=== PATIENT | female | born 1965 | race Caucasian/White ===

== ENCOUNTER 2020-06-25 13:24 | Outpatient (REF) | payer MEDICAID, SELFPAY ==
[2020-06-26 07:26] LABS: Estimated Average Glucose 137 mg/dL; Hemoglobin A1c % 6.4 %
== END 2020-06-25 13:25 | disposition home or self-care (01) ==
LOC: HO.MANLDS 13:24
PROVIDERS: PCP Internal Medicine; Visit Provider Internal Medicine
DX: R73.01 Impaired fasting glucose (principal)
CPT/HCPCS: 83036

== ENCOUNTER 2020-10-27 14:42 | Outpatient (REF) | payer MEDICAID, SELFPAY ==
[2020-10-27 18:11] LABS: Estimated Average Glucose 137 mg/dL; Hemoglobin A1c % 6.4 %
== END 2020-10-27 14:43 | disposition home or self-care (01) ==
LOC: HO.MANLR 14:42
PROVIDERS: PCP Internal Medicine; Visit Provider Internal Medicine
DX: R73.9 Hyperglycemia, unspecified (principal)
CPT/HCPCS: 36415; 83036

== ENCOUNTER 2020-11-17 13:37 | Outpatient (REF) | payer MEDICAID, SELFPAY ==
[2020-11-17 18:05] LABS: MANUAL DIFF FLAG NO
[2020-11-17 18:09] LABS: Basophils Absolute Auto 0.1 X10*3/uL (0.0-0.2); Basophils Percent Auto 0.7 % (0-2); Eosinophils Absolute Auto 0.2 X10*3/uL (0.0-0.4); Eosinophils Percent Auto 2.1 % (0-4); Hematocrit 41.7 % (37-47); Hemoglobin 13.2 g/dl (12.0-16.0); Imm Gran Abs Auto 0.03 X10*3/uL (0.00-0.03); Imm Gran Pct Auto 0.4 % (0.0-0.4); Lymphocytes Absolute Auto 2.2 X10*3/uL (1.2-4.9); Lymphocytes Percent Auto 28.4 % (20-40); Mean Corpuscular HGB Conc 31.7 g/dl (31.0-35.0); Mean Corpuscular Hemoglobin 28.1 pg (27.0-33.0); Mean Corpuscular Volume 88.9 fL (80-98); Mean Platelet Volume 10.1 fL (9.4-12.3); Monocytes Absolute Auto 0.5 X10*3/uL (0.1-1.2); Monocytes Percent Auto 6.1 % (2-11); Neutrophils Absolute Auto 4.7 X10*3/uL (2.0-8.3); Neutrophils Percent Auto 62.3 % (45-73); Platelet Count 345 X10*3/uL (160-400); Red Blood Count 4.69 X10*6/uL (4.20-5.50); Red Cell Distribution Width 13.4 % (11.0-16.0); White Blood Count 7.6 X10*3/uL (4.8-10.8)
[2020-11-17 18:35] LABS: Anion Gap 15 (12-20); Blood Urea Nitrogen 21 mg/dL (9-16); Calcium 9.2 mg/dL (8.4-10.2); Carbon Dioxide 27 mmol/L (22-29); Chloride 103 mmol/L (96-108); Estimated Glomerular Filt Rate 56; Glucose Random 112 mg/dL (60-115); Iron 61 mcg/dL (30-160); Percent Iron Saturation 17 % (15-50); Potassium 4.1 mmol/L (3.3-5.1); Sodium 141 mmol/L (135-145); Total Iron Binding Capacity 355 mcg/dL (228-428); Unsaturated Iron Binding 294 ug/dL
[2020-11-17 18:52] LABS: Erythrocyte Sedimentation Rate 40 MM/HR (0-20)
[2020-11-17 18:56] LABS: Ferritin 64 ng/mL (10-250); TSH reflex Free T4 0.91 uIU/mL (0.32-4.0)
== END 2020-11-17 13:38 | disposition home or self-care (01) ==
LOC: HO.MANLDS 13:37
PROVIDERS: PCP Internal Medicine; Visit Provider Internal Medicine
DX: R53.83 Other fatigue (principal); E61.1 Iron deficiency
CPT/HCPCS: 36415; 80048; 82728; 83540; 84443; 85025; 85652

== ENCOUNTER 2020-12-03 10:41 | Outpatient (REF) | payer MEDICAID, SELFPAY ==
[2020-12-03 14:16] LABS: Estimated Average Glucose 134 mg/dL; Hemoglobin A1c % 6.3 %
[2020-12-03 14:51] LABS: Erythrocyte Sedimentation Rate 31 MM/HR (0-20)
[2020-12-03 14:55] LABS: Vitamin D 25-OH Total 42.5 ng/mL (>30)
[2020-12-04 13:26] LABS: EBV-VCA IgG Ab >750.00 U/mL; EBV-VCA IgM Ab <36.00 U/mL
[2020-12-04 13:51] LABS: CRP High Sensitivity >10.0 mg/L
[2020-12-23 07:41] LABS: Parvovirus B19 IgM 0.1 (<0.9)
[2020-12-24 17:11] LABS: Parvovirus B19 IgG <0.9
== END 2020-12-03 10:42 | disposition home or self-care (01) ==
LOC: HO.MANLDS 10:41
PROVIDERS: PCP Internal Medicine; Visit Provider Internal Medicine
DX: R73.9 Hyperglycemia, unspecified (principal); R70.0 Elevated erythrocyte sedimentation rate
CPT/HCPCS: 36415; 82306; 83036; 85652; 86141; 86664; 86665; 86747

== ENCOUNTER 2020-12-10 15:11 | Outpatient (REF) | payer MEDICAID, SELFPAY | END 2020-12-10 15:12 | disposition home or self-care (01) | LOC: HO.MANLDS 15:11 | PROVIDERS: PCP Internal Medicine; Visit Provider Physician Assistant | DX: R30.9 Painful micturition, unspecified (principal) | CPT/HCPCS: 87086 ==

== ENCOUNTER 2021-07-13 12:15 | Outpatient (REF) | payer MEDICAID, SELFPAY ==
[2021-07-13 18:15] LABS: Estimated Average Glucose 134 mg/dL; Hemoglobin A1c % 6.3 %; Rheumatoid Factor < 15.0 IU/mL (<15.0)
[2021-07-13 18:52] LABS: Erythrocyte Sedimentation Rate 44 MM/HR (0-20)
[2021-07-15 13:56] LABS: Anti Nuclear Antibody Screen NEGATIVE (NEGATIVE)
== END 2021-07-13 12:16 | disposition home or self-care (01) ==
LOC: HO.MANLDS 12:15
PROVIDERS: PCP Physician Assistant; Visit Provider Physician Assistant
DX: M08.3 Juvenile rheumatoid polyarthritis (seronegative) (principal); R73.01 Impaired fasting glucose
CPT/HCPCS: 36415; 83036; 85652; 86038; 86039; 86431

== ENCOUNTER 2021-11-14 16:12 | Outpatient (REF) | payer MEDICAID, SELFPAY ==
[2021-11-14 18:05] LABS: Estimated Average Glucose 140 mg/dL; Hemoglobin A1c % 6.5 %
[2021-11-16 14:36] LABS: Immunoglobulin A 161 mg/dL (47-310)
[2021-11-16 23:13] LABS: Gliadin Deamidated IgA Ab <1.0 U/mL; Gliadin Deamidated IgG Ab <1.0 U/mL; Transglutaminase Ab IgG <1.0 U/mL; Transglutaminase IgA <1.0 U/mL
[2021-11-18 16:16] LABS: Endomysial IgA Antibody Negative (Negative)
== END 2021-11-14 16:13 | disposition home or self-care (01) ==
LOC: HO.MANLDS 16:12
PROVIDERS: PCP Internal Medicine; Visit Provider Internal Medicine
DX: R73.01 Impaired fasting glucose (principal); R10.32 Left lower quadrant pain
CPT/HCPCS: 36415; 82784; 83036; 86231; 86258; 86364

== ENCOUNTER 2022-08-30 10:39 | Outpatient (REF) | payer MEDICAID, SELFPAY ==
[2022-08-30 14:20] LABS: Estimated Average Glucose 131 mg/dL; Hemoglobin A1c % 6.2 %
[2022-08-30 14:21] LABS: Alanine Aminotransferase 13 U/L (0-31); Albumin Level 3.9 g/dL (3.5-5.0); Alkaline Phosphatase 98 U/L (39-117); Anion Gap 13 (12-20); Aspartate Amino Transferase 12 U/L (5-31); Bilirubin Total 0.4 mg/dL (0.0-1.0); Blood Urea Nitrogen 25 mg/dL (9-16); Calcium 9.3 mg/dL (8.4-10.2); Carbon Dioxide 24 mmol/L (22-29); Chloride 108 mmol/L (96-108); Cholesterol 227 mg/dL; Estimated Glomerular Filt Rate 57; Glucose Random 125 mg/dL (60-115); HDL Cholesterol 49 mg/dL; LDL Cholesterol Calculated 150 mg/dl; Potassium 3.6 mmol/L (3.3-5.1); Sodium 141 mmol/L (135-145); Total Protein 6.7 g/dL (6.5-8.0); Triglycerides 144 mg/dL
[2022-08-30 18:41] LABS: Creatinine Urine 69.82 mg/dL; Microalbumin Urine < 5.0 mg/L
[2022-08-31 13:03] LABS: Immunoglobulin A 158 mg/dL (47-310)
[2022-08-31 20:54] LABS: Gliadin Deamidated IgA Ab <1.0 U/mL; Gliadin Deamidated IgG Ab <1.0 U/mL
[2022-09-02 13:38] LABS: Endomysial IgA Antibody Negative (Negative)
[2022-09-03 09:52] LABS: Transglutaminase Ab IgG <1.0 U/mL; Transglutaminase IgA <1.0 U/mL
== END 2022-08-30 10:40 | disposition home or self-care (01) ==
LOC: HO.MANLDS 10:39
PROVIDERS: Visit Provider Internal Medicine
DX: R10.32 Left lower quadrant pain (principal); E11.9 Type 2 diabetes mellitus without complications
CPT/HCPCS: 36415; 80053; 80061; 82043; 82784; 83036; 86231; 86258; 86364

== ENCOUNTER 2022-12-05 10:26 | Outpatient (REF) | payer MEDICAID, SELFPAY ==
[2022-12-05 13:13] LABS: Estimated Average Glucose 128 mg/dL; Hemoglobin A1C 149.9289 umol/L; Hemoglobin A1c % 6.1 %
[2022-12-05 13:28] LABS: Alanine Aminotransferase 17 U/L (0-31); Albumin Level 3.9 g/dL (3.5-5.0); Alkaline Phosphatase 85 U/L (39-117); Anion Gap 15 (12-20); Aspartate Amino Transferase 16 U/L (5-31); Bilirubin Total 0.6 mg/dL (0.0-1.0); Blood Urea Nitrogen 28 mg/dL (9-16); Calcium 9.4 mg/dL (8.4-10.2); Carbon Dioxide 26 mmol/L (22-29); Chloride 106 mmol/L (96-108); Cholesterol 223 mg/dL; Estimated Glomerular Filt Rate 58; Glucose Random 142 mg/dL (60-115); HDL Cholesterol 48 mg/dL; LDL Cholesterol Calculated 145 mg/dl; Potassium 4.5 mmol/L (3.3-5.1); Sodium 142 mmol/L (135-145); Total Protein 6.5 g/dL (6.5-8.0); Triglycerides 150 mg/dL
[2022-12-05 13:36] LABS: Creatinine Urine 78.44 mg/dL; Microalbumin Urine < 5.0 mg/L
== END 2022-12-05 10:27 | disposition home or self-care (01) ==
LOC: HO.MANLDS 10:26
PROVIDERS: Visit Provider Internal Medicine
DX: E11.9 Type 2 diabetes mellitus without complications (principal)
CPT/HCPCS: 36415; 80053; 80061; 82043; 83036

== ENCOUNTER 2023-03-05 11:30 | Outpatient (REF) | payer MEDICAID, SELFPAY ==
[2023-03-05 13:27] LABS: MANUAL DIFF FLAG NO
[2023-03-05 13:53] LABS: Basophils Absolute Auto 0.1 X10*3/uL (0.0-0.2); Eosinophils Absolute Auto 0.2 X10*3/uL (0.0-0.4); Eosinophils Percent Auto 2.4 % (0-4); Hematocrit 40.8 % (37.0-47.0); Hemoglobin 12.7 g/dl (12.0-16.0); Imm Gran Abs Auto 0.04 X10*3/uL (0.00-0.03); Imm Gran Pct Auto 0.5 % (0.0-0.4); Lymphocytes Absolute Auto 1.7 X10*3/uL (1.2-4.9); Lymphocytes Percent Auto 20.4 % (20-40); Mean Corpuscular HGB Conc 31.1 g/dl (31.0-35.0); Mean Corpuscular Hemoglobin 27.7 pg (27.0-33.0); Mean Corpuscular Volume 88.9 fL (80.0-98.0); Mean Platelet Volume 10.6 fL (9.4-12.3); Monocytes Absolute Auto 0.5 X10*3/uL (0.1-1.2); Monocytes Percent Auto 6.3 % (2-11); Neutrophils Absolute Auto 5.8 x10*3/uL (2.0-8.3); Neutrophils Percent Auto 69.4 % (45-73); Platelet Count 300 X10*3/uL (160-400); Red Blood Count 4.59 X10*6/uL (4.20-5.50); Red Cell Distribution Width 14.2 % (11.0-16.0); White Blood Count 8.4 X10*3/uL (4.8-10.8)
[2023-03-05 14:13] LABS: Estimated Average Glucose 120 mg/dL; Hemoglobin A1c % 5.8 %
[2023-03-05 14:30] LABS: Alanine Aminotransferase 18 U/L (0-31); Alkaline Phosphatase 89 U/L (39-117); Anion Gap 14 (12-20); Aspartate Amino Transferase 14 U/L (5-31); Bilirubin Total 0.4 mg/dL (0.0-1.0); Blood Urea Nitrogen 22 mg/dL (9-16); Calcium 9.7 mg/dL (8.4-10.2); Carbon Dioxide 28 mmol/L (22-29); Chloride 103 mmol/L (96-108); Cholesterol 208 mg/dL; Estimated Glomerular Filt Rate > 60; Glucose Random 127 mg/dL (60-115); HDL Cholesterol 55 mg/dL; LDL Cholesterol Calculated 118 mg/dl; Potassium 3.8 mmol/L (3.3-5.1); Sodium 141 mmol/L (135-145); Total Protein 7.2 g/dL (6.5-8.0); Triglycerides 175 mg/dL
[2023-03-05 14:31] LABS: Creatinine Urine 47.61 mg/dL; Microalbum/Creatinine Ratio Ur 18.9 ug/mg cr
== END 2023-03-05 11:31 | disposition home or self-care (01) ==
LOC: HO.MANLDS 11:30
PROVIDERS: Visit Provider Internal Medicine
DX: E11.9 Type 2 diabetes mellitus without complications (principal)
CPT/HCPCS: 36415; 80053; 80061; 82043; 83036; 85025

== ENCOUNTER 2023-04-03 14:53 | Outpatient (REF) | payer MEDICAID, SELFPAY ==
[2023-04-03 17:54] LABS: Calcium 10.1 mg/dL (8.4-10.2)
[2023-04-03 18:18] LABS: Thyroid Stimulating Hormone 0.77 uIU/mL (0.32-4.0)
[2023-04-05 10:48] LABS: Calcium (PTHI) 9.6 mg/dL (8.6-10.4); PTHI 67 pg/mL (16-77)
== END 2023-04-03 14:54 | disposition home or self-care (01) ==
LOC: HO.MANLDS 14:53
PROVIDERS: Visit Provider Physician Assistant
DX: J35.8 Other chronic diseases of tonsils and adenoids (principal)
CPT/HCPCS: 36415; 82310; 83970; 84439; 84443

== ENCOUNTER 2023-04-03 16:12 | Outpatient (REF) | payer MEDICAID, SELFPAY | END 2023-04-03 16:13 | disposition home or self-care (01) | LOC: HO.MANLNP 16:12 | PROVIDERS: Visit Provider Physician Assistant | DX: R07.0 Pain in throat (principal) | CPT/HCPCS: 87070 ==

== ENCOUNTER 2023-08-31 10:33 | Outpatient (REF) | payer MEDICAID, SELFPAY ==
[2023-08-31 14:06] LABS: Estimated Average Glucose 126 mg/dL
[2023-08-31 14:26] LABS: Alanine Aminotransferase 16 U/L (0-31); Alkaline Phosphatase 82 U/L (39-117); Anion Gap 13 (12-20); Aspartate Amino Transferase 14 U/L (5-31); Bilirubin Total 0.4 mg/dL (0.0-1.0); Blood Urea Nitrogen 27 mg/dL (9-16); Calcium 9.8 mg/dL (8.4-10.2); Carbon Dioxide 27 mmol/L (22-29); Chloride 105 mmol/L (96-108); Cholesterol 233 mg/dL (<200); Estimated Glomerular Filt Rate 56; Glucose Random 131 mg/dL (60-115); HDL Cholesterol 55 mg/dL (>40); LDL Cholesterol Calculated 148 mg/dL (<100); Potassium 3.6 mmol/L (3.3-5.1); Sodium 141 mmol/L (135-145); Total Protein 7.3 g/dL (6.5-8.0); Triglycerides 154 mg/dL (<150)
[2023-08-31 15:18] LABS: Creatinine Urine 44.99 mg/dL; Microalbumin Urine < 5.0 mg/L
== END 2023-08-31 10:34 | disposition home or self-care (01) ==
LOC: HO.MANLDS 10:33
PROVIDERS: Visit Provider Internal Medicine
DX: E11.9 Type 2 diabetes mellitus without complications (principal)
CPT/HCPCS: 36415; 80053; 80061; 82043; 82570; 83036

== ENCOUNTER 2025-05-08 18:44 | Outpatient (REF) | payer MEDICAID, SELFPAY ==
--- OUTSIDE RECORDS SUMMARY | 2024-03-23 10:06 | XMS_ITS | Encounter Summary ---
Author Organization [facility] Address [address] [place] [address] Phone Care Team Providers Care Automation And Controls Manager Name Role Phone Gaudencio Garcia MD Unavailable [phone] Erik Sam MD Unavailable [phone] Marisa Madera MD Unavailable [phone] Daniel Nelson DO Primary Care Provider Encounter Details Date Type Department Care Team (Late st Contact Info) Description 03/23/2024 10:06 AM EDT Hospital Encounter [facility] Ur[facility] Care [address] [place] [address] [phone] Viky Aguila, CREAM CHEESE MAKER [address] [place] [address], [address] [place] [address] [email or web address] Social History Tobacco Use Types Packs/Day Years [...] 08/17/2024 12:43 AM Susan Harrington RN * [place] Suicide Severity Rating Scale (Screener/Recent Self-Report) Question [...] Care Team (Late st Contact Info) Description 05/13/2025 1:30 PM EDT Nurse Only [facility] Pulmonary, Allergy and Critical Care Medicine [address] [place] [address] Gaudencio Garcia MD [address] [place] [phone] 07/07/2025 2:00 PM EST Office Visit [facility] Allergy Center at [address] [place] 850 [facility] [address] [place] [address] Krishna German MD [address] [place] [address], Division of Rheumatology, [place] [address] [email or web address] 09/16/2025 2:30 PM EST Office Visit [facility] Pulmonary, Allergy and Critical Care Medicine [address] [place] [address] Gaudencio Garcia MD [address] [place] [address] [email or web address] documented as of this encounter Procedures Procedure [...] initiated on 03/23/2024 10:41 AM, Message ID [id number]. Narrative 03/23/2024 10:41 AM EDT XR FOOT [...] was initiated on 03/23/2024 10:41 AM,Message ID [id number]. Viky Aguila CREAM CHEESE MAKER IM XR LOWER EXTREMITY Final Result documented in this encounter Visit Diagnoses Not on filedocumented in this encounter Additional Health Concerns Infection Onset Date Last Indicated Resolved Time CoV-Risk 08/17/2024 08/17/2024 08/28/2024 1:21 AM EST documented as of this encounter Care Teams Automation And Controls Manager Relationship Specialty Start Date End Date Daniel Nelson DO [address] [place] [address] [email or web address] PCP - General Internal Medicine 10/07/20 04/22/25 Gaudencio Garcia MD [address] [place] [address] [email or web address] Historical LMR Provider 06/03/17 Erik Sam MD [address] [address] [email or web address] Historical LMR Provider 06/03/17 Marisa Madera MD [address] [place] [address] [email or web address] Historical LMR Provider 06/03/17 documented as of this encounter Additional Source Comments The information contained in this document represents components of the legal health record. It is not the complete legal health record.[facility]
--- OUTSIDE RECORDS SUMMARY | 2025-05-08 18:47 | XMS_ITS | Encounter Summary ---
Author Organization [facility] Address [address] [place] [address] Phone Care Team Providers Care Television Installer Name Role Phone Gaudencio Garcia MD Unavailable [phone] Erik Sam MD Unavailable [phone] Marisa Madera MD Unavailable [phone] BigDaniel aquino DO Primary Care Provider [phone] Daniel Nelson DO Unavailable BigDaniel aquino DO Primary Care Provider [phone] Encounter Details Date Type Department Care Team (Late Contact Info) Description 10/17/2021 Procedure Pass [facility], [address] [address] Social History Tobacco Use Types Packs/Day Years Used Date Smoking Tobacco: Never Smokeless Tobacco: Never Alcohol Use Standard Drinks/Week Comments Yes 0 (1 standard drink = 0.6 oz pur e alcohol) Rare Comments No Sex and Gender Information Value Date Recorded Sex Assigned at Female 10/30/2020 2:56 PM EDT Legal Sex Female 9:44 PM EDT Gender Identity Female 10/30/2020 2:56 PM EDT Sexual Orientation Straight 10/30/2020 2: 56 PM EDT documented as of this encounter Plan of Treatment Upcoming Encounters Date Type Department Care Team (Late Contact Info) Description 05/13/2025 1:30 PM EDT Nurse Only [facility] Pulmonary, Allergy and Critical Care Medicine [address] [place] [address] Gaudencio Garcia MD [address] [place] [address] 07/07/2025 2:00 PM EST Office Visit [facility] Allergy Center at [address] [place] 850 [facility] [address] [place] [address] Krishna German MD [address] [place] [address], Division of Rheumatology, Immunology [place] [address] [email or web address] 09/16/2025 2:30 PM EST Office Visit [facility] Pulmonary, Allergy and Critical Care Medicine [address] [place] [address] Gaudencio Garcia MD [address] [place] [phone] documented as of this encounter Visit Diagnoses Not on filedocumented in this encounter Additional Health Concerns Infection Onset Date Last Indicated Resolved Time CoV-Exposed Comment:Pt exposed to + staff 04/17/23 04/17/2023 04/20/2023 1:24 AM EDT CoV-Risk 08/17/2024 08/17/2024 08/28/2024 1:21 AM EST documented as of this encounter Care Teams Television Installer Relationship Specialty Start Date End Date Daniel Nelson DO [address] [address] PCP - General Internal Medicine 10/07/20 04/22/25 Daniel Nelson DO [address] [place] [address] PCP - General Internal Medicine 04/23/25 Gaudencio Garcia MD [address] [place] [address] [email or web address] Historical LMR Provider 06/03/17 Erik Sam MD [address] [address] [email or web address] Historical LMR Provider 06/03/17 Marisa Madera MD [address] [place] [address] [email or web address] Historical LMR Provider 06/03/17 Daniel Nelson DO [address] [place] [address] [place] [address] [email or web address] Insurance Assigned Provider 11/10/17 12/30/22 documented as of this encounter Additional Source Comments The information contained in this document represents components of the legal health record. It is not the complete legal health record.[facility]
--- OUTSIDE RECORDS SUMMARY | 2025-05-08 18:47 | XMS_ITS | Clinical Summary ---
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 Oxygen Concentration - - Weight 136.2 kg (300 lb 3.2 oz) 04/16/2025 1:58 PM EDT Height 167.6 cm (5' 6 ) 04/16/2025 1:58 PM EDT Body Mass Index 48.45 04/16/2025 1:58 PM EDT Plan of Treatment Upcoming Encounters Date Type Department Care Team (Late st Contact Info) Description 05/13/2025 1:30 PM EDT Nurse Only [facility] [address] [place] [phone] Gaudencio Garcia MD [address] [place] [phone] 07/07/2025 2:00 PM EST Office Visit [facility] Allergy [facility] at [address] [facility] [address] [place] [address] Krishna German MD [address] [place] [address], Division of Rheumatology, [place] [address] [email or web address] 09/16/2025 2:30 PM EST Office Visit [facility] [address] [place] [phone] Gaudencio Garcia MD [address] [place] [phone] [email or web address] Health Maintenance Due Date Last Done Comments DEPRESSION SCREENING 1975 HEPATITIS C SCREENING 1981 HIV ONE-TIME SCREENING (18-65 YEARS) 1981 PNEUMOCOCCAL VACCINES (50+ years) (1 of 2 - PCV) 1982 COLOGUARD 2008 FIT TEST 2008 FOBT 2008 SIGMOIDOSCOPY 2008 VIRTUAL COLONOSCOPY 2008 DIABETIC EYE EXAM 04/17/2023 RSV VACCINE (1 - Risk 60-74 years 1-dose series) 2023 INFLUENZA VACCINE (#1) 2025 , 06/17/2021, 2020, Additional history exists COVID-19 VACCINE ( season) 2025 08/21/2022, 09/12/2021, 09/12/2021, Additional history exists HEMOGLOBIN A1C 05/19/2025 11/17/2024, 12/2024, 05/25/2023, Additional history exists MAMMOGRAM 07/06/2025 07/06/2023, 04/2022, 11/02/2020, Additional history exists BLOOD PRESSURE 10/14/2025 04/16/2025 LIPID PANEL 11/17/2025 11/17/2024, 05/13, 08/30/2022, Additional history exists CREATININE LEVEL 03/30/2026 03/30/2025, 02/2025, 08/17/2024, Additional history exists POTASSIUM LEVEL 03/30/2026 03/30/2025, 02/2025, 08/17/2024, Additional history exists Adult Td,Tdap Booster 06/18/2028 06/18/2018 COLONOSCOPY 12/08/2032 12/08/2022 COLORECTAL CANCER SCREENING 12/08/2032 ZOSTER VACCINES Completed 07/16/2019, 05/09/2019 SMOKING STATUS SCREENING (Once After 26 Yrs) Completed 02/27/2025 HEPATITIS A VACCINES Aged Out No long er eligible based on patient's age to complete this topic HIB VACCINES Aged Out No longer eligi ble based on patient's age to complete this topic MENINGOCOCCAL VACCINES (ACWY) Aged Out No longer eligible based on patient's age to complete this topic MENINGOCOCCAL VACCINES (B) Aged Out N o longer eligible based on patient's age to complete this topic Medical Devices Not on file Procedures Procedure Name Priority Date/Time Associated Diagnosis Comments 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 Routine 04/02/2025 2: 43 PM EDT TRYPTASE Routine 04/02/2025 2:43 PM EDT Allergy to multiple drugs TRYPTASE Routine 03/30/2025 2:48 PM EDT Elevated serum tryptase CBC AND DIFFERENTIAL Routine 03/30/2025 2:48 PM EDT Elevated serum tryptase COMPREHENSIVE METABOLIC PANEL Routine 03/30/2025 2:48 PM EDT Elevated serum tryptase MAGNESIUM Routine 03/10/2025 2:06 PM EDT Hypercalcemia TSH WITH REFLEX Routine 03/10/2025 2:06 PM EDT Hypercalcemia FREE T4 Routine 03/10/2025 2:06 PM EDT Hypercalcemia PARATHYROID HORMONE (PTH) Routine 03/10/2025 2:06 PM EDT Hypercalcemia PHOSPHORUS Routine 03/10/2025 2:06 PM EDT Hypercalcemia 25-OH VITAMIN D Routine 03/10/2025 2:06 PM EDT Hypercalcemia TRYPTASE Routine 03/10/2025 2:06 PM EDT Allergy to multiple drugs XR HIPS 2+ VW EA BILAT PLUS PELVIS Routine 02/10/2025 12:34 PM EDT Bilateral hip pain XR RIBS 2 VIEWS (LEFT) Routine 02/10/2025 12:33 PM EDT Other chest pain XR CHEST PA AND LATERAL 2 VIEWS Routine 02/10/2025 12:33 PM EDT Other chest pain PULMONARY FUNCTION TEST Routine 02/09/2025 2:30 PM EDT Moderate persistent asthma without complication HEMOGLOBIN A1C Routine 11/17/2024 3:43 PM EDT Chronic diastolic heart failure Primary hypertension Pulmonary hypertension Dyspnea on exertion LIPID PANEL Routine 11/17/2024 3:43 PM EDT Chronic diastolic heart failure Primary hypertension Pulmonary hypertension Dyspnea on exertion BI MAMMOGRAM SCREENING WITH TOMOSYNTHESIS WITH CAD (BILATERAL) Routine 07/06/2023 3:41 PM EST Mass of right breast, unspecified quadrant ENDOSCOPY, COLON 12/08/2022 8:45 AM EDT from Last 3 Months or Most Recently Relevant to Health Maintenance Results * 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 No mutation is detected in the specific assay target region for KIT p.Tiv331Zfd (D816V). See comment. Comment: This assay evaluates for the presence of the p.Dgd195 Kelle (D816V) hotspot mutation in the KIT gene. The analytic sensitivity of the assay is 0.1% (mutated/total KIT copies). Samples with a fraction of mutated nucleic acid near or below this limit may not be detected due to sampling effects. Suboptimal DNA quantity or quality may also adversely affect the optimal assay sensitivity. Other genetic variants in KIT outside the targeted region of the assay will not be detected by this method. A negative result does not necessarily exclude the presence of a pathologic hematologic process. Correlation with clinical, pathologic and other pertinent laboratory findings is recommended. ADDITIONAL INFORMATION This test is performed using droplet digital polymerase chain reaction (ddPCR) to detect the KIT:c.2447A>T, p.Cwd523Cez ([id number]) variant. DNA extracted from patient samples is PCR-amplified using oligonucleotide primers and mutant- and wild type-specific fluorescently-labeled probes. Results are analyzed using dedicated software and Poisson statistics to provide absolute quantification of mutant target and wild type copies. Calculated results are reported as KIT p.D816V mutant fractional abundance (variant allele fraction %) (Unpublished Rosenthal method). The analytical sensitivity of this assay is 0.1%; however, sensitivity may be adversely impacted by variability in tumor cell distribution, or limited overall DNA quantity or quality. This test was developed and its performance characteristics determined by [facility] in a manner consistent with CLIA requirements. This test has not been cleared or approved by the U.S. Food and Drug Administration. Signing Pathologist Gaudencio Espinosa M.D. 04/02/2025 2:43 PM EDT 04/02/2025 4:23 PM EDT Gaudencio Garcia MD LAB BLOOD ORDERABLES Final Res ult Performing Organization Address City/[facility]/ZIP Co de Phone Number [facility] [address] [place] [address] * (ABNORMAL) Tryptase (04/02/2025 2:43 PM EDT) Only the most recent of3 resultswithin the time period is included. TRYPTASE 31.6(H) <11.5 ng/mL [facility] LAB MED/[address] Blood 04/02/2025 2:43 PM EDT 04/02/2025 2:58 PM EDT Gaudencio Garcia MD LAB BLOOD ORDERABLES Final Res ult Performing Organization Address City/[facility]/ZIP Co de Phone Number [facility] LAB MED/[address] [place] [address] * (ABNORMAL) Comprehensive metabolic panel (03/30/2025 2:48 PM EDT) SODIUM 139 133 - 146 mmol/L [facility] POTASSIUM 4.3 3.3 - 5.1 mmol/L [facility] CHLORIDE 103 96 - 108 mmol/L [facility] CO2 22 21 - 35 mmol/L [facility] BUN 29(H) 6 - 19 mg/dL [facility] CREATININE 1.00 0.5 - 1.5 mg/dL [facility] GLUCOSE 127(H) 70 - 99 mg/dL [facility] ALBUMIN 3.9 3.9 - 4.8 g/dL [facility] TOTAL PROTEIN 7.4 6.5 - 8.0 g/dL [facility] CALCIUM 9.9 8.4 - 10.3 mg/dL [facility] ALKALINE PHOSPHATASE 99 39 - 117 U/L [facility] TOTAL BILIRUBIN 0.5 0.0 - 1.2 mg/dL [facility] AST 20 0 - 37 U/L [facility] ALT 21 0 - 40 U/L [facility] GLOBULIN 3.5 1 - 4.8 g/dL [facility] EGFR 64 >59 mL/min/1.7 3m2 [facility] Comment:Estimated glomerular filtration rate calculated using the CKD-EPI refit equation. ANION GAP 18 10 - 20 mmol/L [facility] Blood 03/30/2025 2:48 PM EDT 03/30/2025 2:57 PM EDT Gaudencio Garcia MD LAB BLOOD ORDERABLES Final Res ult [facility] [address] [place] [address] * (ABNORMAL) CBC and differential (03/30/2025 2:48 PM EDT) WBC 7.82 4.00 - 11.00 K/uL [facility] RBC 4.78 4.00 - 5.20 M/uL [facility] HGB 13.3 12.0 - 16.0 g/dL [facility] HCT 42.2 36.0 - 46.0 % [facility] PLT 351 150 - 450 K/uL [facility] MCV 88.3 80.0 - 100.0 fL [facility] MCH 27.8 27.0 - 31.0 pg [facility] MCHC 31.5(L) 32.0 - 36.0 g/dL [facility] RDW 14.5 11.5 - 14.5 % [facility] MPV 10.4 8.4 - 12.0 fL [facility] NRBC 0.00 0.00 /100 WBCs [facility] ABSOLUTE NRBC 0.00 0.00 K/uL [facility] DIFF METHOD Auto [facility] NEUTS 67.1 48.0 - 76.0 % [facility] LYMPHS 21.2 18.0 - 41.0 % [facility] MONOS 7.8 4.0 - 11.0 % [facility] EOS 2.6 0.0 - 5.0 % [facility] BASOS 0.9 0.0 - 1.5 % [facility] Granulocytes, immature (%) 0.4 0.0 - 0.9 % [facility] ABSOLUTE NEUTS 5.25 1.92 - 7.60 K/uL [facility] ABSOLUTE LYMPHS 1.66 0.72 - 4.10 K/uL [facility] ABSOLUTE MONOS 0.61 0.16 - 1.10 K/uL [facility] ABSOLUTE EOS 0.20 0.00 - 0.50 K/uL [facility] ABSOLUTE BASOS 0.07 0.00 - 0.15 K/uL [facility] Granulocytes, immature 0.03 0.00 - 0.09 K/uL [facility] Blood 03/30/2025 2:48 PM EDT 03/30/2025 2:57 PM EDT us Gaudencio Garcia MD LAB BLOOD ORDERABLES Final Res ult [facility] [address] [place] [address] * TSH with reflex (03/10/2025 2:06 PM EDT) TSH 1.45 0.27 - 4.20 uIU/mL [facility] Blood 03/10/2025 2:06 PM EDT 03/10/2025 2:09 PM EDT Roberta PACK LAB BLOOD ORDERABLES Final Result Performing Organization Address [facility] Co de Phone Number [address] [address] * (ABNORMAL) 25-OH vitamin D (03/10/2025 2:06 PM EDT) 25 OH VIT D (TOTAL) 88(H) 30 - 60 ng/mL [facility] Blood 03/10/2025 2:06 PM EDT 03/10/2025 2:09 PM EDT Result [facility] Roberta PACK LAB BLOOD ORDERABLES Final Result Performing Organization Address [facility] Co de Phone Number [address] [address] * Free T4 (03/10/2025 2:06 PM EDT) FREE T4 1.2 0.9 - 1.7 ng/dL [facility] Blood 03/10/2025 2:06 PM EDT 03/10/2025 2:09 PM EDT Result [facility] Robertafredis PACK LAB BLOOD ORDERABLES Final Result Performing Organization Address [facility] Co de Phone Number [address] [address] * Phosphorus (03/10/2025 2:06 PM EDT) PHOSPHORUS 3.2 2.7 - 4.5 mg/dL [facility] Blood 03/10/2025 2:06 PM EDT 03/10/2025 2:09 PM EDT Roberta PACK LAB BLOOD ORDERABLES Final Result [address] [address] * Parathyroid hormone (PTH) (03/10/2025 2:06 PM EDT) PARATHYROID HORMONE 42 15 - 65 pg/mL [facility] Blood 03/10/2025 2:06 PM EDT 03/10/2025 2:08 PM EDT Roberta Van PACK LAB BLOOD ORDERABLES Final Result Performing Organization Address [facility]/ZIP Co de Phone Number [address] [address] * Magnesium (03/10/2025 2:06 PM EDT) MAGNESIUM 2.1 1.6 - 2.6 mg/dL [facility] Blood 03/10/2025 2:06 PM EDT 03/10/2025 2:09 PM EDT Robertafredis PACK LAB BLOOD ORDERABLES Final Result Performing Organization Address City/[facility]/ZIP Co de Phone Number [address] [address] * XR HIPS 2+ VW EA BILAT PLUS PELVIS (02/10/2025 12:34 PM EDT) Anatomical Region Laterality Modality Hip, Pelvis Computed Radiogr aphy 02/11/2025 9:02 AM EDT Impressions 02/11/2025 9:04 AM EDT FINDINGS/IMPRESSION: There is no evidence of acute fracture, subluxation, or dislocation. There is severe degenerative change of the right hip with bree-ew-hxwj joint space narrowing, marginal osteophytosis, subchondral sclerosis, subchondral cyst formation, and osseous remodeling. There is mild degenerative change of the left hip. The sacroiliac joints and symphysis pubis are congruent. There is incompletely evaluated degenerative change of the lower lumbar spine. Narrative 02/11/2025 9:04 AM EDT XR HIPS 2+ VW EA BILAT PLUS PELVIS 02/10/2025 11:46 AM Referring clinician's provided indication for this examination in [facility]: Outside Radiology Order; chest pain COMPARISON: CT abdomen and pelvis 06/21/2023, pelvis/right hip radiographs 12/01/2022 Procedure Note Annemarie Jordan MD - 02/11/2025 XR HIPS 2+ VW EA BILAT PLUS PELVIS 02/10/2025 11:46 AM Referring clinician's provided indication for this examination in [facility]:Outside Radiology Order; chest pain COMPARISON: CT abdomen and pelvis 06/21/2023, pelvis/right hip radiographs12/01/2022 IMPRESSION: FINDINGS/IMPRESSION: There is no evidence of acute fracture, subluxation, or dislocation. Thereis severe degenerative change of the right hip with bwzp-pj-tmvw jointspace narrowing, marginal osteophytosis, subchondral sclerosis,subchondral cyst formation, and osseous remodeling. There is milddegenerative change of the left hip. The sacroiliac joints and symphysispubis are congruent. There is incompletely evaluated degenerative changeof the lower lumbar spine. us Inez A Bigda DO IMG XR PELVIS Final Result * XR RIBS 2 VIEWS (LEFT) (02/10/2025 12:33 PM EDT) Anatomical Region Laterality Modality Chest Computed Radiogr aphy 02/11/2025 8:58 AM EDT Impressions 02/11/2025 9:01 AM EDT FINDINGS/IMPRESSION: No acute displaced rib fracture is identified. Narrative 02/11/2025 9:01 AM EDT XR RIBS 2 VIEWS (LEFT) Referring clinician's provided indication for this examination in [facility]: Outside Radiology Order; chest pain COMPARISON: Chest radiographs performed concurrently 02/10/2025 Procedure Note Annemarie Jordan MD - 02/11/2025 XR RIBS 2 VIEWS (LEFT) Referring clinician's provided indication for this examination in [facility]:Outside Radiology Order; chest pain COMPARISON: Chest radiographs performed concurrently 02/10/2025 IMPRESSION: FINDINGS/IMPRESSION: No acute displaced rib fracture is identified. us Inez A Bigda DO IMG XR CHEST Final Result * XR CHEST PA AND LATERAL 2 VIEWS (02/10/2025 12:33 PM EDT) Anatomical Region Laterality Modality Chest Computed Radiogr aphy 02/10/2025 12:3 4 PM EDT Impressions 02/10/2025 12:53 PM EDT No acute cardiopulmonary abnormality apparent. Narrative 02/10/2025 12:53 PM EDT XR CHEST PA AND LATERAL 2 VIEWS Referring clinician's provided indication for this examination in [facility]: Other Indication (Please use free text); chest pain COMPARISON: 08/17/2024 FINDINGS: Devices/Tubes/Lines: None. Lungs: Well-expanded and overall clear without focal airspace infiltrate or significant interstitial abnormality. Pleura: No pleural effusion or pneumothorax. Heart/Mediastinum: Heart and pulmonary vessels stable in size when allowing for differences in technique. Bones/Soft Tissues: Visualized bony thorax intact. Procedure Note Gaudencio Buenrostro MD - 02/10/2025 XR CHEST PA AND LATERAL 2 VIEWS Referring clinician's provided indication for this examination in [facility]:Other Indication (Please use free text); chest pain COMPARISON: 08/17/2024 FINDINGS: Devices/Tubes/Lines: None. Lungs: Well-expanded and overall clear without focal airspace infiltrateor significant interstitial abnormality. Pleura: No pleural effusion or pneumothorax. Heart/Mediastinum: Heart and pulmonary vessels stable in size whenallowing for differences in technique. Bones/Soft Tissues: Visualized bony thorax intact. IMPRESSION: No acute cardiopulmonary abnormality apparent. us Inez A Bigda DO IMG XR CHEST Final Result * Pulmonary Function Test Reason for Exam: Asthma; Type of PFT Test: Spirometry with bronchodilator (with Xopenex (patient provides)), DLCO (with Xopenex (patient provides)), Lung Volumes (with Xopenex(patient provides)); Additional Testing: Exhale... (02/09/2025 2:30 PM EDT) FEV1 2.14 liters FVC 2.97 liters FEV1/FVC 72 % TLC 4.41 liters DLCO 18.78 ml/mmHg sec Anatomical Region Laterality Modality Other Impressions 02/09/2025 2:30 PM EDT PULMONARY FUNCTION STUDIES Full pulmonary function studies were performed on this 59 y.o. year-old female for evaluation of asthma. Review of the medical record reveals that the patient is a never smoker. Prior pulmonary function studies from January 2019 and September 2017 are available for comparison. SPIROMETRY: The FEV1 is normal at 2.04 L or 78% predicted. The FVC is normal at 2.94 L or 88% predicted. The FEV1/FVC ratio is normal at 69%. After the administration of a bronchodilator agent, there is no technically significant change. FLOW-VOLUME LOOPS: Evaluation of the flow-volume loops reveals normal morphology of both the inspiratory and expiratory limbs with no significant difference when comparing the tracings performed pre- and post-bronchodilator. LUNG VOLUME MEASUREMENTS BY PLETHYSMOGRAPHY: The total lung capacity is mildly impaired (z-score between -1.65 and -2.5) at 4.41 L or 80% predicted. The RV/TLC ratio is normal at 38%. DIFFUSION CAPACITY: The diffusion capacity is normal at 18.78 mL/mmHg sec or 91% predicted. Fraction of exhaled nitric oxide (FeNO): 13ppb (normal) COMPARISON TO PRIOR STUDIES: When comparing to prior studies, there has been no significant change. Resting oxygen saturation is 95% on room air. IMPRESSION: Mildly abnormal pulmonary function studies with normal spirometry without evidence for significant airflow obstruction or bronchial hyperreactivity. There is minor restrictive physiology with mildly reduced total lung capacity, likely based on body habitus, but normal diffusion capacity, the latter of which has notably improved compared to prior studies. No findings to account for patient's reported exertional dyspnea and no evidence of poor asthma control based on this testing. Clinical correlation advised. Technical Note: As of 06/24/2024, the [facility] Pulmonary Function Testing (PFT) Laboratory transitioned from using race-specific to using race-neutral equations for determining lung function predicted values for all persons. Due to this change some individuals previously classified as either normal or abnormal may now change from one to the other category without a true change in lung function. Such changes, as well as changes in severity classification, should be considered broadly and in their clinical context. Absolute values of lung function are unaffected. For further questions please contact the interpreting physician or PFT geophysical laboratory supervisor. For further discussion of this issue please see Graeme et al [facility] 2022;[phone]. Please Note: Not all PFT labs within, or outside of, our system will be transitioning to new reference equations at the same time. For this reason, please pay close attention to absolute values when comparing results done at different testing locations within or outside of our system. Gaudencio Garcia MD PFT ORDERABLES Final Result * (ABNORMAL) Hemoglobin A1c (11/17/2024 3:43 PM EDT) [facility] HEMOGLOBIN A1C 6.4(H) 4.3 - 5.8 % [facility] Blood 11/17/2024 3:43 PM EDT 11/17/2024 3:52 PM EDT Erik Sam MD LAB BLOOD ORDERABLES Final Result [facility] [address] [place] [address] * (ABNORMAL) Lipid panel (11/17/2024 3:43 PM EDT) [facility] HDL 56 mg/dL [facility] Comment: Interpretation <40 mg/dL: Low HDL cholesterol (major risk factor for CHD) Greater than or equal to 60 mg/dL: High HDL cholesterol ( negative risk factor for CHD) HDL - cholesterol is affected by a number of factors, e.g. smoking, excerise, hormones, sex and age. CHOLESTEROL 233 0 - 240 mg/dL [facility] TRIGLYCERIDES 239(H) 30 - 160 mg/dL [facility] LDL 129 50 - 129 mg/dL [facility] Comment: LDL levels in terms of risk for coronary heart disease: <100 mg/dL: Optimal 100-129 mg/dL: Near or above optimal 130-159 mg/dL: Borderline high 160-189 mg/dL: High >190 mg/dL: Very High CARDIAC RISK RATIO 4.2 3.3 - 4.4 [facility] Blood 11/17/2024 3:43 PM EDT 11/17/2024 3:52 PM EDT us Erik Sam MD LAB BLOOD ORDERABLES Final Result Performing Organization Address City/State/[facility] Co de Phone Number [facility] [address] [place], [place] [id number] * BI MAMMOGRAM SCREENING WITH TOMOSYNTHESIS WITH CAD (BILATERAL) (07/06/2023 3:41 PM EST) Anatomical Region Laterality Modality Breast Left, Breast Right, Breast Bilateral Bila teral Mammography 07/09/2023 2:06 PM EST Impressions 07/09/2023 2:09 PM EST No mammographic signs of malignancy. Annual screening is recommended. BI-RADS CATEGORY: 2 - Benign finding. DENSITY: There are scattered fibroglandular densities. LEFT RECOMMENDATION DUE DATE: 12 Months Left Mammography Screening RIGHT RECOMMENDATION DUE DATE: 12 Months Right Mammography Screening Narrative 07/09/2023 2:09 PM EST Bilateral mammography is performed in conjunction with computed aided detection. 3-D tomography along with 2-D C view imaging was also performed. Comparison made to previous dated as far back as 05/16/2017 and as recent as 06/21/2022. Bilateral benign calcifications are seen. 2 stable mass densities are identified in the right upper outer breast. No suspicious masses, areas of architectural distortion or suspicious microcalcifications. Procedure Note Casey Otoole MD - 07/09/2023 Bilateral mammography is performed in conjunction with computed aideddetection. 3-D tomography along with 2-D C view imaging was alsoperformed. Comparison made to previous dated as far back as 05/16/2017 andas recent as 06/21/2022. Bilateral benign calcifications are seen. 2 stable mass densities are identified in the right upper outer breast. No suspicious masses, areas of architectural distortion or suspiciousmicrocalcifications. IMPRESSION: No mammographic signs of malignancy. Annual screening is recommended. BI-RADS CATEGORY: 2 - Benign finding. DENSITY: There are scattered fibroglandular densities. LEFT RECOMMENDATION DUE DATE: 12 Months Left Mammography Screening RIGHT RECOMMENDATION DUE DATE: 12 Months Right Mammography Screening us Yamel Tate MD IMG MG EXAMS Final Result * ENDOSCOPY, COLON (12/08/2022 8:45 AM EDT) Narrative Transcriptions Rosina Madera MD - 12/08/2022 8:45 AM EDT [facility] Patient Name: Deanna Ozuna Attending MD:: ROSINA MADERA MD, Procedure Date: 12/08/2022 8:45 AM Date of : 1965 Age: 57 Admit Type: Outpatient Gender: Female [facility] Referring MD: INEZ GREEN DO Exam Type: Colonoscopy Indications: Surveillance: Personal history of adenomatouspolyps on last colonoscopy 5 years ago Medications: Monitored Anesthesia Care Procedure: Informed consent was obtained from the patientafter discussion of the indications, limitations, alternatives, benefits, and risks of the procedure. Risks specifically discussed include but are not limited to medication reactions, missed lesions, bleeding, perforation, or the need for emergent surgery. Throughout the procedure, the patient's blood pressure, pulse, end-tidal CO2, and oxygensaturations were monitored continuously. The Olympus adult variable colonoscope [id number] #1 was introduced through the anus and advanced to the cecum, identified by the appendiceal orifice, ileocecal valve and palpation. The colonoscopy was performed without difficulty. The patient tolerated the procedure well. The quality of the bowel preparation was good. Complications: No immediate complications. Findings: Hemorrhoids were found on perianal exam. A 5 mm polyp was found in the ascending colon. The polyp was semi-pedunculated. The polyp was removed with a jumbo cold forceps. Resection and retrieval were complete. Verification of patientidentification for the specimen was done by the physician andnurse using the patient's name and date. Estimated blood loss was minimal. A few small-mouthed diverticula were found in the sigmoid colon. The exam was otherwise without abnormality ondirect and retroflexion views. Impression: - Hemorrhoids found on perianal exam. - One 5 mm polyp in the ascending colon, removedwith a jumbo cold forceps. Resected and retrieved. - Diverticulosis in the sigmoid colon. - The examination was otherwise normal on directand retroflexion views. Recommendation: - Discharge patient to home. - Resume previous diet. - Continue present medications. - Await pathology results. - Repeat colonoscopy in 5 years for surveillancebased on pathology results. - Return to my office PRN. ROSINA MADERA MD 12/08/2022 9:35:47 AM This report has been signed electronically. Number of Addenda: 0 Note Initiated On: 12/08/2022 8:45 AM Procedure Code(s): --- Professional --- 03850, Colonoscopy, flexible; with biopsy, single or multiple --- Technical --- 00701, Colonoscopy, flexible; with biopsy, single or multiple Diagnosis Code(s): --- Professional --- Z86.010, Personal history of colonic polyps K64.9, Unspecified hemorrhoids D12.2, Benign neoplasm of ascending colon K57.30, Diverticulosis of large intestine without perforation or abscess without bleeding --- Technical --- Z86.010, Personal history of colonic polyps K64.9, Unspecified hemorrhoids D12.2, Benign neoplasm of ascending colon K57.30, Diverticulosis of large intestine without perforation or abscess without bleeding CPT copyright 2021 [employer]. All rights reserved. The codes documented in this report are preliminary and upon paper counter reviewmay be revised to meet current compliance requirements. Procedure Date: 12/08/2022 8:45:[address] [place] [address] us Inez Green DO GI PROCEDURE ORDERABLES Final Re sult from Last 3 Months or Most Recently Relevant to Health Maintenance Insurance [facility] Advance Directives For more information, please contact: [phone] (9AM - 5PM [place], Sunday-Sunday) Documents on File Type Date Recorded 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 Historical LMR Provider 06/03/17 rEik Sam MD 22 [facility], [address] [address] [email or web address] Historical LMR Provider 06/03/17 Rosina Madera MD [address] [place] [address] [email or web address] Historical LMR Provider 06/03/17 Additional Source Comments The information contained in this document represents components of the legal health record. It is not the complete legal health record.[facility]
--- OUTSIDE RECORDS SUMMARY | 2025-05-08 18:47 | XMS_ITS | Encounter Summary ---
Author Organization [facility] Address [address] [facility] [address] [place] [address] Phone Care Team Providers Care Six Sigma Black Belt Engineer Name Role Phone Gaudencio Garcia MD Unavailable [phone] Erik Sam MD Unavailable [phone] Marisa Madera MD Unavailable [phone] BigDaniel aquino DO Primary Care Provider [phone] Daniel Nelson DO Unavailable Daniel Nelson DO Primary Care Provider [phone] Encounter Details Date Type Department Care Team (Late st Contact Info) Description 2022 Procedure Pass Non-Invasive Cardiology [address] [place] [address] Social History Tobacco Use Types Packs/Day Years [...] Pulmonary, Allergy and Critical Care Medicine 10 [facility] [place] [address] [place] [address] Gaudencio Garcia MD [address] [place] [address] [email or web address] 07/07/2025 2:00 PM EST Office Visit [facility] Allergy Center at [address] [facility] [address] [place] [address] Krishna German MD [address] [place] [address]-, Division of Rheumatology, Immunology [place] [address] [email or web address] 09/16/2025 2:30 PM EST Office Visit [facility] Pulmonary, Allergy and Critical Care Medicine [address] [place] [address] Gaudencio Garcia MD [address] [place] [address] documented as of this encounter Visit Diagnoses Not on filedocumented in this encounter Additional Health Concerns Infection Onset Date Last Indicated Resolved Time CoV-Exposed Comment:Pt exposed to + staff 04/17/23 04/17/2023 04/20/2023 1:24 AM EDT CoV-Risk 08/17/2024 08/17/2024 08/28/2024 1:21 AM EST documented as of this encounter Care Teams Six Sigma Black Belt Engineer Relationship Specialty Start Date End Date Daniel Nelson DO [address] [address] PCP - General Internal Medicine 10/07/20 04/22/25 Daniel Nelson DO [address] [place] [address] [place] [address] PCP - General Internal Medicine 04/23/25 Gaudencio Garcia MD [address] [place] [address] [email or web address] Historical LMR Provider 06/03/17 Erik Sam MD [address] [place] [address] [email or web address] Historical LMR Provider 06/03/17 Marisa Madera MD [address] [place] [address] [email or web address] Historical LMR Provider 06/03/17 Daniel Nelson DO [address] [place] [address] [place] [address] [email or web address] Insurance Assigned Provider 11/10/17 12/30/22 documented as of this encounter Additional Source Comments The information contained in this document represents components of the legal health record. It is not the complete legal health record.[facility]
--- OUTSIDE RECORDS SUMMARY | 2025-05-08 18:47 | XMS_ITS | Encounter Summary ---
Author Organization [facility] Address [address] [facility] [address] [place] [address] Phone Care Team Providers Care Snowboard Designer Name Role Phone Omar Daniel Bentley DO Primary Care Provider [phone] Bigda, Daniel A DO Unavailable Blessing Garcia MD Unavailable [phone] Gaudencio Garcia MD Unavailable [phone] Juan Miguel Smith MD Unavailable Erik Sam MD Unavailable Karrie Curtis CHILI MAKER Unavailable Marisa Madera MD Unavailable [phone] Nick Abrams SHIP FASTENER Unavailable [phone] Jaleesa Moore CHILI MAKER Unavailable [phone] Bigda, Daniel A DO Unavailable Bigda, Daniel A DO Primary Care Provider [phone] Bigda, Daniel A DO Unavailable + Bigda, Daniel A DO Primary Care Provider + Encounter Details Date Type Department Care Team (Latest Contact Info) Description 06/04/2017 Transcribe Orders [facility] PFT Lab [address] [place] [address] Gaudencio Garcia MD [address] [address] [email or web address] Asthma in adult, moderate persistent, uncomplicated (Primary Dx) Social History Tobacco Use Types Packs/Day Years Used Date Smoking Tobacco: Never Assessed Comments Unknown Sex and Gender Information Value Date Recorded Sex Assigned at Female 10/30/2020 2:56 PM EDT Legal Sex Female 9:44 PM EDT Gender Identity Female 10/30/2020 2:56 PM EDT Sexual Orientation Straight 10/30/2020 2: 56 PM EDT documented as of this encounter Plan of Treatment Upcoming Encounters Date Type Department Care Team (Late st Contact Info) Description 05/13/2025 1:30 PM EDT Nurse Only [facility] Pulmonary, Allergy and Critical Care Medicine [address] [place] [address] Gaudencio Garcia MD [address] [place] [address] [email or web address] 07/07/2025 2:00 PM EST Office Visit [facility] Allergy Center at [address] [facility] [address] [place] [address] Krishna German MD [address] [place] [address], Division of Rheumatology, [place] [address] [email or web address] 09/16/2025 2:30 PM EST Office Visit [facility] Pulmonary, Allergy and Critical Care Medicine [address] [place] [address] Gaudencio Garcia MD [address] [place] [address] [email or web address] documented as of this encounter Results * Pulmonary Function Test (09/25/2017 12:03 PM EST) FEV1 2.17 liters FVC 3.05 liters FEV1/FVC 71 % TLC 4.71 liters DLCO 16.7 ml/mmHg sec Anatomical Region Laterality Modality Other Impressions 09/25/2017 12:03 PM EST PULMONARY FUNCTION STUDIES Full pulmonary function studies were performed on this 52 y.o. year-old female for evaluation of asthma and pulmonary HTN. Review of the medical record reveals that the patient is a never smoker. Prior pulmonary function studies are available for comparison. SPIROMETRY: The FEV1 is normal at 2.17 L or 84% predicted. The FVC is normal at 3.05 L or 88% predicted. The FEV1/FVC ratio is normal at 71%. After the administration of a bronchodilator agent, there is no significant change. FLOW-VOLUME LOOPS: Evaluation of the flow-volume loops reveals normal morphology of both the inspiratory and expiratory limbs with no significant difference when comparing the tracings performed pre- and post-bronchodilator. LUNG VOLUME MEASUREMENTS BY PLETHYSMOGRAPHY: The total lung capacity is normal at 4.71 L or 88% predicted. The functional residual capacity is normal at 1.87 L or 110% predicted. Of note, the ERV is markedly impaired, likely representing the imprint of body habitus, DIFFUSION CAPACITY: The diffusion capacity is moderately impaired at 16.7 mL/mmHg sec or 52% predicted. COMPARISON TO PRIOR STUDIES: When comparing to prior study from 1 year earlier, mild reduction in TLC of 500mL. Resting oxygen saturation is 97% on room air. IMPRESSION: Abnormal pulmonary function studies with normal spirometry without bronchodilator change, normal total lung capacity with moderate decrease in diffusion capacity. Findings consistent the patient's given history of pulmonary vascular disease. Gaudencio Garcia MD PFT ORDERABLES Final Result documented in this encounter Visit Diagnoses Diagnosis Asthma in adult, moderate persistent, uncomplicated- Primary Asthma in adult, moderate persistent, uncomplicated documented in this encounter Additional Health Concerns Infection Onset Date Last Indicated Resolved Time CoV-Exposed Comment:Pt exposed to + staff 04/17/23 04/17/2023 04/20/2023 1:24 AM EDT CoV-Risk 08/17/2024 08/17/2024 08/28/2024 1:21 AM EST documented as of this encounter Care Teams Snowboard Designer Relationship Specialty Start Date End Date Daniel Nelson DO PCP - General 05/29/17 10/06/20 Daniel Nelson DO PCP - General Internal Medicine 10/07/20 04/22/25 Daniel Nelson DO [address] [place] [address] PCP - General Internal Medicine 04/23/25 Daniel Nelson DO [address] [place] [address] Historical LMR Provider 06/03/17 01/07/18 Blessing Garcia MD [address] [place] [address] Historical LMR Provider 06/03/17 Gaudencio Garcia MD [address] [place] [address] Historical LMR Provider 06/03/17 Juan Miguel Smith MD [address] [place] [address] Historical LMR Provider 06/03/17 01/07/18 Erik Sam MD [address] [place] [address] [email or web address] Historical LMR Provider 06/03/17 Karrie Curtis, CHILI MAKER [address] [place] [address] [email or web address] Historical LMR Provider 06/03/17 Marisa Madera MD [address] [address] Historical LMR Provider 06/03/17 Nick Abrams CNP [address] [address] Historical LMR Provider 06/03/17 01/07/18 Jaleesa Moore NP [address] [place] [address] Historical LMR Provider 06/03/17 2 Daniel Nelson DO [address] [place] [address] Insurance Assigned Provider 11/10/17 01/07/18 Daniel Nelson DO [address] [place] [address] Insurance Assigned Provider 11/10/17 12/30/22 documented as of this encounter Additional Source Comments The information contained in this document represents components of the legal health record. It is not the complete legal health record.[facility]
--- OUTSIDE RECORDS SUMMARY | 2025-05-08 18:47 | XMS_ITS | Encounter Summary ---
Author Organization [facility] Address [address] [facility] [address] [place] [address] Phone Care Team Providers Care Front Desk Administrator Name Role Phone Gaudencio Garcia MD Unavailable [phone] Erik Sam MD Unavailable [phone] Marisa Madera MD Unavailable [phone] Daniel Nelson DO Primary Care Provider [phone] Daniel Nelson DO Unavailable Daniel Nelson DO Primary Care Provider [phone] Reason for Referral * MRI/CAT Scan - Closed Specialty Diagnoses / Procedures Referred By Abi griffin Referred To Contact Radiology Diagnoses Tear of right rotator cuff, unspecified tear extent, unspecified whether traumatic Procedures MRI Shoulder (Right) Daniel Nelson DO Phone: tel: fax: [email or web address] Referral ID Status Reason Start Date Expiration Date Visits Re quested Visits Authorized [id number] Closed 10/17/2021 10/18/2022 1 1 Encounter Details Date Type Department Care Team (Late st Contact Info) Description 10/17/2021 Transcribe Orders Virtual Department [address] [place] [address] Daniel Nelson DO 179 [facility] [place], [place] [id number] [email or web address] Tear of right rotator cuff, unspecified tear extent, unspecified whether traumatic (Primary Dx); Pain in right hip Social History Tobacco Use Types Packs/Day Years [...] Upcoming Encounters Date Type Department Care Team ([facility] st Contact Info) Description 05/13/2025 1:30 PM EDT Nurse Only [place] Pulmonary, Allergy and Critical Care Medicine [address] [place] [address] Gaudencio Garcia MD [address] [place] [address] [email or web address] 07/07/2025 2:00 PM EST Office Visit [facility] Allergy Center at [address] [address] Krishna German MD [address] [place] [address], Division of Rheumatology, [place] [address] [email or web address] 09/16/2025 2:30 PM EST Office Visit [facility] Pulmonary, Allergy and Critical Care Medicine [address] [place] [address] Gaudencio Garcia MD [address] [place] [address] [email or web address] documented as of this encounter Results * MRI SHOULDER WITHOUT CONTRAST (RIGHT) (11/03/2021 4:51 PM EDT) Anatomical Region Laterality Modality Shoulder Right Magnetic Resonan ce 11/03/2021 5:12 PM EDT Impressions 11/03/2021 5:22 PM EDT 1.Partial-thickness supraspinatus tendon tear. 2.Rotator cuff tendinopathy. 3.Moderate AC joint osteoarthritis. 4.Subcoracoid bursitis. Narrative 11/03/2021 5:22 PM EDT COMPARISON: Right shoulder radiographs 06/22/2021. TECHNIQUE: Exam performed on a 1.5 Alanna high-field MRI scanner. Axial T1 and proton density with fat suppression, oblique coronal proton density with fat suppression and T2 with fat suppression, oblique sagittal T1 and T2 with fat suppression sequences were obtained. MRI RIGHT SHOULDER FINDINGS: Acromion: No os acromiale. Type I acromion. No anterior or lateral downsloping. Rotator cuff muscle/tendon: Diffuse subscapularis, supraspinatus and infraspinatus tendon thickening and intermediate signal intensity indicative of tendinopathy. There is a small focus of intrasubstance hyperintense/fluid signal in the distal supraspinatus tendon at its insertion site. No rotator cuff muscle edema or atrophy. Labrum/biceps tendon: No labral or biceps tendon tear identified. Bone marrow/joint: Moderate acromioclavicular joint osteoarthritis with joint space narrowing, spurring and small subchondral degenerative cysts. Glenohumeral joint space is preserved. No malalignment. No destructive or suspicious bone lesions. Small joint effusion. Small amount of fluid in the and subcoracoid bursa. No fluid in the subacromial subdeltoid bursa. No suprascapular or spinoglenoid notch mass. Procedure Note Freddie Burgos MD - 11/03/2021 COMPARISON: Right shoulder radiographs 06/22/2021. TECHNIQUE: Exam performed on a 1.5 Alanna high-field MRI scanner. Axial T1and proton density with fat suppression, oblique coronal proton densitywith fat suppression and T2 with fat suppression, oblique sagittal T1 andT2 with fat suppression sequences were obtained. MRI RIGHT SHOULDER FINDINGS: Acromion: No os acromiale. Type I acromion. No anterior or lateraldownsloping. Rotator cuff muscle/tendon: Diffuse subscapularis, supraspinatus andinfraspinatus tendon thickening and intermediate signal intensityindicative of tendinopathy. There is a small focus of intrasubstancehyperintense/fluid signal in the distal supraspinatus tendon at itsinsertion site. No rotator cuff muscle edema or atrophy. Labrum/biceps tendon: No labral or biceps tendon tear identified. Bone marrow/joint: Moderate acromioclavicular joint osteoarthritis withjoint space narrowing, spurring and small subchondral degenerative cysts.Glenohumeral joint space is preserved. No malalignment. No destructive orsuspicious bone lesions. Small joint effusion. Small amount of fluid inthe and subcoracoid bursa. No fluid in the subacromial subdeltoid bursa.No suprascapular or spinoglenoid notch mass. IMPRESSION: 1.Partial-thickness supraspinatus tendon tear. 2.Rotator cuff tendinopathy. 3.Moderate AC joint osteoarthritis. 4.Subcoracoid bursitis. us Daniel A Bigda DO IMG MR EXTREMITY Final Result * XR HIPS 2+ VW EA BILAT PLUS PELVIS (11/03/2021 3:55 PM EDT) Anatomical Region Laterality Modality Hip, Pelvis Computed Radiogr aphy 11/03/2021 6:17 PM EDT Impressions 11/03/2021 6:19 PM EDT Progressive moderate right and stable mild left hip osteoarthritis. Narrative 11/03/2021 6:19 PM EDT COMPARISON: Bilateral hip radiographs 05/09/2019. BILATERAL HIP/PELVIC RADIOGRAPH FINDINGS: 6 images obtained. No acute fracture or malalignment. Stable mild left hip progressive moderate uniform right hip joint space narrowing and osteophytes. Stable moderate pubic symphysis arthritis. No destructive or suspicious bone lesions. No definite soft tissue swelling. Large habitus. Procedure Note Freddie Burgos MD - 11/03/2021 COMPARISON: Bilateral hip radiographs 05/09/2019. BILATERAL HIP/PELVIC RADIOGRAPH FINDINGS: 6 images obtained. No acute fracture or malalignment. Stable mild left hip progressivemoderate uniform right hip joint space narrowing and osteophytes. Stablemoderate pubic symphysis arthritis. No destructive or suspicious bonelesions. No definite soft tissue swelling. Large habitus. IMPRESSION: Progressive moderate right and stable mild left hip osteoarthritis. us Daniel Nelson DO IMG XR PELVIS Final Result documented in this encounter Visit Diagnoses Diagnosis Tear of right rotator cuff, unspecified tear extent, unspecified whether traumatic- Primary Pain in right hip Pain in right hip Tear of right rotator cuff, unspecified tear extent, unspecified whether traumatic documented in this encounter Additional Health Concerns Infection Onset Date Last Indicated Resolved Time CoV-Exposed Comment:Pt exposed to + staff 04/17/23 04/17/2023 04/20/2023 1:24 AM EDT CoV-Risk 08/17/2024 08/17/2024 08/28/2024 1:21 AM EST documented as of this encounter Care Teams Front Desk Administrator Relationship Specialty Start Date End Date Daniel Nelson DO [address] [address] PCP - General Internal Medicine 10/07/20 04/22/25 Daniel Nelson DO [address] [place] [address] PCP - General Internal Medicine 04/23/25 Gaudencio Garcia MD [address] [place] [address] Historical LMR Provider 06/03/17 Erik Sam MD 22 [facility], [address] [place] [address] [email or web address] Historical LMR Provider 06/03/17 Marisa Madera MD 15 [facility], 2nd [place] [address] Historical LMR Provider 06/03/17 Daniel Nelson DO [address] [facility] [place] [address] [email or web address] Insurance Assigned Provider 11/10/17 12/30/22 documented as of this encounter Additional Source Comments The information contained in this document represents components of the legal health record. It is not the complete legal health record.[facility]
--- OUTSIDE RECORDS SUMMARY | 2025-05-08 18:47 | XMS_ITS | Encounter Summary ---
Author Organization [facility] Address [address] [place] [address] Phone Care Team Providers Care Stain Maker Name Role Phone Gaudencio Garcia MD Unavailable [phone] Erik Sam MD Unavailable Marias Madera MD Unavailable [phone] BigDaniel aquino DO Primary Care Provider [phone] Daniel Nelson DO Unavailable BigDaniel aquino DO Primary Care Provider [phone] Encounter Details Date Type Department Care Team (Late st Contact Info) Description 04/20/2022 Ancillary Orders [facility] Medical [facility] Orthopedics & Sports Medicine [address] [place] [address] Lindy Salgado MD [address] [place] [address] Orthopedics & Sports Medicine, [facility] [place] [address] [email or web address] Social History Tobacco Use Types Packs/Day Years [...] Pulmonary, Allergy and Critical Care Medicine [address] [place] [address] Gaudencio Garcia MD [address] [place] [address] 07/07/2025 2:00 PM EST Office Visit [facility] at [address] [facility] [address] [place] [address] Krishna German MD [address] [place] [address], Division of Rheumatology, [place] [address] [email or web address] 09/16/2025 2:30 PM EST Office Visit [facility] Pulmonary, Allergy and Critical Care Medicine [address] [place] [address] Gaudencio Garcia MD [address] [place] [address] documented as of this encounter Visit Diagnoses Not on filedocumented in this encounter Additional Health Concerns Infection Onset Date Last Indicated Resolved Time CoV-Exposed Comment:Pt exposed to + staff 04/17/23 04/17/2023 04/20/2023 1:24 AM EDT CoV-Risk 08/17/2024 08/17/2024 08/28/2024 1:21 AM EST documented as of this encounter Care Teams Stain Maker Relationship Specialty Start Date End Date Daniel Nelson DO [address] [address] PCP - General Internal Medicine 10/07/20 04/22/25 Daniel Nelson DO [address] [facility] [place] [address] [email or web address] PCP - General Internal Medicine 04/23/25 Gaudencio Garcia MD [address] [place] [address] [email or web address] Historical LMR Provider 06/03/17 Erik Sam MD [address] [address] [email or web address] Historical LMR Provider 06/03/17 Marisa Madera MD [address] [place] [address] Historical LMR Provider 06/03/17 Daniel Nelson DO [address] [place] [address] [email or web address] Insurance Assigned Provider 11/10/17 12/30/22 documented as of this encounter Additional Source Comments The information contained in this document represents components of the legal health record. It is not the complete legal health record.[facility]
--- OUTSIDE RECORDS SUMMARY | 2025-05-08 18:47 | XMS_ITS | Encounter Summary ---
Author Organization [facility] Address [address] [place] [address] Phone Care Team Providers Care Chemist Proteins Name Role Phone Gaudencio Garcia MD Unavailable [phone] Erik Sam MD Unavailable Marisa Madera MD Unavailable [phone] BigDaniel aquino DO Primary Care Provider [phone] BigDaniel aquino DO Unavailable BigDaniel aquino DO Primary Care Provider [phone] Encounter Details Date Type Department Care Team (Latest Contact Info) Description 04/20/2022 Ancillary Orders [address] [address] Lindy Salgado MD [address] [place] [address] Orthopedics & Sports Medicine, [place], [place] [id number] [email or web address] Osteoarthritis of right hip, unspecified osteoarthritis type Social History Tobacco Use Types Packs/Day Years [...] Upcoming Encounters Date Type Department Care Team ([facility] st Contact Info) Description 05/13/2025 1:30 PM EDT Nurse Only [facility] Pulmonary, Allergy and Critical Care Medicine 10 [place] [address] Gaudencio Garcia MD [address] [place] [address] [email or web address] 07/07/2025 2:00 PM EST Office Visit [facility] Allergy Center at [address] [place] [address] [facility] [address] [place] [address] Krishna German MD [address] [place] [address], Division of Rheumatology, Immunology [place] [address] [email or web address] 09/16/2025 2:30 PM EST Office Visit [facility] Pulmonary, Allergy and Critical Care Medicine [address] [place] [address] Gaudencio Garcia MD [address] [place] [address] [email or web address] [email or web address] Results Name Type Priority Associated Diagnoses Date /Time FL Guidance Needle Placement Non-Spine Imaging Routine Osteoarthritis of right hip, unspecified osteoarthritis type 04/25/2022 9:59 AM EDT Scheduled Orders Name Type Priority Associated Diagnoses Orde r Schedule FL Guidance Needle Placement Non-Spine Imaging Routine Osteoarthritis of right hip, unspecified osteoarthritis type 1 Occurrences starting 04/20/2022 until 07/20/2022 documented as of this encounter Visit Diagnoses Diagnosis Osteoarthritis of right hip, unspecified osteoarthritis type documented in this encounter Additional Health Concerns Infection Onset Date Last Indicated Resolved Time CoV-Exposed Comment:Pt exposed to + staff 04/17/23 04/17/2023 04/20/2023 1:24 AM EDT CoV-Risk 08/17/2024 08/17/2024 08/28/2024 1:21 AM EST documented as of this encounter Care Teams Chemist Proteins Relationship Specialty Start Date End Date JhonyDaniel aquinoDO [address] [address] PCP - General Internal Medicine 10/07/20 04/22/25 Daniel Nelson DO [address] [place] [address] PCP - General Internal Medicine 04/23/25 Gaudencio Garcia MD [address] [place] [address] Historical LMR Provider 06/03/17 Erik Sam MD [address] [place] [address] Historical LMR Provider 06/03/17 Marisa Madera MD [address] [place] [address] Historical LMR Provider 06/03/17 Daniel Nelson DO [address] [place] [address] Insurance Assigned Provider 11/10/17 12/30/22 documented as of this encounter Additional Source Comments The information contained in this document represents components of the legal health record. It is not the complete legal health record.[facility]
--- OUTSIDE RECORDS SUMMARY | 2025-05-08 18:47 | XMS_ITS | Data Portability ---
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 1 TABLET BY MOUTH EVERY 12 HOURS FOR 7 DAYS 09/05 completed Not Available Not Available Not Available lorazepam 0.5 mg tablet TAKE 1 TABLET BY MOUTH DAILY active Not Available Not Available No t Available cephalexin 500 mg capsule TAKE 1 CAPSULE BY MOUTH TWICE DAILY FOR 5 DAYS 10/17 completed Not Available Not Available Not Available Concerta 36 mg tablet,ext ended release TAKE 1 TABLET BY MOUTH EVERY DAY 05/23 completed Not Available Not Available Not Available losartan 25 mg tablet Take 1 tablet every day by oral route as directed for 90 days. 2024 active Not Available Not Available Not Avai lable Advair Diskus 500 mcg-50 mcg/dose powder for inhalation INHALE 1 PUFF INTO THE LUNGS TWICE DAILY 2024 active Not Available Not Available Not Avai lable pramipexol e 0.125 mg tablet Take 1 tablet every day by oral route. 05/12 completed Not Available Not Available Not Available diclofenac sodium 75 mg tablet,del ayed release TAKE 1 TABLET BY MOUTH TWICE DAILY 07/13 completed Not Available Not Available Not Available mupirocin 2 % topical ointment APPLY A SMALL AMOUNT TOPICALL Y THREE TIMES DAILY TO AFFECTED AREA active Not Available Not Available No t Available epinephrin e 0.3 mg/0.3 mL injection, auto-injec tor INJECT 1 PEN INTO THE MUSCLE DIRECTED active Not Available Not Available No t Available Nasonex 50 mcg/actuat ion Redding Redding 2 sprays every day by intranas al route as needed for 30 days. 11/01 completed Not Available Not Available Not Available levofloxac in 500 mg tablet TAKE 1 TABLET BY MOUTH EVERY 24 HOURS FOR 7 DAYS 05/23 completed Not Available Not Available Not Available methylpred nisolone 4 mg tablets in a dose pack FOLLOW PACKAGE DIRECTIO NS 09/16 completed Not Available Not Available Not Available ketoconazo le 2 % topical cream APPLY TOPICALL Y TO THE AFFECTED AREA DAILY active Not Available Not Available No t Available losartan 100 mg tablet TAKE 1 TABLET BY MOUTH EVERY DAY 05/08 completed Not Available Not Available Not Available fluticason e propionate 50 mcg/actuat ion nasal spray,susp ension SHAKE LIQUID AND USE 1 SPRAY IN EACH NOSTRIL DAILY active Not Available Not Available No t Available sodium fluoride 1.1 % dental gel active Not Available Not Available N ot Available metronidaz ole 0.75 % topical gel APPLY THIN LAYER TOPICALL Y TO THE AFFECTED AREA TWICE DAILY IN THE MORNING AND IN THE EVENING active Not Available Not Available No t Available nystatin powder 06/29 completed Not Available Not Available Not Available amoxicilli n 875 mg-potassi um clavulanat e 125 mg tablet TAKE 1 TABLET BY MOUTH EVERY 12 HOURS FOR 14 DAYS 09/03 completed Not Available Not Available Not Available levalbuter ol 0.31 mg/3 mL solution for nebulizati on inhale contents of 1 vial in nebulize r four times a if needed for 7 days, BRAND NAME NO SUBSTITU TION 02/05 completed Not Available Not Available Not Available insulin lispro (U-100) 100 unit/mL subcutaneo us pen INJECT 2 UNITS UNDER THE SKIN DIRECTED active Not Available Not Available No t Available bupropion HCl XL 300 mg 24 hr tablet, extended release TAKE 1 TABLET BY MOUTH EVERY DAY 05/08 completed Not Available Not Available Not Available bupropion HCl XL 150 mg 24 hr tablet, extended release TAKE 1 TABLET BY MOUTH EVERY DAY 05/08 completed Not Available Not Available Not Available nitrofuran toin monohydrat e/macrocry stals 100 mg capsule TAKE 1 CAPSULE BY MOUTH EVERY 12 HOURS FOR 5 DAYS active Not Available Not Available No t Available Lactobacil aubrey acidophilu s 500 million cell tablet Take 1 tablet every day by oral route for 30 days. 01/08 completed Not Available Not Available Not Available magnesium active Not Available Not Nila ilable Not Available zinc daily active Not Available Not Availa ble Not Available Vitamin D active Not Available Not Nila ilable Not Available bupropion HCl 09/18 completed Not Available Not Available Not Available Vitamin B6 07/13 completed Not Available Not Available Not Available Multivitam in 50 Plus daily 09/03 completed Not Available Not Available Not Available Xopenex HFA 45 mcg/actuat ion aerosol inhaler INHALE 2 PUFFS BY MOUTH FOUR TIMES DAILY NEEDED 2024 active Not Available Not Available Not Avai lable peg 3350-elect rolytes 236 gram-22.74 gram-6.74 gram-5.86 gram solution MIX AND DRINK BY MOUTH 1 DOSE FOLLOW INSTRUCT IONS FROM THE OFFICE 09/05 completed Not Available Not Available Not Available FreeStyle Lite Meter kit USE DIRECTED 10/11 completed Not Available Not Available Not Available FreeStyle Lite Strips USE TO TEST BLOOD SUGAR 3-4 TIMES DAILY active Not Available Not Available No t Available Novofine 32 32 gauge x 1/4 needle USE 1 EACH BY MISCELLA NEOUS ROUTE EVERY MORING active Not Available Not Available No t Available Vortex Holding Chamber USE DIRECTED WITH INHALER active Not Available Not Available No t Available Probiotic and Acidophilu s 300 million cell-250 mg capsule Take 1 capsule every day by oral route for 30 days. 04/03 completed Not Available Not Available Not Available Victoza 3-Mynor 0.6 mg/0.1 mL (18 mg/3 mL) subcutaneo us pen injector ADMINIST ER 0.6 MG UNDER THE SKIN DAILY 01/08 completed prt stoppe d on own didnt really use at all Not Available Not Available Not Available Jardiance 10 mg tablet TAKE 1 TABLET BY MOUTH EVERY DAY 02/28 completed Not Available Not Available Not Available Contrave 8 mg-90 mg tablet,ext ended release Take 2 tablets twice a day by oral route for 30 days. 11/02 completed Not Available Not Available Not Available Vitamin B12 active OTC Not Available Not Available Not Available Flonase Sensimist 27.5 mcg/actuat ion nasal spray,susp ension Take 50 microgra ms every day by nasal route. 04/03 completed Not Available Not Available Not Available Ozempic 0.25 mg or 0.5 mg (2 mg/1.5 mL) subcutaneo us pen injector INJECT 0.5MG WEEKLY SUB Q 02/28 completed Not Available Not Available Not Available Afluria Qd 2019- (36 mos up)(PF)60 mcg (15 mcg x4)/0.5 mL IM syringe ADM 0.5ML IM UTD 06/29 completed Not Available Not Available Not Available BinaxNOW COVID-19 Ag Self Test kit TEST DIRECTED TODAY 01/08 completed Not Available Not Available Not Available Ozempic 0.25 mg or 0.5 mg (2 mg/3 mL) subcutaneo us pen injector 07/19 /2023 completed Not Available Not Available Not Available Ultra-Fine Pen Needle 31 gauge x 5/16 USE UP TO 4 TIMES DAILY TO INJECT INSULIN BASED ON SLIDING SCALE active Not Available Not Available No t Available Vitals Date Recorded Body height Body mass index (BMI) Body weight Heart rate Oxygen saturation Oxygen saturation in Arterial blood by Pulse oximetry Systolic And Diastolic Provider Name and Address Organization Details Last Updated DateTime 5 167.64 cm 49.7 kg/m2 890045. 45 g 80 /min 98 % 98 % 134/74 mm[Hg] Eyal Shannon [facility] 5 09:28:09 Date Recorded Body height Heart rate Oxygen saturation Oxygen saturation in Arterial blood by Pulse oximetry Systolic And Diastolic Provider Name and Address Organization Details Last Updated DateTime 5 167.64 cm 102 /min 97 % 97 % 144/84 mm[Hg] Britni Calle [facility] 5 16:17:10 Date Recorded Body height Body mass index (BMI) Body weight Heart rate Respiratory rate Oxygen saturation Oxygen saturation in Arterial blood by Pulse oximetry Systolic And Diastolic Provider Name and Address Organization Details Last Updated DateTime 4 167.64 cm 48.4 kg/m2 818264. 99 g 74 /min 20 /min 95 % 95 % 128/72 mm[Hg] Eyal Shannon [facility] 4 12:06:44 Date Recorded Body mass index (BMI) Body weight Provider Name and Address Organization Details Last Updated DateTime 02/10/2025 47.5 kg/m2 085373.16 g Daniel Nelson, DO [address] [facility], [place], [address], [facility] 02/10/2025 10:42:57 Date Recorded Body height Heart rate Oxygen saturation Oxygen saturation in Arterial blood by Pulse oximetry Systolic And Diastolic Provider Name and Address Organization Details Last Updated DateTime 5 167.64 cm 84 /min 98 % 98 % 130/70 mm[Hg] Radha Mcdonald [facility] 5 10:30:32 Date Recorded Body height Body mass index (BMI) Body weight Heart rate Oxygen saturation Oxygen saturation in Arterial blood by Pulse oximetry Systolic And Diastolic Provider Name and Address Organization Details Last Updated DateTime 5 167.64 cm 47.5 kg/m2 963523. 16 g 80 /min 98 % 98 % 120/72 mm[Hg] [facility] 5 14:17:30 Social History Question Answer Notes LastModified by Organizat ion Details LastModified Time Tobacco Smoking Status Never Smoker Not Available [facility] 06/15/2020 03:36:24 Do You Have An Advance Directive? Yes [id number] Information not available 06/15/2020 Are You Blind Or Do You Have Difficulty Seeing? No [id number] Information not available 06/15/2020 What Is Your Level Of Caffeine Consumption? Occasional Information not available 11/01/2020 How Much Tobacco Do You Chew? None [id number] Information not available 06/15/2020 Are You Deaf Or Do You Have Serious Difficulty Hearing? No [id number] Information not available 06/15/2020 What Type Of Diet Are You Following? REGULAR [id number] Information not available 06/15/2020 Education 12 Information no t available 09/07/2023 Are There Any Guns Present In Your Home? No [id number] Information not available 06/15/2020 Hard Of Hearing Or Deaf In One Or Both Ears? No Information not available 09/07/2023 Live Alone Or With Others? With Others Information not available 09/07/2023 What Was The Date Of Your Most Recent Tobacco Screening? 02/10/2025 [id number] Information not available 02/10/2025 How Many Children Do You Have? 1 [id number] Information not available 06/15/2020 Performs Monthly Self-breast Exam? Yes Information not available 09/07/2023 Seat Belts Used Routinely Yes Information not available 09/07/2023 Are You Sexually Active? Yes [id number] Information not available 06/15/2020 Smoke Alarm In Home Yes Information not available 09/07/2023 Are You Passively Exposed To Smoke? No Not A Smoker, Not A Snuff User Information not available 11/01/2020 How Much Tobacco Do You Smoke? No [id number] Information not available 06/15/2020 General Stress Level Medium Information not available 09/07/2023 Do You Use Sunscreen Routinely? Yes [id number] Information not available 06/15/2020 How Many Years Have You Smoked Tobacco? 0 Information not available 11/01/2020 Do You Have Difficulty Walking Or Climbing Stairs? Yes [id number] Information not available 06/15/2020 Sex: Unknown Functional Status Question Answer Note LastModified by Organizat ion Details LastModified Time Do you or have you ever used any other forms of tobacco or nicotine? No Information not available 09/07/2023 What is your level of alcohol consumption? Occasional [id number] Information not available 06/15/2020 Do you or have you ever used smokeless tobacco? Never used smokeless tobacco Information not available 09/07/2023 Are you currently employed? No [id number] Information not available 06/15/2020 Are you able to walk independently without assistance or assistive devices? [email or web address] Information not available 11/01/2020 Do you have difficulty doing errands alone? No [id number] Information not available 06/15/2020 Are you able to care for yourself independently? 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 No [id number] Information not available 06/15/2020 Do you or have you ever used e-cigarettes or vape? Never used electronic cigarettes Information not available 09/07/2023 What is your exercise level? Occasional [id number] Information not available 06/15/2020 Mental Status Question Answer Note LastModified by Organization D etails LastModified Time Do you have difficulty concentrating, remembering or making decisions? No [id number] Information no t available 06/15/2020 Family History Relationship Description Onset Age of this Age Resolved Age Notes LastModified by Organization Details LastModified Time Maternal Grandmother Arthritis 16 77 Not available 10/12 11:52:04 Father Dementia 65 Not available 05/12/2019 14:41:06 Father Mental disorder 20 Not available 2018 14:41:06 Father Alzheimer's disease 68 Not available 2020 11:52:04 Father Anxiety disorder 10 Not available 2020 11:52:04 Father Attention deficit hyperactivit y disorder Not available 11/01 11:52:04 Mother Diabetes mellitus 50 Not available 2020 11:52:04 Mother Obese 8 Not available 11:52:04 Mother Obesity 8 Not available 0 11/01/2020 11:52:04 Mother Mental disorder 20 Not available 2020 11:52:04 Mother Arthritis 50 Not available 11/01/2020 11:52:04 Mother Hypertensive disorder 30 Not available 2020 11:52:04 Mother Disorder of thyroid gland 50 Not available 2020 11:52:04 Mother Anxiety disorder 20 Not available 2020 11:52:04 Maternal Grandfather Heart disease 55 72 Not available 2020 11:52:04 Maternal Grandfather Hypertensive disorder 50 Not available 2020 11:52:04 Maternal Grandfather Myocardial infarction 50 72 Not available 05/12 14:41:06 Maternal Grandfather Coronary arterioscler osis 50 72 Not available 2018 14:41:06 Maternal Grandfather Arthritis 50 Not available 10/12 11:52:04 Paternal Aunt Asthma 30 70 Not avail able 11/01/2020 11:52:04 Paternal Aunt Osteoporosis 40 Not available 11/01/2020 11:52:04 Paternal Aunt Chronic obstructive pulmonary disease 50 70 Not available 2018 14:41:06 Sister Seizure 18 Not available 0 11/01/2020 11:52:04 Brother Obesity 30 Not available 11/01/2020 11:52:04 Brother Malignant tumor of colon Not available 14:05:38 Medical History Condition Response Coronary Artery Disease N Other N Gout N Kidney Stones N Blood Diseases N Blood Transfusion N COPD N Depression Y Anxiety Disorder Y Muscle, Joint, or Bone Problems N Obesity Y Vision or Eye Problems Y Arthritis Y Infertility N Polyps N Mental Disorder N Cancer N Stroke N Varicosities N Fibromyalgia N Headaches N Kidney Disease N Heart Problems Y Hospitalizations Y Skin Problems N Eating Disorder N MRSA exposure N Constipation N Tuberculosis N Asthma Y Hepatitis N Pulmonary Embolism N Chicken Pox N Autism Spectrum Disorder (ASD) N Breast Cancer N Lung Disease N Defects or Inherited Disease N Endometriosis N Bladder or Kidney Problems N High Cholesterol N Liver Disease N Allergies/Hayfever Y Thyroid Problems N GI Problems N Anemia N Mental Illness Y Ovarian Cancer N Diabetes N Seizures/Epilepsy N Congestive Heart Failure (CHF) N Eczema N Diverticulitis Y Abuse/Domestic Violence N Reflux/GERD Y Heart Disease N Hypertension N Osteoporosis Y Gynecological History Statement/Question Response Abnormal Pap N 12/16/2015 Date of LMP 09/08/2011 STIs/STDs N HPV Vaccine N Age at Menarche 10 Current Control Method Hysterectom y Most Recent Mammogram 06/14/2018 Age at First Child 37 03/09/2017 Sexually Active? Y N/A Menses Monthly N Sexual Problems? N Desired Control Method N/A 09/26/2017 N Obstetrics History GPAL:G 0 P 0 0 0 0 Immunizations Vaccine Type Date Status Note Provider Nam e and Address Organization Details Recorded Time COVID-19, mRNA, LNP-S, PF, 30 mcg/0.3 mL dose 1 completed Marisa rousseau [facility] 09/07/2023 13:29:12 COVID-19, mRNA, LNP-S, PF, 30 mcg/0.3 mL dose 1 completed Marisa rousseau [facility] 09/07/2023 13:29:12 Influenza, split virus, quadrivalent, preservative 1 completed Marisa rousseau [facility] 09/07/2023 13:29:12 COVID-19, mRNA, LNP-S, PF, 30 mcg/0.3 mL dose 2 completed Marisa rousseau [facility] 09/07/2023 13:29:12 Influenza, split virus, quadrivalent, preservative 8 completed Marisa rousseau, [facility] 09/07/2023 13:29:12 Tdap 8 completed Daniel Nelson DO [address] [place] [address], [address], [facility] 06/19/2018 07:58:41 MMR 9 completed Daniel Nelson DO [address] [place] [address], [phone], [facility] 11/01/2020 11:52:49 zoster live 9 completed Daniel Nelson DO [address] [place] [address], [phone], [facility] 11/01/2020 11:52:49 Influenza, split virus, quadrivalent, preservative 9 completed Marisa rousseau, [facility] 09/07/2023 13:29:12 zoster live 9 completed Daniel Nelson DO [address] [place] [address], [phone], [facility] 11/01/2020 11:52:49 Influenza, split virus, quadrivalent, preservative 0 [facility] 13:29:12 Influenza, split virus, trivalent, preservative 8 completed Daniel Nelson DO [address] [place] [address], [phone], [facility] 11/01/2020 11:52:49 Past Encounters Encounter ID Performer Location Encounter Start Date Encounter Closed Date Diagnosis/Indication Diagnosis SNOMED-CT Code Diagnosis ICD10 Code Diagnosis IMO Codes Diagnosis Note [id number] Daniel Nelson [facility] [address],[place] [address] 11/20/2017 13:54:47 11/20/2017 17:01:08 Pulmonary hypertension 68964809 I27.20 currently stable with no issues but r ventricle is with diastolic dysfunctio n last echo 2016 Asthma 222696428 J45.90 9 did well with xopenex but not with albut will require only xopenex for future treat uses advair with good results [id number] Daniel Nelson [facility] [address] [facility],[place] [address] 12/12/2017 09:10:27 12/12/2017 09:53:03 Pain in right knee 8763720420 33854 M25.561 will need to get MRI as she has already gotten an xray of the knee about 3 mo ago Tear of me dial meniscus of knee [id number] S83.221A [id number] Daniel Nelson [facility] [address] [facility],[place] [address] 12/24/2017 14:17:47 12/24/2017 16:27:12 Osteoarthritis of knee 019674294 M17.0 Tear of me dial meniscus of knee 121407506 S83.221A schedule a cortisone inject [id number] Daniel Nelson [facility] [address] [facility] [address] 12/28/2017 13:28:57 12/28/2017 16:41:55 Osteoarthritis of knee 715596803 M17.0 cortisone inj well carole [id number] Daniel Nelson [facility] Internal [facility] [address] [facility],[place] [address] 03/13/2018 15:23:35 03/13/2018 16:13:17 Iron deficiency anemia 61812380 D50.9 will have this monitored and will have her supplement oral iron therapy and will recheck in 1 month [id number] Daniel Nelson [facility] Internal [facility] [address] [facility],[place] [address] 07/30/2018 10:54:31 07/30/2018 12:15:33 Pre-surgery evaluation 141788959 Z01.818 per the Revised Cardiac Index (neda criteria) she is an average risk for the proposed procedure of gastric band removal with a cardiac risk of 0.9% . The pt knows to take her usual meds on the morning of the procedure [id number] Daniel Nelson [facility] Internal Medicine [address] [facility],[place] [address] 08/27/2018 10:51:22 08/27/2018 11:38:47 Adult health examination 288247804 Z00.00 Active or passive immunization 111828591 Z23 reccomendaubrie veliz made Hepatitis C screening 41 3853561 Z11.59 Screening for malignant neoplasm of colon 301528866 Z12.11 Pulmonary hypertension 36765870 I27.20 currently stable with no issues but r ventricle is with diastolic dysfunctio n last echo 2016 will need another echo at some point [id number] Daniel Nelson [facility] Internal Medicine [address] [facility],[place] [address] 09/18/2018 15:14:33 09/18/2018 16:18:23 Osteoarthritis of knee 020360450 M17.0 cortisone inj well carole [id number] Daniel Nelson [facility] Internal Medicine [address] [facility],[place] [address] 05/12/2019 14:23:59 05/12/2019 16:29:52 Asthma 618987524 J45.909 did well with xopenex but not with albut will require only xopenex for future treat uses advair with good results Osteoarthr itis of knee 834585974 M17.0 cortisone inj to the left kne will use highr dose urvashi marcaine Osteoarthritis of hip 23 9889546 M16.9 xr reveals still stable believe this is secondary to her bad knee and altered gait [id number] Daniel Nelson [facility] Internal Medicine [address] [facility],[place] [address] 05/14/2019 09:20:59 05/14/2019 11:19:04 Osteoarthritis of knee 339504218 M17.0 cortisone inj to the left kne will use highr dose urvashi marcaine well tolerated [id number] Daniel Nelson [facility] Internal Medicine 179 [facility] [place] [address] 08/08/2019 10:37:26 08/08/2019 11:00:16 Asthma 128408931 J45.909 did well with xopenex but not with albut will require only xopenex for future treat uses advair with good results Influenza 4993085 J11.1 will begin the tamiflu and will also have her get a nebulizer to help with the wheeze influenza nasal swab [id number] Daniel Nelson [facility] Internal Medicine [address] [facility], [facility] [place] [address] 09/05/2019 13:40:47 09/05/2019 14:23:28 Adult health examination 694975444 Z00.00 doing ok except for asthma will need lab work up Active or passive immunization 292658113 Z23 reccomenda tions made Asthma 271593787 J45.90 9 did well with xopenex but not with albut will require only xopenex for future treat uses advair with good results Candidiasis of vagina 72 075136 B37.3 [id number] Daniel Nelson [facility] Internal Medicine [address] [facility],[place] [address] 06/29/2020 13:55:05 06/29/2020 14:34:54 Asthma 039794083 J45.909 did well with xopenex but not with albut will require only xopenex for future treat uses advair with good results [facility] 78308629 R 73.9 [id number] Daniel Nelson [facility] Internal Medicine [address] [facility],[place] [address] 09/17/2020 15:02:56 09/17/2020 15:49:57 Mass of right breast 7886571448 5867748 N63.10 [id number] Daniel Nelson [facility] Internal Medicine [address] [facility], [facility] [place] [address] 11/01/2020 11:40:53 11/01/2020 12:28:32 Active or passive immunization 994341529 Z23 reccomenda tions made Adult heal th examination 876403404 Z00.00 doing ok except for asthma will need lab work up Asthma 497118914 J45.90 9 did well with xopenex but not with albut will require only xopenex for future treat uses advair with good results Impaired f asting glycemia 111061870 R73.01 a1c is 6.4 Obesity 396320939 E66.9 [id number] Daniel Garcia Omar [facility] Internal Medicine [address] [facility],[place] [address] 11/10/2020 15:32:45 11/10/2020 16:33:08 Fatigue 49904997 R53.83 Iron deficiency 13117898 E61.1 [id number] Daniel Garcia Omar [facility] Internal Medicine [address] [facility],[place] [address] 12/07/2020 16:20:54 12/07/2020 17:10:20 Left ventricular hypertrophy 29692741 I51.7 we will need to pursue this given her risk facotrs and if the echo is not that helpful we will need to do nuclear scan [id number] Daniel Radha Nelson [facility] Internal Medicine [address] [facility],[place] [address] 12/10/2020 11:37:23 12/10/2020 16:43:45 Dysuria 26027404 R30.9 will have patient trial probiotics and send urine Pain in pelvis 62997482 R10.2 will fu with US as well for recurrent pain and UTI symptoms [id number] Daniel AlfredBeni Nelson [facility] Internal Medicine [address] [place] [address],[place] [address] 06/17/2021 14:21:48 06/17/2021 15:46:25 Asthma 356737687 J45.909 did well with xopenex but not with albut will require only xopenex for future treat uses advair with good results Pulmonary hypertension 46736626 I27.20 currently stable with no issues but r ventricle is with diastolic dysfunctio n last echo 2015 will need another echo at some point Pain of ri ght shoulder joint 9641285940 3942759 M25.511 we will need to have her start diclofenac and get xr Acute folliculitis 57516 7007 L73.9 Family his tory of breast cancer 745957676 Z80.3 [id number] Daniel Nelson [facility] Internal Medicine [address] [facility] [place], [place] [address] 07/13/2021 11:05:45 07/15/2021 16:39:06 Allergic rhinitis 66582606 J30.9 needs refill Juvenile r heumatoid arthritis 051981592 M08.3 will recheck labs as she has a prominent past medical hx of RA Family his tory of breast cancer 998838655 Z80.3 will talk to HR about her referral Lesion of vulva 70114108 6 N90.89 will fu with BRUNO paraoptometric referral Obesity 527404339 E66.09 [id number] Daniel Nelson [facility] Internal Medicine [address] [facility], [place] [address] 10/17/2021 15:14:46 10/17/2021 16:18:46 Juvenile rheumatoid arthritis 119430681 M08.3 Pulmonary hypertension 67756499 I27.20 currently stable with no issues but r ventricle is with diastolic dysfunctio n last echo 2016 will need another echo at some point Rupture of rotator cuff of right shoulder 1238441923 5509606 M75.101 will have to move on to get these tested as she is getting worse clinically Pain of ri ght hip joint 1402633624 88440 M25.551 bad enough now that she is limping and PT recc xr as she has had known OA in this jt [id number] Daniel Nelson [facility] Internal Medicine [address] [facility] [place], [place] [address] 11/14/2021 15:12:05 11/14/2021 16:32:48 Rupture of rotator cuff of right shoulder 5819134950 6163168 M75.101 we will have to try a kenalog inj and see if this helps and see if this gets to heal Bursitis o f right shoulder 5027734600 13711 M75.51 see above Osteoarthr itis of shoulder region 69824407 M19.019 see above Left lower quadrant pain 627517113 R10.32 [id number] Daniel Nelson DO [facility] [address] [facility],[place] [address] 12/05/2021 12:11:03 12/05/2021 14:29:57 Calcific tendinitis of shoulder 65963611 M75.31 [id number] Daniel Nelson [facility] Internal Medicine [address] [facility],[place] [address] 12/12/2021 11:58:09 12/12/2021 12:43:54 Osteoarthritis of knee 179916979 M17.0 cortisone inj to the right knee will use highr dose urvashi allen well tolerated [id number] Daniel Nelson [facility] Internal Medicine [address] [facility],[place] [address] 04/21/2022 10:33:09 04/21/2022 15:40:21 Pneumonitis 096345642 J18.9 given worsening we will need to treat and we will use levofloxco nt mucinex drinking water [id number] Daniel Nelson [facility] Internal Medicine [address] [facility],[place] [address] 05/23/2022 10:18:56 05/23/2022 16:19:33 Dental abscess 989989690 K04.7 will start on augmentin for the next 14 days Type 2 armani betes mellitus 35768897 E11.9 Asthma 573991447 J45.90 9 will refill medication s [id number] Daniel Nelson [facility] Internal Medicine [address] [facility],[place] [address] 09/05/2022 10:23:17 09/05/2022 15:02:17 Active or passive immunization 430848687 Z23 patient advised she is due for flu shot & pneu 23 Adult [facility] th examination 462101290 Z00.01 doing ok except for asthma will need lab work upwill be seeing dr luo in october Type 2 armani betes mellitus 90138835 E11.9 a1c is 6.2 !!! Juvenile r heumatoid arthritis 331359984 M08.3 shoulder on right has been an issue Pulmonary hypertension 92972696 I27.20 currently stable with no issues but r ventricle is with diastolic dysfunctio n last echo 2016 will need another echo at some point Hepatitis C screening 41 2496099 Z11.59 [id number] Daniel AlfredBeni Nelson, [facility] Internal Medicine [address] [facility],[place] [address] 10/11/2022 11:55:18 10/11/2022 12:33:29 Type 2 diabetes mellitus 69787368 E11.9 a1c is 6.2 !!! doing well overallsta al that she is feeling goodam sugars are better Asthma 611673376 J45.90 9 doing fantastic with the advair not using xopenex that much unless she has a cold did well with xopenex but not with albut will require only xopenex for future treat uses advair with good results Anemia 162201983 D64.9 [id number] Daniel Garcia Omar, [facility] Internal Medicine [address] [facility],[place] [address] 12/11/2022 14:11:41 12/11/2022 16:52:15 Type 2 diabetes mellitus 95576138 E11.9 a1c is 6.1 !!! while using the ozempic,un fortunatel y we are now limited as she does not tolerate the metform or glimepirid ewe will try to get her jardiance and see if that can helpi still believe the pt willultima tely require ozempic and/or similar med to remain stable [id number] Daniel Nelson, [facility] Internal Medicine [address] [facility],[place] [facility] [address] 02/28/2023 13:59:09 02/28/2023 16:03:49 Asthma 242947594 J45.909 see recent note has covidnow with a hand held nebulier Vertigo 660862945 R42 showed radha cliff Type 2 armani betes mellitus 12440138 E11.9 a1c is pending now was 6.1 !!! while using the ozempic,un fortunatel y we are now limited as she does not tolerate the metform or glimepirid ewe will try to get her jardiance and see if that can helpi still believe the pt willultima tely require ozempic and/or similar med to remain stable Pulmonary hypertension 61252386 I27.20 currently stable with no issues but r ventricle is with diastolic dysfunctio n last echo 2016 will need another echo at some point [id number] Daniel Nelson [facility] Internal Medicine [address] [facility] [address],[place] [address] 04/03/2023 14:02:55 04/03/2023 14:46:12 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 will set up with testing for possible overproduc tion of clacium Acute otitis media 06382 03 H65.03 will start on augmentin Atrophic vaginitis 64619 000 N95.2 incorrect metronidaz oleneed metro Pain in throat 733342697 R07.0 will send out culture [id number] Daniel Nelson [facility] Internal Medicine [address] [facility] [place] [address] 06/08/2023 14:58:45 06/08/2023 16:25:22 Type 2 diabetes mellitus 30676390 E11.9 a1c is 6.3 now now on victoza todayunfor tunately we are now limited as she does not tolerate the metform or glimepirid ewe will try to get her jardiance and see if that can helpi still believe the pt require ozempic and/or similar med to remain stable (victoza) Osteoarthr itis of right hip joint 2121944765 53376 M16.11 [id number] Daniel Nelson [facility] Internal Medicine [address] [facility] [place] [address] 09/03/2023 14:02:45 09/03/2023 14:33:07 Type 2 diabetes mellitus without complication 638556721 E11.9 a1c 6.0 ane doing great Inflammato ry polyarthropathy 251935094 M08.3 hips are still an issue now using a walker Pulmonary hypertension 08619195 I27.20 currently stable with no issues but r ventricle is with diastolic dysfunctio n last echo 2015 will need another echo at some point Asthma 993115702 J45.90 9 see recent note has covidnow with a hand held nebulizer [id number] Daniel Nelson DO [facility] Internal Medicine [address] [facility] [place] [address] [facility] [place] [address] 09/07/2023 13:28:55 09/07/2023 14:16:57 Asthma 270303632 J45.909 doing ok and very well with advairnow with a hand held nebulizer Pulmonary hypertension 53963271 I27.20 currently stable with no issues but r ventricle is with diastolic dysfunctio n last echo 2016 will need another echo at some point Adult [facility] th examination 993203377 Z00.01 doing ok if it werent for the hip and teeth neeeds dentist to work on her teeth Type 2 armani betes mellitus without complication 390832854 E11.9 a1c 6.0 and doing great very impressed [id number] Daniel Nelson DO [facility] Internal Medicine [address] [facility],[place] [address] 01/09/2024 11:53:44 01/09/2024 14:52:13 Asthma 670443535 J45.909 doing ok and very well with advairnow with a hand held nebulizer Type 2 armani betes mellitus 36282026 E11.9 a1c is 6.3 now now on victoza todayunfor tunately we are now limited as she does not tolerate the metform or glimepirid ewe will try to get her jardiance and see if that can helpi still believe the pt require ozempic and/or similar med to remain stable (victoza) Depression screening 171 066934 Z13.31 neg [id number] Daniel Nelson DO [facility] Internal Medicine [address] [facility] [place] [facility] [place] [address] 09/16/2024 09:19:33 09/16/2024 10:04:31 Asthma 437691701 J45.909 doing ok and very well with advairnow with a hand held nebulizer Type 2 armani betes mellitus 58621640 E11.9 a1c is 6.3 now now on victoza todayunfor tunately we are now limited as she does not tolerate the metform or glimepirid ewe will try to get her jardiance and see if that can helpi still believe the pt require ozempic and/or similar med to remain stable (victoza) Depression screening 171 Z13.31 neg Cough 45957233 R05.9 [id number] Daniel Nelson [facility] Internal Medicine [address] [facility], [place] [address] 01/07/2025 15:58:17 01/09/2025 14:09:36 Dysuria 69350266 R30.0 76650 will start on macrobid Depression screening 171 Z13.31 negative [id number] Daniel Nelson [facility] Internal Medicine [address] [facility], [place] [address] 02/10/2025 10:25:21 02/10/2025 11:32:12 Active or passive immunization 817749642 Z23 patient advised she is due for flu shot & pneu 23 Asthma 956084052 J45.90 9 doing ok and very well with advairnow with a hand held nebulizer Obstructiv e sleep apnea syndrome 36418810 G47.33 Pulmonary hypertension 75143496 I27.20 currently stable with no issues but r ventricle is with diastolic dysfunctio n last echo 2016 will need another echo at some point Hypercalcemia 35419773 E 83.52 9955 General ex amination of patient 155717362 Z00.01 28230697 doing ok if it werent for the hip and teeth needs dentist to work on her teeth [id number] Daniel Nelson [facility] Internal Medicine [address] [facility],[place] [facility] [place] [address] 05/08/2025 14:05:31 05/08/2025 14:52:24 Depression screening 000286868 Z13.31 negative Acute urin urmila tract infection 883679139 N39.0 373417 will start on macrobid Diverticul itis of intestine 361834512 K57.92 48109571 start on cipro (lower dose) for both active UTI and diverticul itis Essential hypertension 33520359 I10 54602 very low at home, will set up with the losartan 25 mg High enzym e level in serum 932252554 R74.8 6159718931 needs PCP referral Health Concerns Section Related Observation LastModified by Organization Detai ls LastModified Time None Recorded Concern Status LastModified by Organization Details LastModified Time None Recorded Advance Directives Directive Y: Payers Insurance Date Sequence Insurance Name Policy Number Policy Ryan Covered Member ID Ryan Member ID Guarantor Name 05/07/2025 1 [place] - DOS PRIOR TO 2022 - [facility] (MEDICAID) DeannaJudit Ozuna [id number] Chandrakant Ozuna 05/07/2025 1 [place] [facility] DeannaJudit Ozuna [id number] Chandrakant Ozuna Notes Date Note Type Note Provider Name a nd Address Organization Details Recorded Time 4 text/html ROS as noted in the HPI here for chk up of the echo Daniel Radha Nelson DO [address] [place] [address], [phone], [facility] 01/09/2024 13:20:01 5 text/html ROS as noted in the HPI here since follow up for since asthma exacerbation hospitalization relates that she has been coughing rosibel at nightrelates that she needs and incentive spirometry at home not taking any mucinex Daniel Nelson DO [address] [place] [address], [phone], [facility] 09/16/2024 09:47:33 5 text/html ROS as noted in the HPI c/o urinary symptomscaution of allergies (listed in chart) the patient reports that she is very fatigued, pelvic pressure, urinary frequency, incomplete emptying of the bladder, urinary incontinence the patient reports that she is having occasional constipation which may be causing some inflammation to the bladder the patient will need to be started on macrobidthe patient denies fever, chills, sig back pain RAMONE RAGSDALE [address] [place] [address], [phone], [facility] 01/07/2025 16:59:05 5 text/html Annual WellnessReported by PatientSocial/Behavio ral HistoryFor diet and nutrition, patient reportshealthy diet. For fracture risk, patient reportsno history of fractures,no recent explained fracture,no sudden unexplained fractures, andno previous musculoskeletal injuries. For physical activity, patient reportsexercises on a regular basis,recent increase in physical activity, andgood physical condition. For additional lifestyle factors, patient reportsno tobacco use,no alcohol intake, andstopped drinking alcohol.Mental Status:For depression risk, patient reportsnever feels sad, empty, or tearful,no loss of interest in activities,no significant changes in weight,no sleep disturbances or insomnia,no agitation,no loss of energy,no feelings of worthlessness or guilt,no thoughts of suicide,no history of depression, andno history of mood disorders.Functional AbilityFor hearing, patient reportsno loss of hearing. For vision, patient reportsno vision problems. Care Management - AsthmaReported by PatientHPIFor severity, patient reportsimproving,does not interfere with daily activities,does not disturb sleep, anddoes not cause nighttime awakening. For associated symptoms, patient reportsno fever,no fatigue,no irritability,no cough,normal appetite, andno change in productivity.ROS as noted in the HPI here for cpe doig ok andrew Nelson DO [address] [place], [address], [facility] 02/10/2025 10:49:15 5 text/html ROS as noted in the HPI c/o needs referral the patient has a high tryptase, per Dr. 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, referred out to consult in [facility] to get a PCP referral the patient reports that she is having abdominal painthe patient reports that she is also having back pain, increased sugar levels, cramping, general fatigue and feeling worn down the patient otherwise is doing okayis noting very low BP at home, feeling weak and dizzywill drop to the 25 mg losartan, did try the 50 mg but was still getting low readings, 90/50 around there or slightly lower sending out urine RAMONE RAGSDALE [address] [place], [address], [facility] 05/08/2025 14:52:22 OBGyn Episode No OBEpisode recorded.
--- OUTSIDE RECORDS SUMMARY | 2025-05-08 18:47 | XMS_ITS | Encounter Summary ---
Author Organization [facility] Address [address] [facility] [address] [place] [address] Phone Care Team Providers Care Die Cutter Diamond Name Role Phone Daniel Nelson DO Primary Care Provider [phone] Bigda, Daniel A DO Unavailable Blessing Garcia MD Unavailable [phone] Gaudencio Garcia MD Unavailable [phone] Juan Miguel Smith MD Unavailable Erik Sam MD Unavailable Karrie Curtis GERICARE AIDE TEACHER Unavailable Marisa Madera MD Unavailable [phone] Nick Abrams PILE FABRIC KNITTER Unavailable [phone] Jaleesa Moore GERICARE AIDE TEACHER Unavailable [phone] Bigda, Daniel A DO Unavailable Bigda, Daniel A DO Primary Care Provider +[phone] Bigda, Daniel A DO Unavailable + Bigda, Daniel A DO Primary Care Provider + Encounter Details Date Type Department Care Team (Late st Contact Info) Description 09/19/2017 Transcribe Orders [facility] PFT Lab [address] [place] [address] Gaudencio Garcia MD [address] [place] [address] [email or web address] Social History Tobacco Use Types Packs/Day Years [...] [facility] Pulmonary, Allergy and Critical Care Medicine [address] [place] [address] Gaudencio Garcia MD [address] [place] [address] [email or web address] 07/07/2025 2:00 PM EST Office Visit [facility] Allergy Center at [address] [place] [address] [facility] [address] [place] [address] Krishna German MD [address] [place] [address]-, Division of Rheumatology, [place] [address] [email or web address] 09/16/2025 2:30 PM EST Office Visit [facility] Pulmonary, Allergy and Critical Care Medicine [address] [place] [address] Gaudencio Garcia MD [address] [place] [address] [email or web address] documented as of this encounter Visit Diagnoses Not on filedocumented in this encounter Additional Health Concerns Infection Onset Date Last Indicated Resolved Time CoV-Exposed Comment:Pt exposed to + staff 04/17/23 04/17/2023 04/20/2023 1:24 AM EDT CoV-Risk 08/17/2024 08/17/2024 08/28/2024 1:21 AM EST documented as of this encounter Care Teams Die Cutter Diamond Relationship Specialty Start Date End Date Omar Daniel BentleyDO PCP - General 05/29/17 10/06/20 Daniel Nelson DO PCP - General Internal Medicine 10/07/20 04/22/25 Daniel Nelson DO [address] [place] [address] PCP - General Internal Medicine 04/23/25 Daniel Nelson DO [address] [place] [address] Historical LMR Provider 06/03/17 01/07/18 Blessing Garcia MD [address] [place] [address] Historical LMR Provider 06/03/17 Gaudencio Garcia MD [address] [place] [address] [email or web address] Historical LMR Provider 06/03/17 Juan Miguel Smith MD [address] [place] [address] [email or web address] Historical LMR Provider 06/03/17 01/07/18 Erik Sam MD [address] [place] [address] Historical LMR Provider 06/03/17 Karrie Curtis GERICARE AIDE TEACHER [address] [place] [address] [email or web address] Historical LMR Provider 06/03/17 Marisa Madera MD [address] [address] Historical LMR Provider 06/03/17 Nick Abrams CNP [address] [address] Historical LMR Provider 06/03/17 01/07/18 Jaleesa Moore NP [address] [place] [address] Historical LMR Provider 06/03/17 2 Daniel Nelson DO [address] [place] [address] Insurance Assigned Provider 11/10/17 01/07/18 Daniel Nelson DO [address] [place] [address] Insurance Assigned Provider 11/10/17 12/30/22 documented as of this encounter Additional Source Comments The information contained in this document represents components of the legal health record. It is not the complete legal health record.[facility]
--- OUTSIDE RECORDS SUMMARY | 2025-05-08 18:48 | XMS_ITS | Encounter Summary ---
Author Organization [facility] Address [address] [place] [address] Phone Care Team Providers Care Asbestos Hazard Abatement Worker Name Role Phone Gaudencio Garcia MD Unavailable [phone] Erik Sam MD Unavailable [phone] Marisa Madera MD Unavailable [phone] BigDaniel aquino DO Primary Care Provider [phone] Daniel Nelson DO Unavailable BigDaniel aquino DO Primary Care Provider [phone] Encounter Details Date Type Department Care Team (Late Contact Info) Description 05/17/2022 Procedure Pass [address] [address] Social History Tobacco Use Types Packs/Day Years [...] Pulmonary, Allergy and Critical Care Medicine [address] [place] [address] Gaudencio Garcia MD [address] [place] [address] 07/07/2025 2:00 PM EST [facility] at [address] [place] 850 [facility] [address] [place] [address] Krishna German MD [address] [place] [address], Division of Rheumatology, Immunology [place] [address] [email or web address] 09/16/2025 2:30 PM EST Office Visit [facility] [place] Pulmonary, Allergy and Critical Care Medicine [address] [place] [address] Gaudencio Garcia MD [address] [place] [address] documented as of this encounter Visit Diagnoses Not on filedocumented in this encounter Additional Health Concerns Infection Onset Date Last Indicated Resolved Time CoV-Exposed Comment:Pt exposed to + staff 04/17/23 04/17/2023 04/20/2023 1:24 AM EDT CoV-Risk 08/17/2024 08/17/2024 08/28/2024 1:21 AM EST documented as of this encounter Care Teams Asbestos Hazard Abatement Worker Relationship Specialty Start Date End Date Daniel Nelson DO [address] [address] PCP - General Internal Medicine 10/07/20 04/22/25 Daniel Nelson DO [address] [facility] [place] [address] PCP - General Internal Medicine 04/23/25 Gaudencio Garcia MD [address] [place] [address] [email or web address] Historical LMR Provider 06/03/17 Erik Sam MD [address] [address] [email or web address] Historical LMR Provider 06/03/17 Marisa Madera MD [address] [place] [address] [email or web address] Historical LMR Provider 06/03/17 Daniel Nelson DO [address] [place] [address] [place] [address] [email or web address] Insurance Assigned Provider 11/10/17 12/30/22 documented as of this encounter Additional Source Comments The information contained in this document represents components of the legal health record. It is not the complete legal health record.[facility]
--- OUTSIDE RECORDS SUMMARY | 2025-05-08 18:48 | XMS_ITS | Encounter Summary ---
Author Organization [facility] Address [address] [facility] [address] [place] [address] Phone Care Team Providers Care Magnetic Prospector Name Role Phone Gaudencio Garcia MD Unavailable [phone] Erik Sam MD Unavailable [phone] Marisa Madera MD Unavailable [phone] Jaleesa Moore NP Unavailable [phone] Bigda, Daniel A DO Primary Care Provider [phone] Bigda, Daniel A DO Unavailable Bigda, Daniel A DO Primary Care Provider [phone] Encounter Details Date Type Department Care Team (Late st Contact Info) Description 10/07/2020 Procedure Pass [facility], [address] [address] Social History Tobacco Use Types Packs/Day Years [...] Pulmonary, Allergy and Critical Care Medicine 10 [place] [address] Gaudencio Garcia MD [address] [place] [address] 07/07/2025 2:00 PM EST Office Visit [facility] Allergy Center at [address] [place] 850 [facility] 540 [place] [address] Krishna German MD [address] [place] [address]-, Division of Rheumatology, [place] [address] [email or web address] 09/16/2025 2:30 PM EST Office Visit [facility] Pulmonary, Allergy and Critical Care Medicine [address] [place] [address] Gaudencio Garcia MD [address] [place] [address] [email or web address] documented as of this encounter Visit Diagnoses Not on filedocumented in this encounter Additional Health Concerns Infection Onset Date Last Indicated Resolved Time CoV-Exposed Comment:Pt exposed to + staff 04/17/23 04/17/2023 04/20/2023 1:24 AM EDT CoV-Risk 08/17/2024 08/17/2024 08/28/2024 1:21 AM EST documented as of this encounter Care Teams Magnetic Prospector Relationship Specialty Start Date End Date Daniel Nelson DO [address] [place] [address] PCP - General Internal Medicine 10/07/20 04/22/25 Daniel Nelson DO [address] [place] [address] [place] [address] PCP - General Internal Medicine 04/23/25 Gaudencio Garcia MD [address] [place] [address] [email or web address] Historical LMR Provider 06/03/17 Erik Sam MD [address] [place] [address] [email or web address] Historical LMR Provider 06/03/17 Marisa Madera MD [address] [place] [address] [email or web address] Historical LMR Provider 06/03/17 Jaleesa Moore NP [address] [place] [address] Historical LMR Provider 06/03/17 2 Daniel Nelson DO [address] [place] [address] [email or web address] Insurance Assigned Provider 11/10/17 12/30/22 documented as of this encounter Additional Source Comments The information contained in this document represents components of the legal health record. It is not the complete legal health record.[facility]
--- OUTSIDE RECORDS SUMMARY | 2025-05-08 18:48 | XMS_ITS | Encounter Summary ---
Author Organization [facility] Address [address] [employer] [place] [address] [place] [address] Phone Care Team Providers Care Pillowcase Maker Name Role Phone Gaudencio Garcia MD Unavailable [phone] Erik Sam MD Unavailable [phone] Marisa Madera MD Unavailable [phone] Jaleesa Moore NP Unavailable [phone] Bigda, Daniel A DO Primary Care Provider [phone] Bigda, Daniel A DO Unavailable Bigda, Daniel A DO Primary Care Provider [phone] Encounter Details Date Type Department Care Team (Late st Contact Info) Description 12/08/2020 Procedure Pass [facility] Echo Lab [address] [place], [place] [id number] Social History Tobacco Use Types Packs/Day Years [...] [facility] Pulmonary, Allergy and Critical Care Medicine [address] [place] [address] Gaudencio Garcia MD [address] [place] [address] 07/07/2025 2:00 PM EST Office Visit [facility] Allergy Center at [address] [place] 850 [facility] 540 [place] [address] Krishna German MD [address] [place] [address]-, Division of Rheumatology, [place] [address] [email or web address] 09/16/2025 2:30 PM EST Office Visit [facility] Pulmonary, Allergy and Critical Care Medicine [address] [place] [address] Gaudencio Garcia MD [address] [place] [address] [email or web address] documented as of this encounter Visit Diagnoses Not on filedocumented in this encounter Additional Health Concerns Infection Onset Date Last Indicated Resolved Time CoV-Exposed Comment:Pt exposed to + staff 04/17/23 04/17/2023 04/20/2023 1:24 AM EDT CoV-Risk 08/17/2024 08/17/2024 08/28/2024 1:21 AM EST documented as of this encounter Care Teams Pillowcase Maker Relationship Specialty Start Date End Date Daniel Nelson DO [address] [place] [address] [email or web address] PCP - General Internal Medicine 10/07/20 04/22/25 Daniel Nelson DO [address] [facility] [place] [address] [email or web address] PCP - General Internal Medicine 04/23/25 Gaudencio Garcia MD [address] [place] [address] [email or web address] Historical LMR Provider 06/03/17 Erik Sam MD [address] [address] [email or web address] Historical LMR Provider 06/03/17 Marisa Madera MD [address] [place] [address] [email or web address] Historical LMR Provider 06/03/17 Jaleesa Moore NP [address] [place] [address] Historical LMR Provider 06/03/17 2 Daniel Nelson DO [address] [place] [address] [email or web address] Insurance Assigned Provider 11/10/17 12/30/22 documented as of this encounter Additional Source Comments The information contained in this document represents components of the legal health record. It is not the complete legal health record.[facility]
--- OUTSIDE RECORDS SUMMARY | 2025-05-08 18:48 | XMS_ITS | Encounter Summary ---
Author Organization [facility] Address [address] [facility] [address] [place] [address] Phone Care Team Providers Care Physical Therapy Resident Name Role Phone Gaudencio Garcia MD Unavailable [phone] Erik Sam MD Unavailable [phone] Marisa Madera MD Unavailable [phone] Jaleesa Moore NP Unavailable [phone] Bigda, Daniel A DO Primary Care Provider [phone] Bigda, Daniel A DO Unavailable Bigda, Daniel A DO Primary Care Provider [phone] Encounter Details Date Type Department Care Team (Late st Contact Info) Description 06/21/2021 Procedure Pass [facility], [address] [address] Social History Tobacco Use Types Packs/Day Years [...] Pulmonary, Allergy and Critical Care Medicine [address] [place] [address] Gaudencio Garcia MD [address] [place] [address] 07/07/2025 2:00 PM EST Office Visit [facility] Allergy Center at [address] [place] 850 [facility] 540 [place] [address] Krishna German MD [address] [place] [address]-, Division of Rheumatology, [place] [address] [email or web address] 09/16/2025 2:30 PM EST Office Visit [facility] Pulmonary, Allergy and Critical Care Medicine [address] [place] [address] Gaudencio Garcia MD [address] [place] [address] [email or web address] documented as of this encounter Visit Diagnoses Not on filedocumented in this encounter Additional Health Concerns Infection Onset Date Last Indicated Resolved Time CoV-Exposed Comment:Pt exposed to + staff 04/17/23 04/17/2023 04/20/2023 1:24 AM EDT CoV-Risk 08/17/2024 08/17/2024 08/28/2024 1:21 AM EST documented as of this encounter Care Teams Physical Therapy Resident Relationship Specialty Start Date End Date Daniel Nelson DO [address] [place] [address] [email or web address] PCP - General Internal Medicine 10/07/20 04/22/25 Daniel Nelson DO [address] [place] [address] [place] [address] PCP - General Internal Medicine 04/23/25 Gaudencio Garcia MD [address] [place] [address] [email or web address] Historical LMR Provider 06/03/17 Erik Sam MD [address] [place] [address] [email or web address] Historical LMR Provider 06/03/17 Marisa Madera MD [address] [place] [address] [email or web address] Historical LMR Provider 06/03/17 Jaleesa Moore NP [address] [place] [address] Historical LMR Provider 06/03/17 2 Daniel Nelson DO [address] [place] [address] [email or web address] Insurance Assigned Provider 11/10/17 12/30/22 documented as of this encounter Additional Source Comments The information contained in this document represents components of the legal health record. It is not the complete legal health record.[facility]
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
--- OUTSIDE RECORDS SUMMARY | 2025-05-08 18:48 | XMS_ITS | Encounter Summary ---
Author Organization [facility] Address [address] [place] [address] Phone Care Team Providers Care Machine Operator Hop Picker Name Role Phone Gaudencio Garcia MD Unavailable [phone] Erik Sam MD Unavailable [phone] Marisa Madera MD Unavailable [phone] BigDaniel aquino DO Primary Care Provider [phone] Daniel Nelson DO Unavailable BigDaniel aquino DO Primary Care Provider [phone] Encounter Details Date Type Department Care Team (Late Contact Info) Description 05/17/2022 Procedure Pass [facility], [address] [address] Social History Tobacco Use Types Packs/Day Years [...] Pulmonary, Allergy and Critical Care Medicine [address] [place] [address] Gaudencio Garcia MD [address] [place] [address] 07/07/2025 2:00 PM EST Office Visit [facility] Allergy Center at [address] [facility] [address] [place] [address] Krishna German MD [address] [place] [address], Division of Rheumatology, Immunology [place] [address] [email or web address] 09/16/2025 2:30 PM EST Office Visit [facility] Pulmonary, Allergy and Critical Care Medicine [address] [place] [address] Gaudencio Garcia MD [address] [place] [address] documented as of this encounter Visit Diagnoses Not on filedocumented in this encounter Additional Health Concerns Infection Onset Date Last Indicated Resolved Time CoV-Exposed Comment:Pt exposed to + staff 04/17/23 04/17/2023 04/20/2023 1:24 AM EDT CoV-Risk 08/17/2024 08/17/2024 08/28/2024 1:21 AM EST documented as of this encounter Care Teams Machine Operator Hop Picker Relationship Specialty Start Date End Date Daniel Nelson DO [address] [address] PCP - General Internal Medicine 10/07/20 04/22/25 Daniel Nelson DO [address] [place] [address] PCP - General Internal Medicine 04/23/25 Gaudencio Garcia MD [address] [place] [address] [email or web address] Historical LMR Provider 06/03/17 Erik Sam MD [address] [address] [email or web address] Historical LMR Provider 06/03/17 Marisa Madera MD [address] [place] [address] [email or web address] Historical LMR Provider 06/03/17 Daniel Nelson DO [address] [place] [address] [place] [address] [email or web address] Insurance Assigned Provider 11/10/17 12/30/22 documented as of this encounter Additional Source Comments The information contained in this document represents components of the legal health record. It is not the complete legal health record.[facility]
--- OUTSIDE RECORDS SUMMARY | 2025-05-08 18:48 | XMS_ITS | Encounter Summary ---
Author Organization [facility] Address [address] [facility] [address] [place] [address] Phone Care Team Providers Care Security And Compliance Project Manager Name Role Phone Daniel Nelson DO Primary Care Provider [phone] Bigda, Daniel Bentley DO Unavailable Blessing Garcia MD Unavailable [phone] Gaudencio Garcia MD Unavailable [phone] Juan Miguel Smith MD Unavailable Erik Sam MD Unavailable Karrie Curtis WATER MAIN INSPECTOR Unavailable Marisa Madera MD Unavailable [phone] Nick Abrams KNITTING MACHINE TENDER Unavailable [phone] Jaleesa Moore WATER MAIN INSPECTOR Unavailable [phone] Bigda, Daniel Bentley DO Unavailable Bigda, Daniel A DO Primary Care Provider [phone] Bigda, Daniel A DO Unavailable + Bigda, Daniel A DO Primary Care Provider + Encounter Details Date Type Department Care Team (Late st Contact Info) Description 12/12/2017 Procedure Pass [facility], [address] [place] [address] Social History Tobacco Use Types Packs/Day Years Used Date Smoking Tobacco: Never Smokeless Tobacco: Never Alcohol Use Standard Drinks/Week Comments No 0 (1 standard drink = 0.6 oz pur e alcohol) Comments Unknown Sex and Gender Information Value [...] [facility] Pulmonary, Allergy and Critical Care Medicine [address] [place] [address] Gaudencio Garcia MD [address] [place] [address] 07/07/2025 2:00 PM EST Office Visit [facility] Allergy Center at [address] [place] [address] Krishna German MD [address] [place] [address], Division of Rheumatology, [place] [address] [email or web address] 09/16/2025 2:30 PM EST Office Visit [facility] Pulmonary, Allergy and Critical Care Medicine [address] [place] [address] Gaudencio Garcia MD [address] [place] [address] [email or web address] documented as of this encounter Visit Diagnoses Not on filedocumented in this encounter Additional Health Concerns Infection Onset Date Last Indicated Resolved Time CoV-Exposed Comment:Pt exposed to + staff 04/17/23 04/17/2023 04/20/2023 1:24 AM EDT CoV-Risk 08/17/2024 08/17/2024 08/28/2024 1:21 AM EST documented as of this encounter Care Teams Security And Compliance Project Manager Relationship Specialty Start Date End Date JhonyDaniel aquino PCP - General 05/29/17 10/06/20 JhonyDaniel aquinoDO PCP - General Internal Medicine 10/07/20 04/22/25 Omar Daniel BentleyDO [address] [place] [address] PCP - General Internal Medicine 04/23/25 Omar Daniel BentleyDO [address] [place] [address] Historical LMR Provider 06/03/17 01/07/18 Blessing Garcia MD [address] [place] [address] Historical LMR Provider 06/03/17 Gaudencio Garcia MD [address] [place] [address] Historical LMR Provider 06/03/17 Juan Miguel Smith MD [address] [place] [address] Historical LMR Provider 06/03/17 01/07/18 Erik Sam MD [address] [place] [address] [address] [place] [address] Historical LMR Provider 06/03/17 Karrie Curtis NP [address] [place] [address] [email or web address] Historical LMR Provider 06/03/17 Marisa Madera MD [address] [place] [address] Historical LMR Provider 06/03/17 Nick Abrams CNP [address] [place] [address] Historical LMR Provider 06/03/17 01/07/18 Jaleesa Moore NP [address] [place] [address] Historical LMR Provider 06/03/17 2 Daniel Nelson DO [address] [place] [address] Insurance Assigned Provider 11/10/17 01/07/18 Daniel Nelson DO [address] [place] [address] Insurance Assigned Provider 11/10/17 12/30/22 documented as of this encounter Additional Source Comments The information contained in this document represents components of the legal health record. It is not the complete legal health record.[facility]
--- OUTSIDE RECORDS SUMMARY | 2025-05-08 18:48 | XMS_ITS | Encounter Summary ---
Author Organization [facility] Address [address] [place] [address] Phone Care Team Providers Care Dean Of Admissions Name Role Phone Gaudencio Garcia MD Unavailable [phone] Erik Sam MD Unavailable [phone] Marisa Madera MD Unavailable [phone] Daniel Nelson DO Primary Care Provider [phone] Daniel Nelson DO Primary Care Provider [phone] Encounter Details Date Type Department Care Team (Late st Contact Info) Description 09/07/2023 Procedure Pass [facility] [address] [place] [address] Social History Tobacco Use Types Packs/Day Years Used Date Smoking Tobacco: Never Smokeless Tobacco: Never Alcohol Use Standard Drinks/Week Comments Yes 0 (1 standard drink = 0.6 oz pur e alcohol) Rare Education Answer Date Recorded Are you interested in more education? Not on jojo e 12/07/2022 Are you concerned about learning? Not on file 12/07/2022 No 12/07/2022 No 12/07/2022 Digital Access Answer Date Recorded No 01/02/2023 No 01/02/2023 Reliable internet access at home? Not on file 01/02/2023 Device with a working camera? Not on file Intimate Partner Violence Answer Date R ecorded Are you denied basic needs s uch as food, clothing, or medical care? No 12/07/2022 In the past 12 months have y ou been in a relationship with a person who hurts, threatens, or tries to control you? No 12/07/2022 Are you denied basic needs s uch as food, clothing, or medical care? No 12/07/2022 In the past 12 months have y ou been in a relationship with a person who hurts, threatens, or tries to control you? No 12/07/2022 Comments No Sex and Gender Information Value Date Recorded Sex Assigned at Female 10/30/2020 2:56 PM EDT Legal Sex Female 9:44 PM EDT Gender Identity Female 10/30/2020 2:56 PM EDT Sexual Orientation Straight 10/30/2020 2: 56 PM EDT documented as of this encounter Plan of Treatment Upcoming Encounters Date Type Department Care Team ([facility] st Contact Info) Description 05/13/2025 1:30 PM EDT Nurse Only [facility] Pulmonary, Allergy and Critical Care Medicine [address] [place] [address] Gaudencio Garcia MD [address] [place] [address] [email or web address] 07/07/2025 2:00 PM EST Office Visit [facility] Allergy Center at [address] [address] Krishna German MD [address] [place] [address], Division of Rheumatology, Immunology [place] [address] [email or web address] 09/16/2025 2:30 PM EST Office Visit [facility] Pulmonary, Allergy and Critical Care Medicine [address] [place] [address] Gaudencio Garcia MD [address] [place] [address] [email or web address] documented as of this encounter Visit Diagnoses Not on filedocumented in this encounter Additional Health Concerns Infection Onset Date Last Indicated Resolved Time CoV-Risk 08/17/2024 08/17/2024 08/28/2024 1:21 AM EST documented as of this encounter Care Teams Dean Of Admissions Relationship Specialty Start Date End Date Daniel Nelson DO [address] [place] [address] PCP - General Internal Medicine 10/07/20 04/22/25 Daniel Nelson DO [address] [place] [address] PCP - General Internal Medicine 04/23/25 Gaudencio Garcia MD [address] [place] [address] Historical LMR Provider 06/03/17 Erik Sam MD [address] [address] Historical LMR Provider 06/03/17 Marisa Madera MD [address] [place] [address] Historical LMR Provider 06/03/17 documented as of this encounter Additional Source Comments The information contained in this document represents components of the legal health record. It is not the complete legal health record.[facility]
--- OUTSIDE RECORDS SUMMARY | 2025-05-08 18:48 | XMS_ITS | Encounter Summary ---
Author Organization [facility] Address [address] [facility] [address] [place] [address] Phone Care Team Providers Care Vamp Liner Name Role Phone Daniel Nelson DO Primary Care Provider [phone] Gaudencio Garcia MD Unavailable [phone] Erik Sam MD Unavailable [phone] Marisa Madera MD Unavailable [phone] Jaleesa Moore NP Unavailable [phone] Daniel Nelson DO Primary Care Provider [phone] Daniel Nelson DO Unavailable Daniel Nelson DO Primary Care Provider [phone] Encounter Details Date Type Department Care Team (Late st Contact Info) Description 04/03/2018 Ancillary Orders Virtual Department [address] [place] [address] Daniel Nelson DO [address] [place] [address] [email or web address] Breast screening Social History Tobacco Use Types Packs/Day Years [...] Upcoming Encounters Date Type Department Care Team ([facility] st Contact Info) Description 05/13/2025 1:30 PM EDT Nurse Only [facility] Pulmonary, Allergy and Critical Care Medicine [address] [place] [address] Gaudencio Garcia MD [address] [place] [address] [email or web address] 07/07/2025 2:00 PM EST Office Visit [facility] Allergy Center at [address] [place] [address] [facility] [address] [place] [address] Krishna German MD [address] [place] [address], Division of Rheumatology, [place] [address] [email or web address] 09/16/2025 2:30 PM EST Office Visit [facility] Pulmonary, Allergy and Critical Care Medicine [address] [place] [address] Gaudencio Garcia MD [address] [place] [address] [email or web address] documented as of this encounter Results * BI MAMMOGRAM SCREENING WITH TOMOSYNTHESIS WITH CAD (BILATERAL) (06/18/2018 1:27 PM EST) Anatomical Region Laterality Modality Breast Left, Breast Right, Breast Bilateral Bila teral Mammography 06/18/2018 1:58 PM EST Impressions 06/18/2018 2:01 PM EST Stable appearance relative to prior imaging. No findings suggestive of malignancy are seen. BI-RADS CATEGORY: 2 - Benign finding. DENSITY: There are scattered fibroglandular densities. POS - [id number] Narrative 06/18/2018 2:01 PM EST Full-field digital mammography is obtained with computer-aided detection. Comparison with prior imaging from 05/16/2017 is made with older imaging dating back as far as 04/22/2012 also reviewed. There is scattered fibroglandular density evident in the breasts. In addition to 2-D C view imaging, tomosynthesis images are obtained in two projections of each breast. Circumscribed densities in both breasts remain unchanged. No dominant soft tissue mass of concern, suspicious cluster of calcifications, significant interval skin changes, or architectural distortion is identified. Procedure Note Santino Byers MD - 06/18/2018 Full-field digital mammography is obtained with computer-aided detection.Comparison with prior imaging from 05/16/2017 is made with older imagingdating back as far as 04/22/2012 also reviewed. There is scattered fibroglandular density evident in the breasts. Inaddition to 2-D C view imaging, tomosynthesis images are obtained in twoprojections of each breast. Circumscribed densities in both breasts remain unchanged. No dominantsoft tissue mass of concern, suspicious cluster of calcifications,significant interval skin changes, or architectural distortion isidentified. IMPRESSION: Stable appearance relative to prior imaging. No findings suggestive ofmalignancy are seen. BI-RADS CATEGORY: 2 - Benign finding. DENSITY: There are scattered fibroglandular densities. POS - [id number] Daniel Nelson DO IMG MG EXAMS Final Result documented in this encounter Visit Diagnoses Diagnosis Breast screening Breast screening, unspecified Breast screening Breast screening, unspecified documented in this encounter Additional Health Concerns Infection Onset Date Last Indicated Resolved Time CoV-Exposed Comment:Pt exposed to + staff 04/17/23 04/17/2023 04/20/2023 1:24 AM EDT CoV-Risk 08/17/2024 08/17/2024 08/28/2024 1:21 AM EST documented as of this encounter Care Teams Vamp Liner Relationship Specialty Start Date End Date Daniel Nelson DO PCP - General 05/29/17 10/06/20 Daniel Nelson DO PCP - General Internal Medicine 10/07/20 04/22/25 Daniel eNlson DO [address] [place] [address] PCP - General Internal Medicine 04/23/25 Gaudencio Garcia MD [address] [place] [address] Historical LMR Provider 06/03/17 Erik Sam MD [address] [place] [address] Historical LMR Provider 06/03/17 Marisa Madera MD [address] [place] [address] Historical LMR Provider 06/03/17 Jaleesa Moore NP [address] [place] [address] Historical LMR Provider 06/03/17 2 Daniel Nelson DO [address] [place] [address] Insurance Assigned Provider 11/10/17 12/30/22 documented as of this encounter Additional Source Comments The information contained in this document represents components of the legal health record. It is not the complete legal health record.[facility]
--- OUTSIDE RECORDS SUMMARY | 2025-05-08 18:48 | XMS_ITS | Encounter Summary ---
Author Organization [facility] Address [address] [facility] [address] [place] [address] Phone Care Team Providers Care Chronic Condition Nurse Name Role Phone Daniel Nelson DO Primary Care Provider [phone] Kavin Garcia MD Unavailable [phone] Erik Sam MD Unavailable [phone] Marisa Madera MD Unavailable [phone] Jaleesa Moore NP Unavailable [phone] Omar, Daniel Bentley DO Primary Care Provider [phone] Daniel Nelson DO Unavailable Omar, Daniel Bentley DO Primary Care Provider [phone] Encounter Details Date Type Department Care Team (Late st Contact Info) Description 05/07/2019 Transcribe Orders Virtual Department 30 [place] [address] Daniel Nelson DO [address] [facility] [place] [address] [email or web address] Pain in left hip (Primary Dx); Right knee pain, unspecified chronicity Social History Tobacco Use Types Packs/Day Years [...] Upcoming Encounters Date Type Department Care Team ([facility] st Contact Info) Description 05/13/2025 1:30 PM EDT Nurse Only [facility] Pulmonary, Allergy and Critical Care Medicine 10 [place] [address] Kavin Garcia MD [address] [place] [address] 07/07/2025 2:00 PM EST Office Visit [facility] Allergy Center at [address] [place] [address] [facility] [address] [place] [address] Krishna German MD [address] [place] [address]-, Division of Rheumatology, [place] [address] [email or web address] 09/16/2025 2:30 PM EST Office Visit [facility] Pulmonary, Allergy and Critical Care Medicine [address] [place] [address] Kavin Garcia MD [address] [place] [address] [email or web address] documented as of this encounter Results * XR HIP 2 VW LEFT PLUS PELVIS (05/09/2019 12:09 PM EDT) Anatomical Region Laterality Modality Hip Left Radiographic Ernestina ging 05/09/2019 12:1 3 PM EDT Impressions 05/09/2019 12:14 PM EDT No evidence of avascular necrosis or other significant interval change from 05/30/2017. POS - [id number] Narrative 05/09/2019 12:14 PM EDT COMPARISON: 05/30/2017 FINDINGS: An AP view of the pelvis reveals no acute traumatic or destructive bony abnormality. AP neutral and frog-lateral views of the left hip were obtained disclosing chronic periacetabular spurring and grossly stable joint space narrowing. Femoral head articular surface is smooth. No aberrant soft tissue calcifications of significance have developed in the hip girdle. Procedure Note Kavin Orta MD - 05/09/2019 COMPARISON: 05/30/2017 FINDINGS: An AP view of the pelvis reveals no acute traumatic or destructive bonyabnormality. AP neutral and frog-lateral views of the left hip were obtained disclosingchronic periacetabular spurring and grossly stable joint space narrowing.Femoral head articular surface is smooth. No aberrant soft tissuecalcifications of significance have developed in the hip girdle. IMPRESSION: No evidence of avascular necrosis or other significant interval changefrom 05/30/2017. POS - [email or web address] us Daniel A Bigda DO IMG XR PELVIS Final Result * XR HIP 2-3 VW RIGHT (05/09/2019 12:09 PM EDT) Anatomical Region Laterality Modality Hip Right Radiographic Ernestina ging 05/09/2019 12:1 5 PM EDT Impressions 05/09/2019 12:15 PM EDT Chronic periacetabular spurring without evidence of avascular necrosis or other significant interval change from 05/30/2017. POS - [id number] Narrative 05/09/2019 12:15 PM EDT COMPARISON: 05/30/2017 FINDINGS: AP neutral and frog-lateral views were obtained disclosing grossly stable periacetabular spurring. Joint space remains grossly stable. Femoral head articular surface is smooth. No aberrant soft tissue calcifications of significance have developed. Procedure Note Kavin Orta MD - 05/09/2019 COMPARISON: 05/30/2017 FINDINGS: AP neutral and frog-lateral views were obtained disclosing grossly stableperiacetabular spurring. Joint space remains grossly stable. Femoralhead articular surface is smooth. No aberrant soft tissue calcificationsof significance have developed. IMPRESSION: Chronic periacetabular spurring without evidence of avascular necrosis orother significant interval change from 05/30/2017. POS - [email or web address] us Daniel A Bigda DO IMG XR PELVIS Final Result * XR KNEE 4 OR MORE VIEWS (LEFT) (05/09/2019 12:08 PM EDT) Anatomical Region Laterality Modality Knee Left Radiographic Ernestina ging 05/09/2019 12:1 5 PM EDT Impressions 05/09/2019 12:17 PM EDT Chronic osteoarthritis with medial compartment progression suggested since 05/30/2017. POS - [email or web address] Narrative 05/09/2019 12:17 PM EDT COMPARISON: 05/30/2017 FINDINGS: Frontal, lateral, tunnel, and sunrise views were obtained. There is progressive narrowing of the medial compartment with a mild varus deformity now present, a component of which may be related to current weightbearing imaging. Diffuse periacetabular spurring appears stable. No acute fracture or subluxation identified. No gross suprapatellar effusion or opaque loose joint body noted. Procedure Note Kavin Orta MD - 05/09/2019 COMPARISON: 05/30/2017 FINDINGS: Frontal, lateral, tunnel, and sunrise views were obtained. There isprogressive narrowing of the medial compartment with a mild varusdeformity now present, a component of which may be related to currentweightbearing imaging. Diffuse periacetabular spurring appears stable.No acute fracture or subluxation identified. No gross suprapatellareffusion or opaque loose joint body noted. IMPRESSION: Chronic osteoarthritis with medial compartment progression suggested since05/30/2017. POS - [email or web address] us Daniel A Bigda DO IMG XR LOWER EXTREMITY Final Res ult documented in this encounter Visit Diagnoses Diagnosis Pain in left hip- Primary Right knee pain, unspecified chronicity Pain in left hip Pain in left hip Right knee pain, unspecified chronicity documented in this encounter Additional Health Concerns Infection Onset Date Last Indicated Resolved Time CoV-Exposed Comment:Pt exposed to + staff 04/17/23 04/17/2023 04/20/2023 1:24 AM EDT CoV-Risk 08/17/2024 08/17/2024 08/28/2024 1:21 AM EST documented as of this encounter Care Teams Chronic Condition Nurse Relationship Specialty Start Date End Date Daniel Nelson DO PCP - General 05/29/17 10/06/20 Daniel Nelson DO PCP - General Internal Medicine 10/07/20 04/22/25 Daniel Nelson DO [address] [place] [address] PCP - General Internal Medicine 04/23/25 Kavin Garcia MD [address] [place] [address] [email or web address] Historical LMR Provider 06/03/17 Erik Sam MD [address] [address] [email or web address] Historical LMR Provider 06/03/17 Marisa Madera MD [address] [address] [email or web address] Historical LMR Provider 06/03/17 Jaleesa Moore NP [address] [place] [address] Historical LMR Provider 06/03/17 2 Daniel Nelson DO [address] [place] [address] [email or web address] Insurance Assigned Provider 11/10/17 12/30/22 documented as of this encounter Additional Source Comments The information contained in this document represents components of the legal health record. It is not the complete legal health record.[facility]
--- OUTSIDE RECORDS SUMMARY | 2025-05-08 18:48 | XMS_ITS | Encounter Summary ---
Author Organization [facility] Address [address] [place] [address] Phone Care Team Providers Care Business Analyst Project Manager Name Role Phone Gaudencio Garcia MD Unavailable [phone] Erik Sam MD Unavailable [phone] Marisa Madera MD Unavailable [phone] Daniel Nelson DO Primary Care Provider [phone] Daniel Nelson DO Primary Care Provider [phone] Encounter Details Date Type Department Care Team (Latest Contact Info) Description 06/26/2023 Transcribe Orders Virtual Department 30 [place] [address] Roberta Mao PA 6 [facility] [place] [address] [place] [address] Disorder of kidney and ureter, unspecified (Primary Dx) Social History Tobacco Use Types [...] [facility] Pulmonary, Allergy and Critical Care Medicine [address] [place] [address] Gaudencio Garcia MD [address] [place] [address] 07/07/2025 2:00 PM EST Office Visit [facility] Allergy Center at [address] [place] [address] Krishna German MD [address] [place] [address]-, Division of Rheumatology, Immunology [place] [address] [email or web address] 09/16/2025 2:30 PM EST Office Visit [facility] Pulmonary, Allergy and Critical Care Medicine [address] [place] [address] Gaudencio Garcia MD [address] [place] [address] [email or web address] documented as of this encounter Results * US Kidneys (07/02/2023 2:56 PM EST) Anatomical Region Laterality Modality Abdomen, Kidney Ultrasound 07/02/2023 5:19 PM EST Impressions 07/03/2023 6:11 AM EST Simple appearing exophytic left upper pole cyst corresponding to the lesion in question from recent CT. Additional smaller tiny hypodensity in the right interpolar kidney reported on prior CT has no sonographic correlate. No hydronephrosis or shadowing nephrolithiasis. Narrative 07/03/2023 6:11 AM EST US KIDNEYS Referring clinician's provided indication for this examination in Epic: Outside Radiology Order; KIDNEY LESION TECHNIQUE: Kidney Ultrasound. COMPARISON: CT ABDOMEN/PELVIS WITH CONTRAST FINDINGS: Right Kidney: Size: 10.7 cm No shadowing stones or hydronephrosis. Left Kidney: Size: 11.2 cm Simple appearing upper pole cortical cyst. No shadowing stones or hydronephrosis. Procedure Note Daniel Wilson MD - 07/03/2023 US KIDNEYS Referring clinician's provided indication for this examination in Epic:Outside Radiology Order; KIDNEY LESION TECHNIQUE: Kidney Ultrasound. COMPARISON: CT ABDOMEN/PELVIS WITH CONTRAST FINDINGS: Right Kidney: Size: 10.7 cm No shadowing stones or hydronephrosis. Left Kidney: Size: 11.2 cm Simple appearing upper pole cortical cyst. No shadowing stones orhydronephrosis. IMPRESSION: Simple appearing exophytic left upper pole cyst corresponding to thelesion in question from recent CT. Additional smaller tiny hypodensity inthe right interpolar kidney reported on prior CT has no sonographiccorrelate. No hydronephrosis or shadowing nephrolithiasis. us Roberta PACK IMG US RENAL Final Resul t documented in this encounter Visit Diagnoses Diagnosis Disorder of kidney and ureter, unspecified- Primary Disorder of kidney and ureter, unspecified documented in this encounter Additional Health Concerns Infection Onset Date Last Indicated Resolved Time CoV-Risk 08/17/2024 08/17/2024 08/28/2024 1:21 AM EST documented as of this encounter Care Teams Business Analyst Project Manager Relationship Specialty Start Date End Date Daniel Nelson DO [address] [address] PCP - General Internal Medicine 10/07/20 04/22/25 Daniel Nelson DO [address] [place] [address] [place] [address] PCP - General Internal Medicine 04/23/25 Gaudencio Garcia MD [address] [place] [address] Historical LMR Provider 06/03/17 Erik Sam MD [address] [address] Historical LMR Provider 06/03/17 Marisa Madear MD [address] [address] Historical LMR Provider 06/03/17 documented as of this encounter Additional Source Comments The information contained in this document represents components of the legal health record. It is not the complete legal health record.[facility]
--- OUTSIDE RECORDS SUMMARY | 2025-05-08 18:48 | XMS_ITS | Encounter Summary ---
Author Organization [facility] Address [address] [place] [address] Phone Care Team Providers Care Manager Medical Device Name Role Phone Gaudencio Garcia MD Unavailable [phone] Erik Sam MD Unavailable [phone] Marisa Madera MD Unavailable [phone] BigDaniel aquino DO Primary Care Provider [phone] Daniel Nelson DO Unavailable BigDaniel aquino DO Primary Care Provider [phone] Encounter Details Date Type Department Care Team (Late Contact Info) Description 07/05/2022 Procedure Pass [address] [id number] Social History Tobacco Use Types Packs/Day Years [...] Pulmonary, Allergy and Critical Care Medicine 10 [place] [address] Gaudencio Garcia MD [address] [place] [address] 07/07/2025 2:00 PM EST Office Visit [facility] Allergy Center at [address] [place] 850 [facility] [address] [place] [address] Krishna German MD [address] [place] [address], Division of Rheumatology, [place] [address] [email or web address] 09/16/2025 2:30 PM EST Office Visit [facility] Pulmonary, Allergy and Critical Care Medicine [address] [place] [address] Gaudencio Garcia MD [address] [place] [address] documented as of this encounter Visit Diagnoses Not on filedocumented in this encounter Additional Health Concerns Infection Onset Date Last Indicated Resolved Time CoV-Exposed Comment:Pt exposed to + staff 04/17/23 04/17/2023 04/20/2023 1:24 AM EDT CoV-Risk 08/17/2024 08/17/2024 08/28/2024 1:21 AM EST documented as of this encounter Care Teams Manager Medical Device Relationship Specialty Start Date End Date Daniel Nelson DO [address] [address] PCP - General Internal Medicine 10/07/20 04/22/25 Daniel Nelson DO 179 [facility] [place] [address] PCP - General Internal Medicine 04/23/25 Gaudencio Garcia MD [address] [place] [address] [email or web address] Historical LMR Provider 06/03/17 Erik Sam MD [address] [address] [email or web address] Historical LMR Provider 06/03/17 Marisa Madera MD [address] [place] [address] [email or web address] Historical LMR Provider 06/03/17 Daniel Nelson DO [address] [place] [address] [place] [address] [email or web address] Insurance Assigned Provider 11/10/17 12/30/22 documented as of this encounter Additional Source Comments The information contained in this document represents components of the legal health record. It is not the complete legal health record.[facility]
--- OUTSIDE RECORDS SUMMARY | 2025-05-08 18:48 | XMS_ITS | Encounter Summary ---
Author Organization [facility] Address [address] [place] [address] Phone Care Team Providers Care Heating And Air Conditioning Mechanic Name Role Phone Gaudencio Garcia MD Unavailable [phone] Erik Sam MD Unavailable [phone] Marisa Madera MD Unavailable [phone] Daniel Nelson DO Primary Care Provider [phone] Daniel Nelson DO Primary Care Provider [phone] Encounter Details Date Type Department Care Team (Late st Contact Info) Description 06/20/2023 Procedure Pass [facility], Ct Scan - [address] [address] Social History Tobacco Use Types Packs/Day Years [...] Upcoming Encounters Date Type Department Care Team ([facility] st Contact Info) Description 05/13/2025 1:30 PM EDT Nurse Only [facility] Pulmonary, Allergy and Critical Care Medicine [address] [place] [address] Gaudencio Garcia MD [address] [place] [address] [email or web address] 07/07/2025 2:00 PM EST Office Visit [facility] Allergy Center at [address] [place] [address] Krishna German MD [address] [place] [address], Division of Rheumatology, Immunology [place] [address] [email or web address] 09/16/2025 2:30 PM EST Office Visit [facility] Pulmonary, Allergy and Critical Care Medicine [address] [place] [address] Gaudencio Garcia MD [address] [place] [address] [email or web address] documented as of this encounter Visit Diagnoses Not on filedocumented in this encounter Additional Health Concerns Infection Onset Date Last Indicated Resolved Time CoV-Risk 08/17/2024 08/17/2024 08/28/2024 1:21 AM EST documented as of this encounter Care Teams Heating And Air Conditioning Mechanic Relationship Specialty Start Date End Date JhonyDaniel aquinoDO [address] [address] PCP - General Internal Medicine 10/07/20 04/22/25 Daniel Nelson DO [address] [place] [address] PCP - General Internal Medicine 04/23/25 Gaudencio Garcia MD [address] [place] [address] Historical LMR Provider 06/03/17 Erik Sam MD [address] [address] Historical LMR Provider 06/03/17 Marisa Madera MD [address] [place] [address] Historical LMR Provider 06/03/17 documented as of this encounter Additional Source Comments The information contained in this document represents components of the legal health record. It is not the complete legal health record.[facility]
--- OUTSIDE RECORDS SUMMARY | 2025-05-08 18:48 | XMS_ITS | Encounter Summary ---
Author Organization [facility] Address [address] [place] [address] Phone Care Team Providers Care Supervisor Publications Production Name Role Phone Gaudencio Garcia MD Unavailable [phone] Erik Sam MD Unavailable Marisa Madera MD Unavailable [phone] Daniel Nelson DO Primary Care Provider Daniel Nelson DO Primary Care Provider [phone] Encounter Details Date Type Department Care Team (Late st Contact Info) Description 02/10/2025 Ancillary Orders Virtual Department 30 [place] [address] Daniel Nelson DO 179 [facility] [place] [address] [email or web address] Bilateral hip pain (Primary Dx); Other chest pain Social History Tobacco Use Types Packs/Day Years [...] [facility] Pulmonary, Allergy and Critical Care Medicine [address] [place] [address] Gaudencio Garcia MD [address] [place] [address] [email or web address] 07/07/2025 2:00 PM EST Office Visit [facility] Allergy Center at [address] [place] 850 [facility] [address] [place] [address] Krishna German MD [address] [place] [address]-, Division of Rheumatology, [place] [address] [email or web address] 09/16/2025 2:30 PM EST Office Visit [facility] Pulmonary, Allergy and Critical Care Medicine [address] [place] [address] Gaudencio Garcia MD [address] [place] [address] [email or web address] documented as of this encounter Results * XR HIPS 2+ VW EA BILAT PLUS PELVIS (02/10/2025 12:34 PM EDT) Anatomical Region Laterality Modality Hip, Pelvis Computed Radiogr aphy 02/11/2025 9:02 AM EDT Impressions 02/11/2025 9:04 AM EDT FINDINGS/IMPRESSION: There is no evidence of acute fracture, subluxation, or dislocation. There is severe degenerative change of the right hip with [id number] joint space narrowing, marginal osteophytosis, subchondral sclerosis, [...] clinician's provided indication for this examination in [facility]: Outside Radiology Order; chest pain COMPARISON: CT abdomen and pelvis 06/21/2023, pelvis/right hip radiographs 12/01/2022 Procedure Note Annemarie Jordan MD - 02/11/2025 XR HIPS 2+ VW EA BILAT PLUS PELVIS 02/10/2025 11:46 AM Referring clinician's provided indication for this examination in [facility]:Outside Radiology Order; chest pain COMPARISON: CT abdomen and pelvis 06/21/2023, pelvis/right hip radiographs12/01/2022 IMPRESSION: FINDINGS/IMPRESSION: There is no evidence of acute fracture, subluxation, or dislocation. Thereis severe degenerative change of the right hip with [id number]-[id number] jointspace narrowing, marginal osteophytosis, subchondral sclerosis,subchondral cyst formation, and osseous remodeling. There is milddegenerative change of the left hip. The sacroiliac joints and symphysispubis are congruent. There is incompletely evaluated degenerative changeof the lower lumbar spine. us Daniel Nelson DO IMG XR PELVIS Final Result documented in this encounter Visit Diagnoses Diagnosis Bilateral hip pain Pain in joint, pelvic region and thigh Bilateral hip pain- Primary Pain in joint, pelvic region and thigh Other chest pain documented in this encounter Care Teams Supervisor Publications Production Relationship Specialty Start Date End Date Daniel Nelson DO [address] [address] PCP - General Internal Medicine 10/07/20 04/22/25 Daniel Nelson DO [address] [place] [address] PCP - General Internal Medicine 04/23/25 Gaudencio Garcia MD [address] [place] [address] [email or web address] Historical LMR Provider 06/03/17 Erik Sam MD 22 [facility], [address] [place] [address] [email or web address] Historical LMR Provider 06/03/17 Marisa Madera MD [address] [place] [address], 2nd [place] [address] [email or web address] Historical LMR Provider 06/03/17 documented as of this encounter Additional Source Comments The information contained in this document represents components of the legal health record. It is not the complete legal health record.[facility]
--- OUTSIDE RECORDS SUMMARY | 2025-05-08 18:48 | XMS_ITS | Encounter Summary ---
Author Organization [facility] Address [address] [place] [address] Phone Care Team Providers Care Child Psychology Teacher Name Role Phone Gaudencio Garcia MD Unavailable [phone] Erik Sam MD Unavailable [phone] Marisa Madera MD Unavailable [phone] Daniel Nelson DO Primary Care Provider [phone] Daniel Nelson DO Primary Care Provider [phone] Encounter Details Date Type Department Care Team (Late st Contact Info) Description 04/07/2025 Orders Only [facility] [address] [place] [address] Gaudencio Garcia MD [address] [place] [address] [email or web address] Social History Tobacco Use Types Packs/Day Years [...] Pulmonary, Allergy and Critical Care Medicine 10 [place] [address] Gaudencio Garcia MD [address] [place] [address] 07/07/2025 2:00 PM EST Office Visit [facility] All[facility] Center at 850 [place] 850 [facility] 540 [place] [address] Krishna German MD [address] [place] [address], Division of Rheumatology, [place] [address] [email or web address] 09/16/2025 2:30 PM EST Office Visit [facility] Pulmonary, Allergy and Critical Care Medicine [address] [place] [address] Gaudencio Garcia MD [address] [place] [address] documented as of this encounter Visit Diagnoses Not on filedocumented in this encounter Care Teams Child Psychology Teacher Relationship Specialty Start Date End Date Danile Nelson DO [address] [address] PCP - General Internal Medicine 10/07/20 04/22/25 Daniel Nelson DO [address] [place] [address] PCP - General Internal Medicine 04/23/25 Gaudencio Garcia MD [address] [place] [address] Historical LMR Provider 06/03/17 Erik Sam MD [address] [facility], [address] [place] [address] [email or web address] Historical LMR Provider 06/03/17 Marisa Madera MD [address] [facility], 2nd [place] [address] [email or web address] Historical LMR Provider 06/03/17 documented as of this encounter Additional Source Comments The information contained in this document represents components of the legal health record. It is not the complete legal health record.[facility]
--- OUTSIDE RECORDS SUMMARY | 2025-05-08 18:48 | XMS_ITS | Encounter Summary ---
Author Organization [facility] Address [address] [facility] [address] [place] [address] Phone Care Team Providers Care Furniture Manager Name Role Phone Daniel Nelson DO Primary Care Provider [phone] Gaudencio Garcia MD Unavailable [phone] Erik Sam MD Unavailable [phone] Marisa Madera MD Unavailable [phone] Jaleesa Moore NP Unavailable [phone] Bigda, Daniel A DO Primary Care Provider [phone] Bigda, Daniel Bentley DO Unavailable Bigda, Daniel Bentley DO Primary Care Provider [phone] Encounter Details Date Type Department Care Team (Late Contact Info) Description 10/06/2020 Procedure Pass [facility], [address] [address] Social History Tobacco Use Types Packs/Day Years [...] Pulmonary, Allergy and Critical Care Medicine 10 [place] [address] Gaudencio Garcia MD [address] [place] [address] 07/07/2025 2:00 PM EST Office Visit [facility] Allergy Center at 850 [place] 850 [facility] [address] [place] [address] Krishna German MD [address] [place] [address]-, Division of Rheumatology, Immunology [place] [address] [email or web address] 09/16/2025 2:30 PM EST Office Visit [facility] Pulmonary, Allergy and Critical Care Medicine 10 [place] [address] Gaudencio Garcia MD [address] [place] [address] [email or web address] documented as of this encounter Visit Diagnoses Not on filedocumented in this encounter Additional Health Concerns Infection Onset Date Last Indicated Resolved Time CoV-Exposed Comment:Pt exposed to + staff 04/17/23 04/17/2023 04/20/2023 1:24 AM EDT CoV-Risk 08/17/2024 08/17/2024 08/28/2024 1:21 AM EST documented as of this encounter Care Teams Furniture Manager Relationship Specialty Start Date End Date Daniel Nelson DO PCP - General 05/29/17 10/06/20 Daniel Nelson DO PCP - General Internal Medicine 10/07/20 04/22/25 Daniel Nelson DO 179 [place] [address] PCP - General Internal Medicine 04/23/25 Gaudencio Garcia MD [address] [place] [address] Historical LMR Provider 06/03/17 Erik Sam MD [address] [place] [address] Historical LMR Provider 06/03/17 Marisa Madera MD [address] [place] [address] Historical LMR Provider 06/03/17 Jaleesa Moore NP [address] [place] [address] Historical LMR Provider 06/03/17 2 Daniel Nelson DO 179 [place] [address] Insurance Assigned Provider 11/10/17 12/30/22 documented as of this encounter Additional Source Comments The information contained in this document represents components of the legal health record. It is not the complete legal health record.[facility]
--- OUTSIDE RECORDS SUMMARY | 2025-05-08 18:48 | XMS_ITS | Encounter Summary ---
Author Organization [facility] Address [address] [place] [address] Phone Care Team Providers Care Steel Pickler Name Role Phone Gaudencio Garcia MD Unavailable [phone] Erik Sam MD Unavailable Marisa Madera MD Unavailable [phone] Daniel Nelson DO Primary Care Provider [phone] Daniel Nelson DO Primary Care Provider [phone] Encounter Details Date Type Department Care Team (Late st Contact Info) Description 02/10/2025 Transcribe Orders Virtual Department [address] [place] [address] Daniel Nelson DO 179 [facility] [place] [address] [email or web address] Bilateral hip pain (Primary Dx); Other chest [...] Pulmonary, Allergy and Critical Care Medicine 10 [place] [address] Gaudencio Garcia MD [address] [place] [address] [email or web address] 07/07/2025 2:00 PM EST Office Visit [facility] Allergy Center at 850 [place] 850 [facility] [address] [place] [address] Krishna German MD [address] [place] [address]-, Division of Rheumatology, [place] [address] [email or web address] 09/16/2025 2:30 PM EST Office Visit [facility] Pulmonary, Allergy and Critical Care Medicine [address] [place] [address] Gaudencio Garcia MD [address] [place] [address] [email or web address] documented as of this encounter Results * XR RIBS 2 VIEWS (LEFT) (02/10/2025 12:33 PM EDT) Anatomical Region Laterality Modality Chest Computed Radiogr aphy 02/11/2025 8:58 AM EDT Impressions 02/11/2025 9:01 AM EDT FINDINGS/IMPRESSION: No acute displaced rib fracture is identified. Narrative 02/11/2025 9:01 AM EDT XR RIBS 2 VIEWS (LEFT) Referring clinician's provided indication for this examination in [facility]: Outside Radiology Order; chest pain COMPARISON: Chest radiographs performed concurrently 02/10/2025 Procedure Note Annemarie Jordan MD - 02/11/2025 XR RIBS 2 VIEWS (LEFT) Referring clinician's provided indication for this examination in Epic:Outside Radiology Order; chest pain COMPARISON: Chest radiographs performed concurrently 02/10/2025 IMPRESSION: FINDINGS/IMPRESSION: No acute displaced rib fracture is identified. us Daniel A Bigda DO IMG XR CHEST Final Result * XR CHEST PA AND LATERAL 2 VIEWS (02/10/2025 12:33 PM EDT) Anatomical Region Laterality Modality Chest Computed Radiogr aphy 02/10/2025 12:3 4 PM EDT Impressions 02/10/2025 12:53 PM EDT No acute cardiopulmonary abnormality apparent. Narrative 02/10/2025 12:53 PM EDT XR CHEST PA AND LATERAL 2 VIEWS Referring clinician's provided indication for this examination in [facility]: Other Indication (Please use free text); [...] clinician's provided indication for this examination in [facility]:Other Indication (Please use free text); chest pain COMPARISON: 08/17/2024 FINDINGS: Devices/Tubes/Lines: None. Lungs: Well-expanded and overall clear without focal airspace infiltrateor significant interstitial abnormality. Pleura: No pleural effusion or pneumothorax. Heart/Mediastinum: Heart and pulmonary vessels stable in size whenallowing for differences in technique. Bones/Soft Tissues: Visualized bony thorax intact. IMPRESSION: No acute cardiopulmonary abnormality apparent. us Daniel A Bigda DO IMG XR CHEST Final Result documented in this encounter Visit Diagnoses Diagnosis Bilateral hip pain- Primary Pain in joint, pelvic region and thigh Other chest pain Other chest pain Other chest pain documented in this encounter Care Teams Steel Pickler Relationship Specialty Start Date End Date JhonyDaniel aquinoDO [address] [address] PCP - General Internal Medicine 10/07/20 04/22/25 Daniel Nelson DO [address] [place] [address] [place] [address] PCP - General Internal Medicine 04/23/25 Gaudencio Garcia MD [address] [place] [address] Historical LMR Provider 06/03/17 Erik Sam MD [address] [address] Historical LMR Provider 06/03/17 Marisa Madera MD [address] [address] Historical LMR Provider 06/03/17 documented as of this encounter Additional Source Comments The information contained in this document represents components of the legal health record. It is not the complete legal health record.[facility]
--- OUTSIDE RECORDS SUMMARY | 2025-05-08 18:48 | XMS_ITS | Encounter Summary ---
Author Organization [facility] Address [address] [facility] [address] [place] [address] Phone Care Team Providers Care Fbi Field Agent Name Role Phone Gaudencio Garcia MD Unavailable [phone] Erik Sam MD Unavailable [phone] Marisa Madera MD Unavailable [phone] Daniel Nelson DO Primary Care Provider [phone] Daniel Nelson DO Primary Care Provider [phone] Reason for Referral * Outpatient Procedure - Closed Specialty Diagnoses / Procedures Referred By Abi griffin Referred To Contact Radiology Diagnoses Pulmonary hypertension, unspecified Procedures Adult Echo TTE Daniel Nelson DO [address] [facility], 2nd [place] [address] Phone: tel: fax: [email or web address] Referral ID Status Reason Start Date Expiration Date Visits Re quested Visits Authorized [id number] Closed 10/15/2023 10/14/2024 1 1 Encounter Details Date Type Department Care Team (Late st Contact Info) Description 09/07/2023 Transcribe Orders Virtual Department 30 [place] [address] Daniel Nelson DO 179 [facility] [place] [address] Pulmonary hypertension, unspecified (Primary Dx) Social History Tobacco Use [...] [facility] Pulmonary, Allergy and Critical Care Medicine [address] [place] [address] Gaudencio Garcia MD [address] [address] 07/07/2025 2:00 PM EST Office Visit [facility] Allergy Center at [address] [place] [address] Krishna German MD [address] [place] [address] [id number], Division of Rheumatology, Immunology [place] [address] [email or web address] 09/16/2025 2:30 PM EST Office Visit [facility] Pulmonary, Allergy and Critical Care Medicine 10 [place] [address] Gaudencio Garcia MD [address] [place] [address] [email or web address] documented as of this encounter Results * TTE COMPREHENSIVE (12/18/2023 1:15 PM EDT) Body Surface Area 2.35 m2 Height 166 cm Weight 134 kg Systolic BP 110 mmHg Diastolic BP 66 mmHg Interventricular Septum Thickness 10 6 - 11 mm Left Ventricle Internal Diameter End Diastole 51 37 - 52 mm Left Ventricle Internal Diameter End Systole 33 <35 mm Left Ventricular Outflow Tract Diameter 21.0 mm LVOT VTI REST 290.0 mm Left Ventricular Outflow Tract Velocity 1.3 m/s Left Ventricular Outflow Tract Gradient at Rest 7 mmHg Left Ventricular Posterior Wall Thickness 10 6 - 11 mm Ejection Fraction 69 50 - 75 Percent Aortic Valve Mean Gradient 6 mmHg Aortic Valve Time Velocity Integral 375.0 mm Aortic Valve Peak Velocity 168.0 cm/s Aortic Valve Peak Gradient 11 mmHg Aortic Sinus Diameter 29 <40 mm Ascending Aorta Diameter 34 <36 mm Inferior Vena Cava Diameter 15 <21 mm Mitral Valve A Wave Speed 105.0 cm/s Mitral Valve E Wave Speed 118.0 cm/s Right Ventricle Basal Diameter 39 25 - 41 mm Raw LV EF% 58 % Relative Wall Thickness 0.39 0.22 - 0.42 Aortic Valve Prosthetic Peak Gradient 11 mmHg Aortic Valve Prosthetic Mean Gradient 6 mmHg Aortic Valve Sinus Index by BSA 12 mm/m2 Aorta Sinus Index by Height 1.75 cm/m Aorta Sinus CSA index by Height 3.98 cm2/m Ascending Aorta Index 14 mm/m2 Asc Aorta CSA Index by Height 5.47 cm2/m Ascending Aorta Index 14 mm Aortic Sinus Index 12 mm Ascending Aorta Diameter 14 mm Aortic Valve Sinus Index 1 12 19 - 27 mm AO ASC DIAM BSA INDEX 14.47 Left Atrial Volume Index 25 16 - 34 mL/m2 Left Ventricle E Wave Speed 118.0 cm/s Right Ventricle TAPSE 31 >=17 mm Left Ventricle Ea Lateral Wave Speed 7.5 cm/s Right Ventricle Pulse Doppler S Wave 13.0 >=9.5 cm/s MV E/E' Tissue Velocity Lateral 15.73 Left Ventricle A Wave Speed 105.0 cm/s MV E/A ratio 1.1 Left Ventricle Ea Septal Wave Speed 7.4 cm/s MV E/e' septal 15.95 Left Ventricle E/e' Average 15.8 Left Atrial Volume 58 mL Left Atrial Volume Index by Height 35 mL/m Echo E/Ea 15.95 Anatomical Region Laterality Modality Heart Ultrasound Narrative 12/19/2023 4:34 PM EDT Mild concentric LVH. LV cavity size is normal. LV systolic function is normal with EF 60 to 65%. There are no clear wall motion abnormalities. Normal RV size and function. Normal diastolic function. Normal RV size and function. There is no hemodynamically significant valvular disease. There is a small pericardial effusion, which is located posteriorly. There is no evidence of tamponade physiology. PASP cannot be accurately estimated. Comparison is made to the prior study from December 2020. There is no significant change. Left Ventricle The left ventricle is normal in size. There is normal wall thickness. There is normal left ventricular systolic function. The LV ejection fraction is 69% (calculated via the single dimension method and calculated via the single plane method of discs). There are no wall motion abnormalities. The E/A ratio is 1.1. The e' septal wave velocity is 7.4 cm/s. The e' lateral wave velocity is 7.5 cm/s. The average E/e' ratio is 15.8. Right Ventricle The right ventricle is normal in size. There is normal right ventricular systolic function. TAPSE is 31 mm. RV S' wave is 13.0 cm/s. Left Atrium The left atrium is normal in size. The left atrial volume index by BSA is 25 mL/m2. There are normal flow patterns in the pulmonary vein. Right Atrium The right atrium is normal in size. The IVC is normal in size with normal inspiratory collapse. The IVC diameter is 15 mm. Mitral Valve The mitral valve appears normal. There is no mitral stenosis. There is trace mitral regurgitation. Tricuspid Valve The tricuspid valve appears normal. There is no tricuspid stenosis. There is trace tricuspid regurgitation. RV systolic pressure could not be estimated due to insufficient TR Doppler envelope. Aortic Valve The aortic valve is tricuspid. There is no aortic stenosis. There is no aortic regurgitation. The visualized portions of the thoracic aorta appear normal in size. Pulmonic Valve The pulmonic valve appears normal. There is no pulmonic stenosis. There is trace pulmonic regurgitation. Pericardium There is a small pericardial effusion. General Findings The study was technically difficult (4). Study quality explanation: obesity. Technique(s) used in the evaluation: Color flow Doppler and Spectral Doppler. The predominant rhythm during the study was sinus. Comparison Findings Compared to a prior TTE on 01/03/2021, IAS/IVS The interatrial septum appears normal. us Daniel Nelson DO CV ECHO ORDERABLES Final Result documented in this encounter Visit Diagnoses Diagnosis Pulmonary hypertension, unspecified- Primary Pulmonary hypertension, unspecified documented in this encounter Additional Health Concerns Infection Onset Date Last Indicated Resolved Time CoV-Risk 08/17/2024 08/17/2024 08/28/2024 1:21 AM EST documented as of this encounter Care Teams Fbi Field Agent Relationship Specialty Start Date End Date Daniel Nelson DO [address] [address] PCP - General Internal Medicine 10/07/20 04/22/25 Daniel Nelson DO [address] [facility] [place] [address] PCP - General Internal Medicine 04/23/25 Gaudencio Garcia MD [address] [place] [address] Historical LMR Provider 06/03/17 Erik Sam MD [address] [facility], [address] [place] [address] [email or web address] Historical LMR Provider 06/03/17 Marisa Madera MD [address] [facility], 2nd [place] [address] [email or web address] Historical LMR Provider 06/03/17 documented as of this encounter Additional Source Comments The information contained in this document represents components of the legal health record. It is not the complete legal health record.[facility]
--- OUTSIDE RECORDS SUMMARY | 2025-05-08 18:48 | XMS_ITS | Encounter Summary ---
Author Organization [facility] Address [address] [facility] [address] [place] [address] Phone Care Team Providers Care Wool Washer Feeder Name Role Phone Gaudencio Garcia MD Unavailable [phone] Erik Sam MD Unavailable [phone] Marisa Madera MD Unavailable [phone] Jaleesa Moore NP Unavailable [phone] Daniel Nelson DO Primary Care Provider [phone] Daniel Nelson DO Unavailable Daniel Nelson DO Primary Care Provider [phone] Encounter Details Date Type Department Care Team (Late st Contact Info) Description 06/17/2021 Transcribe Orders Virtual Department 30 [place] [address] Daniel Nelson DO [address] [place] [address] [email or web address] Right shoulder pain, unspecified chronicity (Primary Dx) Social History Tobacco Use Types [...] Pulmonary, Allergy and Critical Care Medicine 10 [place] [address] Gaudencio Garcia MD [address] [place] [address] [email or web address] 07/07/2025 2:00 PM EST Office Visit [facility] Allergy Center at 850 [place] 850 [facility] [address] [place] [address] Krishna German MD [address] [place] [address], Division of Rheumatology, [place] [address] [email or web address] 09/16/2025 2:30 PM EST Office Visit [facility] Pulmonary, Allergy and Critical Care Medicine [address] [place] [address] Gaudencio Garcia MD [address] [place] [address] [email or web address] documented as of this encounter Results * XR SHOULDER 2 VIEWS (RIGHT) (06/22/2021 2:10 PM EST) Anatomical Region Laterality Modality Shoulder Right Computed Radiogr aphy 06/22/2021 2:38 PM EST Impressions 06/22/2021 2:40 PM EST No fracture or dislocation. Narrative 06/22/2021 2:40 PM EST XR SHOULDER 2 OR MORE VIEWS (RIGHT) COMPARISON: None HISTORY: Pain FINDINGS: There is proper alignment at the humeroglenoid and acromioclavicular joints. There is no evidence of fracture. Mild spurring is noticed at the distal acromial. There is no significant bone lesion. Procedure Note Arcadio Cutler MD - 06/22/2021 XR SHOULDER 2 OR MORE VIEWS (RIGHT) COMPARISON: None HISTORY: Pain FINDINGS: There is proper alignment at the humeroglenoid and acromioclavicularjoints. There is no evidence of fracture. Mild spurring is noticed at thedistal acromial. There is no significant bone lesion. IMPRESSION: No fracture or dislocation. us Daniel Nelson DO IMG XR UPPER EXTREMITY Final Res ult documented in this encounter Visit Diagnoses Diagnosis Right shoulder pain, unspecified chronicity- Primary Right shoulder pain, unspecified chronicity documented in this encounter Additional Health Concerns Infection Onset Date Last Indicated Resolved Time CoV-Exposed Comment:Pt exposed to + staff 04/17/23 04/17/2023 04/20/2023 1:24 AM EDT CoV-Risk 08/17/2024 08/17/2024 08/28/2024 1:21 AM EST documented as of this encounter Care Teams Wool Washer Feeder Relationship Specialty Start Date End Date Daniel Nelson DO [address] [place] [address] [email or web address] PCP - General Internal Medicine 10/07/20 04/22/25 Daniel Nelson DO [address] [place] [address] PCP - General Internal Medicine 04/23/25 Gaudencio Garcia MD [address] [place] [address] [email or web address] Historical LMR Provider 06/03/17 Erik Sam MD [address] [place] [address] 301 [place] [address] [email or web address] Historical LMR Provider 06/03/17 Marisa Madera MD [address] [facility], 2nd [place] [address] [email or web address] Historical LMR Provider 06/03/17 Jaleesa Moore NP [address] [place] [address] Historical LMR Provider 06/03/17 2 Daniel Nelson DO [address] [place] [address] [email or web address] Insurance Assigned Provider 11/10/17 12/30/22 documented as of this encounter Additional Source Comments The information contained in this document represents components of the legal health record. It is not the complete legal health record.[facility]
--- OUTSIDE RECORDS SUMMARY | 2025-05-08 18:48 | XMS_ITS | Encounter Summary ---
Author Organization [facility] Address [address] [facility] [address] [place] [address] Phone Care Team Providers Care Inseminator Name Role Phone Daniel Nelson DO Primary Care Provider [phone] Gaudencio Garcia MD Unavailable [phone] Erik Sam MD Unavailable [phone] Marisa Madera MD Unavailable [phone] Jaleesa Moore NP Unavailable [phone] Omar, Daniel Bentley DO Primary Care Provider [phone] Daniel Nelson DO Unavailable Daniel Nelson DO Primary Care Provider [phone] Encounter Details Date Type Department Care Team (Late st Contact Info) Description 10/06/2020 Ancillary Orders Virtual Department 30 [place] [address] Daniel Nelson DO [address] [facility] [place] [address] [email or web address] Lump of breast, right Social History Tobacco Use Types Packs/Day Years [...] Upcoming Encounters Date Type Department Care Team ([facility] st Contact Info) Description 05/13/2025 1:30 PM EDT Nurse Only [facility] Pulmonary, Allergy and Critical Care Medicine 10 [place] [address] Gaudencio Garcia MD [address] [place] [address] [email or web address] 07/07/2025 2:00 PM EST Office Visit [facility] Allergy Center at [address] [facility] [address] [place] [address] Krishna German MD [address] [place] [address], Division of Rheumatology, Immunology [place] [address] [email or web address] 09/16/2025 2:30 PM EST Office Visit CD Pulmonary, Allergy and Critical Care Medicine [address] [place] [address] Gaudencio Garcia MD [address] [place] [address] [email or web address] documented as of this encounter Results * BI MAMMOGRAM DIAGNOSTIC WITH TOMOSYNTHESIS WITH CAD (BILATERAL) (11/02/2020 3:24 PM EDT) Anatomical Region Laterality Modality Breast Left, Breast Right, Breast Bilateral Bila teral Mammography 11/02/2020 3:05 PM EDT Impressions 11/02/2020 4:00 PM EDT RIGHT BREAST: Palpable concern correlates with a 1.1 x 0.4 x 0.5 cm area in the breast tissue is 11 o'clock position at 8 cm from the nipple that appears to represent a breast lobule. Findings are probably benign. A six-month follow-up ultrasound is recommended. LEFT BREAST: Negative, no evidence of malignancy. Normal interval follow-up is recommended in 12 months. Bi-RADS: BI-RADS CATEGORY: 3 - Probably benign finding. Short interval follow up suggested. DENSITY: There are scattered fibroglandular densities. RIGHT RECOMMENDATION DUE DATE: 6 Months Recommendation: Right short interval follow-up LEFT RECOMMENDATION DUE DATE: 12 Months Recommendation: Left Mammography Screening Narrative 11/02/2020 4:00 PM EDT History: Right breast lump, unspecified location. STUDIES: 1.Bilateral diagnostic mammography with tomosynthesis and CAD 2.Targeted ultrasound of the right breast TECHNIQUE: Bilateral full-field digital screening mammography is obtained and read in conjunction with computer-aided detection. Tomosynthesis as well as 2-D C view imaging were obtained. COMPARISON: Comparison made to multiple prior, most recent June 18, 2018, and most remote August 18, 2008. BREAST COMPOSITION: There are scattered areas of fibroglandular density RIGHT BREAST: History of previous excisional biopsy. No significant masses, suspicious calcifications or other abnormalities are seen. In particular, no mammographic abnormality adjacent to this triangular skin marker placed at approximately 12 o'clock position middle depth. Targeted ultrasound of the right breast was performed at the location of the palpable concern as indicated by the patient. Survey shows a 1.1 x 0.4 x 0.5 cm hypoechoic area without internal vascularity on the color Doppler evaluation, that is better seen on the transverse images, but not well seen on the sagittal plane. LEFT BREAST: No significant masses, suspicious calcifications or other abnormalities are seen. Procedure Note Rhea Feldman MD - 11/02/2020 History: Right breast lump, unspecified location. STUDIES: 1.Bilateral diagnostic mammography with tomosynthesis and CAD 2.Targeted ultrasound of the right breast TECHNIQUE: Bilateral full-field digital screening mammography is obtainedand read in conjunction with computer-aided detection. Tomosynthesis aswell as 2-D C view imaging were obtained. COMPARISON: Comparison made to multiple prior, most recent June, and most remote August 18, 2008. BREAST COMPOSITION: There are scattered areas of fibroglandulardensity RIGHT BREAST: History of previous excisional biopsy. No significantmasses, suspicious calcifications or other abnormalities are seen. Inparticular, no mammographic abnormality adjacent to this triangular skinmarker placed at approximately 12 o'clock position middle depth. Targeted ultrasound of the right breast was performed at the location ofthe palpable concern as indicated by the patient. Survey shows a 1.1 x 0.4x 0.5 cm hypoechoic area without internal vascularity on the color Dopplerevaluation, that is better seen on the transverse images, but not wellseen on the sagittal plane. LEFT BREAST: No significant masses, suspicious calcifications or otherabnormalities are seen. IMPRESSION: RIGHT BREAST: Palpable concern correlates with a 1.1 x 0.4 x 0.5 cm areain the breast tissue is 11 o'clock position at 8 cm from the nipple thatappears to represent a breast lobule. Findings are probably benign. Asix-month follow-up ultrasound is recommended. LEFT BREAST: Negative, no evidence of malignancy. Normal intervalfollow-up is recommended in 12 months. Bi-RADS: BI-RADS CATEGORY: 3 - Probably benign finding. Short intervalfollow up suggested. DENSITY: There are scattered fibroglandular densities. RIGHT RECOMMENDATION DUE DATE: 6 Months Recommendation: Right short interval follow-up LEFT RECOMMENDATION DUE DATE: 12 Months Recommendation: Left Mammography Screening us Daniel Nelson DO IMG MG EXAMS Final Result documented in this encounter Visit Diagnoses Diagnosis Lump of breast, right Lump of breast, right documented in this encounter Additional Health Concerns Infection Onset Date Last Indicated Resolved Time CoV-Exposed Comment:Pt exposed to + staff 04/17/23 04/17/2023 04/20/2023 1:24 AM EDT CoV-Risk 08/17/2024 08/17/2024 08/28/2024 1:21 AM EST documented as of this encounter Care Teams Inseminator Relationship Specialty Start Date End Date Daniel Nelson DO PCP - General 05/29/17 10/06/20 Daniel Nelson DO PCP - General Internal Medicine 10/07/20 04/22/25 Daniel Nelson DO [address] [place] [address] PCP - General Internal Medicine 04/23/25 Gaudencio Garcia MD [address] [place] [address] [email or web address] Historical LMR Provider 06/03/17 Erik Sam MD [address] [place] [address] Historical LMR Provider 06/03/17 Marisa Madera MD [address] [place] [address] Historical LMR Provider 06/03/17 Jaleesa Moore NP [address] [place] [address] Historical LMR Provider 06/03/17 2 Daniel Nelson DO [address] [place] [address] Insurance Assigned Provider 11/10/17 12/30/22 documented as of this encounter Additional Source Comments The information contained in this document represents components of the legal health record. It is not the complete legal health record.[facility]
--- OUTSIDE RECORDS SUMMARY | 2025-05-08 18:48 | XMS_ITS | Encounter Summary ---
Author Organization [facility] Address [address] [place] [address] Phone Care Team Providers Care Pattern Finisher Name Role Phone Gaudencio Garcia MD Unavailable [phone] Erik Sam MD Unavailable [phone] Marisa Madera MD Unavailable [phone] Jaleesa Moore NP Unavailable [phone] Bigda, Daniel A DO Primary Care Provider [phone] Bigda, Daniel A DO Unavailable Bigda, Daniel A DO Primary Care Provider [phone] Encounter Details Date Type Department Care Team (Latest Contact Info) Description 12/10/2020 Transcribe Orders Virtual Department 30 [place] [address] Roberta Mao PA [address] [place] [address] [place] [address] Pelvic and perineal pain (Primary Dx) Social History Tobacco Use Types [...] Upcoming Encounters Date Type Department Care Team ([facility] st Contact Info) Description 05/13/2025 1:30 PM EDT Nurse Only CD Pulmonary, Allergy and Critical Care Medicine 10 [place] [address] Gaudencio Garcia MD [address] [place] [address] [email or web address] 07/07/2025 2:00 PM EST Office Visit [facility] Allergy Center at [address] [place] [facility] [address] [place] [address] Krishna German MD [address] [place] [address], Division of Rheumatology, [place] [address] [email or web address] 09/16/2025 2:30 PM EST Office Visit CD Pulmonary, Allergy and Critical Care Medicine [address] [place] [address] Gaudencio Garcia MD [address] [place] [address] [email or web address] documented as of this encounter Results * US PELVIS TRANSABDOMINAL ONLY (01/04/2021 1:21 PM EDT) Anatomical Region Laterality Modality Pelvis, Uterus/Adnexa Ultrasound 01/04/2021 3:41 PM EDT Impressions 01/04/2021 3:43 PM EDT No abnormalities demonstrated on transabdominal pelvic ultrasound. Narrative 01/04/2021 3:43 PM EDT HISTORY: Dysuria, UTI, status-post resection of the uterus and left ovary. US PELVIS TRANSABDOMINAL ONLY TECHNIQUE: Transabdominal ultrasound imaging of the pelvis was performed. COMPARISON: None. FINDINGS: UTERUS: The uterus is surgically absent. OVARIES/ADNEXA: The left ovary is surgically absent. What likely represents a small right ovary is normal in size and echogenicity. It measures 3.1 cm x 2.6 cm x 1.6 cm. No evidence of ovarian or adnexal masses. PELVIS: No free fluid in the cul-de-sac. No evidence of pelvic masses. Procedure Note Srinivasan Hu MD - 01/04/2021 HISTORY: Dysuria, UTI, status-post resection of the uterus and leftovary. US PELVIS TRANSABDOMINAL ONLY TECHNIQUE: Transabdominal ultrasound imaging of the pelvis was performed. COMPARISON: None. FINDINGS: UTERUS: The uterus is surgically absent. OVARIES/ADNEXA: The left ovary is surgically absent. What likelyrepresents a small right ovary is normal in size and echogenicity. Itmeasures 3.1 cm x 2.6 cm x 1.6 cm. No evidence of ovarian or adnexalmasses. PELVIS: No free fluid in the cul-de-sac. No evidence of pelvic masses. IMPRESSION: No abnormalities demonstrated on transabdominal pelvic ultrasound. us Roberta PACK IMG US PELVIS Final Resul t documented in this encounter Visit Diagnoses Diagnosis Pelvic and perineal pain- Primary Pelvic and perineal pain documented in this encounter Additional Health Concerns Infection Onset Date Last Indicated Resolved Time CoV-Exposed Comment:Pt exposed to + staff 04/17/23 04/17/2023 04/20/2023 1:24 AM EDT CoV-Risk 08/17/2024 08/17/2024 08/28/2024 1:21 AM EST documented as of this encounter Care Teams Pattern Finisher Relationship Specialty Start Date End Date Daniel Nelson DO [address] [place] [address] PCP - General Internal Medicine 10/07/20 04/22/25 Daniel Nelson DO [address] [place] [address] [email or web address] PCP - General Internal Medicine 04/23/25 Gaudencio Garcia MD [address] [place] [address] Historical LMR Provider 06/03/17 Erik Sam MD [address] [place] [address] [email or web address] Historical LMR Provider 06/03/17 Marisa Madera MD [address] [place] [address] [email or web address] Historical LMR Provider 06/03/17 Jaleesa Moore NP [address] [place] [address] Historical LMR Provider 06/03/17 2 Daniel Nelson DO [address] [place] [address] [email or web address] Insurance Assigned Provider 11/10/17 12/30/22 documented as of this encounter Additional Source Comments The information contained in this document represents components of the legal health record. It is not the complete legal health record.[facility]
--- OUTSIDE RECORDS SUMMARY | 2025-05-08 18:48 | XMS_ITS | Encounter Summary ---
Author Organization [facility] Address [address] [place] [address] Phone Care Team Providers Care Sheet Metal Shop Foreman Name Role Phone Gaudencio Garcia MD Unavailable [phone] Erik Sam MD Unavailable [phone] Marisa Madera MD Unavailable [phone] BigDaniel aquino DO Primary Care Provider [phone] Daniel Nelson DO Unavailable BigDaniel aquino DO Primary Care Provider [phone] Encounter Details Date Type Department Care Team (Late Contact Info) Description 05/17/2022 Procedure Pass [address] [id number] Social History Tobacco Use Types Packs/Day Years [...] Pulmonary, Allergy and Critical Care Medicine 10 [place] [address] Gaudencio Garcia MD [address] [place] [address] 07/07/2025 2:00 PM EST Office Visit [facility] Allergy Center at [address] 850 [facility] [address] [place] [address] Krishna German MD [address] [place] [address], Division of Rheumatology, [place] [address] [email or web address] 09/16/2025 2:30 PM EST Office Visit [facility] Pulmonary, Allergy and Critical Care Medicine [address] [place] [address] Gaudencio Garcia MD [address] [place] [address] documented as of this encounter Visit Diagnoses Not on filedocumented in this encounter Additional Health Concerns Infection Onset Date Last Indicated Resolved Time CoV-Exposed Comment:Pt exposed to + staff 04/17/23 04/17/2023 04/20/2023 1:24 AM EDT CoV-Risk 08/17/2024 08/17/2024 08/28/2024 1:21 AM EST documented as of this encounter Care Teams Sheet Metal Shop Foreman Relationship Specialty Start Date End Date Daniel Nelson DO [address] [address] PCP - General Internal Medicine 10/07/20 04/22/25 Daniel Nelson DO [address] [place] [address] PCP - General Internal Medicine 04/23/25 Gaudencio Garcia MD [address] [place] [address] [email or web address] Historical LMR Provider 06/03/17 Erik Sam MD [address] [address] [email or web address] Historical LMR Provider 06/03/17 Marisa Madera MD [address] [place] [address] [email or web address] Historical LMR Provider 06/03/17 Daniel Nelson DO [address] [place] [address] [place] [address] [email or web address] Insurance Assigned Provider 11/10/17 12/30/22 documented as of this encounter Additional Source Comments The information contained in this document represents components of the legal health record. It is not the complete legal health record.[facility]
--- OUTSIDE RECORDS SUMMARY | 2025-05-08 18:48 | XMS_ITS | Encounter Summary ---
Author Organization [facility] Address [address] [facility] [address] [place] [address] Phone Care Team Providers Care Cone Cleaner Name Role Phone Gaudencio Garcia MD Unavailable [phone] Erik Sam MD Unavailable [phone] Marisa Madera MD Unavailable [phone] Jaleesa Moore NP Unavailable [phone] Daniel Nelson DO Primary Care Provider [phone] Daniel Nelson DO Unavailable Daniel Nelson DO Primary Care Provider [phone] Reason for Referral * Outpatient Procedure - Closed Specialty Diagnoses / Procedures Referred By Abi griffin Referred To Contact Diagnoses Cardiomegaly Left ventricular hypertrophy Procedures Adult Echo TTE Daniel Nelson DO Phone: tel: fax: [email or web address] Referral ID Status Reason Start Date Expiration Date Visits Re quested Visits Authorized [id number] Closed 12/27/2020 12/27/2021 1 1 Encounter Details Date Type Department Care Team (Late st Contact Info) Description 12/08/2020 Transcribe Orders Virtual Department 30 [place], [place] [phone] Daniel Nelson DO [address] [facility] [place] [address] [email or web address] Cardiomegaly (Primary Dx); Left ventricular hypertrophy Social History Tobacco Use Types Packs/Day Years [...] Upcoming Encounters Date Type Department Care Team ([facility] st Contact Info) Description 05/13/2025 1:30 PM EDT Nurse Only CD Pulmonary, Allergy and Critical Care Medicine [address] [place] [address] Gaudencio Garcia MD [address] [place] [address] [email or web address] 07/07/2025 2:00 PM EST Office Visit [facility] Allergy Center at [address] [place] [address] Krishna German MD [address] [place] [address], Division of Rheumatology, [place] [address] [email or web address] 09/16/2025 2:30 PM EST Office Visit CD Pulmonary, Allergy and Critical Care Medicine [address] [place] [address] Gaudencio Garcia MD [address] [place] [address] [email or web address] documented as of this encounter Results * TTE COMPREHENSIVE (01/03/2021 10:21 AM EDT) Body Surface Area 2.4 m2 Height 167 cm Weight 143 kg Systolic BP 130 mmHg Diastolic BP 80 mmHg Left Atrium Dimension Anterior-Posterior 44 15 - 40 mm Aortic Valve Mean Gradient 8 mmHg Aortic Valve Time Velocity Integral 423 mm Aortic Valve Peak Velocity 195.0 cm/s Aortic Valve Peak Gradient 15 mmHg Aortic Sinus Diameter 25 mm Ascending Aorta Diameter 24 mm Inferior Vena Cava Diameter 17 0.0 - 21 mm Interventricular Septum Thickness 9 mm Left Ventricle Internal Diameter End Diastole 45 37 - 52 mm Left Ventricle Internal Diameter End Systole 31 22 - 35 mm Left Ventricular Outflow Tract Diameter 19.0 mm LVOT VTI REST 271 mm Left Ventricular Outflow Tract Velocity 1.4 m/s Left Ventricular Outflow Tract Gradient at Rest 8 mmHg Left Ventricular Posterior Wall Thickness 11 mm Ejection Fraction 59 50 - 75 Percent Mitral Valve A Wave Speed 105.0 cm/s Mitral Valve E Wave Speed 126.0 cm/s Right Ventricle Basal Diameter 39.3 25 - 41 mm Tricuspid Valve Peak Velocity 1.9 m/s Raw LV EF% 53 % Left Atrial Volume 38 mL Left Atrial Volume Index 15.83 mL/m2 Right Ventricle Peak Systolic Pressure 17 mmHg Right Ventricle TAPSE 21 mm Right Atrium Pressure Estimated 3 mmHg Right Ventricle to Right Atrium Pressure Gradient 14 mmHg Right Ventricle Pulse Doppler S Wave 15.0 cm/s Aortic Valve Sinus Index 1 10 19 - 27 mm Ascending Aorta Diameter 10 mm Aortic Sinus Index 10 mm Ascending Aorta Index 10 mm Anatomical Region Laterality Modality Heart Ultrasound Narrative 01/05/2021 2:52 PM EDT This was a technically difficult study due to body habitus. LV size and wall thickness appear to be normal. LV systolic function appears normal. There are no definite wall motion abnormalities. Normal diastolic function. Normal RV size and function. There is no hemodynamically significant valvular disease. Comparison is made to the prior study dated 09/20/2016. The previous report called grade 2 diastolic dysfunction. Diastolic function is normal on today's study. Left Ventricle The left ventricular cavity size and wall thickness are normal. Left ventricular systolic function is normal. There are no segmental left ventricular wall motion abnormalities noted. The estimated ejection fraction is 59% (Normal 50-75%). The left ventricular ejection fraction was measured by the single dimension method. Left ventricular diastolic function appears within normal limits for age. There is no evidence of left ventricular thrombus. Right Ventricle The right ventricular size is normal. The right ventricular systolic function is normal. Left Atrium The left atrium is normal in size. The LA volume is 38 mL. The LA volume index is 15.83 mL/m2 (normal indexed value is 16-34 mL/m2). The pulmonary venous flow profiles are normal. Right Atrium The right atrium is normal in size. The IVC measures 17 mm (normal <=21 mm). The IVC demonstrates normal collapse with inspiration which is consistent with normal RA pressure. Mitral Valve The mitral valve appears normal. E/A ratio is 1.2. E/E' avg is 14.5. Lat E' velocity is 9.36cm/s. Med E' velocity is 8.05cm/s. There is no evidence of mitral stenosis. There is posterior and anterior mitral annular calcification. Tricuspid Valve The tricuspid valve appears normal. There is no evidence of tricuspid stenosis. There is evidence of trace tricuspid regurgitation by color and spectral Doppler. Normal pulmonary pressure. The RV systolic pressure was estimated from the peak TV regurgitant velocity. The estimated RV systolic pressure is 17 mmHg assuming a right atrial pressure of 3 mmHg. The calculated peak RV-RA pressure gradient is 14 mmHg. Aortic Valve The aortic valve was not well visualized. There is no evidence of valvular aortic stenosis. The peak aortic valve gradient is 15 mmHg. The mean aortic gradient is 8 mmHg. There is no evidence of aortic regurgitation by color and spectral Doppler. The visualized portions of the thoracic aorta appear normal. Pulmonic Valve Pulmonary valve was not well visualized. The pulmonary valve appears normal. There is no evidence of pulmonic stenosis. There is no evidence of pulmonary regurgitation by color and spectral Doppler. Pericardium There is a trivial pericardial effusion. Interatrial Septum The interatrial septum appears normal. General Findings The image quality was fair (3). Technique(s) used in the evaluation: Color flow Doppler and Spectral Doppler. The predominant rhythm during the study was sinus. Comparison Findings Compared to a prior TTE from 10/10/2016 us Daniel A Bigda DO CV ECHO ORDERABLES Final Result documented in this encounter Visit Diagnoses Diagnosis Cardiomegaly- Primary Left ventricular hypertrophy Cardiomegaly Cardiomegaly Left ventricular hypertrophy Cardiomegaly documented in this encounter Additional Health Concerns Infection Onset Date Last Indicated Resolved Time CoV-Exposed Comment:Pt exposed to + staff 904/17/2023 04/20/2023 1:24 AM EDT CoV-Risk 08/17/2024 08/17/2024 08/28/2024 1:21 AM EST documented as of this encounter Care Teams Cone Cleaner Relationship Specialty Start Date End Date Daniel Nelson DO [address] [place] [address] PCP - General Internal Medicine 10/07/20 04/22/25 Daniel Nelson DO [address] [place] [address] PCP - General Internal Medicine 04/23/25 Gaudencio Garcia MD [address] [place] [address] [email or web address] Historical LMR Provider 06/03/17 Erik Sam MD [address] [place] [address] [email or web address] Historical LMR Provider 06/03/17 Marisa Madera MD [address] [place] [address] [email or web address] Historical LMR Provider 06/03/17 Jaleesa Moore NP [address] [place] [address] Historical LMR Provider 06/03/17 2 Daniel Nelson DO [address] [place] [address] (work) [email or web address] Insurance Assigned Provider 11/10/17 12/30/22 documented as of this encounter Additional Source Comments The information contained in this document represents components of the legal health record. It is not the complete legal health record.[facility]
--- OUTSIDE RECORDS SUMMARY | 2025-05-08 18:48 | XMS_ITS | Encounter Summary ---
Author Organization [facility] Address [address] [place] [address] Phone Care Team Providers Care Jowl Trimmer Name Role Phone Gaudencio Garcia MD Unavailable [phone] Erik Sam MD Unavailable [phone] Marisa Madera MD Unavailable [phone] BigDaniel aquino DO Primary Care Provider [phone] Daniel Nelson DO Unavailable Daniel Nelson DO Primary Care Provider [phone] Encounter Details Date Type Department Care Team (Late st Contact Info) Description 12/08/2022 Procedure Pass [facility] Endoscopy Admitting Dept Virtual Department [address] [place] [address] Social History Tobacco Use Types Packs/Day Years Used Date Smoking Tobacco: Never Smokeless Tobacco: Never Alcohol Use Standard Drinks/Week Comments Yes 0 (1 standard drink = 0.6 oz pur e alcohol) Rare Education Answer Date Recorded Are you interested in more education? Not on jojo e 12/07/2022 Are you concerned about learning? Not on file 12/07/2022 No 12/07/2022 No 12/07/2022 Intimate Partner Violence Answer Date R ecorded [...] Pulmonary, Allergy and Critical Care Medicine [address] [place] [address] Gaudencio Garcia MD [address] [place] [address] 07/07/2025 2:00 PM EST Office Visit [facility] Allergy Center at [address] [facility] [address] [place] [address] Krishna German MD [address] [place] [address], Division of Rheumatology, [place] [address] [email or web address] 09/16/2025 2:30 PM EST Office Visit [facility] Pulmonary, Allergy and Critical Care Medicine [address] [place] [address] Gaudencio Garcia MD [address] [place] [address] [email or web address] documented as of this encounter Visit Diagnoses Not on filedocumented in this encounter Additional Health Concerns Infection Onset Date Last Indicated Resolved Time CoV-Exposed Comment:Pt exposed to + staff 04/17/23 04/17/2023 04/20/2023 1:24 AM EDT CoV-Risk 08/17/2024 08/17/2024 08/28/2024 1:21 AM EST documented as of this encounter Care Teams Jowl Trimmer Relationship Specialty Start Date End Date JhonyDaniel aquinoDO [address] [address] PCP - General Internal Medicine 10/07/20 04/22/25 Daniel Nelson DO [address] [place] [address] PCP - General Internal Medicine 04/23/25 Gaudencio Garcia MD [address] [place] [address] Historical LMR Provider 06/03/17 Erik Sam MD [address] [address] Historical LMR Provider 06/03/17 Marisa Madera MD [address] [place] [address] Historical LMR Provider 06/03/17 Daniel Nelson DO 179 [place] [address] Insurance Assigned Provider 11/10/17 12/30/22 documented as of this encounter Additional Source Comments The information contained in this document represents components of the legal health record. It is not the complete legal health record.[facility]
--- OUTSIDE RECORDS SUMMARY | 2025-05-08 18:48 | XMS_ITS | Encounter Summary ---
Author Organization [facility] Address [address] [place] [address] Phone Care Team Providers Care Arcgis Developer Name Role Phone Gaudencio Garcia MD Unavailable [phone] Erik Sam MD Unavailable Marisa Madera MD Unavailable [phone] Jaleesa Moore NP Unavailable [phone] Daniel Nelson DO Primary Care Provider [phone] Daniel Nelson DO Unavailable Daniel Nelson DO Primary Care Provider [phone] Encounter Details Date Type Department Care Team (Late st Contact Info) Description 10/07/2020 Ancillary Orders Virtual Department 30 [place] [address] Daniel Nelson DO 179 [facility] [place] [address] [email or web address] Lump of breast, right Social History Tobacco [...] Pulmonary, Allergy and Critical Care Medicine 10 [place] [address] Gaudencio Garcia MD [address] [place] [address] [email or web address] 07/07/2025 2:00 PM EST Office [facility] Allergy Center at [address] 850 [facility] [address] [place] [address] Krishna German MD [address] [place] [address]-, Division of Rheumatology, [place] [address] [email or web address] 09/16/2025 2:30 PM EST Office Visit [facility] Pulmonary, Allergy and Critical Care Medicine 10 [place] [address] Gaudencio Garcia MD [address] [place] [address] [email or web address] documented as of this encounter Results * BI US BREAST LIMITED (RIGHT) (11/02/2020 3:55 PM EDT) Anatomical Region Laterality Modality Breast Right, Breast Bilateral Right U ltrasound 11/02/2020 3:05 PM EDT Impressions 11/02/2020 4:00 [...] suspicious calcifications or other abnormalities are seen. us Daniel Nelson DO IM US BREAST Final Result documented in this encounter Visit Diagnoses Diagnosis Lump of breast, right Lump of breast, right documented in this encounter Additional Health Concerns Infection Onset Date Last Indicated Resolved Time CoV-Exposed Comment:Pt exposed to + staff 04/17/23 04/17/2023 04/20/2023 1:24 AM EDT CoV-Risk 08/17/2024 08/17/2024 08/28/2024 1:21 AM EST documented as of this encounter Care Teams Arcgis Developer Relationship Specialty Start Date End Date Daniel Nelson DO [address] [place] [address] PCP - General Internal Medicine 10/07/20 04/22/25 Daniel Nelson DO [address] [place] [address] PCP - General Internal Medicine 04/23/25 Gaudencio Garcia MD [address] [place] [address] [email or web address] Historical LMR Provider 06/03/17 Erik Sam MD [address] [place] [address] [email or web address] Historical LMR Provider 06/03/17 Marisa Madera MD [address] [place] [address] Historical LMR Provider 06/03/17 Jaleesa Moore NP [address] [place] [address] Historical LMR Provider 06/03/17 2 Daniel Nelson DO [address] [place] [address] Insurance Assigned Provider 11/10/17 12/30/22 documented as of this encounter Additional Source Comments The information contained in this document represents components of the legal health record. It is not the complete legal health record.[facility]
--- OUTSIDE RECORDS SUMMARY | 2025-05-08 18:48 | XMS_ITS | Encounter Summary ---
Author Organization [facility] Address [address] [facility] [address] [place] [address] Phone Care Team Providers Care Litigation Docket Manager Name Role Phone Daniel Nelson DO Primary Care Provider [phone] Daniel Nelson DO Unavailable Blessing Garcia MD Unavailable Gaudencio Garcia MD Unavailable [phone] Juan Miguel Smith MD Unavailable Erik Sam MD Unavailable Karrie Curtis INVESTIGATIONS DIRECTOR Unavailable Marisa Madera MD Unavailable Nick Abrams PROJECT ENGINEERING DIRECTOR Unavailable Jaleesa Moore INVESTIGATIONS DIRECTOR Unavailable Daniel Nelson DO Unavailable Daniel Nelson DO Primary Care Provider [phone] Daniel Nelson DO Unavailable + Daniel Nelson DO Primary Care Provider + Encounter Details Date Type Department Care Team (Late st Contact Info) Description 12/12/2017 Ancillary Orders Virtual Department 30 [place] [address] Daniel Nelson DO 179 [facility] [place] [address] [email or web address] Peripheral tear of medial meniscus of right knee as current injury, initial encounter Social History Tobacco Use Types Packs/Day Years [...] [facility] Pulmonary, Allergy and Critical Care Medicine [address] [place] [address] Gaudencio Garcia MD [address] [place] [address] [email or web address] 07/07/2025 2:00 PM EST Office Visit [facility] Allergy Center at [address] [address] Krishna German MD [address] [place] [address], Division of Rheumatology, [place] [address] [email or web address] 09/16/2025 2:30 PM EST Office Visit [facility] Pulmonary, Allergy and Critical Care Medicine [address] [place] [address] Gaudencio Garcia MD [address] [place] [address] [email or web address] documented as of this encounter Results * MRI KNEE WITHOUT CONTRAST (RIGHT) (12/19/2017 2:17 PM EDT) Anatomical Region Laterality Modality Knee Right Magnetic Resonan ce 12/19/2017 2:45 PM EDT Impressions 12/19/2017 3:23 PM EDT Prominent medial compartment degenerative changes with a large tear of the midportion of the meniscus and extensive loss of articular cartilage on both sides of the medial joint. Less severe degenerative changes in the patellofemoral and lateral compartments paralleling the findings on plain films. No ligamentous injury is apparent. POS - [id number] Edited by: Tanya Manrique on 12/19/2017 3:01 PM Narrative 12/19/2017 3:23 PM EDT TECHNIQUE: 1.5 Alanna high-field MRI scanner. Axial PD FS, coronal PD FS, sagittal T1, oblique sagittal PD and PD FS parallel to the plane of the ACL . Compare to plain films 05/30/2017. FINDINGS: There is an extensive, seemingly radial tear of the midportion of the medial meniscus such that only a few of the peripheral meniscal fibers bridge between the anterior and posterior horn. The meniscus is displaced peripherally out of the joint space through much of its length under overhanging marginal osteophytes. The lateral meniscus seems intact. Ribbon-like ACL but no tear is apparent. PCL intact. Collateral ligaments intact. Prominent, diffuse thinning of the articular cartilage in the medial compartment, nearly [id number]. Milder diffuse thinning of the patellofemoral and lateral compartment articular cartilage. No marrow edema or focal osteochondral defects. No significant joint effusion nor popliteal cyst. Distal quadriceps and patellar tendons and patellar retinacula intact. Procedure Note Rakesh Ortiz MD - 12/19/2017 TECHNIQUE: 1.5 Alanna high-field MRI scanner. Axial PD FS, coronal PD FS, sagittal T1, oblique sagittal PD and PD FSparallel to the plane of the ACL . Compare to plain films 05/30/2017. FINDINGS: There is an extensive, seemingly radial tear of the midportion of themedial meniscus such that only a few of the peripheral meniscal fibersbridge between the anterior and posterior horn. The meniscus is displacedperipherally out of the joint space through much of its length underoverhanging marginal osteophytes. The lateral meniscus seems intact. Ribbon-like ACL but no tear is apparent. PCL intact. Collateral ligaments intact. Prominent, diffuse thinning of the articular cartilage in the medialcompartment, nearly [id number]. Milder diffuse thinning of the patellofemoral and lateral compartmentarticular cartilage. No marrow edema or focal osteochondral defects. No significant joint effusion nor popliteal cyst. Distal quadriceps and patellar tendons and patellar retinacula intact. IMPRESSION: Prominent medial compartment degenerative changes with a large tear of themidportion of the meniscus and extensive loss of articular cartilage onboth sides of the medial joint. Less severe degenerative changes in thepatellofemoral and lateral compartments paralleling the findings on plainfilms. No ligamentous injury is apparent. POS - [id number] Edited by: Tanya Manrique on 12/19/2017 3:01 PM us Daniel Nelson DO IMG MR EXTREMITY Final Result documented in this encounter Visit Diagnoses Diagnosis Peripheral tear of medial meniscus of right knee as current injury, initial encounter Peripheral tear of medial meniscus of right knee as current injury, initial encounter documented in this encounter Additional Health Concerns Infection Onset Date Last Indicated Resolved Time CoV-Exposed Comment:Pt exposed to + staff 04/17/23 04/17/2023 04/20/2023 1:24 AM EDT CoV-Risk 08/17/2024 08/17/2024 08/28/2024 1:21 AM EST documented as of this encounter Care Teams Litigation Docket Manager Relationship Specialty Start Date End Date Daniel Nelson DO PCP - General 05/29/17 10/06/20 Daniel Nelson DO PCP - General Internal Medicine 10/07/20 04/22/25 Daniel Nelson DO 179 [place] [address] [email or web address] PCP - General Internal Medicine 04/23/25 Daniel Nelson DO [address] [place] [address] [email or web address] Historical LMR Provider 06/03/17 01/07/18 Blessing Garcia MD [address] [place] [address] Historical LMR Provider 06/03/17 Gaudencio Garcia MD [address] [place] [address] [email or web address] Historical LMR Provider 06/03/17 Juan Miguel Smith MD [address] [place] [address] [email or web address] Historical LMR Provider 06/03/17 01/07/18 Erik Sam MD [address] [address] [email or web address] Historical LMR Provider 06/03/17 Karrie Curtis NP [address] [place] [address] [email or web address] Historical LMR Provider 06/03/17 Marisa Madera MD [address] [address] [email or web address] Historical LMR Provider 06/03/17 Nick Abrams CNP 15 [facility], [address] [place] [address] Historical LMR Provider 06/03/17 01/07/18 Jaleesa Moore NP [address] [place] [address] Historical LMR Provider 06/03/17 2 Daniel Nelson DO [address] [place] [address] Insurance Assigned Provider 11/10/17 01/07/18 Daniel Nelson DO 179 [place] [address] Insurance Assigned Provider 11/10/17 12/30/22 documented as of this encounter Additional Source Comments The information contained in this document represents components of the legal health record. It is not the complete legal health record.[facility]
[2025-05-08 19:22] LABS: Appearance Urine Clear; Glucose Urine UA Negative (Negative); PH 6.5 (5.0-9.0); Specific Gravity - Urine 1.010 (1.005-1.025)
== END 2025-05-08 18:45 | disposition home or self-care (01) ==
LOC: HO.LNP 18:44
PROVIDERS: Visit Provider Physician Assistant
DX: N39.0 Urinary tract infection, site not specified (principal)
CPT/HCPCS: 81003

== ENCOUNTER 2025-05-19 14:04 | Outpatient (REF) | payer MEDICAID, SELFPAY ==
--- OUTSIDE RECORDS SUMMARY | 2024-03-23 10:06 | XMS_ITS | Encounter Summary ---
Author Organization [facility] Address [address] [place] [address] Phone Care Team Providers Care Electrophysiology Technologist Name Role Phone Gaudencio Garcia MD Unavailable [phone] Erik Sam MD Unavailable Marisa Madera MD Unavailable [phone] Daniel Nelson DO Primary Care Provider [phone] Encounter Details Date Type Department Care Team (Late st Contact Info) Description 03/23/2024 10:06 AM EDT Hospital Encounter [facility] [address] [place] [address] [id number] Viky Aguila, ROLLER STRUCTURAL MILL [address] [place] [address], [address] [place] [address] [email or web address] Social History Tobacco Use Types Packs/Day Years Used Date Smoking Tobacco: Never Smokeless Tobacco: Never Alcohol Use Standard Drinks/Week Comments Yes 0 (1 standard drink = 0.6 oz pur e alcohol) Rare Home Health Assessment: Transportation Answer Date Recorded Lack of Transportation (Medical) Yes 09/19/2024 Lack of Transportation (Non-Medical) Yes 09/19/2024 Patient Unable or Declines to Respond No 09/19/2024 Education Answer Date Recorded Are you interested in more education? Not on jojo e 12/07/2022 Are you concerned about learning? Not on file 12/07/2022 No 12/07/2022 No 12/07/2022 Food Answer Date Recorded Within the past 6 months we worried whether our food would run out before we got money to buy more. Sometimes True 025 Within the past 6 months the food we bought just didn't last and we didn't have enough money to get more. Sometimes True 12/2024 Residential Stability Answer Date Recor ded What is your housing situation today? I have tung sing 08/17/2024 How many times have you move d in the past 12 months? Zero (I did not move) 08/17/2024 Paying for Meds Answer Date Recorded Do you have trouble paying for medicines? No 08/17/2024 Paying Utility Bills Answer Date Record ed Do you have trouble paying your heating or elect ricity bill? No 08/17/2024 Transportation Answer Date Recorded Has the lack of transportati on kept you from medical appointments or from getting medications? No 08/17/2024 Digital Access Answer Date Recorded No 08/17/2024 Yes 08/17/2024 Do you have reliable internet access at home? Ye s 08/17/2024 Do you have a device (e.g., phone, tablet, computer) with a working camera? Yes 08/17/2024 Intimate Partner Violence Answer Date R ecorded Are you denied basic needs s uch as food, clothing, or medical care? No 08/17/2024 In the past 12 months have y ou been in a relationship with a person who hurts, threatens, or tries to control you? No 08/17/2024 Are you denied basic needs s uch as food, clothing, or medical care? No 08/17/2024 In the past 12 months have y ou been in a relationship with a person who hurts, threatens, or tries to control you? No 08/17/2024 Comments No Sex and Gender Information Value Date Recorded Sex Assigned at Female 10/30/2020 2:56 PM EDT Legal Sex Female 9:44 PM EDT Gender Identity Female 10/30/2020 2:56 PM EDT Sexual Orientation Straight 10/30/2020 2: 56 PM EDT documented as of this encounter Functional Status * Calculated C-SSRS Risk Score (Lifetime/Recent) Answer Date of Assessment Author No Risk Indicated 08/17/2024 12:43 AM Susan Harrington RN * [place] Suicide Severity Rating Scale (Screener/Recent Self-Report) Question Answer Date of Assessment Author 1. Wish to be (Past 1 Month) No 08/17/2024 12:43 AM Susan Velazquez RN 2. Non-Specific Active Suici rosa elena Thoughts (Past 1 Month) No 08/17/2024 12:43 AM Gabino Velazquez RN 6. Suicidal Behavior (Lifetime) No 12:43 AM Susan Velazquez RN documented as of this encounter Plan of Treatment Upcoming Encounters Date Type Department Care Team (Late st Contact Info) Description 07/07/2025 2:00 PM EST Office Visit [facility] Allergy Center at [address] [facility] [address] [place] [address] Krishna German MD [address] [place] [address]-, Division of Rheumatology, [place] [address] [email or web address] 09/16/2025 2:30 PM EST Office Visit [facility] Pulmonary, Allergy and Critical Care Medicine [address] [place] [address] Gaudencio Garcia MD [address] [place] [address] [email or web address] documented as of this encounter Procedures Procedure Name Priority Date/Time Associated Diagnosis Comments XR FOOT 3 OR MORE VIEWS (LEFT) Urgent/patient waiting 03/23/2024 10:19 AM EDT Closed nondisplaced fracture of distal phalanx of lesser toe of left foot, initial encounter documented in this encounter Results * XR FOOT 3 OR MORE VIEWS (LEFT) (03/23/2024 10:19 AM EDT) Anatomical Region Laterality Modality Foot Left Computed Radiogr aphy 03/23/2024 10:3 8 AM EDT Impressions 03/23/2024 10:41 AM EDT Cortical irregularity of the third middle and distal phalanges at the DIP joint could represent nondisplaced fractures. A clinically significant result was initiated on 03/23/2024 10:41 AM, Message ID [id number]. Narrative 03/23/2024 10:41 AM EDT XR FOOT 3 OR MORE VIEWS (LEFT) Referring clinician's provided indication for this examination in Epic: Pain; Trauma; left middle toe pain COMPARISON: None. FINDINGS: Cortical irregularity of the third middle and distal phalanges near the DIP joint with soft tissue swelling. Inferior calcaneal spur. Achilles tendon enthesophyte. Procedure Note Elin Douglas MD - 03/23/2024 XR FOOT 3 OR MORE VIEWS (LEFT) Referring clinician's provided indication for this examination in Epic:Pain; Trauma; left middle toe pain COMPARISON: None. FINDINGS: Cortical irregularity of the third middle and distal phalanges near theDIP joint with soft tissue swelling. Inferior calcaneal spur. Achillestendon enthesophyte. IMPRESSION: Cortical irregularity of the third middle and distal phalanges at the DIPjoint could represent nondisplaced fractures. A clinically significant result was initiated on 03/23/2024 10:41 AM,Message ID [id number]. Viky Aguila [employer] IMG XR LOWER EXTREMITY Final Result documented in this encounter Visit Diagnoses Not on filedocumented in this encounter Additional Health Concerns Infection Onset Date Last Indicated Resolved Time CoV-Risk 08/17/2024 08/17/2024 08/28/2024 1:21 AM EST documented as of this encounter Care Teams Electrophysiology Technologist Relationship Specialty Start Date End Date Daniel Nelson DO [address] [place] [address] [email or web address] PCP - General Internal Medicine 10/07/20 04/22/25 Gaudencio Garcia MD [address] [place] [address] [email or web address] Historical LMR Provider 06/03/17 Erik Sam MD [address] [place] [address], [address] [place] [address] [email or web address] Historical LMR Provider 06/03/17 Marisa Madera MD [address] [place] [address], 2nd [place] [address] [email or web address] Historical LMR Provider 06/03/17 documented as of this encounter Additional Source Comments The information contained in this document represents components of the legal health record. It is not the complete legal health record.[facility]
--- OUTSIDE RECORDS SUMMARY | 2025-05-19 17:20 | XMS_ITS | Encounter Summary ---
Author Organization [facility] Address [address] [facility] [place] [address] [place] [address] Phone Care Team Providers Care Records Section Supervisor Name Role Phone Gaudencio Garcia MD Unavailable [phone] Erik Sam MD Unavailable [phone] Marisa Madera MD Unavailable [phone] BigDaniel aquino DO Primary Care Provider [phone] Daniel Nelson DO Unavailable BigDaniel aquino DO Primary Care Provider [phone] Encounter Details Date Type Department Care Team (Late st Contact Info) Description 05/17/2022 Procedure Pass [address] [address] Social History Tobacco Use Types Packs/Day Years [...] Description 07/07/2025 2:00 PM EST Office Visit [facility] Allergy Center at [address] [place] [address] [place] [address] Krishna German MD [address] [place] [address], Division of Rheumatology, [place] [address] [email or web address] 09/16/2025 2:30 PM EST Office Visit [facility] Pulmonary, Allergy and Critical Care Medicine [address] [place] [address] Gaudencio Garcia MD [address] [place] [address] documented as of this encounter Visit Diagnoses Not on filedocumented in this encounter Additional Health Concerns Infection Onset Date Last Indicated Resolved Time CoV-Exposed Comment:Pt exposed to + staff 04/17/23 04/17/2023 04/20/2023 1:24 AM EDT CoV-Risk 08/17/2024 08/17/2024 08/28/2024 1:21 AM EST documented as of this encounter Care Teams Records Section Supervisor Relationship Specialty Start Date End Date Daniel Nelson DO [address] [address] PCP - General Internal Medicine 10/07/20 04/22/25 Daniel Nelson DO 179 [facility] [place] [address] PCP - General Internal Medicine 04/23/25 Gaudencio Garcia MD [address] [place] [address] Historical LMR Provider 06/03/17 Erik Sam MD [address] [address] [email or web address] Historical LMR Provider 06/03/17 Marisa Madera MD 15 [facility], 2nd [place] [address] Historical LMR Provider 06/03/17 Daniel Nelson DO [address] [place] [address] [place] [address] [email or web address] Insurance Assigned Provider 11/10/17 12/30/22 documented as of this encounter Additional Source Comments The information contained in this document represents components of the legal health record. It is not the complete legal health record.[facility]
--- OUTSIDE RECORDS SUMMARY | 2025-05-19 17:20 | XMS_ITS | Encounter Summary ---
Author Organization [facility] Address [address] [place] [address] Phone Care Team Providers Care Unit Assembler Name Role Phone Gaudencio Garcia MD Unavailable [phone] Erik Sam MD Unavailable [phone] Marisa Madera MD Unavailable [phone] Daniel Nelson DO Primary Care Provider [phone] Daniel Nelson DO Primary Care Provider [phone] Encounter Details Date Type Department Care Team (Latest Contact Info) Description 06/26/2023 Transcribe Orders Virtual Department 30 [place] [address] Roberta Mao PA 6 [facility] [place] [address] [place] [address] Disorder of kidney and ureter, unspecified (Primary [...] Description 07/07/2025 2:00 PM EST Office Visit [facility] Allergy Center at [address] [facility] [address] [place] [address] Krishna German MD [address] [place] [address], Division of Rheumatology, [place] [address] [email or web address] 09/16/2025 2:30 PM EST Office [place] [facility]monary, Allergy and Critical Care Medicine [address] [place] [address] Gaudencio Garcia MD [address] [place] [address] 2nd [place] [address] documented as of this encounter Results * [...] clinician's provided indication for this examination in [facility]:Outside Radiology Order; KIDNEY LESION TECHNIQUE: Kidney Ultrasound. [...] no sonographiccorrelate. No hydronephrosis or shadowing nephrolithiasis. Roberta PACK [facility] US RENAL Final Resul t documented in this encounter Visit Diagnoses Diagnosis Disorder of kidney and ureter, unspecified- Primary Disorder of kidney and ureter, unspecified documented in this encounter Additional Health Concerns Infection Onset Date Last Indicated Resolved Time CoV-Risk 08/17/2024 08/17/2024 08/28/2024 1:21 AM EST documented as of this encounter Care Teams Unit Assembler Relationship Specialty Start Date End Date Daniel Nelson DO [address] [place] [address], [address] [place] [address] PCP - General Internal Medicine 10/07/20 04/22/25 Daniel Nelson DO [address] [place] [address] [place] [address] PCP - General Internal Medicine 04/23/25 Gaudencio Garcia MD [address] [place] [address] Historical LMR Provider 06/03/17 Erik Sam MD [address] [place] [address] Historical LMR Provider 06/03/17 Marisa Madera MD [address] [place] [address] Historical LMR Provider 06/03/17 documented as of this encounter Additional Source Comments The information contained in this document represents components of the legal health record. It is not the complete legal health record.[facility]
--- OUTSIDE RECORDS SUMMARY | 2025-05-19 17:20 | XMS_ITS | Encounter Summary ---
Author Organization [facility] Address [address] [place] [address] Phone Care Team Providers Care Supervisor/Port Director Name Role Phone Gaudencio Garcia MD Unavailable [phone] Erik Sam MD Unavailable [phone] Marisa Madera MD Unavailable [phone] BigDaniel aquino DO Primary Care Provider [phone] Daniel Nelson DO Unavailable BigDaniel aquino DO Primary Care Provider [phone] Encounter Details Date Type Department Care Team (Late st Contact Info) Description 04/20/2022 Ancillary Orders [facility] Medical [facility] Orthopedics & Sports Medicine [address] [place] [address] Lindy Salgado MD [address] [place] [address] Orthopedics & Sports Medicine, [facility] [place] [address] [email or web address] Social History Tobacco Use Types Packs/Day [...] Description 07/07/2025 2:00 PM EST Office Visit [facility] Allergy Center at [address] [place] 850 [facility] [address] [place] [address] Krishna German MD [address] [place] [address] PBB-B[facility], Division of Rheumatology, [place] [address] [email or web address] 09/16/2025 2:30 PM EST Office Visit [facility] Pulmonary, Allergy and Critical Care Medicine 10 [place] [address] Gaudencio Garcia MD [address] [place] [address] [email or web address] documented as of this encounter Visit Diagnoses Not on filedocumented in this encounter Additional Health Concerns Infection Onset Date Last Indicated Resolved Time CoV-Exposed Comment:Pt exposed to + staff 04/17/23 04/17/2023 04/20/2023 1:24 AM EDT CoV-Risk 08/17/2024 08/17/2024 08/28/2024 1:21 AM EST documented as of this encounter Care Teams Supervisor/Port Director Relationship Specialty Start Date End Date Daniel Nelson DO [address] [address] PCP - General Internal Medicine 10/07/20 04/22/25 Daniel Nelson DO [address] [employer] [place] [address] PCP - General Internal Medicine 04/23/25 Gaudencio Garcia MD [address] [place] [address] [email or web address] Historical LMR Provider 06/03/17 Erik Sam MD 22 [facility] 301 [place] [address] [email or web address] Historical LMR Provider 06/03/17 Marisa Madera MD [address] [place] [address], 2nd [place] [address] Historical LMR Provider 06/03/17 Daniel Nelson DO [address] [place] [address] [place] [address] [email or web address] Insurance Assigned Provider 11/10/17 12/30/22 documented as of this encounter Additional Source Comments The information contained in this document represents components of the legal health record. It is not the complete legal health record.[facility]
--- OUTSIDE RECORDS SUMMARY | 2025-05-19 17:20 | XMS_ITS | Encounter Summary ---
Author Organization Formerly [facility] Address [address] [place] [address] Phone Care Team Providers Care Street Car Mechanic Name Role Phone Gaudencio Garcia MD Unavailable [phone] Erik aSm MD Unavailable [phone] Marisa Madera MD Unavailable [phone] Daniel Nelson DO Primary Care Provider [phone] Daniel Nelson DO Primary Care Provider [phone] Encounter Details Date Type Department Care Team (Late st Contact Info) Description 09/07/2023 Procedure Pass [facility] [address] [place] [address] Social History Tobacco Use Types Packs/Day Years [...] Description 07/07/2025 2:00 PM EST Office Visit [facility] Allergy Center at [address] [address] Krishna German MD [address] [place] [address]-, Division of Rheumatology, [place] [address] [email or web address] 09/16/2025 2:30 PM EST Office Visit [facility] 10 [place] [address] Gaudencio Garcia MD [address] [place] [address] [email or web address] documented as of this encounter Visit Diagnoses Not on filedocumented in this encounter Additional Health Concerns Infection Onset Date Last Indicated Resolved Time CoV-Risk 08/17/2024 08/17/2024 08/28/2024 1:21 AM EST documented as of this encounter Care Teams Street Car Mechanic Relationship Specialty Start Date End Date Daniel Nelson DO [address] [address] PCP - General Internal Medicine 10/07/20 04/22/25 Daniel Nelson DO [address] [place] [address] [place] [address] [email or web address] PCP - General Internal Medicine 04/23/25 Gaudencio Garcia MD [address] [place] [address] [email or web address] Historical LMR Provider 06/03/17 Erik Sam MD [address] [place] [address] [email or web address] Historical LMR Provider 06/03/17 Marisa Madera MD [address] [place] [address] [email or web address] Historical LMR Provider 06/03/17 documented as of this encounter Additional Source Comments The information contained in this document represents components of the legal health record. It is not the complete legal health record.Formerly [facility]
--- OUTSIDE RECORDS SUMMARY | 2025-05-19 17:20 | XMS_ITS | Clinical Summary ---
Author Organization [facility] Address [address] [facility] [address] [place] [address] Phone Care Team Providers Care Manager Health Name Role Phone Gaudencio Garcia MD Unavailable [phone] Erik Sam MD Unavailable [phone] Rosina Madera MD Unavailable [phone] Inez Green DO Primary Care Provider [phone] Allergies Active Allergy Reactions Criticality Noted Date Comments Albuterol Sulfate Wheezing High 08/25/2019 Fexofenadine Myalgia High 12/13/2017 Metaproterenol Unknown Low 10/04/2017 Amoxicillin Hives 02/27/2025 Aspartame Hives,Itching,Rash Low 11/17/2024 Ipratropium Clarissa Other (See Comments) High 12/13/2017 Dries lungs [...] 10/04/2017 Montelukast Medium 12/13/2017 Flu like sxs Zwnoelb-Mqu-Ixw Reductase Inhibitors Myalgia 05/23/2023 Sulfa (Sulfonamide Antibiotics) Itching,Unknown 10/04/2017 Sulfamethoxazole-Trimethop rim Hives,Itching,Swell ing,Rash,Bronchospa sm,Wheezing High 07/23/2010 Theophylline Itching High 10/04/2017 Severe itchying Tree And Shrub Pollen Unknown 05/23/2023 Lisdexamfetamine Itching Medium 12/13/2017 Wool Unknown 05/23/2023 Medications fluticasone propionate (FLONASE) 50 mcg/actuation nasal spray 1 spray by Nasal route as needed. Active LORazepam (ATIVAN) 0.5 MG tabletIndication s:@ BT Take 0.5 mg by mouth as [...] Take 150 mg by mouth daily. 0 9 Active levalbuterol (XOPENEX HFA) 45 mcg/actuation inhaler Inhale 2 puffs into the lungs every 6 (six) hours as needed for wheezing. 1 Inhaler 5 9 Active cyanocobalamin, vitamin B-12, 1000 MCG tablet Take 1,000 mcg by mouth daily. Active ketoconazole 2 % cream 1 Application daily as needed (intertrigo). Active meloxicam (MOBIC) 7.5 MG tablet Take 7.5 mg by mouth daily. 5 Active cholecalciferol, vitD3,/vit K2 (VITAMIN D3-VITAMIN K2 ORAL) Take by mouth daily. 10,000 vitamin D3. Active MAGNESIUM GLYCINATE ORAL Take by mouth nightly at bedtime. 5 Active ibuprofen (ADVIL,MOTRIN) 600 MG tablet Take 600 mg by mouth every 6 (six) hours as needed for pain (specific location in comments). As needed for pain. Active losartan (COZAAR) 100 MG tabletIndication s:Pulmonary hypertension TAKE 1 TABLET(100 MG) BY MOUTH DAILY 90 tablet 3 5 Active Additional Information Patient taking differently: 0.5 tabletOral Daily, Reported on 04/16/2025 B-complex with vitamin C tablet Take 1 tablet by mouth daily. 500 mg Active fluticasone propionate (FLONASE) 50 mcg/actuation nasal sprayIndications :Allergic rhinitis, unspecified seasonality, unspecified trigger 1 spray by Nasal route daily. 16 g 11 5 Active ADVAIR DISKUS 500-50 mcg/dose DISKUSIndication s:Moderate persistent asthma with acute exacerbation Inhale 1 puff into the lungs 2 (two) times a day. 60 each 11 5 Active furosemide (LASIX) 40 MG tablet TAKE 1 TABLET(40 MG) BY MOUTH EVERY MORNING 90 tablet 5 Active mometasone (NASONEX) 50 mcg/actuation nasal spray 2 sprays by Nasal route daily. 17 g 12 5 Active EPINEPHrine (EPIPEN 2-JANETT) 0.3 mg/0.3 mL auto-injector Inject 0.3 mL (0.3 mg total) into the muscle as directed. 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 Latter diagnosis can be made via genetic testing though not available in our lab. Will refer to mastocytosis clinic at [facility] for further diagnostic testing. 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 Apparently recent the last several years. Consider additional testing but may defer to evaluation at [facility] allergy practice. 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 October 2022) I [...] above. 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 Typically limited by side effects such as nosebleeds. Recommend Nasonex if covered by insurance. If not, get purchase [id number] or consider Flonase Sensimist. For antihistamine type [...] gastric carroll ng 10/12/2017 05/23/2023 Overview (05/23/2023): [id number]. Lost approx 100 lbs. Removed due to [...] with peripheral eosinophil counts, total IgE, and [place] allergy panel Depending on above, would consider [...] Date Resolved Date Sialodocholithiasis 05/23/2023 05/23/2023 05/23/20 Vertigo 02/28/2023 05/23/2023 05/23/2023 Calcific tendinitis of shoulder 12/05/2021 3 05/23/2023 Tear of right rotator cuff 11/14/2021 05/23/2023 1 Bursitis of right shoulder 11/14/2021 05/23/2023 1 Influenza 08/25/2019 05/23/2023 Assessment & Plan (08/25/2019 3:05 PM EST): Clinically improved. Obesity (BMI 30-39.9) 12/13/20172022 Diastolic dysfunction 10/12/2017 04/17/20232022 Intertrigo 10/12/2017 05/23/2023 05/23/2023 Benign neoplasm of breast 10/12/2017 05/23/2023 Encounters Date Type Department Care Team Description 05/11/2025 Telephone [facility] 10 [place] [address] Gaudencio Garcia MD 04/20/2025 Telephone [facility] 10 [place] [address] Mary Baum Medication Prior Authorization ([place] for mometasone (NASONEX) 50 mcg/actuation nasal spray) 04/16/2025 2:00 PM EDT Office Visit [facility] [address] [place] [address] Gaudencio Garcia MD Allergy to multiple drugs (Primary Dx); High serum tryptase; Moderate persistent asthma without complication; Allergic rhinitis, unspecified seasonality, unspecified trigger 04/15/2025 Refill [facility] [address], [address] [place] [address] Erik Sam MD Medication Refill 04/07/2025 Orders Only [facility] [address] [place] [address] Gaudencio Garcia MD 04/06/2025 Telephone [facility] 10 [place] [address] Gaudencio Garcia MD 04/02/2025 2:36 PM EDT - 04/02/2025 11:59 PM EDT Hospital Encounter [facility] [address] [place] [address] Gaudencio Garcia MD Discharge Disposition: Home or Self Care 03/30/2025 2:40 PM EDT - 03/30/2025 11:59 PM EDT Hospital Encounter [facility] [address] [place] [address] Gaudencio Garcia MD Discharge Disposition: Home or Self Care 03/10/2025 1:53 PM EDT - 03/10/2025 11:59 PM EDT Hospital Encounter [facility] [address] [place] [address] Roberta Mao PA Discharge Disposition: Home or Self Care 02/27/2025 11:30 AM EDT Office Visit [facility] 10 [place] [address] Gaudencio Garcia MD Moderate persistent asthma without complication (Primary Dx); Allergic rhinitis, unspecified seasonality, unspecified trigger; Allergy to multiple drugs from Last 3 Months Immunizations Immunization Administration Dates Next Due COVID-19 (Pre-06/04) Raji Vaccine, [id number], PF 12/08/2020 COVID-19 (Pre-06/04) Pfizer [...] Description 07/07/2025 2:00 PM EST Office Visit [facility] Allergy Center at [address] [facility] [address] [place] [address] Krishna German MD [address] [place] [address]-, Division of Rheumatology, [place] [address] [email or web address] 09/16/2025 2:30 PM EST Office Visit [facility] [address] [place] [address] Gaudencio Garcia MD [address] [place] [address] [email or web address] Health Maintenance Due Date Last Done Comments DEPRESSION SCREENING 1975 HEPATITIS C SCREENING 1981 HIV ONE-TIME SCREENING (18-65 YEARS) 1981 PNEUMOCOCCAL VACCINES (50+ years) (1 of 2 - PCV) 1982 COLOGUARD 2008 FIT TEST 2008 FOBT 2008 SIGMOIDOSCOPY 2008 VIRTUAL COLONOSCOPY 2008 RSV VACCINE (1 - Risk 50-74 years 1-dose series) 2013 DIABETIC EYE EXAM 04/17/2023 INFLUENZA VACCINE (#1) 2025 , 06/17/2021, 2020, [...] Additional history exists POTASSIUM LEVEL 03/30/2026 03/30/2025, 040 02/2025, 08/17/2024, Additional history exists Adult Td,Tdap [...] 2:06 PM EDT Allergy to multiple drugs HEMOGLOBIN A1C Routine 11/17/2024 3:43 PM EDT [...] 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 No mutation is detected in the specific assay target region for KIT p.Vje349Nsg (D816V). See comment. Comment: This assay evaluates for the presence of the p.Sux019 Kelle (D816V) hotspot mutation in the KIT [...] chain reaction (ddPCR) to detect the KIT:c.2447A>T, p.Zjb337Vps ([id number]) variant. DNA extracted from patient samples is [...] developed and its performance characteristics determined by [facility] in a manner consistent with CLIA requirements. This test has not been cleared or approved by the U.S. Food and Drug Administration. Signing Pathologist Gaudencio Espinosa M.D. 04/02/2025 2:43 PM EDT 04/02/2025 4:23 PM EDT Gaudencio Garcia MD LAB BLOOD ORDERABLES Final Res ult Performing Organization Address [facility]/ZIP Co de Phone Number [facility] DPT OF LAB MED AND PAT+ [address] [place] [address] * (ABNORMAL) Tryptase (04/02/2025 2:43 PM EDT) Only the most recent of3 resultswithin the time period is included. TRYPTASE 31.6(H) <11.5 ng/mL [facility] LAB MED/PATH [address] Blood 04/02/2025 2:43 PM EDT 04/02/2025 2:58 PM EDT Gaudencio Garcia MD LAB BLOOD ORDERABLES Final Res ult Performing Organization Address [facility]/ZIP Co de Phone Number [facility] LAB MED/PATH [address] [place] [address] * (ABNORMAL) Comprehensive metabolic panel (03/30/2025 2:48 PM EDT) SODIUM 139 133 - 146 mmol/L [facility] POTASSIUM 4.3 3.3 - 5.1 mmol/L [facility] CHLORIDE 103 96 - 108 mmol/L [facility] CO2 22 21 - 35 mmol/L [facility] BUN 29(H) 6 - 19 mg/dL [facility] CREATININE 1.00 0.5 - 1.5 mg/dL [facility] GLUCOSE 127(H) 70 - 99 mg/dL [facility] ALBUMIN 3.9 3.9 - 4.8 g/dL [facility] TOTAL PROTEIN 7.4 6.5 - 8.0 g/dL [facility] CALCIUM 9.9 8.4 - 10.3 mg/dL [facility] ALKALINE PHOSPHATASE 99 39 - 117 U/L [facility] TOTAL BILIRUBIN 0.5 0.0 - 1.2 mg/dL [facility] AST 20 0 - 37 U/L [facility] ALT 21 0 - 40 U/L [facility] GLOBULIN 3.5 1 - 4.8 g/dL [facility] EGFR 64 >59 mL/min/1.7 3m2 [facility] Comment:Estimated glomerular filtration rate calculated using the CKD-EPI refit equation. ANION GAP 18 10 - 20 mmol/L [facility] Blood 03/30/2025 2:48 PM EDT 03/30/2025 2:57 PM EDT us Gaudencio Garcia MD LAB BLOOD ORDERABLES Final Res ult [facility] [address] [place], [place] [id number] * (ABNORMAL) CBC and differential (03/30/2025 2:48 PM EDT) WBC 7.82 4.00 - 11.00 K/uL [facility] RBC 4.78 4.00 - 5.20 M/uL [facility] HGB 13.3 12.0 - 16.0 g/dL [facility] HCT 42.2 36.0 - 46.0 % [facility] PLT 351 150 - 450 K/uL [facility] MCV 88.3 80.0 - 100.0 fL [facility] MCH 27.8 27.0 - 31.0 pg [facility] MCHC 31.5(L) 32.0 - 36.0 g/dL [facility] RDW 14.5 11.5 - 14.5 % [facility] MPV 10.4 8.4 - 12.0 fL [facility] NRBC 0.00 0.00 /100 WBCs [facility] ABSOLUTE NRBC 0.00 0.00 K/uL [facility] DIFF METHOD Auto [facility] NEUTS 67.1 48.0 - 76.0 % [facility] LYMPHS 21.2 18.0 - 41.0 % [facility] MONOS 7.8 4.0 - 11.0 % [facility] EOS 2.6 0.0 - 5.0 % [facility] BASOS 0.9 0.0 - 1.5 % [facility] Granulocytes, immature (%) 0.4 0.0 - 0.9 % [facility] ABSOLUTE NEUTS 5.25 1.92 - 7.60 K/uL [facility] ABSOLUTE LYMPHS 1.66 0.72 - 4.10 K/uL [facility] ABSOLUTE MONOS 0.61 0.16 - 1.10 K/uL [facility] ABSOLUTE EOS 0.20 0.00 - 0.50 K/uL [facility] ABSOLUTE BASOS 0.07 0.00 - 0.15 K/uL [facility] Granulocytes, immature 0.03 0.00 - 0.09 K/uL [facility] Blood 03/30/2025 2:48 PM EDT 03/30/2025 2:57 PM EDT us Gaudencio Garcia MD LAB BLOOD ORDERABLES Final Res ult [address] [address] * TSH with reflex (03/10/2025 2:06 PM EDT) TSH 1.45 0.27 - 4.20 uIU/mL [facility] Blood 03/10/2025 2:06 PM EDT 03/10/2025 2:09 PM EDT us Roberta PACK LAB BLOOD ORDERABLES Final Result Performing Organization Address City/[facility]/ZIP Co de Phone Number [address] [address] * (ABNORMAL) 25-OH vitamin D (03/10/2025 2:06 PM EDT) 25 OH VIT D (TOTAL) 88(H) 30 - 60 ng/mL [facility] Blood 03/10/2025 2:06 PM EDT 03/10/2025 2:09 PM EDT Roberta PACK LAB BLOOD ORDERABLES Final Result [address] [address] * Free T4 (03/10/2025 2:06 PM EDT) FREE T4 1.2 0.9 - 1.7 ng/dL [facility] Blood 03/10/2025 2:06 PM EDT 03/10/2025 2:09 PM EDT Roberta PACK LAB BLOOD ORDERABLES Final Result Performing Organization Address [facility]/ZIP Co de Phone Number [address] [address] * Phosphorus (03/10/2025 2:06 PM EDT) PHOSPHORUS 3.2 2.7 - 4.5 mg/dL [facility] Blood 03/10/2025 2:06 PM EDT 03/10/2025 2:09 PM EDT Roberta PACK LAB BLOOD ORDERABLES Final Result Performing Organization Address City/[facility]/ZIP Co de Phone Number [address] [address] * Parathyroid hormone (PTH) (03/10/2025 2:06 PM EDT) PARATHYROID HORMONE 42 15 - 65 pg/mL [facility] Blood 03/10/2025 2:06 PM EDT 03/10/2025 2:08 PM EDT Roberta PACK LAB BLOOD ORDERABLES Final Result Performing Organization Address [facility] Co de Phone Number [address] [address] * Magnesium (03/10/2025 2:06 PM EDT) MAGNESIUM 2.1 1.6 - 2.6 mg/dL [facility] Blood 03/10/2025 2:06 PM EDT 03/10/2025 2:09 PM EDT [facility] Van PACK LAB BLOOD ORDERABLES Final Result Performing Organization Address [facility] Co de Phone Number [address] [address] * (ABNORMAL) Hemoglobin A1c (11/17/2024 3:43 PM EDT) HEMOGLOBIN A1C 6.4(H) 4.3 - 5.8 % [facility] Blood 11/17/2024 3:43 PM EDT 11/17/2024 3:52 PM EDT Erik Sam MD LAB BLOOD ORDERABLES Final Result Performing Organization Address [facility] Co de Phone Number [address] [address] * (ABNORMAL) Lipid panel (11/17/2024 3:43 PM EDT) HDL 56 mg/dL [facility] Comment: Interpretation <40 mg/dL: Low HDL cholesterol (major risk factor for CHD) Greater than or equal to 60 mg/dL: High HDL cholesterol ( negative risk factor for CHD) HDL - cholesterol is affected by a number of factors, e.g. smoking, excerise, hormones, sex and age. CHOLESTEROL 233 0 - 240 mg/dL [facility] TRIGLYCERIDES 239(H) 30 - 160 mg/dL [facility] LDL 129 50 - 129 mg/dL [facility] Comment: LDL levels in terms of risk for coronary heart disease: <100 mg/dL: Optimal 100-129 mg/dL: Near or above optimal 130-159 mg/dL: Borderline high 160-189 mg/dL: High >190 mg/dL: Very High CARDIAC RISK RATIO 4.2 3.3 - 4.4 C [facility] Blood 11/17/2024 3:43 PM EDT 11/17/2024 3:52 PM EDT us Erik Sam MD LAB BLOOD ORDERABLES Final Result [address] [address] * BI MAMMOGRAM SCREENING WITH TOMOSYNTHESIS WITH [...] Madera MD - 12/08/2022 8:45 AM EDT [facility] Patient Name: Deanna Liraamanda Ozuna Attending MD:: ROSINA MADERA MD, Procedure Date: 12/08/2022 8:45 AM Date of : 1965 Age: 57 Admit Type: Outpatient Gender: Female Room: [facility] Referring MD: INEZ GREEN DO Exam Type: [...] monitored continuously. The Olympus adult variable colonoscope [id number] #1 was introduced through the anus and [...] the specimen was done by the physician [email or web address] using the patient's name and date. Estimated [...] 8:45 AM Procedure Code(s): --- Professional --- 46193, Colonoscopy, flexible; with biopsy, single or multiple --- Technical --- 60496, Colonoscopy, flexible; with biopsy, single or multiple [...] or abscess without bleeding CPT copyright 2021 [employer]. All rights reserved. The codes documented in this report are preliminary and upon hcc coders reviewmay be revised to meet current compliance requirements. Procedure Date: 12/08/2022 8:45:37 AM [address] [place] [address] us Inez Mc Green DO GI PROCEDURE ORDERABLES Final Re sult from Last 3 Months or Most Recently Relevant to Health Maintenance Insurance [facility] Advance Directives For more information, please contact: [phone] (9AM - 5PM 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 Healthcare Proxy 08/20/2024 2:52 PM Healthcare Proxy 10/09/2017 10:45 AM * Full Code (Latest Code Status on File) Date Activated Date Inactivated Comments 08/17/2024 9:36 AM Question Answer Comments Code Status Confirmed With: Patient Code Status Communicated To: Inpatient Attending Care Teams Manager Health Relationship Specialty Start Date End Date Inez Green DO [address] [place] [address] [email or web address] PCP - General Internal Medicine 04/23/25 Gaudencio Garcia MD [address] [place] [id number] [email or web address] Historical LMR Provider 06/03/17 Erik Sam MD [address], [address] [place] [address] [email or web address] Historical LMR Provider 06/03/17 Rosina Madera MD [address] [place] [address], [address] [place] [address] [email or web address] Historical LMR Provider 06/03/17 Additional Source Comments The information contained in this document represents components of the legal health record. It is not the complete legal health record.[facility]
--- OUTSIDE RECORDS SUMMARY | 2025-05-19 17:20 | XMS_ITS | Encounter Summary ---
Author Organization [facility] Address [address] [facility] [address] [place] [address] Phone Care Team Providers Care Entry Level Staff Accountant Name Role Phone Gaudencio Garcia MD Unavailable Erik Sam MD Unavailable Marisa Madera MD Unavailable [phone] Daniel Nelson DO Primary Care Provider [phone] Daniel Nelson DO Unavailable Daniel Nelson DO Primary Care Provider [phone] Reason for Referral * MRI/CAT Scan - Closed Specialty Diagnoses / Procedures Referred By Abi griffin Referred To Contact Radiology Diagnoses Tear of right rotator cuff, unspecified tear extent, unspecified whether traumatic Procedures MRI Shoulder (Right) Daniel Nelson DO Phone: tel: fax: [email or web address] Referral ID Status Reason Start Date Expiration Date Visits Re quested Visits Authorized [id number] Closed 10/17/2021 10/18/2022 1 1 Encounter Details Date Type Department Care Team (Late st Contact Info) Description 10/17/2021 Transcribe Orders Virtual Department 30 [place] [address] Daniel Nelson DO [address] [facility] [address] [place], [place] [id number] Tear of right rotator cuff, unspecified tear [...] Description 07/07/2025 2:00 PM EST Office Visit [facility] Allergy Center at [address] [facility] 540 [place] [address] Krishna German MD [address] [place] [address]-, Division of Rheumatology, [place] [address] [email or web address] 09/16/2025 2:30 PM EST Office Visit [facility] Pulmonary, Allergy and Critical Care Medicine [address] [place] [address] Gaudencio Garcia MD [address] [place] [address] 2nd [place] [address] [email or web address] documented as of this encounter [...] right and stable mild left hip osteoarthritis. Daniel Bentley Jhonykenia IMG XR PELVIS Final Result documented in [...] documented as of this encounter Care Teams Entry Level Staff Accountant Relationship Specialty Start Date End Date Daniel Nelson DO [address] [place] [address] [email or web address] PCP - General Internal Medicine 10/07/20 04/22/25 Daniel Nelson DO [address] [place] [address] [email or web address] PCP - General Internal Medicine 04/23/25 Gaudencio Garcia MD [address] [place] [address] [email or web address] Historical LMR Provider 06/03/17 Erik Sam MD [address] [place] [address] [email or web address] Historical LMR Provider 06/03/17 Marisa Madera MD [address] [place] [address] [email or web address] Historical LMR Provider 06/03/17 Daniel Nelson DO 179 [place] [address] [email or web address] Insurance Assigned Provider 11/10/17 12/30/22 documented as of this encounter Additional Source Comments The information contained in this document represents components of the legal health record. It is not the complete legal health record.[facility]
--- OUTSIDE RECORDS SUMMARY | 2025-05-19 17:20 | XMS_ITS | Encounter Summary ---
Author Organization [facility] Address [address] [facility] [address] [place] [address] Phone Care Team Providers Care Customs Brokerage Manager Name Role Phone Daniel Nelson DO Primary Care Provider [phone] Bigda, Daniel A DO Unavailable Blessing Garcia MD Unavailable [phone] Gaudencio Garcia MD Unavailable [phone] Juan Miguel Smith MD Unavailable Erik Sam MD Unavailable Karrie Curtis THREAD GRINDER TOOL Unavailable Marisa Madera MD Unavailable [phone] Nick Abrams POWER BALLAST MACHINE OPERATOR Unavailable [phone] Jaleesa Moore THREAD GRINDER TOOL Unavailable [phone] Bigda, Daniel A DO Unavailable Bigda, Daniel A DO Primary Care Provider [phone] Bigda, Daniel A DO Unavailable + Bigda, Daniel A DO Primary Care Provider + Encounter Details Date Type Department Care Team (Late st Contact Info) Description 09/19/2017 Transcribe Orders [facility] 30 [place] [address] Gaudencio Garica MD [address] [place] [address] [email or web address] Tobacco Use Types Packs/Day Years [...] Description 07/07/2025 2:00 PM EST Office Visit [facility] Allergy Center at [address] [place] 850 [facility] [address] [place] [address] Krishna German MD [address] [place] [address]-, Division of Rheumatology, [place] [address] [email or web address] 09/16/2025 2:30 PM EST Office Visit [facility] Pulmonary, Allergy and Critical Care Medicine [address] [place] [address] Gaudencio Garcia MD [address] [place] [address] [email or web address] documented as of this encounter Visit Diagnoses Not on filedocumented in this encounter Additional Health Concerns Infection Onset Date Last Indicated Resolved Time CoV-Exposed Comment:Pt exposed to + staff 04/17/23 04/17/2023 04/20/2023 1:24 AM EDT CoV-Risk 08/17/2024 08/17/2024 08/28/2024 1:21 AM EST documented as of this encounter Care Teams Customs Brokerage Manager Relationship Specialty Start Date End Date Daniel Nelson DO PCP - General 05/29/17 10/06/20 Daniel Nelson DO PCP - General Internal Medicine 10/07/20 04/22/25 Omar Daniel DO Mc 179 [facility] [address] PCP - General Internal Medicine 04/23/25 Daniel Nelson DO 179 [facility] [address] Historical LMR Provider 06/03/17 01/07/18 Blessing Garcia MD [address] [place] [address] Historical LMR Provider 06/03/17 Gaudencio Garcia MD [address] [place] [address] Historical LMR Provider 06/03/17 Juan Miguel Smith MD [address] [place] [address] Historical LMR Provider 06/03/17 01/07/18 Erik Sam MD [address] [place] [address] Historical LMR Provider 06/03/17 Karrie Curtis NP [address] [place] [address] [email or web address] Historical LMR Provider 06/03/17 Marisa Madera MD [address] [address] Historical LMR Provider 06/03/17 Nick Abrams POWER BALLAST MACHINE OPERATOR [address] [address] Historical LMR Provider 06/03/17 01/07/18 Jaleesa Moore NP [address] [place] [address] Historical LMR Provider 06/03/17 2 Daniel Nelson DO 179 [place] [address] Insurance Assigned Provider 11/10/17 01/07/18 Daniel Nelson DO 179 [place] [address] Insurance Assigned Provider 11/10/17 12/30/22 documented as of this encounter Additional Source Comments The information contained in this document represents components of the legal health record. It is not the complete legal health record.[facility]
--- OUTSIDE RECORDS SUMMARY | 2025-05-19 17:20 | XMS_ITS | Encounter Summary ---
Author Organization [facility] Address [address] [place] [address] Phone Care Team Providers Care Intensive Care Unit Nurse Name Role Phone Gaudencio Garcia MD Unavailable [phone] Erik Sam MD Unavailable [phone] Marisa Madera MD Unavailable [phone] Jaleesa Moore NP Unavailable [phone] Bigda, Daniel A DO Primary Care Provider [phone] Bigda, Daniel A DO Unavailable Bigda, Daniel A DO Primary Care Provider [phone] Encounter Details Date Type Department Care Team (Latest Contact Info) Description 12/10/2020 Transcribe Orders Virtual Department 30 [place] [address] Roberta Mao PA [address] [place] [address] [place] [address] Pelvic and perineal pain (Primary Dx) Social [...] Description 07/07/2025 2:00 PM EST Office Visit [facility] Allergy Center at [address] [place] 850 [facility] [address] [place] [address] Krishna German MD [address] [place] [address] [facility], Division of Rheumatology, [place] [address] [email or web address] 09/16/2025 2:30 PM EST Office Visit [facility] Pulmonary, Allergy and Critical Care Medicine 10 [place] [address] Gaudencio Garcia MD [address] [place] [address] 2nd [place] [address] [email or web address] [...] documented as of this encounter Care Teams Intensive Care Unit Nurse Relationship Specialty Start Date End Date Daniel Nelson DO [address] [place] [address] PCP - General Internal Medicine 10/07/20 04/22/25 Daniel Nelson DO [address] [place] [address] PCP - General Internal Medicine 04/23/25 Gaudencio Garcia MD [address] [place] [address] Historical LMR Provider 06/03/17 Erik Sam MD 22 [facility] 301 [place] [address] [email or web address] Historical LMR Provider 06/03/17 Marisa Madera MD 15 [facility], 2nd [place] [address] [email or web address] Historical LMR Provider 06/03/17 Jaleesa Moore NP [address] [place] [address] Historical LMR Provider 06/03/17 2 Daniel Nelson DO [address] [place] [address] [place] [address] [email or web address] Insurance Assigned Provider 11/10/17 12/30/22 documented as of this encounter Additional Source Comments The information contained in this document represents components of the legal health record. It is not the complete legal health record.[facility]
--- OUTSIDE RECORDS SUMMARY | 2025-05-19 17:20 | XMS_ITS | Encounter Summary ---
Author Organization [facility] Address [address] [facility] [address] [place] [address] Phone Care Team Providers Care Maintenance Mgr Name Role Phone Gaudencio Garcia MD Unavailable [phone] Erik Sam MD Unavailable [phone] Marisa Madera MD Unavailable [phone] Daniel Nelson DO Primary Care Provider [phone] Daniel Nelson DO Primary Care Provider [phone] Reason for Referral * Outpatient Procedure - Closed Specialty Diagnoses / Procedures Referred By Abi griffin Referred To Contact Radiology Diagnoses Pulmonary hypertension, unspecified Procedures Adult Echo TTE Daniel Nelson DO 15 [facility], 2nd [place] [address] Phone: tel: fax: [email or web address] Referral ID Status Reason Start Date Expiration Date Visits Re quested Visits Authorized [id number] Closed 10/15/2023 10/14/2024 1 1 Encounter Details Date Type Department Care Team (Late st Contact Info) Description 09/07/2023 Transcribe Orders Virtual Department 30 [place] [address] Daniel Nelson DO 179 [facility] [place] [address] Pulmonary hypertension, unspecified (Primary Dx) Social History [...] [facility] Allergy Center at [address] [address] Krishna German MD [address] [place] [address]-, Division of Rheumatology, Immun[place] [address] [email or web address] 09/16/2025 2:30 PM EST Office Visit [facility] Pulmonary, Allergy and Critical Care Medicine [address] [place] [address] Gaudencio Garcia MD 10 [facility] 2nd [place] [address] [email or web address] documented as of [...] The interatrial septum appears normal. us Daniel Bentley Omar RAMIREZ CV ECHO ORDERABLES Final Result documented in this encounter Visit Diagnoses Diagnosis Pulmonary hypertension, unspecified- Primary Pulmonary hypertension, unspecified documented in this encounter Additional Health Concerns Infection Onset Date Last Indicated Resolved Time CoV-Risk 08/17/2024 08/17/2024 08/28/2024 1:21 AM EST documented as of this encounter Care Teams Maintenance Mgr Relationship Specialty Start Date End Date Daniel Nelson DO [address] [place] [address] [email or web address] PCP - General Internal Medicine 10/07/20 04/22/25 Daniel Nelson DO [address] [place] [address] [email or web address] PCP - General Internal Medicine 04/23/25 Gaudencio Garcia MD [address] [place] [address] [email or web address] Historical LMR Provider 06/03/17 Erik Sam MD [address] [place] [address] [email or web address] Historical LMR Provider 06/03/17 Marisa Madera MD [address] [place] [address] [email or web address] Historical LMR Provider 06/03/17 documented as of this encounter Additional Source Comments The information contained in this document represents components of the legal health record. It is not the complete legal health record.[facility]
--- OUTSIDE RECORDS SUMMARY | 2025-05-19 17:20 | XMS_ITS | Encounter Summary ---
Author Organization [facility] Address [address] [place] [address] Phone Care Team Providers Care City Tax Auditor Name Role Phone Gaudencio Garcia MD Unavailable [phone] Erik Sam MD Unavailable [phone] Marisa Madera MD Unavailable [phone] BigDaniel aquino DO Primary Care Provider [phone] Daniel Nelson DO Unavailable Daniel Nelson DO Primary Care Provider [phone] Encounter Details Date Type Department Care Team (Late st Contact Info) Description 12/08/2022 Procedure Pass [facility] Endoscopy Admitting Dept Virtual Department [address] [place] [address] Social History Tobacco Use Types Packs/Day Years [...] Description 07/07/2025 2:00 PM EST Office Visit [facility] Allergy Center at [address] 850 [facility] 540 [place] [address] Krishna German MD [address] [place] [address], Division of Rheumatology, Immunology [place] [address] [email or web address] 09/16/2025 2:30 PM EST Office Visit [facility] Pulmonary, Allergy and Critical Care Medicine [address] [place] [address] Gaudencio Garcia MD [address] [place] [address] [email or web address] documented as of this encounter Visit Diagnoses Not on filedocumented in this encounter Additional Health Concerns Infection Onset Date Last Indicated Resolved Time CoV-Exposed Comment:Pt exposed to + staff 04/17/23 04/17/2023 04/20/2023 1:24 AM EDT CoV-Risk 08/17/2024 08/17/2024 08/28/2024 1:21 AM EST documented as of this encounter Care Teams City Tax Auditor Relationship Specialty Start Date End Date Daniel Nelson DO [address] [address] PCP - General Internal Medicine 10/07/20 04/22/25 Daniel Nelson DO 179 [place] [address] PCP - General Internal Medicine 04/23/25 Gaudencio Garcia MD [address] [place] [address] Historical LMR Provider 06/03/17 Erik Sam MD [address] [place] [address] [email or web address] Historical LMR Provider 06/03/17 Marisa Madera MD [address] [place] [address] Historical LMR Provider 06/03/17 Daniel Nelson DO 179 [place] [address] Insurance Assigned Provider 11/10/17 12/30/22 documented as of this encounter Additional Source Comments The information contained in this document represents components of the legal health record. It is not the complete legal health record.[facility]
--- OUTSIDE RECORDS SUMMARY | 2025-05-19 17:20 | XMS_ITS | Encounter Summary ---
Author Organization [facility] Address [address] [facility] [address] [place] [address] Phone Care Team Providers Care Detector Car Operator Name Role Phone Gaudencio Garcia MD Unavailable [phone] Erik Sam MD Unavailable [phone] Marisa Madera MD Unavailable [phone] BigDaniel aquino DO Primary Care Provider [phone] Daniel Nelson DO Unavailable BigDaniel aquino DO Primary Care Provider [phone] Encounter Details Date Type Department Care Team (Late st Contact Info) Description 2022 Procedure Pass Non-Invasive Cardiology [address] [place] [address] Social History Tobacco Use Types Packs/Day Years [...] Description 07/07/2025 2:00 PM EST Office Visit [facility] Allergy Center at [address] [place] [address] [place] [address] Krishna German MD [address] [place] [address], Division of Rheumatology, Immunology [place] [address] [email or web address] 09/16/2025 2:30 PM EST Office Visit [facility] Pulmonary, Allergy and Critical Care Medicine [address] [place] [address] Gaudencio Garcia MD [address] [place] [address] documented as of this encounter Visit Diagnoses Not on filedocumented in this encounter Additional Health Concerns Infection Onset Date Last Indicated Resolved Time CoV-Exposed Comment:Pt exposed to + staff 04/17/23 04/17/2023 04/20/2023 1:24 AM EDT CoV-Risk 08/17/2024 08/17/2024 08/28/2024 1:21 AM EST documented as of this encounter Care Teams Detector Car Operator Relationship Specialty Start Date End Date Daniel Nelson DO [address] [address] PCP - General Internal Medicine 10/07/20 04/22/25 Daniel Nelson DO [address] [place] [address] PCP - General Internal Medicine 04/23/25 Gaudencio Garcia MD [address] [place] [address] Historical LMR Provider 06/03/17 Erik Sam MD [address] [address] [email or web address] Historical LMR Provider 06/03/17 Marisa Madera MD [address] [place] [address], [address] [place] [address] Historical LMR Provider 06/03/17 Daniel Nelson DO [address] [place] [address] [email or web address] Insurance Assigned Provider 11/10/17 12/30/22 documented as of this encounter Additional Source Comments The information contained in this document represents components of the legal health record. It is not the complete legal health record.[facility]
--- OUTSIDE RECORDS SUMMARY | 2025-05-19 17:20 | XMS_ITS | Encounter Summary ---
Author Organization [facility] Address [address] [facility] [address] [place] [address] Phone Care Team Providers Care Personal Insurance Advisor Name Role Phone Daniel Nelson DO Primary Care Provider +[phone] Daniel Nelson DO Unavailable Blessing Garcia MD Unavailable Gaudencio Garcia MD Unavailable [phone] Juan Miguel Smith MD Unavailable Erik Sam MD Unavailable Karrie Curtis PRACTICE PHYSICIAN Unavailable Marisa Madera MD Unavailable Nick Abrams ACUTE CARE ASSISTANT Unavailable Jaleesa Moore PRACTICE PHYSICIAN Unavailable Daniel Nelson DO Unavailable Daniel Nelson DO Primary Care Provider +-[phone] Daniel Nelson DO Unavailable + Daniel Nelson DO Primary Care Provider + Encounter Details Date Type Department Care Team (Late st Contact Info) Description 12/12/2017 Ancillary Orders Virtual Department 30 [place] [address] Daniel Nelson DO 179 [facility] [place] [address] [email or web address] Peripheral tear of medial meniscus of right [...] Description 07/07/2025 2:00 PM EST Office Visit [facility] Allergy Center at [address] [place] 850 [facility] 540 [place] [address] Krishna German MD [address] [place] [address]-, Division of Rheumatology, [place] [address] [email or web address] 09/16/2025 2:30 PM EST Office Visit [facility], Allergy and Critical Care Medicine 10 [place] [address] Gaudencio Garcia MD [address] [place] [address] [email or web address] documented as of this encounter Results [...] No ligamentous injury is apparent. POS - [id number] Edited by: Tanya Manrique on 12/19/2017 3:01 [...] articular cartilage in the medial compartment, nearly [id number]. Milder diffuse thinning of the patellofemoral and [...] the articular cartilage in the medialcompartment, nearly [id number]. Milder diffuse thinning of the patellofemoral and [...] No ligamentous injury is apparent. POS - [id number] Edited by: Tanya Manrique on 12/19/2017 3:01 PM us Daniel NEGRO MR EXTREMITY Final Result documented in this [...] documented as of this encounter Care Teams Personal Insurance Advisor Relationship Specialty Start Date End Date Daniel Nelson DO PCP - General 05/29/17 10/06/20 Daniel Nelson DO PCP - General Internal Medicine 10/07/20 04/22/25 Daniel Nelson DO 179 [place] [address] PCP - General Internal Medicine 04/23/25 Daniel Nelson DO 179 [place] [address] Historical LMR Provider 06/03/17 01/07/18 Blessing Garcia MD [address] [place] [address] Historical LMR Provider 06/03/17 Gaudencio Garcia MD [address] [place] [address] Historical LMR Provider 06/03/17 Juan Miguel Smith MD [address] [place] [address] Historical LMR Provider 06/03/17 01/07/18 Erik Sam MD [address] [address] Historical LMR Provider 06/03/17 Karrie Curtis NP [address] [place] [address] [email or web address] Historical LMR Provider 06/03/17 Marisa Madera MD [address] [place] [address] Historical LMR Provider 06/03/17 Nick Abrams ACUTE CARE ASSISTANT [address] [place] [address] Historical LMR Provider 06/03/17 01/07/18 Jaleesa Moore, MAUREEN [address] [place] [address] Historical LMR Provider 06/03/17 2 Daniel Nelson DO 179 [place] [address] Insurance Assigned Provider 11/10/17 01/07/18 Daniel Nelson DO 179 [place] [address] Insurance Assigned Provider 11/10/17 12/30/22 documented as of this encounter Additional Source Comments The information contained in this document represents components of the legal health record. It is not the complete legal health record.[facility]
--- OUTSIDE RECORDS SUMMARY | 2025-05-19 17:20 | XMS_ITS | Encounter Summary ---
Author Organization [facility] Address [address] [employer] [facility] [address] [place] [address] Phone Care Team Providers Care Automatic Punch Press Operator Name Role Phone Daniel Nelson DO Primary Care Provider [phone] Gaudencio Garcia MD Unavailable [phone] Erik Sam MD Unavailable [phone] Marisa Madera MD Unavailable [phone] Jaleesa Moore NP Unavailable [phone] Daniel Nelson DO Primary Care Provider [phone] Daniel Nelson DO Unavailable Daniel Nelson DO Primary Care Provider [phone] Encounter Details Date Type Department Care Team (Late st Contact Info) Description 04/03/2018 Ancillary Orders Virtual Department 30 [place] [address] Daniel Nelson DO 179 [facility] [address] Breast screening Social History Tobacco Use Types [...] Description 07/07/2025 2:00 PM EST [facility] All[facility] Center at [address] [place] 850 [facility] [address] [place] [address] Krishna German MD [address] [place] [address] PBB-B3, Division of Rheumatology, [place] [address] [email or web address] 09/16/2025 2:30 PM EST Office Visit [facility], Allergy and Critical Care Medicine 10 [facility] [place] [address] Gaudencio Garcia MD 10 [facility] 2nd [place] [address] [email or web address] documented as [...] There are scattered fibroglandular densities. POS - [id number] Narrative 06/18/2018 2:01 PM EST Full-field digital [...] There are scattered fibroglandular densities. POS - [id number] us Daniel Nelson DO IMG MG EXAMS [...] documented as of this encounter Care Teams Automatic Punch Press Operator Relationship Specialty Start Date End Date Daniel Nelson DO PCP - General 05/29/17 10/06/20 Daniel Nelson DO PCP - General Internal Medicine 10/07/20 04/22/25 Daniel Nelson DO [address] [place] [address] [place] [address] PCP - General Internal Medicine 04/23/25 Gaudencio Garcia MD [address] [place] [address] Historical LMR Provider 06/03/17 Erik Sam MD [address] [place] [address] [email or web address] Historical LMR Provider 06/03/17 Marisa Madera MD [address] [place] [address] Historical LMR Provider 06/03/17 Jaleesa Moore NP [address] [place] [address] Historical LMR Provider 06/03/17 2 Daniel Nelson DO [address] [place] [address] Insurance Assigned Provider 11/10/17 12/30/22 documented as of this encounter Additional Source Comments The information contained in this document represents components of the legal health record. It is not the complete legal health record.[facility]
--- OUTSIDE RECORDS SUMMARY | 2025-05-19 17:20 | XMS_ITS | Encounter Summary ---
Author Organization [facility] Address [address] [employer] [facility] [address] [place] [address] Phone Care Team Providers Care Shredding Machine Tender Name Role Phone Gaudencio Garcia MD Unavailable [phone] Erik Sam MD Unavailable [phone] Marisa Madera MD Unavailable [phone] BigDaniel aquino DO Primary Care Provider [phone] Daniel Nelson DO Unavailable BigDaniel aquino DO Primary Care Provider [phone] Encounter Details Date Type Department Care Team (Late st Contact Info) Description 10/17/2021 Procedure Pass [facility], [address] [address] Social History Tobacco Use Types Packs/Day Years [...] Description 07/07/2025 2:00 PM EST Office Visit [facility] Allergy Center at [address] [place] [address] [place] [address] Krishna German MD [address] [place] [address], Division of Rheumatology, [place] [address] [email or web address] 09/16/2025 2:30 PM EST Office Visit [facility] Pulmonary, Allergy and Critical Care Medicine [address] [place] [address] Gaudencio Garcia MD [address] [place] [address] documented as of this encounter Visit Diagnoses Not on filedocumented in this encounter Additional Health Concerns Infection Onset Date Last Indicated Resolved Time CoV-Exposed Comment:Pt exposed to + staff 04/17/23 04/17/2023 04/20/2023 1:24 AM EDT CoV-Risk 08/17/2024 08/17/2024 08/28/2024 1:21 AM EST documented as of this encounter Care Teams Shredding Machine Tender Relationship Specialty Start Date End Date Daniel Nelson DO [address] [address] PCP - General Internal Medicine 10/07/20 04/22/25 Daniel Nelson DO 179 [facility] [place] [address] PCP - General Internal Medicine 04/23/25 Gaudencio Garcia MD [address] [place] [address] Historical LMR Provider 06/03/17 Erik Sam MD [address] [address] [email or web address] Historical LMR Provider 06/03/17 Marisa Madera MD 15 [facility], 2nd [place] [address] Historical LMR Provider 06/03/17 Daniel Nelson DO [address] [place] [address] [place] [address] [email or web address] Insurance Assigned Provider 11/10/17 12/30/22 documented as of this encounter Additional Source Comments The information contained in this document represents components of the legal health record. It is not the complete legal health record.[facility]
--- OUTSIDE RECORDS SUMMARY | 2025-05-19 17:20 | XMS_ITS | Encounter Summary ---
Author Organization [facility] Address [address] [employer] [facility] [address] [place] [address] Phone Care Team Providers Care Design Engineering Manager Name Role Phone Daniel Nelson DO Primary Care Provider [phone] Bigda, Daniel Bentley DO Unavailable Blessing Garcia MD Unavailable [phone] Gaudencio Garcia MD Unavailable [phone] Juan Miguel Smith MD Unavailable Erik Sam MD Unavailable Karrie Curtis GENERAL PRODUCTION MANAGER Unavailable Marisa Madera MD Unavailable [phone] Nick Abrams SCREW MACHINE TENDER Unavailable [phone] Jaleesa Moore GENERAL PRODUCTION MANAGER Unavailable [phone] Bigda, Daniel Bentley DO Unavailable Bigda, Daniel A DO Primary Care Provider +[phone] Bigda, Daniel A DO Unavailable + Bigda, Daniel A DO Primary Care Provider + Encounter Details Date Type Department Care Team (Late st Contact Info) Description 12/12/2017 Procedure Pass [facility], [address] [place] [address] Social History Tobacco Use Types Packs/Day Years [...] Description 07/07/2025 2:00 PM EST Office Visit [facility] Allergy Center at 850 [place] 850 [facility] [address] [place] [address] Krishna German MD [address] [place] [address]-, Division of Rheumatology, [place] [address] [email or web address] 09/16/2025 2:30 PM EST Office Visit [facility] Pulmonary, Allergy and Critical Care Medicine 10 [place] [address] Gaudencio Garcia MD 10 [facility] 2nd [place] [address] [email or web address] documented as of this encounter Visit Diagnoses Not on filedocumented in this encounter Additional Health Concerns Infection Onset Date Last Indicated Resolved Time CoV-Exposed Comment:Pt exposed to + staff 04/17/23 04/17/2023 04/20/2023 1:24 AM EDT CoV-Risk 08/17/2024 08/17/2024 08/28/2024 1:21 AM EST documented as of this encounter Care Teams Design Engineering Manager Relationship Specialty Start Date End Date Daniel Nelson DO PCP - General 05/29/17 10/06/20 Daniel Nelson DO PCP - General Internal Medicine 10/07/20 04/22/25 Daniel Nelson DO 179 [place] [address] PCP - General Internal Medicine 04/23/25 Daniel Nelson DO 179 [place] [address] Historical LMR Provider 06/03/17 01/07/18 Blessing Garcia MD [address] [place] [address] Historical LMR Provider 06/03/17 Gaudencio Garcia MD [address] [place] [address] Historical LMR Provider 06/03/17 Juan Miguel Smith MD [address] [place] [address] Historical LMR Provider 06/03/17 01/07/18 Erik Sam MD [address] [place] [address] Historical LMR Provider 06/03/17 Karrie Curtis GENERAL PRODUCTION MANAGER [address] [place] [address] [email or web address] Historical LMR Provider 06/03/17 Marisa Madera MD [address] [address] Historical LMR Provider 06/03/17 Nick Abrams CNP [address] [address] Historical LMR Provider 06/03/17 01/07/18 Jaleesa Moore NP [address] [place] [address] Historical LMR Provider 06/03/17 2 Daniel Nelson DO 179 [place] [address] Insurance Assigned Provider 11/10/17 01/07/18 Daniel Nelson DO 179 [place] [address] Insurance Assigned Provider 11/10/17 12/30/22 documented as of this encounter Additional Source Comments The information contained in this document represents components of the legal health record. It is not the complete legal health record.[facility]
--- OUTSIDE RECORDS SUMMARY | 2025-05-19 17:20 | XMS_ITS | Encounter Summary ---
Author Organization [facility] Address 399 [facility] [address] [place] [address] Phone Care Team Providers Care Powder Line Repairer Name Role Phone Omar Daniel Bentley DO Primary Care Provider +[phone] Bigda, Daniel A DO Unavailable Blessing Garcia MD Unavailable [phone] Gaudencio Garcia MD Unavailable [phone] Juan Miguel Smith MD Unavailable Erik Sam MD Unavailable Karrie Curtis CELL FEED DEPARTMENT SUPERVISOR Unavailable Marisa Madera MD Unavailable [phone] Nick Abrams SHIPPING INSPECTOR Unavailable [phone] Jaleesa Moore CELL FEED DEPARTMENT SUPERVISOR Unavailable [phone] Bigda, Daniel A DO Unavailable Bigda, Daniel A DO Primary Care Provider +[phone] Bigda, Daniel A DO Unavailable + Bigda, Daniel A DO Primary Care Provider [phone] Encounter Details Date Type Department Care Team (Latest Contact Info) Description 06/04/2017 Transcribe Orders [facility] PFT Lab 30 [place] [address] Gaudencio Garcia MD [address] [address] [email or web address] Asthma in adult, moderate persistent, uncomplicated (Primary [...] Description 07/07/2025 2:00 PM EST Office Visit [facility] Allergy Center at 850 [place] 850 [facility] 540 [place] [address] Krishna German MD [address] [place] [address], Division of Rheumatology, [place] [address] [email or web address] 09/16/2025 2:30 PM EST Office Visit [facility] Pulmonary, Allergy and Critical Care Medicine [address] [place] [address] Gaudencio Garcia MD [address] [place] [address] [email or web address] documented as of this encounter Results * [...] patient's given history of pulmonary vascular disease. us Gaudencio Garcia MD PFT ORDERABLES Final Result [...] documented as of this encounter Care Teams Powder Line Repairer Relationship Specialty Start Date End Date Daniel Nelson DO PCP - General 05/29/17 10/06/20 Daniel Nelson DO PCP - General Internal Medicine 10/07/20 04/22/25 Daniel Nelson DO 179 [facility] [place] [address] PCP - General Internal Medicine 04/23/25 Daniel Nelson DO 179 [facility] [place] [address] Historical LMR Provider 06/03/17 01/07/18 Blessing Garcia MD [address] [place] [address] Historical LMR Provider 06/03/17 Gaudencio Garcia MD [address] [place] [address] [email or web address] Historical LMR Provider 06/03/17 Juan Miguel Smith MD [address] [place] [address] [email or web address] Historical LMR Provider 06/03/17 01/07/18 Erik Sam MD [address] [address] [email or web address] Historical LMR Provider 06/03/17 Karrie Curtis NP [address] [place] [address] [email or web address] Historical LMR Provider 06/03/17 Marisa Madera MD [address] [address] Historical LMR Provider 06/03/17 Nick Abrams SHIPPING INSPECTOR [address] [address] Historical LMR Provider 06/03/17 01/07/18 Jaleesa Moore, MAUREEN [address] [place] [address] Historical LMR Provider 06/03/17 2 Daniel Nelson DO 179 [place] [address] Insurance Assigned Provider 11/10/17 01/07/18 Daniel Nelson DO 179 [place] [address] Insurance Assigned Provider 11/10/17 12/30/22 documented as of this encounter Additional Source Comments The information contained in this document represents components of the legal health record. It is not the complete legal health record.[facility]
--- OUTSIDE RECORDS SUMMARY | 2025-05-19 17:20 | XMS_ITS | Encounter Summary ---
Author Organization [facility] Address [address] [place] [address] Phone Care Team Providers Care Long Term Care Phlebotomist Name Role Phone Gaudencio Garcia MD Unavailable [phone] Erik Sam MD Unavailable [phone] Marisa Madera MD Unavailable [phone] BigDainel aquino DO Primary Care Provider [phone] Daniel Nelson DO Unavailable BigDaniel aquino DO Primary Care Provider [phone] Encounter Details Date Type Department Care Team (Late st Contact Info) Description 07/05/2022 Procedure Pass [facility], [address] [address] Social History Tobacco Use Types Packs/Day Years [...] Description 07/07/2025 2:00 PM EST Office Visit [facility] Allergy Center at [address] [place] [address] [place] [address] Krishna German MD [address] [place] [address], Division of Rheumatology, Immunology [place] [address] [email or web address] 09/16/2025 2:30 PM EST Office Visit [facility] Pulmonary, Allergy and Critical Care Medicine [address] [place] [address] Gaudencio Garcia MD [address] [place] [address] documented as of this encounter Visit Diagnoses Not on filedocumented in this encounter Additional Health Concerns Infection Onset Date Last Indicated Resolved Time CoV-Exposed Comment:Pt exposed to + staff 04/17/23 04/17/2023 04/20/2023 1:24 AM EDT CoV-Risk 08/17/2024 08/17/2024 08/28/2024 1:21 AM EST documented as of this encounter Care Teams Long Term Care Phlebotomist Relationship Specialty Start Date End Date Daniel Nelson DO [address] [address] PCP - General Internal Medicine 10/07/20 04/22/25 Daniel Nelson DO 179 [facility] [place] [address] PCP - General Internal Medicine 04/23/25 Gaudencio Garcia MD [address] [place] [address] Historical LMR Provider 06/03/17 Erik Sam MD [address] [address] [email or web address] Historical LMR Provider 06/03/17 Marisa Madera MD 15 [facility], 2nd [place] [address] Historical LMR Provider 06/03/17 Daniel Nelson DO [address] [place] [address] [place] [address] [email or web address] Insurance Assigned Provider 11/10/17 12/30/22 documented as of this encounter Additional Source Comments The information contained in this document represents components of the legal health record. It is not the complete legal health record.[facility]
--- OUTSIDE RECORDS SUMMARY | 2025-05-19 17:20 | XMS_ITS | Encounter Summary ---
Author Organization [facility] Address [address] [place] [address] Phone Care Team Providers Care Liquor Establishment Manager Name Role Phone Gaudencio Garcia MD Unavailable [phone] Erik Sam MD Unavailable Marisa Madera MD Unavailable [phone] BigDaniel aquino DO Primary Care Provider [phone] BigDaniel aquino DO Unavailable BigDaniel aquino A DO Primary Care Provider [phone] Encounter Details Date Type Department Care Team (Latest Contact Info) Description 04/20/2022 Ancillary Orders [address] [address] Lindy Salgado MD [address] [place] [address] Orthopedics & Sports Medicine, [place], [place] [id number] [email or web address] Osteoarthritis of right hip, unspecified osteoarthritis [...] & [facility] Allergy Center at 850 [facility] 850 [facility] [address] [place] [address] Krishna German MD [address] [place] [address] PB-B3, Division of Rheumatology, [place] [address] [email or web address] 09/16/2025 2:30 PM EST Office Visit [facility] Pulmonary, Allergy and Critical Care Medicine [address] [place] [address] Gaudencio Garcia MD [address] [place] [address] [email or web address] Pending Results Name Type Priority Associated Diagnoses [...] documented as of this encounter Care Teams Liquor Establishment Manager Relationship Specialty Start Date End Date Daniel Nelson DO [address] [address] PCP - General Internal Medicine 10/07/20 04/22/25 Daniel Nelson DO 179 [place] [address] [email or web address] PCP - General Internal Medicine 04/23/25 Gaudencio Garcia MD [address] [place] [address] Historical LMR Provider 06/03/17 Erik Sam MD [address] [address] [email or web address] Historical LMR Provider 06/03/17 Marisa Madera MD [address] [place] [address] Historical LMR Provider 06/03/17 Daniel Nelson DO 179 [place] [address] Insurance Assigned Provider 11/10/17 12/30/22 documented as of this encounter Additional Source Comments The information contained in this document represents components of the legal health record. It is not the complete legal health record.[facility]
--- OUTSIDE RECORDS SUMMARY | 2025-05-19 17:20 | XMS_ITS | Encounter Summary ---
Author Organization [facility] Address [address] [place] [address] Phone Care Team Providers Care Prosthetics Lab Technician Name Role Phone Gaudencio Garcia MD Unavailable [phone] Erik Sam MD Unavailable [phone] Marisa Madera MD Unavailable [phone] Daniel Nelson DO Primary Care Provider [phone] Daniel Nelson DO Primary Care Provider [phone] Encounter Details Date Type Department Care Team (Late st Contact Info) Description 06/20/2023 Procedure Pass [facility], Ct Scan - [address] [address] Social History Tobacco Use Types Packs/Day Years [...] Description 07/07/2025 2:00 PM EST Office Visit [facility] Allergy Center at [address] [address] Krishna German MD [address] [place] [address]-, Division of Rheumatology, [place] [address] [email or web address] 09/16/2025 2:30 PM EST Office Visit [facility] Pulmonary, Allergy and Critical Care Medicine [address] [place] [address] Gaudencio Garcia MD [address] [place] [address] [email or web address] documented as of this encounter Visit Diagnoses Not on filedocumented in this encounter Additional Health Concerns Infection Onset Date Last Indicated Resolved Time CoV-Risk 08/17/2024 08/17/2024 08/28/2024 1:21 AM EST documented as of this encounter Care Teams Prosthetics Lab Technician Relationship Specialty Start Date End Date Daniel Nelson DO [address] [address] PCP - General Internal Medicine 10/07/20 04/22/25 Daniel Nelson DO [address] [place] [address] [place] [address] PCP - General Internal Medicine 04/23/25 Gaudencio Garcia MD [address] [place] [address] [email or web address] Historical LMR Provider 06/03/17 Erik Sam MD [address] [place] [address] Historical LMR Provider 06/03/17 Marisa Madera MD [address] [place] [address] [email or web address] Historical LMR Provider 06/03/17 documented as of this encounter Additional Source Comments The information contained in this document represents components of the legal health record. It is not the complete legal health record.[facility]
--- OUTSIDE RECORDS SUMMARY | 2025-05-19 17:20 | XMS_ITS | Encounter Summary ---
Author Organization [facility] Address [address] [employer] [facility] [address] [place] [address] Phone Care Team Providers Care Curator Of Education Name Role Phone Gaudencio Garcia MD Unavailable [phone] Erik Sam MD Unavailable [phone] Marisa Madera MD Unavailable [phone] BigDaniel aquino DO Primary Care Provider [phone] Daniel Nelson DO Unavailable BigDaniel aquino DO Primary Care Provider [phone] Encounter Details Date Type Department Care Team (Late st Contact Info) Description 05/17/2022 Procedure Pass [facility], [address] [address] Social History Tobacco Use Types Packs/Day Years [...] Description 07/07/2025 2:00 PM EST Office Visit [facility] Allergy Center at [address] [place] [address] [place] [address] Krishna German MD [address] [place] [address], Division of Rheumatology, [place] [address] [email or web address] 09/16/2025 2:30 PM EST Office Visit [facility] Pulmonary, Allergy and Critical Care Medicine [address] [place] [address] Gaudencio Garcia MD [address] [place] [address] documented as of this encounter Visit Diagnoses Not on filedocumented in this encounter Additional Health Concerns Infection Onset Date Last Indicated Resolved Time CoV-Exposed Comment:Pt exposed to + staff 04/17/23 04/17/2023 04/20/2023 1:24 AM EDT CoV-Risk 08/17/2024 08/17/2024 08/28/2024 1:21 AM EST documented as of this encounter Care Teams Curator Of Education Relationship Specialty Start Date End Date Daniel Nelson DO [address] [address] PCP - General Internal Medicine 10/07/20 04/22/25 Daniel Nelson DO 179 [place] [address] PCP - General Internal Medicine 04/23/25 Gaudencio Garcia MD [address] [place] [address] Historical LMR Provider 06/03/17 Erik Sam MD [address] [address] [email or web address] Historical LMR Provider 06/03/17 Marisa Madera MD 15 [facility], 2nd [place] [address] Historical LMR Provider 06/03/17 Daniel Nelson DO [address] [place] [address] [place] [address] [email or web address] Insurance Assigned Provider 11/10/17 12/30/22 documented as of this encounter Additional Source Comments The information contained in this document represents components of the legal health record. It is not the complete legal health record.[facility]
--- OUTSIDE RECORDS SUMMARY | 2025-05-19 17:20 | XMS_ITS | Encounter Summary ---
Author Organization [facility] Address [address] [employer] [facility] [address] [place] [address] Phone Care Team Providers Care Senior Assistant Manager Name Role Phone Daniel Nelson DO Primary Care Provider [phone] Kavin Garcia MD Unavailable [phone] Erik Sam MD Unavailable [phone] Marisa Madera MD Unavailable [phone] Jaleesa Moore NP Unavailable [phone] Omar, Daniel Bentley DO Primary Care Provider [phone] Daniel Nelson DO Unavailable Omar, Daniel Bentley DO Primary Care Provider [phone] Encounter Details Date Type Department Care Team (Late st Contact Info) Description 05/07/2019 Transcribe Orders Virtual Department 30 [place] [address] Daniel Nelson DO 179 [place] [address] [email or web address] Pain in left hip (Primary Dx); Right [...] Description 07/07/2025 2:00 PM EST Office Visit [facility] Allergy Center at [address] [place] 850 [facility] [address] [place] [address] Krishna German MD [address] [place] [address] PB-B3, Division of Rheumatology, [place] [address] [email or web address] 09/16/2025 2:30 PM EST Office Visit [facility] Pulmonary, Allergy and Critical Care Medicine [address] [place] [address] Kavin Garcia MD [address] [place] [address] [email or web address] documented as of this encounter Results * [...] documented as of this encounter Care Teams Senior Assistant Manager Relationship Specialty Start Date End Date Omar Daniel BentleyDO PCP - General 05/29/17 10/06/20 Daniel Nelson McDO PCP - General Internal Medicine 10/07/20 04/22/25 Daniel Nelson DO 179 [place] [address] PCP - General Internal Medicine 04/23/25 Kavin Garcia MD [address] [place] [address] Historical LMR Provider 06/03/17 Erik Sam MD [address] [address] Historical LMR Provider 06/03/17 Marisa Madera MD [address] [address] Historical LMR Provider 06/03/17 Jaleesa Moore NP [address] [place] [address] Historical LMR Provider 06/03/17 2 Daniel Nelson DO 179 [place] [address] [email or web address] Insurance Assigned Provider 11/10/17 12/30/22 documented as of this encounter Additional Source Comments The information contained in this document represents components of the legal health record. It is not the complete legal health record.[facility]
--- OUTSIDE RECORDS SUMMARY | 2025-05-19 17:20 | XMS_ITS | Encounter Summary ---
Author Organization [facility] Address [address] [employer] [facility] [address] [place] [address] Phone Care Team Providers Care Sewer Hand Name Role Phone Daniel Nelson DO Primary Care Provider [phone] Gaudencio Garcia MD Unavailable [phone] Erik Sam MD Unavailable [phone] Marisa Madera MD Unavailable [phone] Jaleesa Moore NP Unavailable [phone] Omar, Daniel Bentley DO Primary Care Provider [phone] Daniel Nelson DO Unavailable Daniel Nelson DO Primary Care Provider [phone] Encounter Details Date Type Department Care Team (Late st Contact Info) Description 10/06/2020 Ancillary Orders Virtual Department 30 [place] [address] Daniel Nelson DO 179 [place] [address] [email or web address] Lump of breast, right Social History Tobacco [...] Description 07/07/2025 2:00 PM EST Office Visit [facility] Allergy Center at 850 [facility] 850 [facility] [address] [place] [address] Krishna German MD [address] [place] [address], Division of Rheumatology, [place] [address] [email or web address] 09/16/2025 2:30 PM EST Office Visit [facility] Pulmonary, Allergy and Critical Care Medicine 10 [facility] [place] [address] Gaudencio Garcia MD 10 [facility] 2nd [place] [address] [email or web address] documented as of this encounter Results * [...] documented as of this encounter Care Teams Sewer Hand Relationship Specialty Start Date End Date Daniel Nelson DO PCP - General 05/29/17 10/06/20 Daniel Nelson DO PCP - General Internal Medicine 10/07/20 04/22/25 Daniel Nelson DO 179 [place] [address] [email or web address] PCP - General Internal Medicine 04/23/25 Gaudencio Garcia MD [address] [place] [address] [email or web address] Historical LMR Provider 06/03/17 Erik Sam MD [address] [place] [address] [email or web address] Historical LMR Provider 06/03/17 Marisa Madera MD [address] [place] [address] [email or web address] Historical LMR Provider 06/03/17 Jaleesa Moore NP [address] [place] [address] Historical LMR Provider 06/03/17 2 Daniel Nelson DO [address] [place] [address] [email or web address] Insurance Assigned Provider 11/10/17 12/30/22 documented as of this encounter Additional Source Comments The information contained in this document represents components of the legal health record. It is not the complete legal health record.[facility]
--- OUTSIDE RECORDS SUMMARY | 2025-05-19 17:20 | XMS_ITS | Encounter Summary ---
Author Organization [facility] Address [address] [place] [address] Phone Care Team Providers Care Active Directory Engineer Name Role Phone Gaudencio Garcia MD Unavailable [phone] Erik Sam MD Unavailable [phone] Marisa Madera MD Unavailable [phone] Jaleesa Moore NP Unavailable [phone] Daniel Nelson DO Primary Care Provider [phone] Daniel Nelson DO Unavailable Daniel Nelson DO Primary Care Provider [phone] Encounter Details Date Type Department Care Team (Late st Contact Info) Description 10/07/2020 Ancillary Orders Virtual Department 30 [place] [address] Daniel Nelson DO 179 [facility] [place] [address] [email or web address] Lump of breast, right Social History Tobacco [...] Description 07/07/2025 2:00 PM EST Office Visit [facility] Allergy Center at 850 [place] 850 [facility] [address] [place] [address] Krishna German MD 75 [facility] PBB-B3, Division of Rheumatology, [place] [address] [email or web address] 09/16/2025 2:30 PM EST Office Visit [facility] Pul[facility], Allergy and Critical Care Medicine 10 [place] [address] Gaudencio Garcia MD [address] [place] [address] 2nd [place] [address] [email or web address] documented as of this encounter [...] abnormalities are seen. us Daniel Nelson DO [facility] US BREAST Final Result documented in this encounter Visit Diagnoses Diagnosis Lump of breast, right Lump of breast, right documented in this encounter Additional Health Concerns Infection Onset Date Last Indicated Resolved Time CoV-Exposed Comment:Pt exposed to + staff 04/17/23 04/17/2023 04/20/2023 1:24 AM EDT CoV-Risk 08/17/2024 08/17/2024 08/28/2024 1:21 AM EST documented as of this encounter Care Teams Active Directory Engineer Relationship Specialty Start Date End Date Daniel Nelson DO [address] [place] [address] PCP - General Internal Medicine 10/07/20 04/22/25 Daniel Nelson DO [address] [place] [address] PCP - General Internal Medicine 04/23/25 Gaudencio Garcia MD [address] [place] [address] [email or web address] Historical LMR Provider 06/03/17 Erik Sam MD [address] [address] [email or web address] Historical LMR Provider 06/03/17 Marisa Madera MD [address] [place] [address] [email or web address] Historical LMR Provider 06/03/17 Jaleesa Moore NP [address] [place] [address] Historical LMR Provider 06/03/17 2 Daniel Nelson DO [address] [place] [address] [email or web address] Insurance Assigned Provider 11/10/17 12/30/22 documented as of this encounter Additional Source Comments The information contained in this document represents components of the legal health record. It is not the complete legal health record.[facility]
--- OUTSIDE RECORDS SUMMARY | 2025-05-19 17:20 | XMS_ITS | Encounter Summary ---
Author Organization [facility] Address [address] [place] [address] Phone Care Team Providers Care Freight Caller Name Role Phone Gaudencio Garcia MD Unavailable [phone] Erik Sam MD Unavailable [phone] Marisa Madera MD Unavailable [phone] BigDaniel aquino DO Primary Care Provider [phone] Daniel Nelson DO Unavailable BigDaniel aquino DO Primary Care Provider [phone] Encounter Details Date Type Department Care Team (Late st Contact Info) Description 05/17/2022 Procedure Pass [facility], [address] [address] Social History Tobacco Use Types Packs/Day Years [...] Description 07/07/2025 2:00 PM EST Office Visit [facility] Allergy Center at [address] [place] [address] [place] [address] Krishna German MD [address] [place] [address], Division of Rheumatology, Immunology [place] [address] [email or web address] 09/16/2025 2:30 PM EST Office Visit [facility], Allergy and Critical Care Medicine [address] [place] [address] Gaudencio Garcia MD [address] [place] [address] documented as of this encounter Visit Diagnoses Not on filedocumented in this encounter Additional Health Concerns Infection Onset Date Last Indicated Resolved Time CoV-Exposed Comment:Pt exposed to + staff 04/17/23 04/17/2023 04/20/2023 1:24 AM EDT CoV-Risk 08/17/2024 08/17/2024 08/28/2024 1:21 AM EST documented as of this encounter Care Teams Freight Caller Relationship Specialty Start Date End Date Daniel Nelson DO [address] [address] PCP - General Internal Medicine 10/07/20 04/22/25 Daniel Nelson DO 179 [place] [address] PCP - General Internal Medicine 04/23/25 Gaudencio Garcia MD [address] [place] [address] Historical LMR Provider 06/03/17 Erik Sam MD [address] [address] [email or web address] Historical LMR Provider 06/03/17 Marisa Madera MD 15 [facility], 2nd [place] [address] Historical LMR Provider 06/03/17 Daniel Nelson DO [address] [place] [address] [place] [address] [email or web address] Insurance Assigned Provider 11/10/17 12/30/22 documented as of this encounter Additional Source Comments The information contained in this document represents components of the legal health record. It is not the complete legal health record.[facility]
--- OUTSIDE RECORDS SUMMARY | 2025-05-19 17:21 | XMS_ITS | Encounter Summary ---
Author Organization [facility] Address [address] [employer] [facility] [address] [place] [address] Phone Care Team Providers Care Mental Health Aide Name Role Phone Gaudencio Garcia MD Unavailable [phone] Erik Sam MD Unavailable Marisa Madera MD Unavailable [phone] Jaleesa Moore NP Unavailable [phone] Daniel Nelson DO Primary Care Provider [phone] Daniel Nelson DO Unavailable Daniel Nelson DO Primary Care Provider [phone] Encounter Details Date Type Department Care Team (Late st Contact Info) Description 06/17/2021 Transcribe Orders Virtual Department 30 [place] [address] Daniel Nelson DO 179 [facility] [place] [address] [email or web address] Right shoulder pain, unspecified chronicity (Primary Dx) [...] [facility] Allergy Center at 850 [place] 850 [facility] [address] [place] [address] Krishna German MD [address] [place] [address]-, Division of Rheumatology, [place] [address] [email or web address] 09/16/2025 2:30 PM EST Office Visit [facility], Allergy and Critical Care Medicine [address] [place] [place] [address] Gaudencio Garcia MD [address] [place] [address] 2nd [place] [address] [email or web address] documented as [...] documented as of this encounter Care Teams Mental Health Aide Relationship Specialty Start Date End Date Daniel Nelson DO [address] [place] [address] PCP - General Internal Medicine 10/07/20 04/22/25 Daniel Nelson DO [address] [place] [address] PCP - General Internal Medicine 04/23/25 Gaudencio Garcia MD [address] [place] [address] Historical LMR Provider 06/03/17 Erik Sam MD [address] [address] Historical LMR Provider 06/03/17 Marisa Madera MD [address] [address] [email or web address] Historical LMR Provider 06/03/17 Jaleesa Moore NP [address] [place] [address] Historical LMR Provider 06/03/17 2 Daniel Nelson DO [address] [place] [address] [email or web address] Insurance Assigned Provider 11/10/17 12/30/22 documented as of this encounter Additional Source Comments The information contained in this document represents components of the legal health record. It is not the complete legal health record.[facility]
--- OUTSIDE RECORDS SUMMARY | 2025-05-19 17:21 | XMS_ITS | Encounter Summary ---
Author Organization [facility] Address [address] [facility] [address] [place] [address] Phone Care Team Providers Care Gut Dropper Name Role Phone Gaudencio Garcia MD Unavailable [phone] Erik Sam MD Unavailable [phone] Marisa Madera MD Unavailable [phone] Jaleesa Moore NP Unavailable [phone] Daniel Nelson DO Primary Care Provider [phone] Daniel Nelson DO Unavailable Daniel Nelson DO Primary Care Provider [phone] Reason for Referral * Outpatient Procedure - Closed Specialty Diagnoses / Procedures Referred By Abi griffin Referred To Contact Diagnoses Cardiomegaly Left ventricular hypertrophy Procedures Adult Echo TTE Daniel Nelson DO Phone: tel: fax: [email or web address] Referral ID Status Reason Start Date Expiration Date Visits Re quested Visits Authorized [id number] Closed 12/27/2020 12/27/2021 1 1 Encounter Details Date Type Department Care Team (Late st Contact Info) Description 12/08/2020 Transcribe Orders Virtual Department 30 [place], [place] [id number] Daniel Nelson DO 179 [facility] [place] [address] [email or web address] Cardiomegaly (Primary Dx); Left ventricular hypertrophy Social [...] Description 07/07/2025 2:00 PM EST Office Visit [facility] Allergy Center at [address] [place] 850 [facility] 540 [place] [address] Krishna German MD [address] [place] [address]-, Division of Rheumatology, Immunology [place] [address] [email or web address] 09/16/2025 2:30 PM EST Office Visit [facility] Pulmonary, Allergy and Critical Care Medicine 10 [place] [address] Gaudencio Garcia MD [address] [place] [address] [email or web address] documented as of this encounter Results * [...] a prior TTE from 10/10/2016 us Daniel Nelson DO CV ECHO ORDERABLES [...] documented as of this encounter Care Teams Gut Dropper Relationship Specialty Start Date End Date Daniel Nelson DO [address] [place] [address] PCP - General Internal Medicine 10/07/20 04/22/25 Daniel Nelson DO [address] [place] [address] PCP - General Internal Medicine 04/23/25 Gaudencio Garcia MD [address] [place] [address] [email or web address] Historical LMR Provider 06/03/17 Erik Sam MD [address] [place] [address] Historical LMR Provider 06/03/17 Marisa Madera MD [address] [place] [address] Historical LMR Provider 06/03/17 Jaleesa Moore NP [address] [place] [address] Historical LMR Provider 06/03/17 2 Daniel Nelson DO 179 [place] [address] Insurance Assigned Provider 11/10/17 12/30/22 documented as of this encounter Additional Source Comments The information contained in this document represents components of the legal health record. It is not the complete legal health record.[facility]
--- OUTSIDE RECORDS SUMMARY | 2025-05-19 17:21 | XMS_ITS | Encounter Summary ---
Author Organization [facility] Address [address] [employer] [facility] [address] [place] [address] Phone Care Team Providers Care Housing Officer Name Role Phone Gaudencio Garcia MD Unavailable [phone] Erik Sam MD Unavailable [phone] Marisa Madera MD Unavailable [phone] Jaleesa Moore NP Unavailable [phone] Bigda, Daniel A DO Primary Care Provider [phone] Bigda, Daniel A DO Unavailable Bigda, Daniel A DO Primary Care Provider [phone] Encounter Details Date Type Department Care Team (Late st Contact Info) Description 06/21/2021 Procedure Pass [facility], [address] [address] Social History Tobacco Use Types Packs/Day Years [...] Description 07/07/2025 2:00 PM EST Office Visit [facility] at 850 [facility] 850 [facility] [address] [place] [address] Krishna German MD [address] [place] [address]-, Division of Rheumatology, [place] [address] [email or web address] 09/16/2025 2:30 PM EST Office Visit [facility] Pulmonary, Allergy and Critical Care Medicine 10 [place] [address] Gaudencio Garcia MD [address] [place] [address] documented as of this encounter Visit Diagnoses Not on filedocumented in this encounter Additional Health Concerns Infection Onset Date Last Indicated Resolved Time CoV-Exposed Comment:Pt exposed to + staff 04/17/23 04/17/2023 04/20/2023 1:24 AM EDT CoV-Risk 08/17/2024 08/17/2024 08/28/2024 1:21 AM EST documented as of this encounter Care Teams Housing Officer Relationship Specialty Start Date End Date Daniel Nelson DO [address] [place] [address] PCP - General Internal Medicine 10/07/20 04/22/25 Daniel Nelson DO [address] [place] [address] [place] [address] PCP - General Internal Medicine 04/23/25 Gaudencio Garcia MD [address] [place] [address] Historical LMR Provider 06/03/17 Erik Sam MD 22 [facility], [address] [place] [address] [email or web address] Historical LMR Provider 06/03/17 Marisa Madera MD 15 [facility], 2nd [place] [address] Historical LMR Provider 06/03/17 Jaleesa Moore NP [address] [place] [address] Historical LMR Provider 06/03/17 2 Daniel Nelson DO [address] [place] [address] [place] [address] [email or web address] Insurance Assigned Provider 11/10/17 12/30/22 documented as of this encounter Additional Source Comments The information contained in this document represents components of the legal health record. It is not the complete legal health record.[facility]
--- OUTSIDE RECORDS SUMMARY | 2025-05-19 17:21 | XMS_ITS | Encounter Summary ---
Author Organization [facility] Address [address] [facility] [address] [place] [address] Phone Care Team Providers Care Roll Tension Tester Name Role Phone Gaudencio Garcia MD Unavailable [phone] Erik Sam MD Unavailable [phone] Marisa Madera MD Unavailable [phone] Jaleesa Moore NP Unavailable [phone] Bigda, Daniel A DO Primary Care Provider [phone] Bigda, Daniel A DO Unavailable Bigda, Daniel A DO Primary Care Provider [phone] Encounter Details Date Type Department Care Team (Late st Contact Info) Description 10/07/2020 Procedure Pass [facility], [address] [address] Social History Tobacco Use Types Packs/Day Years [...] Office Visit [facility] at 850 [facility] 850 [facility] [address] [place] [address] Krishna German MD [address] [place] [address]-, Division of Rheumatology, [place] [address] [email or web address] 09/16/2025 2:30 PM EST Office Visit [facility] Pulmonary, Allergy and Critical Care Medicine 10 [place] [address] Gaudencio Garcia MD [address] [place] [address] documented as of this encounter Visit Diagnoses Not on filedocumented in this encounter Additional Health Concerns Infection Onset Date Last Indicated Resolved Time CoV-Exposed Comment:Pt exposed to + staff 04/17/23 04/17/2023 04/20/2023 1:24 AM EDT CoV-Risk 08/17/2024 08/17/2024 08/28/2024 1:21 AM EST documented as of this encounter Care Teams Roll Tension Tester Relationship Specialty Start Date End Date Daniel Nelson DO [address] [place] [address] PCP - General Internal Medicine 10/07/20 04/22/25 Daniel Nelson DO [address] [place] [address] [place] [address] PCP - General Internal Medicine 04/23/25 Gaudencio Garcia MD [address] [place] [address] Historical LMR Provider 06/03/17 Erik Sam MD 22 [facility], [address] [place] [address] [email or web address] Historical LMR Provider 06/03/17 Marisa Madera MD 15 [facility], 2nd [place] [address] Historical LMR Provider 06/03/17 Jaleesa Moore NP [address] [place] [address] Historical LMR Provider 06/03/17 2 Daniel Nelson DO [address] [place] [address] [place] [address] [email or web address] Insurance Assigned Provider 11/10/17 12/30/22 documented as of this encounter Additional Source Comments The information contained in this document represents components of the legal health record. It is not the complete legal health record.[facility]
--- OUTSIDE RECORDS SUMMARY | 2025-05-19 17:21 | XMS_ITS | Encounter Summary ---
Author Organization [facility] Address [address] [facility] [address] [place] [address] Phone Care Team Providers Care Director School Of Nursing Name Role Phone Daniel Nelson DO Primary Care Provider [phone] Gaudencio Garcia MD Unavailable [phone] Erik Sam MD Unavailable [phone] Marisa Madera MD Unavailable [phone] Jaleesa Moore NP Unavailable [phone] Bigda, Daniel A DO Primary Care Provider [phone] Bigda, Daniel Bentley DO Unavailable Bigda, Daniel Bentley DO Primary Care Provider [phone] Encounter Details Date Type Department Care Team (Late Contact Info) Description 10/06/2020 Procedure Pass [facility], [address] [address] Social History Tobacco Use Types Packs/Day Years [...] 07/07/2025 2:00 PM EST Office Visit [facility] Allergy Center at [address] [place] 850 [facility] [address] [place] [address] Krishna German MD [address] [place], [place] [id number], Division of Rheumatology, Immunology [place] [address] [email or web address] 09/16/2025 2:30 PM EST Office Visit [facility] Pulmonary, Allergy and Critical Care Medicine 10 [facility] [place] [address] Gaudencio Garcia MD [address] [place] [address] [place] [address] [email or web address] documented as of this encounter Visit Diagnoses Not on filedocumented in this encounter Additional Health Concerns Infection Onset Date Last Indicated Resolved Time CoV-Exposed Comment:Pt exposed to + staff 04/17/23 04/17/2023 04/20/2023 1:24 AM EDT CoV-Risk 08/17/2024 08/17/2024 08/28/2024 1:21 AM EST documented as of this encounter Care Teams Director School Of Nursing Relationship Specialty Start Date End Date Daniel Nelson DO PCP - General 05/29/17 10/06/20 Daniel Nelson DO PCP - General Internal Medicine 10/07/20 04/22/25 Daniel Nelson DO [address] [place] [address] [address] [place] [address] PCP - General Internal Medicine 04/23/25 Gaudencio Garcia MD [address] [place] [address] [email or web address] Historical LMR Provider 06/03/17 Erik Sam MD [address] [place] [address] [email or web address] Historical LMR Provider 06/03/17 Marisa Madera MD [address] [place] [address] [email or web address] Historical LMR Provider 06/03/17 Jaleesa Moore NP [address] [place] [address] Historical LMR Provider 06/03/17 2 Daniel Nelson DO [address] [place] [address] [email or web address] Insurance Assigned Provider 11/10/17 12/30/22 documented as of this encounter Additional Source Comments The information contained in this document represents components of the legal health record. It is not the complete legal health record.[facility]
--- OUTSIDE RECORDS SUMMARY | 2025-05-19 17:21 | XMS_ITS | Encounter Summary ---
Author Organization [facility] Address [address] [facility] [address] [place] [address] Phone Care Team Providers Care Tire Adjuster Name Role Phone Gaudencio Garcia MD Unavailable [phone] Erik Sam MD Unavailable [phone] Marisa Madera MD Unavailable [phone] Jaleesa Moore NP Unavailable [phone] Bigda, Daniel A DO Primary Care Provider [phone] Bigda, Daniel A DO Unavailable Bigda, Daniel A DO Primary Care Provider [phone] Encounter Details Date Type Department Care Team (Late st Contact Info) Description 12/08/2020 Procedure Pass [facility] 30 [place], [place] [id number] Social History Tobacco Use Types Packs/Day Years [...] Description 07/07/2025 2:00 PM EST Office Visit [facility] Allergy Center at [address] [place] 850 [facility] [address] [place] [address] Krishna German MD [address] [place] [address]-, Division of Rheumatology, [place] [address] [email or web address] 09/16/2025 2:30 PM EST Office Visit [facility] Pulmonary, Allergy and Critical Care Medicine [address] [place] [address] Gaudencio Garcia MD [address] [place] [address] [email or web address] documented as of this encounter Visit Diagnoses Not on filedocumented in this encounter Additional Health Concerns Infection Onset Date Last Indicated Resolved Time CoV-Exposed Comment:Pt exposed to + staff 04/17/23 04/17/2023 04/20/2023 1:24 AM EDT CoV-Risk 08/17/2024 08/17/2024 08/28/2024 1:21 AM EST documented as of this encounter Care Teams Tire Adjuster Relationship Specialty Start Date End Date Daniel Nelson DO [address] [place] [address] PCP - General Internal Medicine 10/07/20 04/22/25 Daniel Nelson DO [address] [place] [address] [place] [address] PCP - General Internal Medicine 04/23/25 Gaudencio Garcia MD [address] [place] [address] Historical LMR Provider 06/03/17 Erik Sam MD [address] [place] [address], [facility] 301 [place] [address] [email or web address] Historical LMR Provider 06/03/17 Marisa Madera MD 15 [facility], 2nd [place] [address] Historical LMR Provider 06/03/17 Jaleesa Moore NP [address] [place] [address] Historical LMR Provider 06/03/17 2 Daniel Nelson DO 179 [facility] [place] [address] Insurance Assigned Provider 11/10/17 12/30/22 documented as of this encounter Additional Source Comments The information contained in this document represents components of the legal health record. It is not the complete legal health record.[facility]
--- OUTSIDE RECORDS SUMMARY | 2025-05-19 17:21 | XMS_ITS | Encounter Summary ---
Author Organization [facility] Address [address] [place] [address] Phone Care Team Providers Care Outside Plant Engineer Name Role Phone Gaudencio Garcia MD Unavailable [phone] Erik Sam MD Unavailable [phone] Marisa Madera MD Unavailable [phone] Daniel Nelson DO Primary Care Provider [phone] Daniel Nelson DO Primary Care Provider [phone] Encounter Details Date Type Department Care Team (Late st Contact Info) Description 02/10/2025 Transcribe Orders Virtual Department [address] [place] [address] Daniel Nelson DO 179 [facility] [place] [address] [place] [address] [email or web address] Bilateral hip pain (Primary Dx); Other chest [...] Description 07/07/2025 2:00 PM EST Office Visit [facility] Center at 850 [facility] 850 [facility] [address] [place] [address] Krishna German MD [address] [place] [address] PBB-[id number], Division of Rheumatology, [place] [address] [email or web address] 09/16/2025 2:30 PM EST Office Visit [facility] Pulmonary, Allergy and Critical Care Medicine 10 [facility] [place] [address] Gaudencio Garcia MD [address] [place] [address] 2nd [place] [address] [email or web address] documented as of this encounter Results * XR RIBS 2 VIEWS (LEFT) (02/10/2025 12:33 PM EDT) Anatomical Region Laterality Modality Chest Computed Radiogr aphy 02/11/2025 8:58 AM EDT Impressions 02/11/2025 9:01 AM EDT FINDINGS/IMPRESSION: No acute displaced rib fracture is identified. Narrative 02/11/2025 9:01 AM EDT XR RIBS 2 VIEWS (LEFT) Referring clinician's provided indication for this examination in [facility]: Outside Radiology Order; chest pain COMPARISON: Chest radiographs performed concurrently 02/10/2025 Procedure Note Annemarie Jordan MD - 02/11/2025 XR RIBS 2 VIEWS (LEFT) Referring clinician's provided indication for this examination in [facility]:Outside Radiology Order; chest pain COMPARISON: Chest [...] clinician's provided indication for this examination in [facility]: Other Indication (Please use free [...] clinician's provided indication for this examination in [facility]:Other Indication (Please use free text); chest pain COMPARISON: 08/17/2024 FINDINGS: Devices/Tubes/Lines: None. Lungs: Well-expanded and overall clear without focal airspace infiltrateor significant interstitial abnormality. Pleura: No pleural effusion or pneumothorax. Heart/Mediastinum: Heart and pulmonary vessels stable in size whenallowing for differences in technique. Bones/Soft Tissues: Visualized bony thorax intact. IMPRESSION: No acute cardiopulmonary abnormality apparent. Daniel Nelson DO IMG XR CHEST Final Result documented in this encounter Visit Diagnoses Diagnosis Bilateral hip pain- Primary Pain in joint, pelvic region and thigh Other chest pain Other chest pain Other chest pain documented in this encounter Care Teams Outside Plant Engineer Relationship Specialty Start Date End Date Daniel Nelson DO [address] [place] [address], [facility] [place] [address] PCP - General Internal Medicine 10/07/20 04/22/25 Daniel Nelson DO [address] [place] [address] [place] [address] [email or web address] PCP - General Internal Medicine 04/23/25 Gaudencio Garcia MD [address] [place] [address] [email or web address] Historical LMR Provider 06/03/17 Erik Sam MD [address] [address] [email or web address] Historical LMR Provider 06/03/17 Marisa Madera MD [address] [address] [email or web address] Historical LMR Provider 06/03/17 documented as of this encounter Additional Source Comments The information contained in this document represents components of the legal health record. It is not the complete legal health record.[facility]
--- OUTSIDE RECORDS SUMMARY | 2025-05-19 17:21 | XMS_ITS | Encounter Summary ---
Author Organization [facility] Address [address] [place] [address] Phone Care Team Providers Care Risk And Insurance Manager Name Role Phone Gaudencio Garcia MD Unavailable [phone] Erik Sam MD Unavailable Marisa Madera MD Unavailable [phone] Daniel Nelson DO Primary Care Provider [phone] Daniel Nelson DO Primary Care Provider [phone] Encounter Details Date Type Department Care Team (Late st Contact Info) Description 02/10/2025 Ancillary Orders Virtual Department 30 [place] [address] Daniel Nelson DO 179 [facility] [place] [address] [email or web address] Bilateral hip pain (Primary Dx); Other chest [...] Description 07/07/2025 2:00 PM EST Office Visit [facility] Center at 850 [facility] [place] 850 [facility] [address] [place] [address] Krishna German MD [address] [place] [address] PBB-[id number], Division of Rheumatology, Immun[place] [address] [email or web address] 09/16/2025 2:30 PM EST Office Visit [facility] Pulmonary, Allergy and Critical Care Medicine 10 [facility] [place] [address] Gaudencio Garcia MD [address] [place] [address] 2nd [place] [address] [email or web address] documented as of this encounter Results * XR HIPS 2+ VW EA BILAT PLUS PELVIS (02/10/2025 12:34 PM EDT) Anatomical Region Laterality Modality Hip, Pelvis Computed Radiogr aphy 02/11/2025 9:02 AM EDT Impressions 02/11/2025 9:04 AM EDT FINDINGS/IMPRESSION: There is no evidence of acute fracture, subluxation, or dislocation. There is severe degenerative change of the right hip with hckv-bc-[id number] joint space narrowing, marginal osteophytosis, subchondral sclerosis, [...] this examination in Epic: Outside Radiology Order; chest pain COMPARISON: CT abdomen and pelvis 06/21/2023, pelvis/right hip radiographs 12/01/2022 Procedure Note Annemarie Jordan MD - 02/11/2025 XR HIPS 2+ VW EA BILAT PLUS PELVIS 02/10/2025 11:46 AM Referring clinician's provided indication for this examination in Epic:Outside Radiology Order; chest pain COMPARISON: CT abdomen and pelvis 06/21/2023, pelvis/right hip radiographs12/01/2022 IMPRESSION: FINDINGS/IMPRESSION: There is no evidence of acute fracture, subluxation, or dislocation. Thereis severe degenerative change of the right hip with dhkp-nf-swtu jointspace narrowing, marginal osteophytosis, subchondral sclerosis,subchondral cyst [...] pain documented in this encounter Care Teams Risk And Insurance Manager Relationship Specialty Start Date End Date Daniel Nelson DO 15 [facility], [address] [place] [address] PCP - General Internal Medicine 10/07/20 04/22/25 Daniel eNlson DO 179 [place] [address] PCP - General Internal Medicine 04/23/25 Gaudencio Garcia MD [address] [place] [address] Historical LMR Provider 06/03/17 Erik Sam MD [address] [address] [email or web address] Historical LMR Provider 06/03/17 Marisa Madera MD [address] [place] [address], [address] [place] [address] [email or web address] Historical LMR Provider 06/03/17 documented as of this encounter Additional Source Comments The information contained in this document represents components of the legal health record. It is not the complete legal health record.[facility]
[2025-05-19 18:15] LABS: Appearance Urine Clear; Glucose Urine UA Negative (Negative); PH 6.0 (5.0-9.0); Specific Gravity - Urine 1.010 (1.005-1.025)
== END 2025-05-19 14:05 | disposition home or self-care (01) ==
LOC: HO.MANLDS 14:04
PROVIDERS: Visit Provider Physician Assistant
DX: N39.0 Urinary tract infection, site not specified (principal)
CPT/HCPCS: 81003

== ENCOUNTER 2025-06-09 14:29 | Outpatient (REF) | payer MEDICAID, SELFPAY ==
--- OUTSIDE RECORDS SUMMARY | 2024-03-23 10:06 | XMS_ITS | Encounter Summary ---
Author Organization [facility] Address [address] [place] [address] Phone Care Team Providers Care Tracer Lathe Set Up Operator Name Role Phone Gaudencio Garcia MD Unavailable [phone] Erik Sam MD Unavailable Marisa Madera MD Unavailable [phone] Daniel Nelson DO Primary Care Provider [phone] Encounter Details Date Type Department Care Team (Late st Contact Info) Description 03/23/2024 10:06 AM EDT Hospital Encounter [facility] [address] [place] [address] [phone] Viky Aguila, EXECUTIVE ADMINISTRATOR [address] [place] [address], [address] [place] [address] [email or web address] Social History Tobacco Use Types Packs/Day Years [...] 08/17/2024 12:43 AM Susan Harrington RN * [place] Suicide Severity Rating Scale (Screener/Recent Self-Report) Question [...] Description 07/07/2025 2:00 PM EST Office Visit [facility] Allergy Center at [address] [facility] [address] [place] [address] Krishna German MD [address] [place] [address]-, Division of Rheumatology, [place] [address] [email or web address] 09/16/2025 2:30 PM EST Office Visit [facility], Allergy and Critical Care Medicine [address] [place] [address] Gaudencio Garcia MD [address] [place] [address] [email or web address] documented as of this encounter Procedures Procedure [...] initiated on 03/23/2024 10:41 AM, Message ID [id number]. Narrative 03/23/2024 10:41 AM EDT XR FOOT [...] was initiated on 03/23/2024 10:41 AM,Message ID [id number]. Viky Aguila EXECUTIVE ADMINISTRATOR IMG XR LOWER EXTREMITY Final Result documented in this encounter Visit Diagnoses Not on filedocumented in this encounter Additional Health Concerns Infection Onset Date Last Indicated Resolved Time CoV-Risk 08/17/2024 08/17/2024 08/28/2024 1:21 AM EST documented as of this encounter Care Teams Tracer Lathe Set Up Operator Relationship Specialty Start Date End Date Daniel Nelson DO [address] [place] [address] [email or web address] PCP - General Internal Medicine 10/07/20 04/22/25 Gaudencio Garcia MD [address] [place] [address] [email or web address] Historical LMR Provider 06/03/17 Erik Sam MD [address] [place] [address], [address] [place] [address] [email or web address] Historical LMR Provider 06/03/17 Marisa Madera MD [address] [place] [address], 2nd [place] [address] [email or web address] Historical LMR Provider 06/03/17 documented as of this encounter Additional Source Comments The information contained in this document represents components of the legal health record. It is not the complete legal health record.[facility]
--- OUTSIDE RECORDS SUMMARY | 2025-06-09 18:53 | XMS_ITS | Encounter Summary ---
Author Organization [facility] Address [address] [facility] [address] [place] [address] Phone Care Team Providers Care Silk Top Hat Body Maker Name Role Phone Daniel Nelson DO Primary Care Provider [phone] Daniel Nelson DO Unavailable Blessing Garcia MD Unavailable Gaudencio Garcia MD Unavailable [phone] Juan Miguel Smith MD Unavailable Erik Sam MD Unavailable Karrie Curtis PAPER HANGER Unavailable Marisa Madera MD Unavailable Nick Abrams FLIGHT MECHANIC Unavailable Jaleesa Moore PAPER HANGER Unavailable Daniel Nelson DO Unavailable Daniel Nelson DO Primary Care Provider [phone] Daniel Nelson DO Unavailable + Daniel Nelson DO Primary Care Provider + Encounter Details Date Type Department Care Team (Late st Contact Info) Description 12/12/2017 Ancillary Orders Virtual Department 30 [place] [address] Daniel Nelson DO 179 [facility] [place] [address] [place] [address] [email or web address] Peripheral tear of medial meniscus of right [...] Description 07/07/2025 2:00 PM EST Office Visit [facility] Allergy Center at 850 [place] 850 [facility] 540 [place] [address] Krishna German MD [address] [place] [address]-, Division of Rheumatology, [place] [address] [email or web address] 09/16/2025 2:30 PM EST Office Visit [facility] Pul[facility], Allergy and Critical Care Medicine 10 [place] [address] Gaudencio Garcia MD [address] [place] [address] [email or web address] documented as of this encounter [...] No ligamentous injury is apparent. POS - [id number] Edited by: Tanya Manrique on 12/19/2017 3:01 [...] articular cartilage in the medial compartment, nearly frsa-ht-[id number]. Milder diffuse thinning of the patellofemoral and [...] the articular cartilage in the medialcompartment, nearly btsh-tu-apgx. Milder diffuse thinning of the patellofemoral and [...] No ligamentous injury is apparent. POS - [id number] Edited by: Tanya Manrique on 12/19/2017 3:01 [...] documented as of this encounter Care Teams Silk Top Hat Body Maker Relationship Specialty Start Date End Date Daniel Nelson DO PCP - General 05/29/17 10/06/20 Daniel Nelson DO PCP - General Internal Medicine 10/07/20 04/22/25 Daniel Nelson DO 179 [place] [address] PCP - General Internal Medicine 04/23/25 Daniel Nelson DO 179 [place] [address] Historical LMR Provider 06/03/17 01/07/18 Blessing Garcia MD [address] [place] [address] Historical LMR Provider 06/03/17 Gaudencio Garcia MD [address] [place] [address] Historical LMR Provider 06/03/17 Juan Miguel Smith MD [address] [place] [address] Historical LMR Provider 06/03/17 01/07/18 Erik Sam MD [address] [address] Historical LMR Provider 06/03/17 Karrie Curtis NP [address] [place] [address] [email or web address] Historical LMR Provider 06/03/17 Marisa Madera MD [address] [place] [address] Historical LMR Provider 06/03/17 Nick Abrams FLIGHT MECHANIC [address] [place] [address] Historical LMR Provider 06/03/17 01/07/18 Jaleesa Moore, MAUREEN [address] [place] [address] Historical LMR Provider 06/03/17 2 Daniel Nelson DO 179 [place] [address] Insurance Assigned Provider 11/10/17 01/07/18 Daniel Nelson DO 179 [place] [address] Insurance Assigned Provider 11/10/17 12/30/22 documented as of this encounter Additional Source Comments The information contained in this document represents components of the legal health record. It is not the complete legal health record.[facility]
--- OUTSIDE RECORDS SUMMARY | 2025-06-09 18:53 | XMS_ITS | Data Portability ---
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 16 g 80 /min 98 % 98 % 120/72 mm[Hg] [facility] 5 14:17:30 Date Recorded Body height Body mass index (BMI) Body weight Heart rate Oxygen saturation Oxygen saturation in Arterial blood by Pulse oximetry Systolic And Diastolic Provider Name and Address Organization Details Last Updated DateTime 5 167.64 cm 47.5 kg/m2 585576. 16 g 78 /min 98 % 98 % 138/70 mm[Hg] [facility] 5 13:39:06 Date Recorded Body height Body mass index (BMI) Body weight Heart rate Oxygen saturation Oxygen saturation in Arterial blood by Pulse oximetry Systolic And Diastolic Provider Name and Address Organization Details Last Updated DateTime 5 167.64 cm 48.9 kg/m2 786344. 49 g 75 /min 98 % 98 % 122/64 mm[Hg] [facility] 5 13:46:02 Social History Question Answer Notes LastModified by Organizat ion Details LastModified Time Tobacco Smoking Status Never Smoker Not Available [facility] 06/15/2020 03:36:24 Do You Have An Advance Directive? Yes [id number] Information not available 06/15/2020 Are You Blind Or Do You Have Difficulty Seeing? No [id number] Information not available 06/15/2020 What Is Your Level Of Caffeine Consumption? Occasional Information not available 11/01/2020 How Much Tobacco Do You Chew? None [id number] Information not available 06/15/2020 Are You Deaf Or Do You Have Serious Difficulty Hearing? No [id number] Information not available 06/15/2020 What Type Of Diet Are You Following? REGULAR [id number] Information not available 06/15/2020 Education 12 Information no t available 09/07/2023 Are There Any Guns Present In Your Home? No [id number] Information not available 06/15/2020 Hard Of Hearing Or Deaf In One Or Both Ears? No Information not available 09/07/2023 Live Alone Or With Others? With Others Information not available 09/07/2023 What Was The Date Of Your Most Recent Tobacco Screening? 06/09/2025 [email or web address] Information not available 06/09/2025 How Many Children Do You Have? 1 [id number] Information not available 06/15/2020 Performs Monthly Self-breast Exam? Yes Information not available 09/07/2023 Seat Belts Used Routinely Yes Information not available 09/07/2023 Are You Sexually Active? Yes [id number] Information not available 06/15/2020 Smoke Alarm In Home Yes Information not available 09/07/2023 Are You Passively Exposed To Smoke? No Not A Smoker, Not A Snuff User Information not available 11/01/2020 How Much Tobacco Do You Smoke? No [id number] Information not available 06/15/2020 General Stress Level Medium Information not available 09/07/2023 Do You Use Sunscreen Routinely? Yes [id number] Information not available 06/15/2020 How Many Years Have You Smoked Tobacco? 0 Information not available 11/01/2020 Do You Have Difficulty Walking Or Climbing Stairs? Yes [id number] Information not available 06/15/2020 Sex: Unknown Functional Status Question Answer Note LastModified by VIPerksat ion Details LastModified Time Do you or have you ever used any other forms of tobacco or nicotine? No Information not available 09/07/2023 What is your level of alcohol consumption? Occasional [id number] Information not available 06/15/2020 Do you or have you ever used smokeless tobacco? Never used smokeless tobacco Information not available 09/07/2023 Are you currently employed? No [id number] Information not available 06/15/2020 Are you able to walk independently without assistance or assistive devices? YESASSIST Information not available 11/01/2020 Do you have difficulty doing errands alone? No [id number] Information not available 06/15/2020 Are you able to care for yourself independently? 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 No [id number] Information not available 06/15/2020 Do you or have you ever used e-cigarettes or vape? Never used electronic cigarettes Information not available 09/07/2023 What is your exercise level? Occasional [id number] Information not available 06/15/2020 Mental Status Question Answer Note LastModified by Organization D etails LastModified Time Do you have difficulty concentrating, remembering or making decisions? No [id number] Information no t available 06/15/2020 Family History [...] 30 Not available 11/01/2020 11:52:04 Brother Malignant neoplasm of colon Not available 13:41:57 Medical History Condition Response Coronary Artery Disease N Other N Gout N Blood Diseases N Kidney Stones N Blood Transfusion N Breast Cancer N Depression Y COPD N Lung Disease N Defects or Inherited Disease N Anxiety Disorder Y Muscle, Joint, or Bone Problems N Obesity Y Vision or Eye Problems Y Arthritis Y Polyps N Infertility N Mental Disorder N Cancer N Varicosities N Stroke N Endometriosis N Bladder or Kidney Problems N High Cholesterol N Liver Disease N Fibromyalgia N Headaches N Kidney Disease N Allergies/Hayfever Y Heart Problems Y Hospitalizations Y Thyroid Problems N GI Problems N Skin Problems N Eating Disorder N Anemia N MRSA exposure N Constipation N Mental Illness Y Ovarian Cancer N Diabetes N Seizures/Epilepsy N Tuberculosis N Congestive Heart Failure (CHF) N Eczema N Diverticulitis Y Abuse/Domestic Violence N Asthma Y Reflux/GERD Y Hepatitis N Heart Disease N Pulmonary Embolism N Hypertension N Osteoporosis Y Chicken Pox N Autism Spectrum Disorder (ASD) N Gynecological History Statement/Question Response Abnormal Pap N [...] 30 mcg/0.3 mL dose 1 completed Marisa Rubnorbert null, [facility] 09/07/2023 13:29:12 COVID-19, mRNA, LNP-S, PF, 30 mcg/0.3 mL dose 1 completed Marisa rousseau, [facility] 09/07/2023 13:29:12 Influenza, split virus, quadrivalent, preservative 1 completed Marisa rousseau, [facility] 09/07/2023 13:29:12 COVID-19, mRNA, LNP-S, PF, 30 mcg/0.3 mL dose 2 completed Marisa rousseau, [facility] 09/07/2023 13:29:12 Influenza, split virus, quadrivalent, preservative 8 [facility] 13:29:12 Tdap 8 completed Daniel Nelson DO [address] [place] [address], [phone], [facility] 06/19/2018 07:58:41 MMR 9 completed Daniel Nelson DO [address] [place] [address], [phone], [facility] 11/01/2020 11:52:49 zoster live 9 completed Daniel Nelson DO [address] [place] [address], [phone], [facility] 11/01/2020 11:52:49 Influenza, split virus, quadrivalent, preservative 9 completed Marisa rousseau, [facility] 09/07/2023 13:29:12 zoster live 9 completed Daniel Garcia Jhonykenia [address] [place] [address], [phone], [facility] 11/01/2020 11:52:49 Influenza, split virus, quadrivalent, preservative 0 completed Marisa rousseau, [facility] 09/07/2023 13:29:12 Influenza, split virus, trivalent, preservative 8 completed Daniel Garcia DO Omar [address] [place] [address], [phone], [facility] 11/01/2020 11:52:49 Past Encounters Encounter ID Performer Location Encounter Start Date Encounter Closed Date Diagnosis/Indication Diagnosis SNOMED-CT Code Diagnosis ICD10 Code Diagnosis IMO Codes Diagnosis Note [id number] Daniel Nelson [address],[place] [address] 11/20/2017 13:54:47 11/20/2017 17:01:08 Pulmonary hypertension 50532629 I27.20 currently stable with no issues but r ventricle is with diastolic dysfunctio n last echo 2016 Asthma 821368941 J45.90 9 did well with xopenex but not with albut will require only xopenex for future treat uses advair with good results [id number] Daniel Nelson [facility] [address] [place] [address],[place] [address] 12/12/2017 09:10:27 12/12/2017 09:53:03 Pain in right knee 1053584061 90276 M25.561 will need to get MRI as she has already gotten an xray of the knee about 3 mo ago Tear of me dial meniscus of knee 456319940 S83.221A [id number] Daniel Nelson [facility] [address],[place] [address] 12/24/2017 14:17:47 12/24/2017 16:27:12 Osteoarthritis of knee 847372377 M17.0 Tear of me dial meniscus of knee 692508760 S83.221A schedule a cortisone inject [id number] Daniel McBeni Omar [facility] [address] [place] [address],[place] [address] 12/28/2017 13:28:57 12/28/2017 16:41:55 Osteoarthritis of knee 090951600 M17.0 cortisone inj well carole [id number] Daniel Garcia Omar [facility] [address], [place] [address] 03/13/2018 15:23:35 03/13/2018 16:13:17 Iron deficiency anemia 58627604 D50.9 will have this monitored and will have her supplement oral iron therapy and will recheck in 1 month [id number] Daniel Nelson [facility] [address], [place] [address] 07/30/2018 10:54:31 07/30/2018 12:15:33 Pre-surgery evaluation 746963140 Z01.818 per the Revised Cardiac Index (neda criteria) she is an average risk for the proposed procedure of gastric band removal with a cardiac risk of 0.9% . The pt knows to take her usual meds on the morning of the procedure [id number] Daniel Nelson [facility] [address], [facility]e [facility] [place] [address] 08/27/2018 10:51:22 08/27/2018 11:38:47 Adult health examination 690065051 Z00.00 Active or passive immunization 475251979 Z23 reccomenda tions made Hepatitis C screening 41 9797180 Z11.59 Screening for malignant neoplasm of colon 490563412 Z12.11 Pulmonary hypertension 10671350 I27.20 currently stable with no issues but r ventricle is with diastolic dysfunctio n last echo 2015 will need another echo at some point [id number] Daniel Nelson [facility] [address],[place] [facility] [place] [address] 09/18/2018 15:14:33 09/18/2018 16:18:23 Osteoarthritis of knee 234055666 M17.0 cortisone inj well carole [id number] Daniel Nelson [facility] [address] [facility] [address],[place] [address] 05/12/2019 14:23:59 05/12/2019 16:29:52 Asthma 429170520 J45.909 did well with xopenex but not with albut will require only xopenex for future treat uses advair with good results Osteoarthr itis of knee 274991877 M17.0 cortisone inj to the left kne will use highr dose urvashi marcaine Osteoarthritis of hip 23 0238866 M16.9 xr reveals still stable believe this is secondary to her bad knee and altered gait [id number] Daniel Nelson [facility] [address] [facility],[place] [address] 05/14/2019 09:20:59 05/14/2019 11:19:04 Osteoarthritis of knee 113858402 M17.0 cortisone inj to the left kne will use highr dose urvashi marcaine well tolerated [id number] Daniel Nelson [facility] [address] [facility] [address],[place] [address] 08/08/2019 10:37:26 08/08/2019 11:00:16 Asthma 133274799 J45.909 did well with xopenex but not with albut will require only xopenex for future treat uses advair with good results Influenza 4520262 J11.1 will begin the tamiflu and will also have her get a nebulizer to help with the wheeze influenza nasal swab [id number] Daniel Nelson [facility] [address] [facility] [address],[place] [facility] [place] [address] 09/05/2019 13:40:47 09/05/2019 14:23:28 Adult health examination 948052961 Z00.00 doing ok except for asthma will need lab work up Active or passive immunization 548370622 Z23 reccomenda tions made Asthma 753414027 J45.90 9 did well with xopenex but not with albut will require only xopenex for future treat uses advair with good results Candidiasis of vagina 72 727022 B37.3 [id number] Daniel Nelson [facility] [address] [facility] [address],[place] [address] 06/29/2020 13:55:05 06/29/2020 14:34:54 Asthma 918077363 J45.909 did well with xopenex but not with albut will require only xopenex for future treat uses advair with good results Hyperglycemia 55805360 R 73.9 [id number] Daniel Radha Nelson [facility] [address] [facility] [address],[place] [address] 09/17/2020 15:02:56 09/17/2020 15:49:57 Mass of right breast 0791275557 2220736 N63.10 [id number] Daniel Nelson [facility] [address] [facility] [address],[place] [address] 11/01/2020 11:40:53 11/01/2020 12:28:32 Active or passive immunization 193219083 Z23 reccomenda tions made Adult heal th examination 332752225 Z00.00 doing ok except for asthma will need lab work up Asthma 423944361 J45.90 9 did well with xopenex but not with albut will require only xopenex for future treat uses advair with good results Impaired f asting glycemia 519450293 R73.01 a1c is 6.4 Obesity 104931822 E66.9 [id number] Daniel Nelson [facility] [address] [facility] [address],[place] [address] 11/10/2020 15:32:45 11/10/2020 16:33:08 Fatigue 01139109 R53.83 Iron deficiency 41773248 E61.1 [id number] Daniel Nelson [facility] [address] [facility] [address],[place] [address] 12/07/2020 16:20:54 12/07/2020 17:10:20 Left ventricular hypertrophy 36168548 I51.7 we will need to pursue this given her risk facotrs and if the echo is not that helpful we will need to do nuclear scan [id number] Daniel McBeni Omar [facility] [address] [facility] [address],[place] [address] 12/10/2020 11:37:23 12/10/2020 16:43:45 Dysuria 37339400 R30.9 will have patient trial probiotics and send urine Pain in pelvis 63268854 R10.2 will fu with US as well for recurrent pain and UTI symptoms [id number] Daniel Garcia Omar [facility] [address] [facility],[place] [facility] 06/17/2021 14:21:48 06/17/2021 15:46:25 Asthma 378767028 J45.909 did well with xopenex but not with albut will require only xopenex for future treat uses advair with good results Pulmonary hypertension 21223342 I27.20 currently stable with no issues but r ventricle is with diastolic dysfunctio n last echo 2016 will need another echo at some point Pain of ri ght shoulder joint 3301287131 2273311 M25.511 we will need to have her start diclofenac and get xr Acute folliculitis 70931 7007 L73.9 Family his tory of breast cancer 304933816 Z80.3 [id number] Daniel McBeni Omar [facility] [address] [facility],[place] [address] 07/13/2021 11:05:45 07/15/2021 16:39:06 Allergic rhinitis 38401763 J30.9 needs refill Juvenile r heumatoid arthritis 693840932 M08.3 will recheck labs as she has a prominent past medical hx of RA Family his tory of breast cancer 555081496 Z80.3 will talk to HR about her referral Lesion of vulva 30422689 6 N90.89 will fu with [facility] pedigree researcher referral Obesity 819739501 E66.09 [id number] Daniel Nelson [facility] [address] [facility] [address],[place] [address] 10/17/2021 15:14:46 10/17/2021 16:18:46 Juvenile rheumatoid arthritis 605590586 M08.3 Pulmonary hypertension 29684501 I27.20 currently stable with no issues but r ventricle is with diastolic dysfunctio n last echo 2016 will need another echo at some point Rupture of rotator cuff of right shoulder 6697526114 3041871 M75.101 will have to move on to get these tested as she is getting worse clinically Pain of ri ght hip joint 2236999018 50940 M25.551 bad enough now that she is limping and PT recc xr as [place] [id number] Daniel Nelson [facility] [address] [facility],[place] [address] 11/14/2021 15:12:05 11/14/2021 16:32:48 Rupture of rotator cuff of right shoulder 3933813512 5351627 M75.101 we will have to try a kenalog inj and see if this helps and see if this gets to heal Bursitis o f right shoulder 8534609008 44330 M75.51 see above Osteoarthr itis of shoulder region 63413573 M19.019 see above Left lower quadrant pain 795262727 R10.32 [id number] Daniel Nelson [facility] [address] [facility],[place] [address] 12/05/2021 12:11:03 12/05/2021 14:29:57 Calcific tendinitis of shoulder 47822573 M75.31 [id number] Daniel Nelson [facility] [address] [facility],[place] [facility] [place] [address] 12/12/2021 11:58:09 12/12/2021 12:43:54 Osteoarthritis of knee 111637173 M17.0 cortisone inj to the right knee will use highr dose urvashi marcaine well tolerated [id number] Daniel Nelson [facility] [address] [facility],[place] [facility] [place] [address] 04/21/2022 10:33:09 04/21/2022 15:40:21 Pneumonitis 367989205 J18.9 given worsening we will need to treat and we will use levofloxco nt mucinex drinking water [id number] Daniel Nelson DO [facility] [address] [facility] [address],[place] [address] 05/23/2022 10:18:56 05/23/2022 16:19:33 Dental abscess 136132270 K04.7 will start on augmentin for the next 14 days Type 2 armani betes mellitus 92876645 E11.9 Asthma 978579038 J45.90 9 will refill medication s [id number] Daniel Nelson DO [facility] [address] [facility] [address],[place] [address] 09/05/2022 10:23:17 09/05/2022 15:02:17 Active or passive immunization 653209367 Z23 patient advised she is due for flu shot & pneu 23 Adult [facility] th examination 735919940 Z00.01 doing ok except for asthma will need lab work upwill be seeing dr luo in october Type 2 armani betes mellitus 67060833 E11.9 a1c is 6.2 !!! Juvenile r heumatoid arthritis 175199713 M08.3 shoulder on right has been an issue Pulmonary hypertension 33578503 I27.20 currently stable with no issues but r ventricle is with diastolic dysfunctio n last echo 2016 will need another echo at some point Hepatitis C screening 41 [id number] Z11.59 [id number] Daniel Nelson DO [facility] Internal Medicine [address] [facility],[place] [address] 10/11/2022 11:55:18 10/11/2022 12:33:29 Type 2 diabetes mellitus 93166763 E11.9 a1c is 6.2 !!! doing well overallsta al that she is feeling goodam sugars are better Asthma 695226913 J45.90 9 doing fantastic with the advair not using xopenex that much unless she has a cold did well with xopenex but not with albut will require only xopenex for future treat uses advair with good results Anemia 839646505 D64.9 05834 Daniel Nelson DO [facility] [address] [facility],[place] [address] 12/11/2022 14:11:41 12/11/2022 16:52:15 Type 2 diabetes mellitus 24331520 E11.9 a1c is 6.1 !!! while using the ozempic,un fortunatel y we are now limited as she does not tolerate the metform or glimepirid ewe will try to get her jardiance and see if that can helpi still believe the pt willultima tely require ozempic and/or similar med to remain stable [id number] Daniel Nelson DO [facility] Internal Medicine [address] [facility],[place] [address] 02/28/2023 13:59:09 02/28/2023 16:03:49 Asthma 311885800 J45.909 see recent note has covidnow with a hand held nebulier Vertigo 556970379 R42 showed radha coronado Type 2 armani betes mellitus 80725141 E11.9 a1c is pending now was 6.1 !!! while using the ozempic,un fortunatel y we are now limited as she does not tolerate the metform or glimepirid ewe will try to get her jardiance and see if that can helpi still believe the pt willultima tely require ozempic and/or similar med to remain stable Pulmonary hypertension 95040076 I27.20 currently stable with no issues but r ventricle is with diastolic dysfunctio n last echo 2016 will need another echo at some point [id number] Daniel Nelson DO [facility] Internal Medicine [address] [facility],[place] [address] 04/03/2023 14:02:55 04/03/2023 14:46:12 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 will set up with testing for possible overproduc tion of clacium Acute otitis media 11361 03 H65.03 will start on augmentin Atrophic vaginitis 83663 000 N95.2 incorrect metronidaz oleneed metro Pain in throat 582949661 R07.0 will send out culture [id number] Daniel Nelson DO [facility] Internal Medicine [address] [facility],[place] [address] 06/08/2023 14:58:45 06/08/2023 16:25:22 Type 2 diabetes mellitus 14385585 E11.9 a1c is 6.3 now now on victoza todayunfor tunately we are now limited as she does not tolerate the metform or glimepirid ewe will try to get her jardiance and see if that can helpi still believe the pt require ozempic and/or similar med to remain stable (victoza) Osteoarthr itis of right hip joint 6319468550 06657 M16.11 [id number] Daniel Nelson DO [facility] Internal Medicine [address] [facility] [address],[place] [address] 09/03/2023 14:02:45 09/03/2023 14:33:07 Type 2 diabetes mellitus without complication 473303251 E11.9 a1c 6.0 ane doing great Inflammato ry polyarthropathy 559263258 M08.3 hips are still an issue now using a walker Pulmonary hypertension 93235836 I27.20 currently stable with no issues but r ventricle is with diastolic dysfunctio n last echo 2015 will need another echo at some point Asthma 288562050 J45.90 9 see recent note has covidnow with a hand held nebulizer [id number] Daniel Nelson DO [facility] Internal Medicine [address] [facility],[place] [address] 09/07/2023 13:28:55 09/07/2023 14:16:57 Asthma 337277949 J45.909 doing ok and very well with advairnow with a hand held nebulizer Pulmonary hypertension 36345695 I27.20 currently stable with no issues but r ventricle is with diastolic dysfunctio n last echo 2015 will need another echo at some point Adult [facility] th examination 401747100 Z00.01 doing ok if it werent for the hip and teeth neeeds dentist to work on her teeth Type 2 armani betes mellitus without complication 310069796 E11.9 a1c 6.0 and doing great very impressed [id number] Daniel Nelson [facility] Internal Medicine [address] [facility],[place] [address] 01/09/2024 11:53:44 01/09/2024 14:52:13 Asthma 669620244 J45.909 doing ok and very well with advairnow with a hand held nebulizer Type 2 armani betes mellitus 30459586 E11.9 a1c is 6.3 now now on victoza todayunfor tunately we are now limited as she does not tolerate the metform or glimepirid ewe will try to get her jardiance and see if that can helpi still believe the pt require ozempic and/or similar med to remain stable (victoza) Depression screening 171 Z13.31 neg [id number] Daniel Nelson [facility] Internal Medicine [address] [facility],[place] [address] 09/16/2024 09:19:33 09/16/2024 10:04:31 Asthma 232062866 J45.909 doing ok and very well with advairnow with a hand held nebulizer Type 2 armani betes mellitus 47730416 E11.9 a1c is 6.3 now now on victoza todayunfor tunately we are now limited as she does not tolerate the metform or glimepirid ewe will try to get her jardiance and see if that can helpi still believe the pt require ozempic and/or similar med to remain stable (victoza) Depression screening 171 489296 Z13.31 neg Cough 10499633 R05.9 [id number] Daniel Nelson [facility] Internal Medicine [address] [facility],[place] [address] 01/07/2025 15:58:17 01/09/2025 14:09:36 Dysuria 12760240 R30.0 37040 will start on macrobid Depression screening 171 669991 Z13.31 negative [id number] Daniel Nelson [facility] Internal Medicine [address] [facility],[place] [address] 02/10/2025 10:25:21 02/10/2025 11:32:12 Active or passive immunization 092360554 Z23 patient advised she is due for flu shot & pneu 23 Asthma 990452974 J45.90 9 doing ok and very well with advairnow with a hand held nebulizer Obstructiv e sleep apnea syndrome 26788531 G47.33 Pulmonary hypertension 78365119 I27.20 currently stable with no issues but r ventricle is with diastolic dysfunctio n last echo 2016 will need another echo at some point Hypercalcemia 11977351 E 83.52 9955 General ex amination of patient 880902612 Z00.01 62229433 doing ok if it werent for the hip and teeth needs dentist to work on her teeth [id number] Daniel Nelson [facility] Internal Medicine [address] [facility],[place] [address] 05/08/2025 14:05:31 05/11/2025 08:29:45 Depression screening 811324216 Z13.31 negative Acute urin urmila tract infection 159339351 N39.0 029528 will start on macrobid Diverticul itis of intestine 234192621 K57.92 97123052 start on cipro (lower dose) for both active UTI and diverticul itis Essential hypertension 56882255 I10 68115 very low at home, will set up with the losartan 25 mg High enzym e level in serum 347743093 R74.8 1948874430 needs PCP referral [id number] Daniel Nelson [facility] Internal Medicine [address] [facility], [place] [address] 05/19/2025 13:29:05 05/19/2025 14:06:40 Acute urinary tract infection 208992663 N39.0 833485 switch to alternativ e cefpodoxim e Mycosis 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.9 940471 trial alt topicalall ergic to diflucan Streptococ stan sore throat 51744990 J02.0 052049 add medrol [id number] Daniel Nelson [facility] Internal Medicine [address] [facility], [place] [address] 06/09/2025 13:38:38 06/09/2025 14:22:19 Depression screening 679605343 Z13.31 negative Chronic pr imary bladder pain syndrome 9536345570 7104 N30.10 08257 Dysuria 93692516 R30.0 60266 Health Concerns Section Related Observation LastModified by Organization Detai ls LastModified Time None Recorded Concern Status LastModified by Organization Details LastModified Time None Recorded Advance Directives Directive Y: Payers Insurance Date Sequence Insurance Name Policy Number Policy Ryan Covered Member ID Ryan Member ID Guarantor Name 06/05/2025 1 [place] PRIOR [place] 2022 [place] [facility]LY [facility] (MEDICAID) DeannaBrandon Ozuna [id number] Harveyjoie Ozuna 06/09/2025 1 [place] [facility] DeannaBrandon Ozuna [id number] Harveyjoie Ozuna 06/09/2025 1 [place] [facility] - [facility] PLAN DeannaBrandon Ozuna [id number] Harveyjoie Ozuna Notes Date Note Type Note Provider Name a co Address Organization Details Recorded Time 5 text/html ROS as noted in the [...] fever, chills, sig back pain RAMONE RAGSDALE [address] [place] [address], [address], [facility] Internal Medicine 01/07/2025 16:59:05 5 text/html Annual WellnessReported by PatientSocial/Behavior al HistoryFor diet and nutrition, patient reportshealthy diet. 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, referred out to consult in [facility] to get a PCP referral the [...] lower sending out urine RAMONE RAGSDALE [address] [place], [address], [facility] Internal Medicine 05/08/2025 14:52:22 5 text/html ROS as noted in the HPI f/u UTI, sore throat, L ear pain the patient returns to office today for throat L side pain and L sided ear painthe patient also was able to provide a urine sample to recheck her urine the patient reports the she is doing well, still tiredthe patient has pos leuk's and nitrates the patient did finish her abx (she was on cipro due to allergy hx) switch alt for treatmentaddition of medrol RAMONE RAGSDALE [address] [place], [address], [facility] Internal Medicine 05/19/2025 14:04:00 5 text/html ROS as noted in the HPI f/u 2 week the patient is here today for follow up about urine she has been having urinary symptoms, negative culture x 2?interstitial cystitis vs other inflammatory condition the patient reports that her bowel issues have improved, taking a tincture: [employer] Organic Marshmallow Root, Slippery Elm Bark, Plantain and vodka the patient may need to discuss bladder scanthe patient reports that her GI tract is working much better, normal bowel movements with the tincture will update me about her symptoms sending out urine again to check RAMONE RAGSDALE [address] [place] [address], [place], [address], [facility] Internal Medicine 06/09/2025 14:19:40 OBGyn Episode No OBEpisode recorded.
--- OUTSIDE RECORDS SUMMARY | 2025-06-09 18:53 | XMS_ITS | Encounter Summary ---
Author Organization [facility] Address [address] [employer] [facility] [address] [place] [address] Phone Care Team Providers Care Cloth Mercerizer Back Tender Name Role Phone Daniel Nelson DO Primary Care Provider [phone] Bigda, Daniel Bentley DO Unavailable Blessing Garcia MD Unavailable [phone] Gaudencio Garcia MD Unavailable [phone] Juan Miguel Smith MD Unavailable Erik Sam MD Unavailable Karrie Curtis PYROTECHNIST Unavailable Marisa Madera MD Unavailable [phone] Nick Abrams MATERIALS DIRECTOR Unavailable [phone] Jaleesa Moore PYROTECHNIST Unavailable [phone] Bigda, Daniel Bentley DO Unavailable Bigda, Daniel A DO Primary Care Provider [phone] Bigda, Daniel A DO Unavailable + Bigda, Daniel A DO Primary Care Provider + Encounter Details Date Type Department Care Team (Late st Contact Info) Description 12/12/2017 Procedure Pass [facility], [address] [place] [address] Social History Tobacco Use Types Packs/Day Years [...] Description 07/07/2025 2:00 PM EST Office Visit [facility] Allergy Center at [address] [place] [address] [facility] [address] [place] [address] Krishna German MD [address] [place] [address]-, Division of Rheumatology, [place] [address] [email or web address] 09/16/2025 2:30 PM EST Office Visit [facility] Pulmonary, Allergy and Critical Care Medicine 10 [place] [address] Gaudencio Garcia MD 10 [facility] 2nd [place] [address] [email or web address] documented as of this encounter Visit Diagnoses Not on filedocumented in this encounter Additional Health Concerns Infection Onset Date Last Indicated Resolved Time CoV-Exposed Comment:Pt exposed to + staff 04/17/23 04/17/2023 04/20/2023 1:24 AM EDT CoV-Risk 08/17/2024 08/17/2024 08/28/2024 1:21 AM EST documented as of this encounter Care Teams Cloth Mercerizer Back Tender Relationship Specialty Start Date End Date Daniel Nelson DO PCP - General 05/29/17 10/06/20 Daniel Nelson DO PCP - General Internal Medicine 10/07/20 04/22/25 Daniel Nelson DO [address] [place] [address] PCP - General Internal Medicine 04/23/25 Daniel Nelson DO [address] [place] [address] Historical LMR Provider 06/03/17 01/07/18 Blessing Garcia MD [address] [place] [address] Historical LMR Provider 06/03/17 Gaudencio Garcia MD [address] [place] [address] Historical LMR Provider 06/03/17 Juan Miguel Smith MD [address] [place] [address] Historical LMR Provider 06/03/17 01/07/18 Erik Sam MD [address] [place] [address] Historical LMR Provider 06/03/17 Karrie Curtis PYROTECHNIST [address] [place] [address] [email or web address] Historical LMR Provider 06/03/17 Marisa Madera MD [address] [address] Historical LMR Provider 06/03/17 Nick Abrams CNP [address] [address] Historical LMR Provider 06/03/17 01/07/18 Jaleesa Moore NP [address] [place] [address] Historical LMR Provider 06/03/17 2 Daniel Nelson DO [address] [place] [address] Insurance Assigned Provider 11/10/17 01/07/18 Daniel Nelson DO [address] [place] [address] Insurance Assigned Provider 11/10/17 12/30/22 documented as of this encounter Additional Source Comments The information contained in this document represents components of the legal health record. It is not the complete legal health record.[facility]
--- OUTSIDE RECORDS SUMMARY | 2025-06-09 18:53 | XMS_ITS | Encounter Summary ---
Author Organization [facility] Address [address] [facility] [address] [place] [address] Phone Care Team Providers Care Locomotive Switch Operator Name Role Phone Gaudencio Garcia MD Unavailable [phone] Erik Sam MD Unavailable [phone] Marisa Madera MD Unavailable [phone] Daniel Nelson DO Primary Care Provider [phone] Daniel Nelson DO Unavailable Daniel Nelson DO Primary Care Provider [phone] Reason for Referral * MRI/CAT Scan - Closed Specialty Diagnoses / Procedures Referred By Abi griffin Referred To Contact Radiology Diagnoses Tear of right rotator cuff, unspecified tear extent, unspecified whether traumatic Procedures MRI Shoulder (Right) Daniel Nelson DO Phone: tel: fax: [email or web address] Referral ID Status Reason Start Date Expiration Date Visits Re quested Visits Authorized [id number] Closed 10/17/2021 10/18/2022 1 1 Encounter Details Date Type Department Care Team (Late st Contact Info) Description 10/17/2021 Transcribe Orders Virtual Department 30 [place] [address] Daniel Nelson DO 179 [facility] [place], [place] [id number] Tear of right rotator cuff, unspecified tear [...] Description 07/07/2025 2:00 PM EST Office Visit [facility] Allergy Center at [address] [place] 850 [facility] 540 [place] [address] Krishna German MD [address] [place] [address]-, Division of Rheumatology, [place] [address] [email or web address] 09/16/2025 2:30 PM EST Office Visit [facility] Pulmonary, Allergy and Critical Care Medicine [address] [place] [address] Gaudencio Garcia MD [address] [place] [address] 2nd [place] [address] [email or web address] documented as of this encounter Results * [...] suprascapular or spinoglenoid notch mass. Procedure Note rFeddie Burgos MD - 11/03/2021 COMPARISON: Right shoulder [...] documented as of this encounter Care Teams Locomotive Switch Operator Relationship Specialty Start Date End Date Daniel Nelson DO [address] [place] [address] [email or web address] PCP - General Internal Medicine 10/07/20 04/22/25 Daniel Nelson DO [address] [place] [address] [email or web address] PCP - General Internal Medicine 04/23/25 Gaudencio Garcia MD [address] [place] [address] [email or web address] Historical LMR Provider 06/03/17 Erik Sam MD [address] [place] [address] [email or web address] Historical LMR Provider 06/03/17 Marisa Madera MD [address] [place] [address] [email or web address] Historical LMR Provider 06/03/17 Daniel Nelson DO 179 [place] [address] [email or web address] Insurance Assigned Provider 11/10/17 12/30/22 documented as of this encounter Additional Source Comments The information contained in this document represents components of the legal health record. It is not the complete legal health record.[facility]
--- OUTSIDE RECORDS SUMMARY | 2025-06-09 18:53 | XMS_ITS | Encounter Summary ---
Author Organization [facility] Address [address] [facility] [address] [place] [address] Phone Care Team Providers Care Telephone Interviewer Name Role Phone Daniel Nelson DO Primary Care Provider [phone] Gaudencio Garcia MD Unavailable [phone] Erik Sam MD Unavailable [phone] Marisa Madera MD Unavailable [phone] Jaleesa Moore NP Unavailable [phone] Daniel Nelson DO Primary Care Provider [phone] Daniel Nelson DO Unavailable Daniel Nelson DO Primary Care Provider [phone] Encounter Details Date Type Department Care Team (Late st Contact Info) Description 04/03/2018 Ancillary Orders Virtual Department 30 [place] [address] Daniel Nelson DO 179 [place] [address] Breast screening Social History Tobacco Use Types [...] Description 07/07/2025 2:00 PM EST Office Visit [facility] Allergy Center at [address] [place] 850 [facility] [address] [place] [address] Krishna German MD [address] [place] [address] [id number], Division of Rheumatology, [place] [address] [email or web address] 09/16/2025 2:30 PM EST Office Visit [facility], Allergy and Critical Care Medicine 10 [facility] [place] [address] Gaudencio Garcia MD 10 [facility] 2nd [place] [address] [email or web address] documented as of this [...] There are scattered fibroglandular densities. POS - [id number] Narrative 06/18/2018 2:01 PM EST Full-field digital [...] There are scattered fibroglandular densities. POS - [id number] us Daniel Nelson DO IMG MG EXAMS [...] documented as of this encounter Care Teams Telephone Interviewer Relationship Specialty Start Date End Date Daniel Nelson DO PCP - General 05/29/17 10/06/20 Daniel Nelson DO PCP - General Internal Medicine 10/07/20 04/22/25 Daniel Nelson DO [address] [place] [address] [place] [address] PCP - General Internal Medicine 04/23/25 Gaudencio Garcia MD [address] [place] [address] Historical LMR Provider 06/03/17 Erik Sam MD [address] [place] [address] [email or web address] Historical LMR Provider 06/03/17 Marisa Madera MD [address] [place] [address] Historical LMR Provider 06/03/17 Jaleesa Moore NP [address] [place] [address] Historical LMR Provider 06/03/17 2 Daniel Nelson DO [address] [place] [address] Insurance Assigned Provider 11/10/17 12/30/22 documented as of this encounter Additional Source Comments The information contained in this document represents components of the legal health record. It is not the complete legal health record.[facility]
--- OUTSIDE RECORDS SUMMARY | 2025-06-09 18:53 | XMS_ITS | Encounter Summary ---
Author Organization [facility] Address [address] [employer] [facility] [address] [place] [address] Phone Care Team Providers Care Manager Mall Name Role Phone Gaudencio Garcia MD Unavailable [phone] Erik Sam MD Unavailable [phone] Marisa Madera MD Unavailable [phone] BigDaniel aquino DO Primary Care Provider [phone] Daniel Nelson DO Unavailable BigDaniel aquino DO Primary Care Provider [phone] Encounter Details Date Type Department Care Team (Late st Contact Info) Description 05/17/2022 Procedure Pass [address] [address] Social History Tobacco Use Types Packs/Day Years [...] [facility] Allergy Center at [address] [place] [address] [place] [address] Krishna German MD [address] [place] [address], Division of Rheumatology, [place] [address] [email or web address] 09/16/2025 2:30 PM EST Office Visit [facility] Pulmonary, Allergy and Critical Care Medicine [address] [place] [address] Gaudencio Garcia MD [address] [place] [address] documented as of this encounter Visit Diagnoses Not on filedocumented in this encounter Additional Health Concerns Infection Onset Date Last Indicated Resolved Time CoV-Exposed Comment:Pt exposed to + staff 04/17/23 04/17/2023 04/20/2023 1:24 AM EDT CoV-Risk 08/17/2024 08/17/2024 08/28/2024 1:21 AM EST documented as of this encounter Care Teams Manager Mall Relationship Specialty Start Date End Date Daniel Nelson DO [address] [address] PCP - General Internal Medicine 10/07/20 04/22/25 Daniel Nelson DO 179 [facility] [place] [address] PCP - General Internal Medicine 04/23/25 Gaudencio Garcia MD [address] [place] [address] Historical LMR Provider 06/03/17 Erik Sam MD [address] [address] [email or web address] Historical LMR Provider 06/03/17 Marisa Madera MD 15 [facility], 2nd [place] [address] Historical LMR Provider 06/03/17 Daniel Nelson DO [address] [place] [address] [place] [address] [email or web address] Insurance Assigned Provider 11/10/17 12/30/22 documented as of this encounter Additional Source Comments The information contained in this document represents components of the legal health record. It is not the complete legal health record.[facility]
--- OUTSIDE RECORDS SUMMARY | 2025-06-09 18:53 | XMS_ITS | Clinical Summary ---
Author Organization [facility] Address [address] [facility] [address] [place] [address] Phone Care Team Providers Care Control Tower Radio Operator Name Role Phone Gaudencio Garcia MD Unavailable [phone] Erik Sam MD Unavailable [phone] Rosina Madera MD Unavailable [phone] Inez Green DO Primary Care Provider [phone] Allergies Active Allergy Reactions Criticality Noted Date Comments Albuterol Sulfate Wheezing High 08/25/2019 Fexofenadine Myalgia High 12/13/2017 Metaproterenol Unknown Low 10/04/2017 Amoxicillin Hives 02/27/2025 Aspartame Hives,Itching,Rash Low 11/17/2024 Ipratropium [place] Other (See Comments) High 12/13/2017 Dries lungs [...] 10/04/2017 Montelukast Medium 12/13/2017 Flu like sxs Ybgjlqs-Iue-Qoi Reductase Inhibitors Myalgia 05/23/2023 Sulfa (Sulfonamide Antibiotics) [...] mg by mouth daily. 08/21/19 25 Active cholecalciferol, vitD3,/vit K2 (VITAMIN D3-VITAMIN K2 [...] daily. 16 g 11 03/19/20 25 Active furosemide (LASIX) 40 MG tablet TAKE 1 TABLET(40 MG) BY MOUTH EVERY MORNING 90 tablet 04/16/20 25 Active mometasone (NASONEX) 50 mcg/actuation nasal spray 2 sprays by Nasal route daily. 17 g 12 04/16/20 25 Active EPINEPHrine (EPIPEN 2-JANETT) 0.3 mg/0.3 mL auto-injector Inject 0.3 mL (0.3 mg total) into the muscle as directed. 2 each 2 04/16/20 25 Active fluticasone propion-salmeter oL (ADVAIR DISKUS) 500-50 mcg/dose DISKUSIndication s:Moderate persistent asthma with acute exacerbation Inhale 1 puff into the lungs 2 (two) times a day. 60 each 11 06/01/20 25 Active ADVAIR DISKUS 500-50 mcg/dose DISKUSIndication s:Moderate persistent asthma with acute exacerbation Inhale 1 puff into the lungs 2 (two) times a day. 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 Latter diagnosis can be made via genetic testing though not available in our lab. Will refer to mastocytosis clinic at [facility] for further diagnostic testing. 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 Apparently recent the last several years. Consider additional testing but may defer to evaluation at [facility] allergy practice. Assessment & Plan (02/27/2025 12:51 [...] associated average wt loss of 8% with intermediate frame tender use (Seth Patel et.al. October 2022) I [...] above. 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 Typically limited by side effects such as nosebleeds. Recommend Nasonex if covered by insurance. If not, get purchase [id number]-lpbvred or consider Flonase Sensimist. For antihistamine type [...] gastric carroll ng 10/12/2017 05/23/2023 Overview (05/23/2023): [id number]. Lost approx 100 lbs. Removed due to [...] with peripheral eosinophil counts, total IgE, and [place] allergy panel Depending on above, would consider [...] Encounters Date Type Department Care Team Description 06/01/2025 Telephone [facility] Critical [facility] [address] [place] [address] Gaudencio Garcia MD 05/11/2025 Telephone [facility] [address] [place] [address] Gaudencio Garcia MD Medication Prior Authorization (PA for ADVAIR DISKUS 500-50 mcg/dose DISKUS) 04/20/2025 Telephone [facility] [address] [place] [address] Mary Baum Medication Prior Authorization (PA for mometasone (NASONEX) 50 mcg/actuation nasal spray) 04/16/2025 2:00 PM EDT Office Visit [facility], [facility]ergy [facility] Critical Care [facility] [address] [place] [address] Gaudencio Garcia MD Allergy to multiple drugs (Primary Dx); High serum tryptase; Moderate persistent asthma without complication; Allergic rhinitis, unspecified seasonality, unspecified trigger 04/15/2025 [facility] [address] [place] [address] 3rd Floor, [address] [place] [address] Erik Sam MD Medication Refill 04/07/2025 Orders Only [facility] [address] [place] [address] Gaudencio Garcia MD 04/06/2025 Telephone [facility] [address] [place] [address] Gaudencio Garcia MD 04/02/2025 2:36 PM EDT - 04/02/2025 11:59 PM EDT Hospital Encounter [facility] [address] [place] [address] Gaudencio Garcia MD Discharge Disposition: Home or Self Care 03/30/2025 2:40 PM EDT - 03/30/2025 11:59 PM EDT Hospital Encounter [facility] [address] [place] [address] Gaudencio Garcia MD Discharge Disposition: Home or Self Care 03/10/2025 1:53 PM EDT - 03/10/2025 11:59 PM EDT Hospital Encounter [facility] [address] [place] [address] Roberta Mao PA Discharge Disposition: Home or Self Care from [...] Description 07/07/2025 2:00 PM EST Office Visit [facility] Allergy Center at [address] [address] Krishna German MD [address] [place] [address] [id number], Division of Rheumatology, Immunology [place] [address] [email or web address] 09/16/2025 2:30 PM EST Office Visit [facility], Allergy [facility] Critical [facility] [address] [place] [address] Gaudencio Garcia MD [address] [place] [address] [email or web address] Health Maintenance Due Date Last Done Comments [...] Additional history exists HEMOGLOBIN A1C 05/19/2025 11/17/2024, 0 12/2024, 05/25/2023, Additional history exists MAMMOGRAM 07/06/2025 07/06/2023, 1104/2022, 11/02/2020, Additional history exists BLOOD PRESSURE 10/14/2025 [...] 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 No mutation is detected in the specific assay target region for KIT p.Sfj016Otp (D816V). See comment. Comment: This assay evaluates for the presence of the p.Rld373 Kelle (D816V) hotspot mutation in the KIT [...] chain reaction (ddPCR) to detect the KIT:c.2447A>T, p.Efz722Esd (NM_[id number]:g.[id number]>T) variant. DNA extracted from patient samples is [...] its performance characteristics determined by [facility] in a manner consistent with CLIA requirements. This test has not been cleared or approved by the U.S. Food and Drug Administration. Signing Pathologist Gaudencio Espinosa M.D. 04/02/2025 2:43 PM EDT 04/02/2025 4:23 PM EDT Gaudencio Garcia MD LAB BLOOD ORDERABLES Final Res ult [facility] DPT OF LAB MED AND PAT+ [address] [place] [address] * (ABNORMAL) Tryptase (04/02/2025 2:43 PM EDT) Only the most recent of3 resultswithin the time period is included. Pathologist [facility] TRYPTASE 31.6(H) <11.5 ng/mL [facility] LAB MED/PATH [address] Blood 04/02/2025 2:43 PM EDT 04/02/2025 2:58 PM EDT Gaudencio Garcia MD LAB BLOOD ORDERABLES Final Res ult [facility] LAB MED/PATH [address] [place] [address] * (ABNORMAL) Comprehensive metabolic panel (03/30/2025 2:48 PM EDT) Pathologist [facility] SODIUM 139 133 - 146 mmol/L [facility] POTASSIUM 4.3 3.3 - 5.1 mmol/L [facility] CHLORIDE 103 96 - 108 mmol/L [facility] CO2 22 21 - 35 mmol/L [facility] BUN 29(H) 6 - 19 mg/dL [facility] CREATININE 1.00 0.5 - 1.5 mg/dL [facility] GLUCOSE 127(H) 70 - 99 mg/dL [facility] ALBUMIN 3.9 3.9 - 4.8 g/dL [facility] TOTAL PROTEIN 7.4 6.5 - 8.0 g/dL [facility] CALCIUM 9.9 8.4 - 10.3 mg/dL [facility] ALKALINE PHOSPHATASE 99 39 - 117 U/L [facility] TOTAL BILIRUBIN 0.5 0.0 - 1.2 mg/dL [facility] AST 20 0 - 37 U/L [facility] ALT 21 0 - 40 U/L [facility] GLOBULIN 3.5 1 - 4.8 g/dL [facility] EGFR 64 >59 mL/min/1.7 3m2 [facility] Comment:Estimated glomerular filtration rate calculated using the CKD-EPI refit equation. ANION GAP 18 10 - 20 mmol/L [facility] Blood 03/30/2025 2:48 PM EDT 03/30/2025 2:57 PM EDT us Gaudencio Garcia MD LAB BLOOD ORDERABLES Final Res ult [facility] [address] [place], [place] [id number] * (ABNORMAL) CBC and differential (03/30/2025 2:48 PM EDT) WBC 7.82 4.00 - 11.00 K/uL [facility] RBC 4.78 4.00 - 5.20 M/uL [facility] HGB 13.3 12.0 - 16.0 g/dL [facility] HCT 42.2 36.0 - 46.0 % [facility] PLT 351 150 - 450 K/uL [facility] MCV 88.3 80.0 - 100.0 fL [facility] MCH 27.8 27.0 - 31.0 pg [facility] MCHC 31.5(L) 32.0 - 36.0 g/dL [facility] RDW 14.5 11.5 - 14.5 % [facility] MPV 10.4 8.4 - 12.0 fL [facility] NRBC 0.00 0.00 /100 WBCs [facility] ABSOLUTE NRBC 0.00 0.00 K/uL [facility] DIFF METHOD Auto [facility] NEUTS 67.1 48.0 - 76.0 % [facility] LYMPHS 21.2 18.0 - 41.0 % [facility] MONOS 7.8 4.0 - 11.0 % [facility] EOS 2.6 0.0 - 5.0 % [facility] BASOS 0.9 0.0 - 1.5 % [facility] Granulocytes, immature (%) 0.4 0.0 - 0.9 % [facility] ABSOLUTE NEUTS 5.25 1.92 - 7.60 K/uL [facility] ABSOLUTE LYMPHS 1.66 0.72 - 4.10 K/uL [facility] ABSOLUTE MONOS 0.61 0.16 - 1.10 K/uL [facility] ABSOLUTE EOS 0.20 0.00 - 0.50 K/uL [facility] ABSOLUTE BASOS 0.07 0.00 - 0.15 K/uL [facility] Granulocytes, immature 0.03 0.00 - 0.09 K/uL [facility] Blood 03/30/2025 2:48 PM EDT 03/30/2025 2:57 PM EDT us Gaudencio Garcia MD LAB BLOOD ORDERABLES Final Res ult [facility] [address] [place], [place] [id number] * TSH with reflex (03/10/2025 2:06 PM EDT) TSH 1.45 0.27 - 4.20 uIU/mL [facility] Blood 03/10/2025 2:06 PM EDT 03/10/2025 2:09 PM EDT us Roberta PACK LAB BLOOD ORDERABLES Final Result [address] [address] * (ABNORMAL) 25-OH vitamin D (03/10/2025 2:06 PM EDT) 25 OH VIT D (TOTAL) 88(H) 30 - 60 ng/mL [facility] Blood 03/10/2025 2:06 PM EDT 03/10/2025 2:09 PM EDT Roberta PACK LAB BLOOD ORDERABLES Final Result Performing Organization Address [facility]/ZIP Co de Phone Number [address] [address] * Free T4 (03/10/2025 2:06 PM EDT) FREE T4 1.2 0.9 - 1.7 ng/dL [facility] Blood 03/10/2025 2:06 PM EDT 03/10/2025 2:09 PM EDT us Roberta PACK LAB BLOOD ORDERABLES Final Result Performing Organization Address City/[facility]/ZIP Co de Phone Number [address] [address] * Phosphorus (03/10/2025 2:06 PM EDT) PHOSPHORUS 3.2 2.7 - 4.5 mg/dL [facility] Blood 03/10/2025 2:06 PM EDT 03/10/2025 2:09 PM EDT Roberta PACK LAB BLOOD ORDERABLES Final Result [address] [address] * Parathyroid hormone (PTH) (03/10/2025 2:06 PM EDT) PARATHYROID HORMONE 42 15 - 65 pg/mL [facility] Blood 03/10/2025 2:06 PM EDT 03/10/2025 2:08 PM EDT Roberta PACK LAB BLOOD ORDERABLES Final Result [address] [address] * Magnesium (03/10/2025 2:06 PM EDT) Pathologist [facility] MAGNESIUM 2.1 1.6 - 2.6 mg/dL [facility] Blood 03/10/2025 2:06 PM EDT 03/10/2025 2:09 PM EDT us Roberta PACK LAB BLOOD ORDERABLES Final Result Performing Organization Address City/[facility]/ZIP Co de Phone Number [address] [address] * (ABNORMAL) Hemoglobin A1c (11/17/2024 3:43 PM EDT) Pathologist [facility] HEMOGLOBIN A1C 6.4(H) 4.3 - 5.8 % [facility] Blood 11/17/2024 3:43 PM EDT 11/17/2024 3:52 PM EDT us Erik Sam MD LAB BLOOD ORDERABLES Final Result Performing Organization Address City/[facility]/ZIP Co de Phone Number [address] [address] * (ABNORMAL) Lipid panel (11/17/2024 3:43 PM EDT) HDL 56 mg/dL [facility] Comment: Interpretation <40 mg/dL: Low HDL cholesterol (major risk factor for CHD) Greater than or equal to 60 mg/dL: High HDL cholesterol ( negative risk factor for CHD) HDL - cholesterol is affected by a number of factors, e.g. smoking, excerise, hormones, sex and age. CHOLESTEROL 233 0 - 240 mg/dL [facility] TRIGLYCERIDES 239(H) 30 - 160 mg/dL [facility] LDL 129 50 - 129 mg/dL [facility] Comment: LDL levels in terms of risk for coronary heart disease: <100 mg/dL: Optimal 100-129 mg/dL: Near or above optimal 130-159 mg/dL: Borderline high 160-189 mg/dL: High >190 mg/dL: Very High CARDIAC RISK RATIO 4.2 3.3 - 4.4 C [facility] Blood 11/17/2024 3:43 PM EDT 11/17/2024 3:52 PM EDT us Erik Sam MD LAB BLOOD ORDERABLES Final Result Performing Organization Address City/State/[facility] Co de Phone Number [address] [address] * BI MAMMOGRAM SCREENING WITH TOMOSYNTHESIS WITH [...] Madera MD - 12/08/2022 8:45 AM EDT [facility] Patient Name: Deanna Liraamanda Ozuna Attending MD:: ROSINA MADERA MD, Procedure Date: 12/08/2022 8:45 AM Date of : 1965 Age: 57 Admit Type: Outpatient Gender: Female Room: [facility] Referring MD: INEZ GREEN DO Exam Type: [...] monitored continuously. The Olympus adult variable colonoscope [id number] #[id number] was introduced through the anus and [...] 8:45 AM Procedure Code(s): --- Professional --- 68855, Colonoscopy, flexible; with biopsy, single or multiple --- Technical --- 00205, Colonoscopy, flexible; with biopsy, single or multiple [...] or abscess without bleeding CPT copyright 2021 [employer]. All rights reserved. The codes documented in this report are preliminary and upon turner in reviewmay be revised to meet current compliance requirements. Procedure Date: 12/08/2022 8:45:37 AM [address] [place] [address] Inez Green DO GI PROCEDURE ORDERABLES Final Re sult from Last 3 Months or Most Recently Relevant to Health Maintenance Insurance [facility] Advance Directives For more information, please contact: [phone] (9AM - 5PM [facility], Sunday-Sunday) Documents on File Type Date Recorded Patient Convention Services Director Expl anation Healthcare Proxy 08/20/2024 2:52 PM Healthcare Proxy 10/09/2017 10:45 AM * Full Code (Latest Code Status on File) Date Activated Date Inactivated Comments 08/17/2024 9:36 AM Question Answer Comments Code Status Confirmed With: Patient Code Status Communicated To: Inpatient Attending Care Teams Control Tower Radio Operator Relationship Specialty Start Date End Date Inez Green DO [address] [place] [address] [email or web address] PCP - General Internal Medicine 04/23/25 Gaudencio Garcia MD [address] [place] [address] [email or web address] Historical LMR Provider 06/03/17 Erik Sam MD [address] [place] [address] [email or web address] Historical LMR Provider 06/03/17 Rosina Madera MD [address] [place] [address] [email or web address] Historical LMR Provider 06/03/17 Additional Source Comments The information contained in this document represents components of the legal health record. It is not the complete legal health record.[facility]
--- OUTSIDE RECORDS SUMMARY | 2025-06-09 18:53 | XMS_ITS | Encounter Summary ---
Author Organization [facility] Address [address] [facility] [address] [place] [address] Phone Care Team Providers Care Anesthesia Resident Name Role Phone Omar Daniel Bentley DO Primary Care Provider [phone] Bigda, Daniel A DO Unavailable Blessing Garcia MD Unavailable [phone] Gaudencio Garcia MD Unavailable [phone] Juan Miguel Smith MD Unavailable Erik Sam MD Unavailable Karrie Curtis EYEWEAR CONSULTANT Unavailable Marisa Madera MD Unavailable [phone] Nick Abrams HEALTHCARE APPLICATIONS ANALYST Unavailable [phone] Jaleesa Moore EYEWEAR CONSULTANT Unavailable [phone] Bigda, Daniel A DO Unavailable Bigda, Adniel A DO Primary Care Provider [phone] Bigda, Daniel A DO Unavailable + Bigda, Daniel A DO Primary Care Provider + Encounter Details Date Type Department Care Team (Latest Contact Info) Description 06/04/2017 Transcribe Orders [facility] [address] [place] [address] Gaudencio Garcia MD [address] [address] [email or web address] Asthma in adult, moderate persistent, uncomplicated (Primary [...] 07/07/2025 2:00 PM EST Office Visit [facility] Allergy Center at [address] [facility] [address] [place] [address] Krishna German MD [address] [place] [address], Division of Rheumatology, [place] [address] [email or web address] 09/16/2025 2:30 PM EST Office Visit [facility] Pulmonary, Allergy and Critical Care Medicine [address] [place] [address] Gaudencio Garcia MD [address] [place] [address] [email or web address] documented as of this encounter Results * [...] documented as of this encounter Care Teams Anesthesia Resident Relationship Specialty Start Date End Date Daniel Nelson DO [email or web address] PCP - General 05/29/17 10/06/20 Daniel Nelson DO [email or web address] PCP - General Internal Medicine 10/07/20 04/22/25 Daniel Nelson DO [address] [place] [address] PCP - General Internal Medicine 04/23/25 Daniel Nelson DO [address] [place] [address] Historical LMR Provider 06/03/17 01/07/18 Blessing Garcia MD [address] [place] [address] Historical LMR Provider 06/03/17 Gaudencio Garcia MD [address] [place] [address] [email or web address] Historical LMR Provider 06/03/17 Juan Miguel Smith MD [address] [place] [address] [email or web address] Historical LMR Provider 06/03/17 01/07/18 Erik Sam MD [address] [address] [email or web address] Historical LMR Provider 06/03/17 Karrie Curtis NP [address] [place] [address] [email or web address] Historical LMR Provider 06/03/17 Marisa Madera MD [address] [address] Historical LMR Provider 06/03/17 Nick Abrams HEALTHCARE APPLICATIONS ANALYST [address] [address] Historical LMR Provider 06/03/17 01/07/18 Jaleesa Moore, MAUREEN [address] [place] [address] Historical LMR Provider 06/03/17 2 Daniel Nelson DO [address] [place] [address] Insurance Assigned Provider 11/10/17 01/07/18 Daniel Nelson DO [address] [place] [address] Insurance Assigned Provider 11/10/17 12/30/22 documented as of this encounter Additional Source Comments The information contained in this document represents components of the legal health record. It is not the complete legal health record.[facility]
--- OUTSIDE RECORDS SUMMARY | 2025-06-09 18:53 | XMS_ITS | Encounter Summary ---
Author Organization [facility] Address [address] [facility] [address] [place] [address] Phone Care Team Providers Care Aircraft Technician Name Role Phone Gaudencio Garcia MD Unavailable [phone] Erik Sam MD Unavailable [phone] Marisa Madera MD Unavailable [phone] BigDaniel aquino DO Primary Care Provider [phone] Daniel Nelson DO Unavailable BigDaniel aquino DO Primary Care Provider [phone] Encounter Details Date Type Department Care Team (Late st Contact Info) Description 2022 Procedure Pass Non-Invasive Cardiology [address] [place] [address] Social History Tobacco Use Types Packs/Day Years [...] Description 07/07/2025 2:00 PM EST Office Visit [facility] Allergy Center at [address] [place] [address] [place] [address] Krishna German MD [address] [place] [address], Division of Rheumatology, [place] [address] [email or web address] 09/16/2025 2:30 PM EST Office Visit [facility] Pulmonary, Allergy and Critical Care Medicine [address] [place] [address] Gaudencio Garcia MD [address] [place] [address] documented as of this encounter Visit Diagnoses Not on filedocumented in this encounter Additional Health Concerns Infection Onset Date Last Indicated Resolved Time CoV-Exposed Comment:Pt exposed to + staff 04/17/23 04/17/2023 04/20/2023 1:24 AM EDT CoV-Risk 08/17/2024 08/17/2024 08/28/2024 1:21 AM EST documented as of this encounter Care Teams Aircraft Technician Relationship Specialty Start Date End Date Daniel Nelson DO [address] [address] PCP - General Internal Medicine 10/07/20 04/22/25 Daniel Nelson DO [address] [place] [address] PCP - General Internal Medicine 04/23/25 Gaudencio Garcia MD [address] [place] [address] Historical LMR Provider 06/03/17 Erik Sam MD [address] [address] [email or web address] Historical LMR Provider 06/03/17 Marisa Madera MD [address] [place] [address], [address] [place] [address] Historical LMR Provider 06/03/17 Daniel Nelson DO [address] [place] [address] [email or web address] Insurance Assigned Provider 11/10/17 12/30/22 documented as of this encounter Additional Source Comments The information contained in this document represents components of the legal health record. It is not the complete legal health record.[facility]
--- OUTSIDE RECORDS SUMMARY | 2025-06-09 18:53 | XMS_ITS | Encounter Summary ---
Author Organization [facility] Address [address] [facility] [address] [place] [address] Phone Care Team Providers Care Industrial Hygienist Name Role Phone Daniel Nelson DO Primary Care Provider [phone] Bigda, Daniel A DO Unavailable Blessing Garcia MD Unavailable [phone] Gaudencio Garcia MD Unavailable [phone] Juan Miguel Smith MD Unavailable Erik Sam MD Unavailable Karrie Curtis CONSTRUCTION JOB COST ESTIMATOR Unavailable Marisa Madera MD Unavailable [phone] Nick Abrams TRANSIT DEPARTMENT CLERK Unavailable [phone] Jaleesa Moore CONSTRUCTION JOB COST ESTIMATOR Unavailable [phone] Bigda, Daniel A DO Unavailable Bigda, Daniel A DO Primary Care Provider +[phone] Bigda, Daniel A DO Unavailable + Bigda, Daniel A DO Primary Care Provider + Encounter Details Date Type Department Care Team (Late st Contact Info) Description 09/19/2017 Transcribe Orders [facility] [address] [place] [address] Gaudencio Garcia MD [address] [place] [address] [email or web address] Social History Tobacco Use Types Packs/Day Years [...] Description 07/07/2025 2:00 PM EST Office Visit [facility] Allergy Center at [address] [place] 850 [facility] [address] [place] [address] Krishna German MD [address] [place] [address]-, Division of Rheumatology, [place] [address] [email or web address] 09/16/2025 2:30 PM EST Office Visit [facility] Pulmonary, Allergy and Critical Care Medicine [address] [place] [address] Gaudencio Garcia MD [address] [place] [address] [email or web address] documented as of this encounter Visit Diagnoses Not on filedocumented in this encounter Additional Health Concerns Infection Onset Date Last Indicated Resolved Time CoV-Exposed Comment:Pt exposed to + staff 04/17/23 04/17/2023 04/20/2023 1:24 AM EDT CoV-Risk 08/17/2024 08/17/2024 08/28/2024 1:21 AM EST documented as of this encounter Care Teams Industrial Hygienist Relationship Specialty Start Date End Date Daniel Nelson DO PCP - General 05/29/17 10/06/20 Daniel Nelson DO PCP - General Internal Medicine 10/07/20 04/22/25 Omar Daniel DO Mc [address] [facility] [place] [address] PCP - General Internal Medicine 04/23/25 Daniel Nelson DO 179 [facility] [place] [address] Historical LMR Provider 06/03/17 01/07/18 Blessing Garcia MD [address] [place] [address] Historical LMR Provider 06/03/17 Gaudencio Garcia MD [address] [place] [address] Historical LMR Provider 06/03/17 Juan Miguel Smith MD [address] [place] [address] Historical LMR Provider 06/03/17 01/07/18 Erik Sam MD [address] [place] [address] Historical LMR Provider 06/03/17 Karrie Curtis NP [address] [place] [address] [email or web address] Historical LMR Provider 06/03/17 Marisa Madera MD [address] [address] Historical LMR Provider 06/03/17 Nick Abrams TRANSIT DEPARTMENT CLERK [address] [address] Historical LMR Provider 06/03/17 01/07/18 Jaleesa Moore NP [address] [place] [address] Historical LMR Provider 06/03/17 2 Daniel Nelson DO 179 [place] [address] Insurance Assigned Provider 11/10/17 01/07/18 Daniel Nelson DO 179 [place] [address] Insurance Assigned Provider 11/10/17 12/30/22 documented as of this encounter Additional Source Comments The information contained in this document represents components of the legal health record. It is not the complete legal health record.[facility]
--- OUTSIDE RECORDS SUMMARY | 2025-06-09 18:53 | XMS_ITS | Encounter Summary ---
Author Organization [facility] Address [address] [employer] [facility] [address] [place] [address] Phone Care Team Providers Care Medical Advisor Name Role Phone Gaudencio Garcia MD Unavailable [phone] Erik Sam MD Unavailable [phone] Marisa Madera MD Unavailable [phone] BigDaniel aquino DO Primary Care Provider [phone] Daniel Nelson DO Unavailable BigDaniel aquino DO Primary Care Provider [phone] Encounter Details Date Type Department Care Team (Late st Contact Info) Description 05/17/2022 Procedure Pass [facility], [address] [address] Social History Tobacco Use Types Packs/Day Years [...] Description 07/07/2025 2:00 PM EST Office Visit [facility] Allergy Center at [address] [place] [address] [place] [address] Krishna German MD [address] [place] [address], Division of Rheumatology, [place] [address] [email or web address] 09/16/2025 2:30 PM EST Office Visit [facility] Pulmonary, Allergy and Critical Care Medicine [address] [place] [address] Gaudencio Garcia MD [address] [place] [address] documented as of this encounter Visit Diagnoses Not on filedocumented in this encounter Additional Health Concerns Infection Onset Date Last Indicated Resolved Time CoV-Exposed Comment:Pt exposed to + staff 04/17/23 04/17/2023 04/20/2023 1:24 AM EDT CoV-Risk 08/17/2024 08/17/2024 08/28/2024 1:21 AM EST documented as of this encounter Care Teams Medical Advisor Relationship Specialty Start Date End Date Daniel Nelson DO [address] [address] PCP - General Internal Medicine 10/07/20 04/22/25 Daniel Nelson DO 179 [facility] [place] [address] PCP - General Internal Medicine 04/23/25 Gaudencio Garcia MD [address] [place] [address] Historical LMR Provider 06/03/17 Erik Sam MD [address] [address] [email or web address] Historical LMR Provider 06/03/17 Marisa Madera MD 15 [facility], 2nd [place] [address] Historical LMR Provider 06/03/17 Daniel Nelson DO [address] [place] [address] [place] [address] [email or web address] Insurance Assigned Provider 11/10/17 12/30/22 documented as of this encounter Additional Source Comments The information contained in this document represents components of the legal health record. It is not the complete legal health record.[facility]
--- OUTSIDE RECORDS SUMMARY | 2025-06-09 18:53 | XMS_ITS | Encounter Summary ---
Author Organization [facility] Address [address] [place] [address] Phone Care Team Providers Care Biometry Teacher Name Role Phone Gaudencio Garcia MD Unavailable [phone] Erik Sam MD Unavailable Marisa Madera MD Unavailable [phone] BigDaniel aquino DO Primary Care Provider [phone] BigDaniel aquino DO Unavailable BigDaniel aquino A DO Primary Care Provider [phone] Encounter Details Date Type Department Care Team (Latest Contact Info) Description 04/20/2022 Ancillary Orders [address] [address] Lindy Salgado MD [address] [place] [address] Orthopedics & Sports Medicine, [place], [place] [id number] [email or web address] Osteoarthritis of right hip, unspecified osteoarthritis [...] Description 07/07/2025 2:00 PM EST Office Visit [facility] at 850 [facility] 850 [facility] [address] [place] [address] Krishna German MD [address] [place] [address] PB-B3, Division of Rheumatology, [place] [address] [email or web address] 09/16/2025 2:30 PM EST Office Visit [facility] Pulmonary, Allergy and Critical Care Medicine [address] [place] [address] Gaudencio Garcia MD [address] [place] [address] [email or web address] Pending Results Name Type Priority Associated Diagnoses [...] documented as of this encounter Care Teams Biometry Teacher Relationship Specialty Start Date End Date Daniel Nelson DO [address] [address] PCP - General Internal Medicine 10/07/20 04/22/25 Daniel Nelson DO 179 [place] [address] [email or web address] PCP - General Internal Medicine 04/23/25 Gaudencio Garcia MD [address] [place] [address] Historical LMR Provider 06/03/17 Erik Sma MD [address] [address] [email or web address] Historical LMR Provider 06/03/17 Marisa Madera MD [address] [place] [address] Historical LMR Provider 06/03/17 Daniel Nelson DO 179 [place] [address] Insurance Assigned Provider 11/10/17 12/30/22 documented as of this encounter Additional Source Comments The information contained in this document represents components of the legal health record. It is not the complete legal health record.[facility]
--- OUTSIDE RECORDS SUMMARY | 2025-06-09 18:53 | XMS_ITS | Encounter Summary ---
Author Organization [facility] Address [address] [place] [address] Phone Care Team Providers Care Commercial Decorator Name Role Phone Gaudencio Garcia MD Unavailable [phone] Erik Sam MD Unavailable [phone] Marisa Madera MD Unavailable [phone] BigDaniel aquino DO Primary Care Provider [phone] Daniel Nelson DO Unavailable BigDaniel aquino DO Primary Care Provider [phone] Encounter Details Date Type Department Care Team (Late st Contact Info) Description 05/17/2022 Procedure Pass [facility], [address] [address] Social History Tobacco Use Types Packs/Day Years [...] Description 07/07/2025 2:00 PM EST Office Visit [facility] Allergy Center at [address] [place] [address] [place] [address] Krishna German MD [address] [place] [address], Division of Rheumatology, [place] [address] [email or web address] 09/16/2025 2:30 PM EST Office Visit [facility] Pulmonary, Allergy and Critical Care Medicine [address] [place] [address] Gaudencio Garcia MD [address] [place] [address] documented as of this encounter Visit Diagnoses Not on filedocumented in this encounter Additional Health Concerns Infection Onset Date Last Indicated Resolved Time CoV-Exposed Comment:Pt exposed to + staff 04/17/23 04/17/2023 04/20/2023 1:24 AM EDT CoV-Risk 08/17/2024 08/17/2024 08/28/2024 1:21 AM EST documented as of this encounter Care Teams Commercial Decorator Relationship Specialty Start Date End Date Daniel Nelson DO [address] [address] PCP - General Internal Medicine 10/07/20 04/22/25 Daniel Nelson DO 179 [facility] [place] [address] PCP - General Internal Medicine 04/23/25 Gaudencio Garcia MD [address] [place] [address] Historical LMR Provider 06/03/17 Erik Sam MD [address] [address] [email or web address] Historical LMR Provider 06/03/17 Marisa Madera MD 15 [facility], 2nd [place] [address] Historical LMR Provider 06/03/17 Daniel Nelson DO [address] [place] [address] [place] [address] [email or web address] Insurance Assigned Provider 11/10/17 12/30/22 documented as of this encounter Additional Source Comments The information contained in this document represents components of the legal health record. It is not the complete legal health record.[facility]
--- OUTSIDE RECORDS SUMMARY | 2025-06-09 18:53 | XMS_ITS | Encounter Summary ---
Author Organization [facility] Address [address] [facility] [address] [place] [address] Phone Care Team Providers Care Camera Repairer Name Role Phone Gaudencio Garcia MD Unavailable [phone] Eirk Sam MD Unavailable [phone] Marisa Madera MD Unavailable [phone] BigDaniel aquino DO Primary Care Provider [phone] Daniel Nelson DO Unavailable BigDaniel aquino DO Primary Care Provider [phone] Encounter Details Date Type Department Care Team (Late st Contact Info) Description 10/17/2021 Procedure Pass [facility], [address] [address] Social History Tobacco Use Types Packs/Day Years [...] 2:00 PM EST Office Visit [facility] Allergy Center at [address] [place] [address] [place] [address] Krishna German MD [address] [place] [address], Division of Rheumatology, [place] [address] [email or web address] 09/16/2025 2:30 PM EST Office Visit [facility] Pulmonary, Allergy and Critical Care Medicine [address] [place] [address] Gaudencio Garcia MD [address] [place] [address] documented as of this encounter Visit Diagnoses Not on filedocumented in this encounter Additional Health Concerns Infection Onset Date Last Indicated Resolved Time CoV-Exposed Comment:Pt exposed to + staff 04/17/23 04/17/2023 04/20/2023 1:24 AM EDT CoV-Risk 08/17/2024 08/17/2024 08/28/2024 1:21 AM EST documented as of this encounter Care Teams Camera Repairer Relationship Specialty Start Date End Date Daniel Nelson DO [address] [address] PCP - General Internal Medicine 10/07/20 04/22/25 Daniel Nelson DO 179 [facility] [place] [address] PCP - General Internal Medicine 04/23/25 Gaudencio Garcia MD [address] [place] [address] Historical LMR Provider 06/03/17 Erik Sam MD [address] [address] [email or web address] Historical LMR Provider 06/03/17 Marisa Madrea MD 15 [facility], 2nd [place] [address] Historical LMR Provider 06/03/17 Daniel Nelson DO [address] [place] [address] [place] [address] [email or web address] Insurance Assigned Provider 11/10/17 12/30/22 documented as of this encounter Additional Source Comments The information contained in this document represents components of the legal health record. It is not the complete legal health record.[facility]
--- OUTSIDE RECORDS SUMMARY | 2025-06-09 18:53 | XMS_ITS | Encounter Summary ---
Author Organization [facility] Address [address] [place] [address] Phone Care Team Providers Care Corporate Receptionist Name Role Phone Gaudencio Garcia MD Unavailable [phone] Erik Sam MD Unavailable Marisa Madera MD Unavailable [phone] BigDaniel aquino DO Primary Care Provider [phone] Daniel Nelson DO Unavailable BigDaniel aquino DO Primary Care Provider [phone] Encounter Details Date Type Department Care Team (Late st Contact Info) Description 04/20/2022 Ancillary Orders [facility] Orthopedics & Sports Medicine [address] [place] [address] Lindy Salgado MD [address] [place] [address] Orthopedics & Sports Medicine, [place] [address] [email or web address] Social History Tobacco [...] 07/07/2025 2:00 PM EST Office Visit [facility] Allergy Center at [address] [place] 850 [facility] [address] [place] [address] Krishna German MD [address] [place] [address] PBB-B3, Division of Rheumatology, [place] [address] [email or web address] 09/16/2025 2:30 PM EST Office Visit [facility] Pulmonary, Allergy and Critical Care Medicine 10 [place] [address] Gaudencio Garcia MD [address] [place] [address] [email or web address] documented as of this encounter Visit Diagnoses Not on filedocumented in this encounter Additional Health Concerns Infection Onset Date Last Indicated Resolved Time CoV-Exposed Comment:Pt exposed to + staff 04/17/23 04/17/2023 04/20/2023 1:24 AM EDT CoV-Risk 08/17/2024 08/17/2024 08/28/2024 1:21 AM EST documented as of this encounter Care Teams Corporate Receptionist Relationship Specialty Start Date End Date Daniel Nelson DO [address] [address] PCP - General Internal Medicine 10/07/20 04/22/25 Daniel Nelson DO [address] [facility] [place] [address] PCP - General Internal Medicine 04/23/25 Gaudencio Garcia MD [address] [place] [address] [email or web address] Historical LMR Provider 06/03/17 Erik Sam MD 22 [facility] 301 [place] [address] [email or web address] Historical LMR Provider 06/03/17 Marisa Madera MD [address] [place] [address], 2nd [place] [address] Historical LMR Provider 06/03/17 Daniel Nelson DO [address] [place] [address] [place] [address] [email or web address] Insurance Assigned Provider 11/10/17 12/30/22 documented as of this encounter Additional Source Comments The information contained in this document represents components of the legal health record. It is not the complete legal health record.[facility]
--- OUTSIDE RECORDS SUMMARY | 2025-06-09 18:54 | XMS_ITS | Encounter Summary ---
Author Organization [facility] Address [address] [place] [address] Phone Care Team Providers Care Socket Welder Helper Name Role Phone Gaudencio Garcia MD Unavailable [phone] Erik Sam MD Unavailable Marisa Madera MD Unavailable [phone] Daniel Nelson DO Primary Care Provider [phone] Daniel Nelson DO Primary Care Provider [phone] Encounter Details Date Type Department Care Team (Late st Contact Info) Description 02/10/2025 Ancillary Orders Virtual Department 30 [place] [address] Daniel Nelson DO 179 [place] [address] [email or web address] Bilateral hip pain (Primary [...] Description 07/07/2025 2:00 PM EST Office Visit [facility] Allergy Center at 850 [facility] 850 [facility] [address] [place] [address] Krishna German MD [address] [place] [address] PBB-B3, Division of Rheumatology, [place] [address] [email or web address] 09/16/2025 2:30 PM EST Office Visit [facility] Pulmonary, Allergy and Critical Care Medicine 10 [facility] [place] [address] Gaudencio Garcia MD [address] [place] [address] 2nd [place] [address] [email or web address] documented as of this encounter Results * XR HIPS 2+ VW EA BILAT PLUS PELVIS (02/10/2025 12:34 PM EDT) Anatomical Region Laterality Modality Hip, Pelvis Computed Radiogr aphy 02/11/2025 9:02 AM EDT Impressions 02/11/2025 9:04 AM EDT FINDINGS/IMPRESSION: There is no evidence of acute fracture, subluxation, or dislocation. There is severe degenerative change of the right hip with pnik-gf-aryu joint space narrowing, marginal osteophytosis, subchondral sclerosis, [...] degenerative change of the right hip with lkzu-va-soif jointspace narrowing, marginal osteophytosis, subchondral sclerosis,subchondral cyst [...] pain documented in this encounter Care Teams Socket Welder Helper Relationship Specialty Start Date End Date Daniel Nelson DO 15 [facility], [address] [place] [address] PCP - General Internal Medicine 10/07/20 04/22/25 Daniel Nelson DO 179 [place] [address] PCP - General Internal Medicine 04/23/25 Gaudencio Garcia MD [address] [place] [address] Historical LMR Provider 06/03/17 Erik Sam MD [address] [address] [email or web address] Historical LMR Provider 06/03/17 Marisa Madera MD [address] [place] [address], [address] [place] [address] [email or web address] Historical LMR Provider 06/03/17 documented as of this encounter Additional Source Comments The information contained in this document represents components of the legal health record. It is not the complete legal health record.[facility]
--- OUTSIDE RECORDS SUMMARY | 2025-06-09 18:54 | XMS_ITS | Encounter Summary ---
Author Organization [facility] Address [address] [place] [address] Phone Care Team Providers Care Magazine Designer Name Role Phone Gaudencio Garcia MD Unavailable [phone] Erik Sam MD Unavailable [phone] Marisa Madera MD Unavailable [phone] Jaleesa Moore NP Unavailable [phone] Bigda, Daniel A DO Primary Care Provider [phone] Bigda, Daniel A DO Unavailable Bigda, Daniel A DO Primary Care Provider [phone] Encounter Details Date Type Department Care Team (Latest Contact Info) Description 12/10/2020 Transcribe Orders Virtual Department 30 [place] [address] Roberta Mao PA [address] [place] [address] [place] [address] Pelvic and perineal pain (Primary Dx) Social [...] [facility] at [address] [place] 850 [facility] [address] [place] [address] Krishna German MD [address] [place] [address] PB-B3, Division of Rheumatology, Immunology [place] [address] [email or web address] 09/16/2025 2:30 PM EST Office Visit [facility] Pulmonary, Allergy and Critical Care Medicine 10 [place] [address] Gaudencio Garcia MD [address] [place] [address] 2nd [place] [address] [email or web address] documented as of this encounter Results * [...] documented as of this encounter Care Teams Magazine Designer Relationship Specialty Start Date End Date Daniel Nelson DO [address] [place] [address] PCP - General Internal Medicine 10/07/20 04/22/25 Daniel Nelson DO [address] [place] [address] [email or web address] PCP - General Internal Medicine 04/23/25 Gaudencio Garcia MD [address] [place] [address] Historical LMR Provider 06/03/17 Erik Sam MD 22 [facility] 301 [place] [address] [email or web address] Historical LMR Provider 06/03/17 Marisa Madera MD 15 [facility], 2nd [place] [address] [email or web address] Historical LMR Provider 06/03/17 Jaleesa Moore NP [address] [place] [address] Historical LMR Provider 06/03/17 2 Daniel Nelson DO [address] [place] [address] [place] [address] [email or web address] Insurance Assigned Provider 11/10/17 12/30/22 documented as of this encounter Additional Source Comments The information contained in this document represents components of the legal health record. It is not the complete legal health record.[facility]
--- OUTSIDE RECORDS SUMMARY | 2025-06-09 18:54 | XMS_ITS | Encounter Summary ---
Author Organization [facility] Address [address] [place] [address] Phone Care Team Providers Care Vinyl Welder And Fabricator Name Role Phone Gaudencio Garcia MD Unavailable [phone] Erik Sam MD Unavailable [phone] Marisa Madera MD Unavailable [phone] Daniel Nelson DO Primary Care Provider [phone] Daniel Nelson DO Primary Care Provider [phone] Encounter Details Date Type Department Care Team (Late st Contact Info) Description 09/07/2023 Procedure Pass [facility] [address] [place] [address] Social History Tobacco Use Types Packs/Day Years [...] 07/07/2025 2:00 PM EST Office Visit [facility] Allergy Center at [address] [address] Krishna German MD [address] [place] [address]-, Division of Rheumatology, [place] [address] [email or web address] 09/16/2025 2:30 PM EST Office Visit [facility] Pulmonary, Allergy and Critical Care Medicine 10 [place] [address] Gaudencio Garcia MD [address] [place] [address] [email or web address] documented as of this encounter Visit Diagnoses Not on filedocumented in this encounter Additional Health Concerns Infection Onset Date Last Indicated Resolved Time CoV-Risk 08/17/2024 08/17/2024 08/28/2024 1:21 AM EST documented as of this encounter Care Teams Vinyl Welder And Fabricator Relationship Specialty Start Date End Date Daniel Nelson DO [address] [address] PCP - General Internal Medicine 10/07/20 04/22/25 Daniel Nelson DO [address] [place] [address] [place] [address] [email or web address] PCP - General Internal Medicine 04/23/25 Gaudencio Garcia MD [address] [place] [address] [email or web address] Historical LMR Provider 06/03/17 Erik Sam MD [address] [place] [address] [email or web address] Historical LMR Provider 06/03/17 Marisa Madera MD [address] [place] [address] [email or web address] Historical LMR Provider 06/03/17 documented as of this encounter Additional Source Comments The information contained in this document represents components of the legal health record. It is not the complete legal health record.[facility]
--- OUTSIDE RECORDS SUMMARY | 2025-06-09 18:54 | XMS_ITS | Encounter Summary ---
Author Organization [facility] Address [address] [facility] [address] [place] [address] Phone Care Team Providers Care Web Operations Administrator Name Role Phone Gaudencio Garcia MD Unavailable [phone] Erik Sam MD Unavailable [phone] Marisa Madera MD Unavailable [phone] Jaleesa Moore NP Unavailable [phone] Daniel Nelson DO Primary Care Provider [phone] Daniel Nelson DO Unavailable Daniel Nelson DO Primary Care Provider [phone] Reason for Referral * Outpatient Procedure - Closed Specialty Diagnoses / Procedures Referred By Abi griffin Referred To Contact Diagnoses Cardiomegaly Left ventricular hypertrophy Procedures Adult Echo TTE Daniel Nelson DO Phone: tel: fax: [email or web address] Referral ID Status Reason Start Date Expiration Date Visits Re quested Visits Authorized [id number] Closed 12/27/2020 12/27/2021 1 1 Encounter Details Date Type Department Care Team (Late st Contact Info) Description 12/08/2020 Transcribe Orders Virtual Department 30 [place], [place] [id number] Daniel Nelson DO [address] [facility] [place] [address] [email or web address] Cardiomegaly (Primary Dx); Left ventricular hypertrophy Social [...] Description 07/07/2025 2:00 PM EST Office Visit [facility] Allergy Center at [address] [facility] [address] [place] [address] Krishna German MD [address] [place] [address]-, Division of Rheumatology, [place] [address] [email or web address] 09/16/2025 2:30 PM EST Office Visit [facility] Pulmonary, Allergy and Critical Care Medicine 10 [place] [address] Gaudencio Garcia MD [address] [place] [address] [email or web address] documented [...] documented as of this encounter Care Teams Web Operations Administrator Relationship Specialty Start Date End Date Daniel Nelson DO [address] [place] [address] PCP - General Internal Medicine 10/07/20 04/22/25 Daneil Nelson DO [address] [place] [address] PCP - General Internal Medicine 04/23/25 Gaudencio Garcia MD [address] [place] [address] [email or web address] Historical LMR Provider 06/03/17 Erik Sam MD [address] [place] [address] Historical LMR Provider 06/03/17 Marisa Madera MD [address] [place] [address] Historical LMR Provider 06/03/17 Jaleesa Moore NP [address] [place] [address] Historical LMR Provider 06/03/17 2 Daniel Nelson DO [address] [place] [address] Insurance Assigned Provider 11/10/17 12/30/22 documented as of this encounter Additional Source Comments The information contained in this document represents components of the legal health record. It is not the complete legal health record.[facility]
--- OUTSIDE RECORDS SUMMARY | 2025-06-09 18:54 | XMS_ITS | Encounter Summary ---
Author Organization [facility] Address [address] [place] [address] Phone Care Team Providers Care Mechanical Project Engineer Name Role Phone Gaudencio Garcia MD Unavailable [phone] Erik Sam MD Unavailable [phone] Marisa Madera MD Unavailable [phone] Jaleesa Moore NP Unavailable [phone] Daniel Nelson DO Primary Care Provider [phone] Daniel Nelson DO Unavailable Daniel Nelson DO Primary Care Provider [phone] Encounter Details Date Type Department Care Team (Late st Contact Info) Description 10/07/2020 Ancillary Orders Virtual Department 30 [place] [address] Daniel Nelson DO [address] [facility] [place] [address] [email or web address] Lump of breast, right Social History Tobacco [...] [facility] Allergy Center at [address] [facility] [address] [place] [address] Krishna German MD [address] [id number], Division of Rheumatology, [place] [address] [email or web address] 09/16/2025 2:30 PM EST Office Visit [facility] Pulmonary, Allergy and Critical Care Medicine 10 [place] [address] Gaudencio Garcia MD [address] [place] [address] 2nd [place] [address] [email or web address] documented as of this encounter Results * [...] abnormalities are seen. us Daniel Nelson DO [facility] US BREAST Final Result documented in this encounter Visit Diagnoses Diagnosis Lump of breast, right Lump of breast, right documented in this encounter Additional Health Concerns Infection Onset Date Last Indicated Resolved Time CoV-Exposed Comment:Pt exposed to + staff 04/17/23 04/17/2023 04/20/2023 1:24 AM EDT CoV-Risk 08/17/2024 08/17/2024 08/28/2024 1:21 AM EST documented as of this encounter Care Teams Mechanical Project Engineer Relationship Specialty Start Date End Date Daniel Nelson DO [address] [place] [address] PCP - General Internal Medicine 10/07/20 04/22/25 Daniel Nelson DO [address] [place] [address] PCP - General Internal Medicine 04/23/25 Gaudencio Garcia MD [address] [place] [address] [email or web address] Historical LMR Provider 06/03/17 Erik Sam MD [address] [address] [email or web address] Historical LMR Provider 06/03/17 Marisa Madera MD [address] [place] [address] [email or web address] Historical LMR Provider 06/03/17 Jaleesa Moore NP [address] [place] [address] Historical LMR Provider 06/03/17 2 Daniel Nelson DO [address] [place] [address] [email or web address] Insurance Assigned Provider 11/10/17 12/30/22 documented as of this encounter Additional Source Comments The information contained in this document represents components of the legal health record. It is not the complete legal health record.[facility]
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
--- OUTSIDE RECORDS SUMMARY | 2025-06-09 18:54 | XMS_ITS | Encounter Summary ---
Author Organization [facility] Address [address] [facility] [address] [place] [address] Phone Care Team Providers Care Pencil Inspector Name Role Phone Gaudencio Garcia MD Unavailable [phone] Erik Sam MD Unavailable [phone] Marisa Madera MD Unavailable [phone] Daniel Nelson DO Primary Care Provider [phone] Daniel Nelson DO Primary Care Provider [phone] Reason for Referral * Outpatient Procedure - Closed Specialty Diagnoses / Procedures Referred By Abi griffin Referred To Contact Radiology Diagnoses Pulmonary hypertension, unspecified Procedures Adult Echo TTE aDniel Nelson DO 15 [facility], 2nd [place] [address] Phone: tel: fax: [email or web address] Referral ID Status Reason Start Date Expiration Date Visits Re quested Visits Authorized [id number] Closed 10/15/2023 10/14/2024 1 1 Encounter Details Date Type Department Care Team (Late st Contact Info) Description 09/07/2023 Transcribe Orders Virtual Department 30 [place] [address] Daniel Nelson DO 179 [place] [address] Pulmonary hypertension, unspecified (Primary Dx) Social History [...] [facility] Allergy Center at [address] [address] Krishna German MD [address] [place] [address]-, Division of Rheumatology, [place] [address] [email or web address] 09/16/2025 2:30 PM EST Office Visit [facility] Pulmonary, Allergy and Critical Care Medicine [address] [place] [address] Gaudencio Garcia MD 10 [facility] 2nd [place] [address] [email or web address] documented as of this encounter Results * [...] documented as of this encounter Care Teams Pencil Inspector Relationship Specialty Start Date End Date Daniel Nelson DO [address] [place] [address] [email or web address] PCP - General Internal Medicine 10/07/20 04/22/25 Daniel Nelson DO [address] [place] [address] [email or web address] PCP - General Internal Medicine 04/23/25 Gaudencio Garcia MD [address] [place] [address] [email or web address] Historical LMR Provider 06/03/17 Erik Sam MD [address] [place] [address] [email or web address] Historical LMR Provider 06/03/17 Marisa Madera MD [address] [place] [address] [email or web address] Historical LMR Provider 06/03/17 documented as of this encounter Additional Source Comments The information contained in this document represents components of the legal health record. It is not the complete legal health record.[facility]
--- OUTSIDE RECORDS SUMMARY | 2025-06-09 18:54 | XMS_ITS | Encounter Summary ---
Author Organization [facility] Address [address] [employer] [facility] [address] [place] [address] Phone Care Team Providers Care School Child Care Attendant Name Role Phone Gaudencio Garcia MD Unavailable [phone] Erik Sam MD Unavailable [phone] Marisa Madera MD Unavailable [phone] Jaleesa Moore NP Unavailable [phone] Bigda, Daniel A DO Primary Care Provider [phone] Bigda, Daniel A DO Unavailable Bigda, Daniel A DO Primary Care Provider [phone] Encounter Details Date Type Department Care Team (Late st Contact Info) Description 06/21/2021 Procedure Pass [facility], [address] [address] Social History Tobacco Use Types Packs/Day Years [...] Office Visit [facility] at 850 [facility] 850 [facility] [address] [place] [address] Krishna German MD [address] [place] [address]-, Division of Rheumatology, [place] [address] [email or web address] 09/16/2025 2:30 PM EST Office Visit [facility] Pulmonary, Allergy and Critical Care Medicine 10 [place] [address] Gaudencio Garcia MD [address] [place] [address] documented as of this encounter Visit Diagnoses Not on filedocumented in this encounter Additional Health Concerns Infection Onset Date Last Indicated Resolved Time CoV-Exposed Comment:Pt exposed to + staff 04/17/23 04/17/2023 04/20/2023 1:24 AM EDT CoV-Risk 08/17/2024 08/17/2024 08/28/2024 1:21 AM EST documented as of this encounter Care Teams School Child Care Attendant Relationship Specialty Start Date End Date Daniel Nelson DO [address] [place] [address] PCP - General Internal Medicine 10/07/20 04/22/25 Daniel Nelson DO [address] [place] [address] [place] [address] PCP - General Internal Medicine 04/23/25 Gaudencio Garcia MD [address] [place] [address] Historical LMR Provider 06/03/17 Erik Sam MD 22 [facility], [address] [place] [address] [email or web address] Historical LMR Provider 06/03/17 Marisa Madera MD 15 [facility], 2nd [place] [address] Historical LMR Provider 06/03/17 Jaleesa Moore NP [address] [place] [address] Historical LMR Provider 06/03/17 2 Daniel Nelson DO [address] [place] [address] [place] [address] [email or web address] Insurance Assigned Provider 11/10/17 12/30/22 documented as of this encounter Additional Source Comments The information contained in this document represents components of the legal health record. It is not the complete legal health record.[facility]
--- OUTSIDE RECORDS SUMMARY | 2025-06-09 18:54 | XMS_ITS | Encounter Summary ---
Author Organization [facility] Address [address] [place] [address] Phone Care Team Providers Care Hr Consultant Name Role Phone Gaudencio Garcia MD Unavailable [phone] Erik Sam MD Unavailable [phone] Marisa Madera MD Unavailable [phone] Daniel Nelson DO Primary Care Provider [phone] Daniel Nelson DO Primary Care Provider [phone] Encounter Details Date Type Department Care Team (Late st Contact Info) Description 02/10/2025 Transcribe Orders Virtual Department [address] [place] [address] Daniel Nelson DO [address] [facility] [place] [address] [email or web address] Bilateral hip pain (Primary Dx); Other chest [...] [facility] All[facility] Center at 850 [facility] 850 [facility] [address] [place] [address] Krishna German MD [address] [place] [address] PBB-B3, Division of Rheumatology, [place] [address] [email or web address] 09/16/2025 2:30 PM EST Office Visit [facility] Pulmonary, Allergy and Critical Care Medicine 10 [facility] [place] [address] Gaudencio Garcia MD [address] [place] [address] 2nd [place] [address] [email or web address] documented as of this encounter Results * XR RIBS 2 VIEWS (LEFT) (02/10/2025 12:33 PM EDT) Anatomical Region Laterality Modality Chest Computed Radiogr aphy 02/11/2025 8:58 AM EDT Impressions 02/11/2025 9:01 AM EDT FINDINGS/IMPRESSION: No acute displaced rib fracture is identified. Narrative 02/11/2025 9:01 AM EDT XR RIBS 2 VIEWS (LEFT) Referring clinician's provided indication for this examination in [facility]: Outside Radiology Order; chest pain COMPARISON: Chest radiographs performed concurrently 02/10/2025 Procedure Note Annemarie Jordan MD - 02/11/2025 XR RIBS 2 VIEWS (LEFT) Referring clinician's provided indication for this examination in [facility]:Outside Radiology Order; chest pain COMPARISON: Chest radiographs [...] clinician's provided indication for this examination in [facility]: Other Indication (Please use free text); chest [...] clinician's provided indication for this examination in [facility]:Other Indication (Please use free text); chest pain [...] pain documented in this encounter Care Teams Hr Consultant Relationship Specialty Start Date End Date Daniel Nelson DO [address] [place] [address], [facility] [place] [address] [email or web address] PCP - General Internal Medicine 10/07/20 04/22/25 Daniel Nelson DO [address] [place] [address] [place] [address] [email or web address] PCP - General Internal Medicine 04/23/25 Gaudencio Garcia MD [address] [place] [address] [email or web address] Historical LMR Provider 06/03/17 Erik Sam MD [address] [address] [email or web address] Historical LMR Provider 06/03/17 Marisa Madera MD [address] [address] [email or web address] Historical LMR Provider 06/03/17 documented as of this encounter Additional Source Comments The information contained in this document represents components of the legal health record. It is not the complete legal health record.[facility]
--- OUTSIDE RECORDS SUMMARY | 2025-06-09 18:54 | XMS_ITS | Encounter Summary ---
Author Organization [facility] Address [address] [employer] [facility] [address] [place] [address] Phone Care Team Providers Care Vice President Biostatistics Name Role Phone Gaudencio Garcia MD Unavailable [phone] Erik Sam MD Unavailable [phone] Marisa Madera MD Unavailable [phone] BigDaniel aquino DO Primary Care Provider [phone] Daniel Nelson DO Unavailable BigDaniel aquino DO Primary Care Provider [phone] Encounter Details Date Type Department Care Team (Late st Contact Info) Description 07/05/2022 Procedure Pass [facility], [address] [address] Social History Tobacco Use Types Packs/Day Years [...] 2:00 PM EST Office Visit [facility] Allergy Center at [address] [place] [address] [place] [address] Krishna German MD [address] [place] [address], Division of Rheumatology, [place] [address] [email or web address] 09/16/2025 2:30 PM EST Office Visit [facility] Pulmonary, Allergy and Critical Care Medicine [address] [place] [address] Gaudencio Garcia MD [address] [place] [address] documented as of this encounter Visit Diagnoses Not on filedocumented in this encounter Additional Health Concerns Infection Onset Date Last Indicated Resolved Time CoV-Exposed Comment:Pt exposed to + staff 04/17/23 04/17/2023 04/20/2023 1:24 AM EDT CoV-Risk 08/17/2024 08/17/2024 08/28/2024 1:21 AM EST documented as of this encounter Care Teams Vice President Biostatistics Relationship Specialty Start Date End Date Daniel Nelson DO [address] [address] PCP - General Internal Medicine 10/07/20 04/22/25 Daniel Nelson DO 179 [facility] [place] [address] PCP - General Internal Medicine 04/23/25 Gaudencio Garcia MD [address] [place] [address] Historical LMR Provider 06/03/17 Erik Sam MD [address] [address] [email or web address] Historical LMR Provider 06/03/17 Marisa Madera MD 15 [facility], 2nd [place] [address] Historical LMR Provider 06/03/17 Daniel Nelson DO [address] [place] [address] [place] [address] [email or web address] Insurance Assigned Provider 11/10/17 12/30/22 documented as of this encounter Additional Source Comments The information contained in this document represents components of the legal health record. It is not the complete legal health record.[facility]
--- OUTSIDE RECORDS SUMMARY | 2025-06-09 18:54 | XMS_ITS | Encounter Summary ---
Author Organization [facility] Address [address] [place] [address] Phone Care Team Providers Care Hospice Executive Director Name Role Phone Gaudencio Garcia MD Unavailable [phone] Erik Sam MD Unavailable [phone] Marisa Madera MD Unavailable [phone] Daniel Nelson DO Primary Care Provider [phone] Daniel Nelson DO Primary Care Provider [phone] Encounter Details Date Type Department Care Team (Latest Contact Info) Description 06/26/2023 Transcribe Orders Virtual Department 30 [place] [address] Roberta Mao PA 6 [facility] [place] [address] Disorder of kidney and ureter, unspecified (Primary [...] 07/07/2025 2:00 PM EST Office Visit [facility] Allergy Center at 850 [place] 850 [facility] [address] [place] [address] Krishna German MD [address] [place] [address], Division of Rheumatology, [place] [address] [email or web address] 09/16/2025 2:30 PM EST Office Visit [facility] Pulmonary, Allergy and Critical Care Medicine [address] [place] [address] Gaudencio Garcia MD [address] [place] [address] 2nd [place] [address] documented as of this encounter Results * [...] clinician's provided indication for this examination in [facility]:Outside Radiology Order; KIDNEY LESION TECHNIQUE: Kidney [...] No hydronephrosis or shadowing nephrolithiasis. Roberta PACK [facility] US RENAL Final Resul t documented in this encounter Visit Diagnoses Diagnosis Disorder of kidney and ureter, unspecified- Primary Disorder of kidney and ureter, unspecified documented in this encounter Additional Health Concerns Infection Onset Date Last Indicated Resolved Time CoV-Risk 08/17/2024 08/17/2024 08/28/2024 1:21 AM EST documented as of this encounter Care Teams Hospice Executive Director Relationship Specialty Start Date End Date Daniel Nelson DO [address] [place] [address], [address] [place] [address] PCP - General Internal Medicine 10/07/20 04/22/25 Daniel Nelson DO [address] [place] [address] [place] [address] PCP - General Internal Medicine 04/23/25 Gaudencio Garcia MD [address] [place] [address] Historical LMR Provider 06/03/17 Erik Sam MD [address] [place] [address] Historical LMR Provider 06/03/17 Marisa Madera MD [address] [place] [address] Historical LMR Provider 06/03/17 documented as of this encounter Additional Source Comments The information contained in this document represents components of the legal health record. It is not the complete legal health record.[facility]
--- OUTSIDE RECORDS SUMMARY | 2025-06-09 18:54 | XMS_ITS | Encounter Summary ---
Author Organization [facility] Address [address] [employer] [facility] [address] [place] [address] Phone Care Team Providers Care Ice Guard Tester Name Role Phone Daniel Nelson DO Primary Care Provider [phone] Gaudencio Garcia MD Unavailable [phone] Erik Sam MD Unavailable [phone] Marisa Madera MD Unavailable [phone] Jaleesa Moore NP Unavailable [phone] Bigda, Daniel A DO Primary Care Provider [phone] Bigda, Daniel Bentley DO Unavailable Bigda, Daniel Bentley DO Primary Care Provider [phone] Encounter Details Date Type Department Care Team (Late Contact Info) Description 10/06/2020 Procedure Pass [facility], [address] [address] Social History Tobacco Use Types Packs/Day Years [...] Description 07/07/2025 2:00 PM EST Office Visit [facility] Allergy Center at [address] [place] 850 [facility] [address] [place] [address] Krishna German MD [address] [place], [place] [address], Division of Rheumatology, [place] [address] [email or web address] 09/16/2025 2:30 PM EST Office Visit [facility] Pulmonary, Allergy and Critical Care Medicine 10 [facility] [place] [address] Gaudencio Garcia MD [address] [place] [address] [place] [address] [email or web address] documented as of this encounter Visit Diagnoses Not on filedocumented in this encounter Additional Health Concerns Infection Onset Date Last Indicated Resolved Time CoV-Exposed Comment:Pt exposed to + staff 04/17/23 04/17/2023 04/20/2023 1:24 AM EDT CoV-Risk 08/17/2024 08/17/2024 08/28/2024 1:21 AM EST documented as of this encounter Care Teams Ice Guard Tester Relationship Specialty Start Date End Date Daniel Nelson DO PCP - General 05/29/17 10/06/20 Daniel Nelson DO PCP - General Internal Medicine 10/07/20 04/22/25 Daniel Nelson DO [address] [place] [address] [place] [address] PCP - General Internal Medicine 04/23/25 Gaudencio Garcia MD [address] [place] [address] [email or web address] Historical LMR Provider 06/03/17 Erik Sam MD [address] [place] [address] [email or web address] Historical LMR Provider 06/03/17 Marisa Madera MD [address] [place] [address] [email or web address] Historical LMR Provider 06/03/17 Jaleesa Moore NP [address] [place] [address] Historical LMR Provider 06/03/17 2 Daniel Nelson DO [address] [place] [address] [email or web address] Insurance Assigned Provider 11/10/17 12/30/22 documented as of this encounter Additional Source Comments The information contained in this document represents components of the legal health record. It is not the complete legal health record.[facility]
--- OUTSIDE RECORDS SUMMARY | 2025-06-09 18:54 | XMS_ITS | Encounter Summary ---
Author Organization [facility] Address [address] [facility] ([place], [place]) [address] [place] [address] Phone Care Team Providers Care Pediatric Pathologist Name Role Phone Gaudencio Garcia MD Unavailable [phone] Erik Sam MD Unavailable [phone] Marisa Madera MD Unavailable [phone] Jaleesa Moore NP Unavailable [phone] Daniel Nelson DO Primary Care Provider [phone] Daniel Nelson DO Unavailable Daniel Nelson DO Primary Care Provider [phone] Encounter Details Date Type Department Care Team (Late st Contact Info) Description 06/17/2021 Transcribe Orders Virtual Department 30 [place] [address] Daniel Nelson DO 179 [facility] [place] [address] [email or web address] Right shoulder pain, unspecified chronicity (Primary Dx) [...] PM EST Office Visit [facility] Allergy Center at [address] [place] 850 [facility] [address] [place] [address] Krishna German MD [address] [place] [address]-, Division of Rheumatology, [place] [address] [email or web address] 09/16/2025 2:30 PM EST Office Visit [facility] Pulmonary, Allergy and Critical Care Medicine [address] [place] [address] Gaudencio Garcia MD [address] [place] [address] 2nd [place] [address] [email or web address] documented as of this encounter Results * [...] documented as of this encounter Care Teams Pediatric Pathologist Relationship Specialty Start Date End Date Daniel Nelson DO [address] [place] [address] PCP - General Internal Medicine 10/07/20 04/22/25 Daniel Nelson DO [address] [place] [address] PCP - General Internal Medicine 04/23/25 Gaudencio Garcia MD [address] [place] [address] Historical LMR Provider 06/03/17 Erik Sam MD [address] [address] Historical LMR Provider 06/03/17 Marisa Madera MD [address] [address] [email or web address] Historical LMR Provider 06/03/17 Jaleesa Moore NP [address] [place] [address] Historical LMR Provider 06/03/17 2 Daniel Nelson DO [address] [place] [address] [email or web address] Insurance Assigned Provider 11/10/17 12/30/22 documented as of this encounter Additional Source Comments The information contained in this document represents components of the legal health record. It is not the complete legal health record.[facility]
--- OUTSIDE RECORDS SUMMARY | 2025-06-09 18:54 | XMS_ITS | Encounter Summary ---
Author Organization [facility] Address [address] [place] [address] Phone Care Team Providers Care Paid Search Specialist Name Role Phone Gaudencio Garcia MD Unavailable [phone] Erik Sam MD Unavailable [phone] Marisa Madera MD Unavailable [phone] BigDaniel aquino DO Primary Care Provider [phone] Daniel Nelson DO Unavailable Daniel Nelson DO Primary Care Provider [phone] Encounter Details Date Type Department Care Team (Late st Contact Info) Description 12/08/2022 Procedure Pass [facility] Endoscopy Admitting Dept Virtual Department [address] [place] [address] Social History Tobacco Use Types Packs/Day Years [...] Description 07/07/2025 2:00 PM EST Office Visit [facility] Allergy Center at [address] [place] 850 [facility] 540 [place] [address] Krishna German MD [address] [place] [address], Division of Rheumatology, Immunology [place] [address] [email or web address] 09/16/2025 2:30 PM EST Office Visit [facility] Pulmonary, Allergy and Critical Care Medicine [address] [place] [address] Gaudencio Garcia MD [address] [place] [address] [email or web address] documented as of this encounter Visit Diagnoses Not on filedocumented in this encounter Additional Health Concerns Infection Onset Date Last Indicated Resolved Time CoV-Exposed Comment:Pt exposed to + staff 04/17/23 04/17/2023 04/20/2023 1:24 AM EDT CoV-Risk 08/17/2024 08/17/2024 08/28/2024 1:21 AM EST documented as of this encounter Care Teams Paid Search Specialist Relationship Specialty Start Date End Date Daniel Nelson DO [address] [address] PCP - General Internal Medicine 10/07/20 04/22/25 Daniel Nelson DO [address] [place] [address] PCP - General Internal Medicine 04/23/25 Gaudencio Garcia MD [address] [place] [address] Historical LMR Provider 06/03/17 Erik Sam MD [address] [place] [address] [email or web address] Historical LMR Provider 06/03/17 Marisa Madera MD [address] [place] [address] Historical LMR Provider 06/03/17 Daniel Nelson DO 179 [place] [address] Insurance Assigned Provider 11/10/17 12/30/22 documented as of this encounter Additional Source Comments The information contained in this document represents components of the legal health record. It is not the complete legal health record.[facility]
--- OUTSIDE RECORDS SUMMARY | 2025-06-09 18:54 | XMS_ITS | Encounter Summary ---
Author Organization [facility] Address [address] [place] [address] Phone Care Team Providers Care It Applications Analyst Name Role Phone Gaudencio Garcia MD Unavailable [phone] Erik Sam MD Unavailable [phone] Marisa Madera MD Unavailable [phone] Daniel Nelson DO Primary Care Provider [phone] Daniel Nelson DO Primary Care Provider [phone] Encounter Details Date Type Department Care Team (Late st Contact Info) Description 06/20/2023 Procedure Pass [facility], Ct Scan - [address] [address] Social History Tobacco Use Types Packs/Day Years [...] Description 07/07/2025 2:00 PM EST Office Visit [facility] Allergy Center at [address] [address] Krishna German MD [address] [place] [address]-, Division of Rheumatology, [place] [address] [email or web address] 09/16/2025 2:30 PM EST Office [place] [facility] [place], Allergy and Critical Care Medicine [address] [place] [address] Gaudencio Garcia MD [address] [place] [address] [email or web address] documented as of this encounter Visit Diagnoses Not on filedocumented in this encounter Additional Health Concerns Infection Onset Date Last Indicated Resolved Time CoV-Risk 08/17/2024 08/17/2024 08/28/2024 1:21 AM EST documented as of this encounter Care Teams It Applications Analyst Relationship Specialty Start Date End Date Daniel Nelson DO [address] [address] PCP - General Internal Medicine 10/07/20 04/22/25 Daniel Nelson DO [address] [place] [address] [place] [address] PCP - General Internal Medicine 04/23/25 Gaudencio Garcia MD [address] [place] [address] [email or web address] Historical LMR Provider 06/03/17 Erik Sam MD [address] [place] [address] Historical LMR Provider 06/03/17 Marisa Madera MD [address] [place] [address] [email or web address] Historical LMR Provider 06/03/17 documented as of this encounter Additional Source Comments The information contained in this document represents components of the legal health record. It is not the complete legal health record.[facility]
--- OUTSIDE RECORDS SUMMARY | 2025-06-09 18:54 | XMS_ITS | Encounter Summary ---
Author Organization [facility] Address [address] [facility] [address] [place] [address] Phone Care Team Providers Care Senior Quality Assurance Engineer Name Role Phone Daniel Nelson DO Primary Care Provider [phone] Gaudencio Garcia MD Unavailable Erik Sam MD Unavailable [phone] Marisa Madera MD Unavailable [phone] Jaleesa Moore NP Unavailable [phone] Omar, Daniel Bentley DO Primary Care Provider [phone] Daniel Nelson DO Unavailable Daniel Nelson DO Primary Care Provider [phone] Encounter Details Date Type Department Care Team (Late st Contact Info) Description 10/06/2020 Ancillary Orders Virtual Department 30 [place] [address] Daniel Nelson DO 179 [facility] [place] [address] [email or web address] Lump of breast, right Social History Tobacco [...] Description 07/07/2025 2:00 PM EST Office Visit [facility] Allergy Center at 850 [facility] 850 [facility] [address] [place] [address] Krishna German MD [address] [place] [address], Division of Rheumatology, [place] [address] [email or web address] 09/16/2025 2:30 PM EST Office Visit [facility] Pulmonary, Allergy and Critical Care Medicine [address] [facility] [place] [place] [address] Gaudencio Garcia MD 10 [facility] 2nd [place] [address] [email or web address] documented as of this encounter Results * [...] as of this encounter Care Teams Senior Quality Assurance Engineer Relationship Specialty Start Date End Date Daniel Nelson DO PCP - General 05/29/17 10/06/20 Daniel Nelson DO PCP - General Internal Medicine 10/07/20 04/22/25 Daniel Nelson DO 179 [place] [address] [email or web address] PCP - General Internal Medicine 04/23/25 Gaudencio Garcia MD [address] [place] [address] [email or web address] Historical LMR Provider 06/03/17 Erik Sam MD [address] [place] [address] [email or web address] Historical LMR Provider 06/03/17 Marisa Madera MD [address] [place] [address] [email or web address] Historical LMR Provider 06/03/17 Jaleesa Moore NP [address] [place] [address] Historical LMR Provider 06/03/17 2 Daniel Nelson DO [address] [place] [address] [email or web address] Insurance Assigned Provider 11/10/17 12/30/22 documented as of this encounter Additional Source Comments The information contained in this document represents components of the legal health record. It is not the complete legal health record.[facility]
--- OUTSIDE RECORDS SUMMARY | 2025-06-09 18:54 | XMS_ITS | Encounter Summary ---
Author Organization [facility] Address [address] [facility] [address] [place] [address] Phone Care Team Providers Care It Network Administrator Name Role Phone Daniel Nelson DO Primary Care Provider [phone] Kavin Garcia MD Unavailable [phone] Erik Sam MD Unavailable [phone] Marisa Madera MD Unavailable [phone] Jaleesa Moore NP Unavailable [phone] Omar, Daniel Bentley DO Primary Care Provider [phone] Daniel Nelson DO Unavailable Omar, Daniel Bentley DO Primary Care Provider [phone] Encounter Details Date Type Department Care Team (Late st Contact Info) Description 05/07/2019 Transcribe Orders Virtual Department 30 [place] [address] Daniel Nelson DO 179 [facility] [place] [address] [email or web address] Pain in left hip (Primary Dx); Right [...] Description 07/07/2025 2:00 PM EST Office Visit [facility] Allergy Center at [address] [place] 850 [facility] [address] [place] [address] Krishna German MD [address] [place] [address] [place], Division of Rheumatology, [place] [address] [email or web address] 09/16/2025 2:30 PM EST Office Visit [facility] Pulmonary, Allergy and Critical Care Medicine [address] [place] [address] Kavin Garcia MD [address] [place] [address] [email or web address] [...] as of this encounter Care Teams It Network Administrator Relationship Specialty Start Date End Date Omar Daniel BentleyDO PCP - General 05/29/17 10/06/20 Daniel Nelson McDO PCP - General Internal Medicine 10/07/20 04/22/25 Daniel Nelson DO [address] [place] [address] PCP - General Internal Medicine 04/23/25 Kavin Garcia MD [address] [place] [address] Historical LMR Provider 06/03/17 Erik Sma MD [address] [address] Historical LMR Provider 06/03/17 Marisa Madera MD [address] [address] Historical LMR Provider 06/03/17 Jaleesa Moore NP [address] [place] [address] Historical LMR Provider 06/03/17 2 Daniel Nelson DO 179 [place] [address] [email or web address] Insurance Assigned Provider 11/10/17 12/30/22 documented as of this encounter Additional Source Comments The information contained in this document represents components of the legal health record. It is not the complete legal health record.[facility]
--- OUTSIDE RECORDS SUMMARY | 2025-06-09 18:54 | XMS_ITS | Encounter Summary ---
Author Organization [facility] Address [address] [facility] [address] [place] [address] Phone Care Team Providers Care Fourth Officer Name Role Phone Gaudencio Garcia MD Unavailable [phone] Erik Sam MD Unavailable [phone] Marisa Madera MD Unavailable [phone] Jaleesa Moore NP Unavailable [phone] Bigda, Daniel A DO Primary Care Provider [phone] Bigda, Daniel A DO Unavailable Bigda, Daniel A DO Primary Care Provider [phone] Encounter Details Date Type Department Care Team (Late st Contact Info) Description 10/07/2020 Procedure Pass [facility], [address] [address] Social History Tobacco Use Types Packs/Day Years [...] Office Visit [facility] at 850 [facility] 850 [facility] [address] [place] [address] Krishna German MD [address] [place] [address]-, Division of Rheumatology, Immunology [place] [address] [email or web address] 09/16/2025 2:30 PM EST Office Visit [facility] Pulmonary, Allergy and Critical Care Medicine 10 [place] [address] Gaudencio Garcia MD [address] [place] [address] documented as of this encounter Visit Diagnoses Not on filedocumented in this encounter Additional Health Concerns Infection Onset Date Last Indicated Resolved Time CoV-Exposed Comment:Pt exposed to + staff 04/17/23 04/17/2023 04/20/2023 1:24 AM EDT CoV-Risk 08/17/2024 08/17/2024 08/28/2024 1:21 AM EST documented as of this encounter Care Teams Fourth Officer Relationship Specialty Start Date End Date Daniel Nelson DO [address] [place] [address] PCP - General Internal Medicine 10/07/20 04/22/25 Daniel Nelson DO [address] [place] [address] [place] [address] PCP - General Internal Medicine 04/23/25 Gaudencio Garcia MD [address] [place] [address] Historical LMR Provider 06/03/17 Erik Sam MD 22 [facility], [address] [place] [address] [email or web address] Historical LMR Provider 06/03/17 Marisa Madera MD 15 [facility], 2nd [place] [address] Historical LMR Provider 06/03/17 Jaleesa Moore NP [address] [place] [address] Historical LMR Provider 06/03/17 2 Daniel Nelson DO [address] [place] [address] [place] [address] [email or web address] Insurance Assigned Provider 11/10/17 12/30/22 documented as of this encounter Additional Source Comments The information contained in this document represents components of the legal health record. It is not the complete legal health record.[facility]
[2025-06-09 19:59] LABS: Appearance Urine Clear; Glucose Urine UA Negative (Negative); PH 6.5 (5.0-9.0); Specific Gravity - Urine <= 1.005 (1.005-1.025)
== END 2025-06-09 14:30 | disposition home or self-care (01) ==
LOC: HO.MANLDS 14:29
PROVIDERS: Visit Provider Physician Assistant
DX: R30.0 Dysuria (principal)
CPT/HCPCS: 81003